=== PATIENT | female | born 2000 | race Two or more races ===

== ENCOUNTER 2025-04-10 16:56 | Inpatient (IN) | payer OTHER, SELFPAY ==
[2025-04-10] VITALS (51 sets, daily range): BP systolic 81–145; BP diastolic 40–94; PULSE 73–112; TEMP 36.5–36.7; O2SAT 97–100; BMI 34.7
--- OUTSIDE RECORDS SUMMARY | 2025-04-10 17:01 | XMS_ITS | Continuity of Care Document ---
Author Organization [facility] [place], [place] Address [address] [place] [address] Assessment Encounter Date Assessment Date Assessment LastModified by Organization Details LastModified Time 04/08/2025 04/08/2025 Patient is ___weeks . Discussed plan. [email or web address] Not available 04/08/2025 14:47:52 Plan of Treatment Reminders Order Date Submit Date Provider Last Modified By Organization Details Last Modified Time Details Appointments None record ed. Lab None record ed. Referral None record ed. Procedures None record ed. Surgeries None record ed. Imaging None record ed. Medication Orders None record ed. Patient TargetsNo targets recorded. Patient InstructionsNo instructions recorded. Reason for Referral None Reported. Results Created Date Observation Date Name Description Value Unit Range Abnormal Flag Note LastModifiedBy Organization Detail LastModifiedTime 11/02/19 25 11/01/2024 [UNIT Y] ANEUP LOIDY NIPT fraction 22.1% normal Not Available Arelis [address], [place], [address], 11/01/2024 03:35:20 11/02/19 25 11/01/2024 [UNIT Y] ANEUP LOIDY NIPT 22Q11.2 microdeletio n LOW RISK <1 in 10,000 normal Not Available Lizzeth [address], [place], [address], 11/01/2024 03:35:20 11/02/19 25 11/01/2024 [UNIT Y] ANEUP LOIDY NIPT sex chromosome aneuploidy NOT DETECT ED normal Not Available [address] [address], [place], [address], 11/01/2024 03:35:20 11/02/19 25 11/01/2024 [UNIT Y] ANEUP LOIDY NIPT monosomy X LOW RISK <1 in 10,000 normal Not Available [address] [address], [place], [address], 11/01/2024 03:35:20 11/02/19 25 11/01/2024 [UNIT Y] ANEUP LOIDY NIPT trisomy 13 LOW RISK <1 in 10,000 normal Not Available [address], [place], [address], 11/01/2024 03:35:20 11/02/19 25 11/01/2024 [UNIT Y] ANEUP LOIDY NIPT trisomy 18 LOW RISK <1 in 10,000 normal Not Available [address] [facility] [address], [place], [address], 11/01/2024 03:35:20 11/02/19 25 11/01/2024 [UNIT Y] ANEUP LOIDY NIPT trisomy 21 LOW RISK <1 in 10,000 normal Not Available [address], [place], [address], 11/01/2024 03:35:20 11/02/19 25 11/01/2024 [UNIT Y] ANEUP LOIDY NIPT sex FEMALE normal Not Available [facility] [address], [place], [address], 11/01/2024 03:35:20 11/02/19 25 11/01/2024 [UNIT Y] ANEUP LOIDY NIPT gestation SINGLE TON normal Not Available [address] [facility] [address], [place], [address], 11/01/2024 03:35:20 11/02/19 25 11/01/2024 [UNIT Y] ANEUP ALEXIAIDY NIPT for detailed report, see pdf See PDF normal Not Available [address], [place], [address], 11/01/2024 03:35:20 11/05/19 25 11/04/2024 [UNIT Y] LAQUITA Hurtado sickle cell disease/beta -thalassemia /hemoglobino pathies carrier screen NEGATI VE normal Not Available [address] [address], [place], [address], 11/04/2024 00:48:44 11/05/19 25 11/04/2024 [UNIT Y] LAQUITA MELYSSA Hurtado alpha-thalas semia carrier screen NEGATI VE normal Not Available [address] [address], [place], [address], 11/04/2024 00:48:44 11/05/19 25 11/04/2024 [UNIT Y] LAQUITA MELYSSA Hurtado cystic fibrosis carrier screen NEGATI VE normal Not Available [address] [address], [place], [address], 11/04/2024 00:48:44 11/05/19 25 11/04/2024 [UNIT Y] LAQUITA Hurtado spinal muscular atrophy carrier screen NEGATI VE 2 SMN1 copies , SNP not presen t normal Not Available [address] [address], [place], [address], 11/04/2024 00:48:44 11/05/19 25 11/04/2024 [UNIT Y] LAQUITA Hurtado for detailed report, see pdf See PDF normal Not Available [address] [address], [place], [address], 11/04/2024 00:48:44 10/26/19 25 10/25/2024 CBC W/DIF F WBC 8.7 10'3/ uL 3.5-10 .5 Not Available [facility] (Lab) [address], [place], [address], 10/26/2024 13:46:11 10/26/19 25 10/25/2024 CBC W/DIF F RBC 3.45 10'6/ uL (based on docume nted legal sex) 3.80-5 .20 low Not Available [facility] (Lab) [address], [place], [address], 10/26/2024 13:46:11 10/26/19 25 10/25/2024 CBC W/DIF F HGB 10.1 g/dL (based on docume nted legal sex) 11.6-1 5.4 low Not Available [facility] (Lab) [address], [place], [address], 10/26/2024 13:46:11 10/26/19 25 10/25/2024 CBC W/DIF F HCT 31.0 % (based on docume nted legal sex) 34.0-4 5.0 low Not Available [facility] (Lab) [address], [place], [address], 10/26/2024 13:46:11 10/26/19 25 10/25/2024 CBC W/DIF F MCV 89.9 fL 80.0-9 9.0 Not Available [facility] (Lab) [address], [place], [address], 10/26/2024 13:46:11 10/26/19 25 10/25/2024 CBC W/DIF F MCH 29.3 pg 27.0-3 4.0 Not Available [facility] (Lab) [address], [place], [address], 10/26/2024 13:46:11 10/26/19 25 10/25/2024 CBC W/DIF F MCHC 32.6 g/dL 32.0-3 5.5 Not Available [facility] (Lab) [address], [place], [address], 10/26/2024 13:46:11 10/26/19 25 10/25/2024 CBC W/DIF F RDW 14.4 % 11.0-1 5.0 Not Available [facility] (Lab) [address], [place], [address], 10/26/2024 13:46:11 10/26/19 25 10/25/2024 CBC W/DIF F plt 284 10'3/ uL 150-40 0 Not Available [facility] (Lab) [address], [place], [address], 10/26/2024 13:46:11 10/26/19 25 10/25/2024 CBC W/DIF F MPV 11.1 fL 8.8-12 .1 Not Available [facility] (Lab) [address], [place], [address], 10/26/2024 13:46:11 10/26/19 25 10/25/2024 CBC W/DIF F NRBC's 0.0 % 0.0 Not Available [facility] (Lab) [address], [place], [address], 10/26/2024 13:46:11 10/26/19 25 10/25/2024 CBC W/DIF F absolute NRBCs 0.0 10'3/ uL no refere nce range establ ished Not Available [facility] (Lab) [address], [place], [address], 10/26/2024 13:46:11 10/26/19 25 10/25/2024 CBC W/DIF F neutrophils 62.7 % 34.0-7 3.0 Not Available [facility] (Lab) [address] [place], [address], 10/26/2024 13:46:11 10/26/19 25 10/25/2024 CBC W/DIF F lymphocytes 31.2 % 15.0-5 0.0 Not Available [facility] (Lab) [address], [place], [address], 10/26/2024 13:46:11 10/26/19 25 10/25/2024 CBC W/DIF F monocytes 5.2 % 1.0-15 .0 Not Available [facility] (Lab) [address], [place], [address], 10/26/2024 13:46:11 10/26/19 25 10/25/2024 CBC W/DIF F eosinophils 0.2 % 0.0-8. 0 Not Available [facility] (Lab) [address], [place], [address], 10/26/2024 13:46:11 10/26/19 25 10/25/2024 CBC W/DIF F basophils 0.5 % 0.0-2. 0 Not Available [facility] (Lab) [address], [place], [address], 10/26/2024 13:46:11 10/26/19 25 10/25/2024 CBC W/DIF F immature granulocytes 0.2 % no define d refere nce range Immat ure Granu locyt es (IG) repre sents autom ated enume ratio n of Metam yeloc ytes, Myelo cytes and Promy elocy palmer when IG is < 5%. Blast s are not inclu ded in IG and repor bryan separ ately if prese nt. Not Available [facility] (Lab) [address] , [place], [address], 10/26/2024 13:46:11 10/26/19 25 10/25/2024 CBC W/DIF F absolute neutrophils 5.5 10'3/ uL 1.5-8. 0 Not Available [facility] (Lab) [address], [place], [address], 10/26/2024 13:46:11 10/26/19 25 10/25/2024 CBC W/DIF F absolute lymphocytes 2.7 10'3/ uL 1.0-4. 0 Not Available [facility] (Lab) [address], [place], [address], 10/26/2024 13:46:11 10/26/1910/25/2024 CBC W/DIF F absolute monocytes 0.5 10'3/ uL 0.2-1. 0 Not Available [facility] (Lab) [address], [place], [address], 10/26/2024 13:46:11 10/26/19 25 10/25/2024 CBC W/DIF F absolute eosinophils 0.0 10'3/ uL 0.0-0. 6 Not Available [facility] (Lab) [address], [place], [address], 10/26/2024 13:46:11 10/26/19 25 10/25/2024 CBC W/DIF F absolute basophils 0.0 10'3/ uL 0.0-0. 3 Not Available [facility] (Lab) [address], [place], [address], 10/26/2024 13:46:11 10/26/19 25 10/25/2024 CBC W/DIF F absolute immature granulocytes 0.0 10'3/ uL 0.00-0 .10 Refer ence range s for nonbi nary/ inter sex or unspe cifie d gende r patie nts have not been estab lishe d. Pleas e refer to the rochelleo wing table for range s estab lishe d for cisge nder patie nts and evalu ate in the clini akira gabino xt of the indiv idual patie nt: https ://teri dyer book. nm.or g/gen derx Not Available [facility] (Lab) [address], [place], [address], 10/26/2024 13:46:11 10/26/1910/25/2024 HIV 1/2 ANTIG EN/AN TIBOD Y, REFLE X CONFI RMATI ON HIV antigen/anti body Nonrea ctive nonrea ctive HIV-1 antig en and HIV-1 /HIV- 2 antib odies were not detec bryan. No labor atory evide nce of HIV infec tion. Not Available [facility] (Lab) [address], [place], [address], 10/26/2024 13:46:11 10/26/19 25 10/25/2024 HEPAT ITIS C ANTIB MIGUELINA SCREE N, REFLE X TO CONFI RMATI ON hepatitis C antibody Non-re active non-re active Antib odies to HCV Not Detec bryan, does not exclu de the possi bilit y of expos ure to HCV. Not Available [facility] (Lab) [address], [place], [address], 10/26/2024 13:46:12 10/26/19 25 10/25/2024 HEPAT ITIS B SURFA CE ANTIG EN hepatitis B surface antigen Non-re active non-re active This assay was perfo rmed using [employer] ratio n reage nts and test kits. Value s obtai rickey with other assay metho ds or kits canno t be used inter zuleta eably . Not Available [facility] (Lab) [address], [place], [address], 10/26/2024 13:46:12 10/26/19 25 10/25/2024 TSH, REFLE X FREE T4 TSH 1.26 uIU/m L 0.30-5 .33 Not Available [facility] (Lab) [address], [place], [address], 10/26/2024 13:46:13 10/26/19 25 10/25/2024 TYPE/ RH/SC REEN ABO/Rh type O POS Not Available [facility] (Lab) [address], [place], [address], 10/26/2024 13:46:13 10/26/19 25 10/25/2024 TYPE/ RH/SC REEN antibody screen NEG Not Available [facility] (Lab) [address], [place], [address], 10/26/2024 13:46:13 10/26/19 25 10/25/2024 TYPE/ RH/SC REEN exp date 2024 23:59 Not Available [facility] (Lab) [address], [place], [address], 10/26/2024 13:46:13 10/26/19 25 10/25/2024 RUBEL LA IGG ANTIB MIGUELINA, QUANT rubella antibodies, IgG Reacti ve reacti ve Not Available [facility] (Lab) [address], [place], [address], 10/26/2024 13:46:13 10/26/19 25 10/25/2024 RUBEL LA IGG ANTIB MIGUELINA, QUANT rubella antibodies, IgG quant 18.0 IU/mL >=10 Non-r eacti ve (Non- Immun e) <10 IU/mL React haim (Immu ne) > or = 10 IU/mL Not Available [facility] (Lab) [address], [place], [address], 10/26/2024 13:46:13 10/26/19 25 10/25/2024 RPR SCREE N, REFLE X TITER /CONF IRMAT ION RPR qualitative Nonrea ctive nonrea ctive Not Available [facility] (Lab) [address] [place], [address], 10/26/2024 13:46:14 10/26/19 25 10/25/2024 HEMOG LOBIN A1C hemoglobin A1C 5.2 % 4.0-5. 6 The Ameri can Diabe palmer [employer] iatio n recom mends that a prima ry goal of thera py javi d be a HBA1C of < 7% and that physi cians federicoul d reeva luate the treat ment regim en in patie nts with HBA1C value s consi stent ly > 8%. <5.7% Nitza l 5.7 - 6.4% Incre ased risk for diabe palmer >=6.5 % Diagn ostic of diabe palmer <7.0% Goal of thera py >8.0% Actio n sugge sted Not Available [facility] (Lab) [address], [place], [address], 10/26/2024 13:46:14 10/26/19 25 10/25/2024 CT/GC AND TRICH OMONA S VAGIN ARIANA (RRNA ), URINE chlamydia trachomatis, PCR Negati ve negati ve Not Available [facility] (Lab) [address], [place], [address], 10/26/2024 21:37:02 10/26/19 25 10/25/2024 CT/GC AND TRICH OMONA S VAGIN ARIANA (RRNA ), URINE neisseria gonorrhoeae, PCR Negati ve negati ve Not Available [facility] (Lab) [address], [place], [address], 10/26/2024 21:37:02 10/26/19 25 10/25/2024 CT/GC AND TRICH OMONA S VAGIN ARIANA (RRNA ), URINE trichomonas vaginalis ribosomal RNA (rrna) Negati ve negati ve Not Available [facility] (Lab) [address], [place], [address], 10/26/2024 21:37:02 10/26/19 25 10/25/2024 CULTU RE: URINE result report SEE RESULT S BELOW Test: Cultu re: Urine Speci men Sourc e: Urine Voide d Speci men Type: Urine Speci men Date: 025 1714 Resul t Date: 20242 Resul t Statu s: Final resul t Abnor mal: No Resul ting Lab: [facility] [address] [facility] [address] Tel: CULTU RE ----- ----- ----- --- No growt h in 1 day (dete ction level of 10,00 0 colon ies / ml.) Not Available [facility] (Lab) [address], [place], [address], 10/26/2024 21:37:02 10/26/19 25 10/25/2024 drug scree n, urine Amphetamines : negati ve Not Available [place] [address], [place], [address], 10/25/2024 17:35:03 10/26/19 25 10/25/2024 drug scree n, urine Cannabinoids : negati ve Not Available [place] [address], [place], [address], 10/25/2024 17:35:03 10/26/19 25 10/25/2024 drug scree n, urine Cocaine: negati ve Not Available [place] [address], [place], [address], 10/25/2024 17:35:03 10/26/19 25 10/25/2024 drug scree n, urine Opiates: negati ve Not Available [place] [address], [place], [address], 10/25/2024 17:35:03 10/26/19 25 10/25/2024 drug scree n, urine Phenocyclidi ne: negati ve Not Available [place] [address], [place], [address], 10/25/2024 17:35:03 10/26/19 25 10/25/2024 drug scree n, urine Barbiturates : negati ve Not Available [place] [address], [place], [address], 10/25/2024 17:35:03 10/26/19 25 10/25/2024 drug scree n, urine Benzodiazepi bridget: negati ve Not Available [place] [address], [place], [address], 10/25/2024 17:35:03 10/26/19 25 10/25/2024 drug scree n, urine Ethanol: negati ve Not Available [place] [address], [place], [address], 10/25/2024 17:35:03 10/26/19 25 10/25/2024 drug scree n, urine Hallucinogen s: negati ve Not Available [place] [address], [place], [address], 10/25/2024 17:35:03 10/26/19 25 10/25/2024 drug scree n, urine Inhalants: negati ve Not Available [place] [address], [place], [address], 10/25/2024 17:35:03 10/26/19 25 10/25/2024 drug scree n, urine Anabolic Steroids: negati ve Not Available [place] [address], [place], [address], 10/25/2024 17:35:03 10/26/19 25 10/25/2024 drug scree n, urine Other: negati ve Not Available [place] [address], [place], [address], 10/25/2024 17:35:03 01/15/20 25 01/14/2025 HEMOG LOBIN (HGB) HGB 9.3 g/dL (based on docume nted legal sex) 11.6-1 5.4 low Not Available [facility] (Lab) [address], [place], [address], 01/15/2025 13:08:39 01/15/20 25 01/14/2025 HEMAT OCRIT (HCT) HCT 28.1 % (based on docume nted legal sex) 34.0-4 5.0 low Not Available [facility] (Lab) [address], [place], [address], 01/15/2025 13:08:39 01/15/20 25 01/14/2025 GTT - GESTA RADHA L AMBAR N, ACOG OB glucose, 1 hour screen 99 mg/dL 70-135 Not Available [facility] (Lab) [address], [place], [address], 01/15/2025 13:08:40 01/15/20 25 01/14/2025 HIV 1/2 ANTIG EN/AN TIBOD Y, REFLE X CONFI RMATI ON HIV antigen/anti body Nonrea ctive nonrea ctive HIV-1 antig en and HIV-1 /HIV- 2 antib odies were not detec bryan. No labor atory evide nce of HIV infec tion. Not Available [facility] (Lab) [address], [place], [address], 01/15/2025 13:08:40 01/15/20 25 01/14/2025 RPR SCREE N, REFLE X TITER /CONF IRMAT ION RPR qualitative Nonrea ctive nonrea ctive Not Available [facility] (Lab) [address], [place], [address], 01/15/2025 13:08:40 03/10/20 25 03/10/2025 CULTU RE: GROUP B STREP SCREE N, REFLE X SUSCE PTIBI LITY result report SEE RESULT S BELOW Test: Cultu re: Group B Strep , Refle x Susce ptibi lity ([facility] ) Speci men Sourc e: Vagin a/Rec ernie Speci men Type: Vagin al/Re ctal Speci men Date: 03/10 1652 Resul t Date: 03/13 1409 Resul t Statu s: Final resul t Abnor mal: No Resul ting Lab: [facility] [address] [facility] [address] Tel: CULTU RE ----- ----- ----- --- No Group B strep isola bryan at 2 days (prudence ctive broth enhan cemen t) Not Available [facility] (Lab) [address], [place], [address], 03/13/2025 15:12:11 10/26/19 25 10/25/2024 US, obste tric, limit ed No observ ation record ed. [facility] [address], [place], [address], 10/25/2024 18:50:32 10/28/19 25 10/25/2024 US, obste tric, limit ed No observ ation record ed. [address] [address], [place], [address], 10/30/2024 23:24:32 11/27/19 25 11/26/2024 US, obste tric, 2nd or 3rd trime ster No observ ation record ed. [facility] [address], [place], [address], 11/26/2024 17:49:36 11/27/19 25 11/26/2024 US, obste tric, 2nd or 3rd trime ster No observ ation record ed. [email or web address] [address], [place], [address], 11/26/2024 17:24:36 02/12/20 25 02/11/2025 US, obste tric, follo w-up No observ ation record ed. [email or web address] [place] [address], [place], [address], 02/11/2025 17:21:09 02/12/20 25 02/11/2025 US, obste tric, follo w-up No observ ation record ed. [email or web address] [address], [place], [address], 02/25/2025 10:51:35 03/10/20 25 03/10/2025 US, obste tric, follo w-up No observ ation record ed. [facility] [address], [place], [address], 03/10/2025 15:18:58 03/10/20 25 03/10/2025 US, obste tric, follo w-up No observ ation record ed. [email or web address] [address] [address], [place], [address], 03/18/2025 11:35:09 Result Notes None recorded. Problems Name Problem SNOMED Code Status Onset Date Resolution Date Notes Provider Name and Address Organization Details Recorded Time [id number] Active 025 [facility] 17:01:38 Problem Notes None recorded. Medical Equipment None Reported. Medications Name Sig Start Date Stop Date Status Note LastModified by Organization Details LastModified Time 28 mg iron-800 mcg tablet Take 1 tablet every day by oral route. 025 active Not Available Not Available Not Avai lable Haydee 0.25 mg-0.035 mg tablet TAKE 1 TABLET BY MOUTH 1 TIME EACH DAY. 2024 completed Not Available Not Available Not Available Vitals Date Recorded Body height Body mass index (BMI) Body weight Systolic And Diastolic Provider Name and Address Organization Details Last Updated DateTime 04/08/2025 157.48 cm 35.1 kg/m2 84890.74 g 110/74 mm[Hg] Christine Preciado [facility] 04/08/2025 14:53:58 Social History Question Answer Notes LastModified by Organizat ion Details LastModified Time Tobacco Smoking Status Never Smoker [facility] 10/25/2024 16:11:22 Do You Have An Advance Directive? No [email or web address] Information n ot available 10/25/2024 If You Are , What Was Your Level Of Alcohol Consumption Prior To ? None [email or web address] Information not available 10/25/2024 Are You Blind Or Do You Have Difficulty Seeing? No [email or web address] Information n ot available 10/25/2024 What Is Your Level Of Caffeine Consumption? None [email or web address] Information not available 10/25/2024 In The 14 Days Before Symptom Onset, Have You Had Close Contact With A Laboratory-confirm ed COVID-19 While That Case Was Ill? No [email or web address] Information n ot available 10/25/2024 In The 14 Days Before Symptom Onset, Have You Had Close Contact With A Person Who Is Under Investigation For COVID-19 While That Person Was Ill? No Information not available 10/25/2024 Have You Been To An Area Known To Be High Risk For COVID-19? No [email or web address] Information not available 10/25/2024 Are You Deaf Or Do You Have Serious Difficulty Hearing? No Information not available 10/25/2024 What Type Of Diet Are You Following? REGULAR [email or web address] Information n ot available 10/25/2024 What Is The Highest Grade Or Level Of School You Have Completed Or The Highest Degree You Have Received? [id number] [email or web address] Information not available 10/25/2024 Are There Any Guns Present In Your Home? No [email or web address] Information not available 10/25/2024 Do You Use Protection During Sex? No [email or web address] Information not available 01/28/2025 Do You Use Your Seat Belt Or Car Seat Routinely? Yes Information not available 10/25/2024 Are You Sexually Active? Yes Information not available 10/25/2024 Do You Have Smoke And Carbon Monoxide Detectors In Your Home? Yes [email or web address] Information not available 10/25/2024 Do You Use Sunscreen Routinely? Yes [email or web address] Information not available 10/25/2024 Has Tobacco Cessation Counseling Been Provided? No [email or web address] Information not available 10/25/2024 Do You Have Difficulty Walking Or Climbing Stairs? No Information not available 10/25/2024 Sex: Unknown Functional Status Question Answer Note LastModified by Organizat ion Details LastModified Time Do you use any illicit or recreational drugs? No [email or web address] Information not available 10/25/2024 Do you or have you ever used any other forms of tobacco or nicotine? No [email or web address] Information not available 10/25/2024 What is your level of alcohol consumption? None [email or web address] Information not available 10/25/2024 Are you currently employed? Yes [email or web address] Information not available 01/28/2025 Are you able to walk independently without assistance or assistive devices? YESASSIST [email or web address] Information not available 10/25/2024 Are you able to care for yourself independently? Yes Information not available 10/25/2024 Do you have difficulty dressing, bathing, grooming, or toileting? No Information not available 10/25/2024 What is your exercise level? Occasional [email or web address] Information not available 10/25/2024 Mental Status Question Answer Note LastModified by Organization D etails LastModified Time Do you feel stressed (tense, restless, nervous, or anxious, or unable to sleep at night)? [id number] [email or web address] Information not available 01/28/2025 Family History Nothing Reported. Medical History Condition Response Allergies (Food, seasonal, environmental ) N Other N Drug/Latex Allergies/Reactions N Blood Transfusion N Breast Cancer N Dermatologic Disorders N Lung Disease N Defects or Inherited Disease N Breast Problem N Gestational Diabetes N Hematologic disorders N Anesthesia Complications N History of STI N Deep Vein Thrombosis N Polycystic ovary syndrome N Anxiety Disorder N Autoimmune disease N Arthritis N Polyps N Infertility N Acid Reflux (GERD) N History of abnormal pap N Cancer N Varicosities N Stroke N Neurologic/Epilepsy N Endometriosis N High Cholesterol N Fibromyalgia N Headaches N Kidney Disease N Heart Problems N Thyroid Problems N Kidney or Bladder Problems N GI Problems N Eating Disorder N Anemia N Art (IVF or FET) N Psychiatric Illness N Ovarian Cancer N Diabetes N Pulmonary (TB, Asthma) N Hepatitis/Liver Disease N No Past Medical History N Eczema N Urinary Tract Infection N Abuse/Domestic Violence N Asthma N Trauma/Violence N Depression/ depression N Heart Disease N Pre-Eclampsia N Hypertension N Osteoporosis N Thrombophilias N Gynecological History Statement/Question Response Date of Last Mammogram Flow Moderate Date of LMP 07/08/2024 Was last menstrual period normal Y STIs/STDs N Date of Last Colonoscopy Desired Control Method None Abnormal Pap N On BCP's at Conception? N HPV Vaccine N Duration of Flow (days) 7 Current Control Method Age at First Child 23 Are cycles usually normal Y Frequency of Cycle (Q days) 29 Sexually Active? Y Menses Monthly Y Date of DEXA bone scan Age of first menstrual cycle 17 Date of Last Pap Smear Sexual Problems? N LMP Definite Obstetrics History GPAL:G 3 P 1 0 1 1 Type Value Full Term 1 Induced 1 Living 1 Total 3 Past Encounters Encounter ID Performer Location Encounter Start Date Encounter Closed Date Diagnosis/Indication Diagnosis SNOMED-CT Code Diagnosis ICD10 Code Diagnosis IMO Codes Diagnosis Note [id number] MD Brit Joy [address],[place] [address] 03/10/2025 14:40:38 03/10/2025 15:25:33 Uterine size for dates discrepancy [id number] O26.843 O09.30 Z3A.36 [id number] MD Brit Joy [address],[place] [address] 03/10/2025 14:43:23 03/10/2025 16:33:12 care status [id number] Z34.83 [id number] MD Brit Joy [address],[place] [address] 03/23/2025 17:49:32 03/24/2025 09:10:25 care status [id number] Z34.83 [id number] MD Brit Joy [address],[place] [address] 03/30/2025 17:07:58 03/31/2025 08:48:38 care status [id number] Z34.83 [id number] Anoop Johnson MD [place] [address],[place] [address] 04/08/2025 14:46:38 04/08/2025 15:31:34 care status [id number] Z34.83 [id number] Health Concerns Section Related Observation LastModified by Organization Detai ls LastModified Time None Recorded Concern Status LastModified by Organization Details LastModified Time None Recorded Payers Encounter Date Sequence Insurance Name Policy Number Policy Hoang Covered Member ID Hoang Member ID Guarantor Name 04/08/2025 1 [facility] (MEDICAID HMO) [id number] Con Barraza [id number] Con Barraza Notes Date Note Type Note Provider Name and Address Organization Details Recorded Time 04/08/2025 text/html Generic HPI TemplateReported by Patient Anoop Johnson MD [address], [place], [address], [place] [facility] 04/08/2025 15:25:47 OBGyn Episode Ob Episode Information Episode Created Date Number of Fetuses Patient Bloodtype Patient rh Status Prepregnancy Weight lbs Domestic Partner Domestic Partner Phone Father Name Charger Status 10/26/19 25 1 O Positive Ricky OPEN Fetus Data First Name Last Name Admitted to NICU Weight (g) Sex Living Outcome Pediatric Complications Fetus ID Race Codes Race Delivery Type [id number] Cristobal Calculation Initial Cristobal Date Initial Exam Date Initial Exam Provider Initial Ultrasound Date Last Menstrual Period Date Ultra Sound Weeks Gestation 04/05/2025 10/25/2024 10/25/2024 06/28/2024 16 Eighteen To Twenty Week Cristobal Update Ultra Sound Date Fundal Height At Umbil Quickening Date Ultra Sound Latest Weeks Gestation Final Cristobal Confirmed By Final Cristobal Confirmed Date Final Cristobal Date Ultra Sound Latest Days Gestation 0 0 Pre-aleisha Flowsheet Flowsheet Date 10/25/2024 Hassan Score Blood Edema Fundus Height Fundus Units Glucose Ketones Leukocytes Nitrite Labor Signs Protein Cervic Dilation Cervic Effacement Cervic Station Type Weight in lbs Pre/Post Dialysis Refused BP Diastolic BP Location Tested BP Systolic BP Type Fetus Heart Rate Present Fetus Movement Comments Flowsheet Date 10/25/2024 Hassan Score Blood Edema Fundus Height Fundus Units Glucose Ketones Leukocytes Nitrite Labor Signs Protein Cervic Dilation Cervic Effacement Cervic Station neg none Type Weight in lbs Pre/Post Dialysis Refused Weight 164.966344421985 BP Diastolic BP Location Tested BP Systolic BP Type 62 L arm 90 sitting Fetus Heart Rate Present A Present Fetus Movement A Yes Comments Patient presents to [facility]. Hx of uncomplicated , EIL. otherwise uncomplicated. No nausea or cramping. US wnl today, size c/w dates. Discussed anatomy US for next visit. Desires NIPT, will draw today with new OB labs. RTC 4 weeks for routine care. Flowsheet Date 11/26/2024 Hassan Score Blood Edema Fundus Height Fundus Units Glucose Ketones Leukocytes Nitrite Labor Signs Protein Cervic Dilation Cervic Effacement Cervic Station Type Weight in lbs Pre/Post Dialysis Refused BP Diastolic BP Location Tested BP Systolic BP Type Fetus Heart Rate Present Fetus Movement Comments Flowsheet Date 11/26/2024 Hassan Score Blood Edema Fundus Height Fundus Units Glucose Ketones Leukocytes Nitrite Labor Signs Protein Cervic Dilation Cervic Effacement Cervic Station neg none Type Weight in lbs Pre/Post Dialysis Refused Weight 167.435618609389 BP Diastolic BP Location Tested BP Systolic BP Type 71 L arm 120 sitting Fetus Heart Rate Present Fetus Movement A Yes Comments Good movement. No cram ping or bleeding. LR NIPT! Having gender reveal. All other new OB labs wnl. Anatomy complete and normal today, EFW 23%. Repeat at 32 weeks for growth US. RTC 4 weeks. Flowsheet Date 12/31/2024 Hassan Score Blood Edema Fundus Height Fundus Units Glucose Ketones Leukocytes Nitrite Labor Signs Protein Cervic Dilation Cervic Effacement Cervic Station Type Weight in lbs Pre/Post Dialysis Refused Weight 175.314314036415 BP Diastolic BP Location Tested BP Systolic BP Type 56 L arm 79 sitting 48 R arm 98 sitting Fetus Heart Rate Present A 150 Fetus Movement A Yes Comments Good movement. No cram ping or bleeding. Having some irritation from shaving. GCT and labs next visit. Lightheadedness today, discussed hydration and electrolytes. RTC 2 weeks. Flowsheet Date 01/14/2025 Hassan Score Blood Edema Fundus Height Fundus Units Glucose Ketones Leukocytes Nitrite Labor Signs Protein Cervic Dilation Cervic Effacement Cervic Station Type Weight in lbs Pre/Post Dialysis Refused Weight 178.685098356977 BP Diastolic BP Location Tested BP Systolic BP Type 69 L arm 107 sitting Fetus Heart Rate Present A 150 Fetus Movement A Yes Comments Doing well, baby active. No cramping or bleeding. GCT and labs today. Discussed tdap vaccine. Lightheadedness improved. RTC 2 weeks. Growth in 2 weeks. Flowsheet Date 01/28/2025 Hassan Score Blood Edema Fundus Height Fundus Units Glucose Ketones Leukocytes Nitrite Labor Signs Protein Cervic Dilation Cervic Effacement Cervic Station Type Weight in lbs Pre/Post Dialysis Refused Weight 180.865810853103 BP Diastolic BP Location Tested BP Systolic BP Type 71 L arm 107 sitting Fetus Heart Rate Present A 143 Present Fetus Movement A Yes Comments growth next visit, glucose w nl start slow fe daily, education and precautions f/u 2 weeks Flowsheet Date 02/11/2025 Hassan Score Blood Edema Fundus Height Fundus Units Glucose Ketones Leukocytes Nitrite Labor Signs Protein Cervic Dilation Cervic Effacement Cervic Station Type Weight in lbs Pre/Post Dialysis Refused BP Diastolic BP Location Tested BP Systolic BP Type Fetus Heart Rate Present Fetus Movement Comments Flowsheet Date 02/11/2025 Hassan Score Blood Edema Fundus Height Fundus Units Glucose Ketones Leukocytes Nitrite Labor Signs Protein Cervic Dilation Cervic Effacement Cervic Station Type Weight in lbs Pre/Post Dialysis Refused Weight 178.572429029011 BP Diastolic BP Location Tested BP Systolic BP Type 70 L arm 108 sitting Fetus Heart Rate Present Fetus Movement A Yes Comments reviewed growth US 21% AC 12 %, +FM, call for preadmit reviewed vaccines f/u 2 weeks Flowsheet Date 02/25/2025 Hassan Score Blood Edema Fundus Height Fundus Units Glucose Ketones Leukocytes Nitrite Labor Signs Protein Cervic Dilation Cervic Effacement Cervic Station Type Weight in lbs Pre/Post Dialysis Refused Weight 183.958890038782 BP Diastolic BP Location Tested BP Systolic BP Type 63 L arm 93 sitting Fetus Heart Rate Present Fetus Movement A Yes Comments plan f/u growth at next [facility] by cnm [id number], precautions and education, not planning on vaccines f/u 2 weeks with gbs Flowsheet Date 03/10/2025 Hassan Score Blood Edema Fundus Height Fundus Units Glucose Ketones Leukocytes Nitrite Labor Signs Protein Cervic Dilation Cervic Effacement Cervic Station Type Weight in lbs Pre/Post Dialysis Refused BP Diastolic BP Location Tested BP Systolic BP Type Fetus Heart Rate Present Fetus Movement Comments Flowsheet Date 03/10/2025 Hassan Score Blood Edema Fundus Height Fundus Units Glucose Ketones Leukocytes Nitrite Labor Signs Protein Cervic Dilation Cervic Effacement Cervic Station Type Weight in lbs Pre/Post Dialysis Refused Weight 186.978036566826 BP Diastolic BP Location Tested BP Systolic BP Type 71 L arm 117 sitting Fetus Heart Rate Present A 144 Fetus Movement A Yes Comments no complaints, no problems, routine care, no contractions, no vaginal bleeding, no loss of fluid, no cramping Flowsheet Date 03/23/2025 Hassan Score Blood Edema Fundus Height Fundus Units Glucose Ketones Leukocytes Nitrite Labor Signs Protein Cervic Dilation Cervic Effacement Cervic Station Type Weight in lbs Pre/Post Dialysis Refused Weight 190.664817717729 BP Diastolic BP Location Tested BP Systolic BP Type 65 L arm 109 sitting Fetus Heart Rate Present A 151 Fetus Movement A Yes Comments no complaints, no problems, routine care, no contractions, no vaginal bleeding, no loss of fluid, no cramping Flowsheet Date 03/30/2025 Hassan Score Blood Edema Fundus Height Fundus Units Glucose Ketones Leukocytes Nitrite Labor Signs Protein Cervic Dilation Cervic Effacement Cervic Station Type Weight in lbs Pre/Post Dialysis Refused 189.139947854889 BP Diastolic BP Location Tested BP Systolic BP Type 68 L arm 100 sitting Fetus Heart Rate Present A 147 Present Fetus Movement A Yes Comments no complaints, no problems, routine care, no contractions, no vaginal bleeding, no loss of fluid, no cramping Flowsheet Date 04/08/2025 Hassan Score Blood Edema Fundus Height Fundus Units Glucose Ketones Leukocytes Nitrite Labor Signs Protein Cervic Dilation Cervic Effacement Cervic Station 40 cm Type Weight in lbs Pre/Post Dialysis Refused Weight 192.051702025511 BP Diastolic BP Location Tested BP Systolic BP Type 74 R arm 110 sitting Fetus Heart Rate Present A 145 Fetus Movement A Yes Comments no complaints, no problems, routine care, no contractions, no vaginal bleeding, no loss of fluid, no cramping Menstrual History Last Menstrual Date Menses Monthly On Bcp Conception Prior Menses Frequency Hcg Plus Date Menarche Onset Age 0206/28/2024 false false Delivery Information Delivery Date Delivery Type Labor Anesthesia Weeks Gestation Incision Type Labor Labor Length Hrs Delivered By Post Complications Tubal Sterilization Discharge Date Comments Discharge Information Feeding Method Contraceptive Method Maternal HG B and HCT Levels
--- OUTSIDE RECORDS SUMMARY | 2025-04-10 17:01 | XMS_ITS | Continuity of Care Document ---
Author Organization [facility], [place] Address [address] [place] [address] Assessment Encounter Date Assessment Date Assessment LastModified by Organization Details LastModified Time 02/11/2025 02/11/2025 Patient is _32__weeks . Discussed plan. Not available 02/11/2025 19:59:05 Plan of Treatment Reminders Order Date Submit [...] NIPT fraction 22.1% normal Not Available Arelis logan [address], [place], [address], 11/01/2024 03:35:20 11/02/19 25 11/01/2024 [UNIT Y] ANEUP LOIDY NIPT 22Q11.2 microdeletio n LOW RISK <1 in 10,000 normal Not Available Lizzeth li [address], [place], [address], 11/01/2024 03:35:20 11/02/19 25 11/01/2024 [UNIT Y] ANEUP LOIDY NIPT sex chromosome aneuploidy NOT DETECT ED normal Not Available [facility] [address], [place], [address], 11/01/2024 03:35:20 11/02/19 25 11/01/2024 [UNIT Y] ANEUP LOIDY NIPT monosomy X LOW RISK <1 in 10,000 normal Not Available [facility] [address], [place], [address], 11/01/2024 03:35:20 11/02/19 25 11/01/2024 [UNIT Y] ANEUP LOIDY NIPT trisomy 13 LOW RISK <1 in 10,000 normal Not Available [facility] [address], [place], [address], 11/01/2024 03:35:20 11/02/19 25 11/01/2024 [UNIT Y] ANEUP LOIDY NIPT trisomy 18 LOW RISK <1 in 10,000 normal Not Available [facility] [address], [place], [address], 11/01/2024 03:35:20 11/02/19 25 11/01/2024 [UNIT Y] ANEUP LOIDY NIPT trisomy 21 LOW RISK <1 in 10,000 normal Not Available [facility] [address], [place], [address], 11/01/2024 03:35:20 11/02/19 25 11/01/2024 [UNIT Y] ANEUP LOIDY NIPT sex FEMALE normal Not Available [facility] [address], [place], [address], 11/01/2024 03:35:20 11/02/19 25 11/01/2024 [UNIT Y] ANEUP LOIDY NIPT gestation SINGLE TON normal Not Available [facility] [address], [place], [address], 11/01/2024 03:35:20 11/02/19 25 11/01/2024 [UNIT Y] ANEUP ALEXIAIDY NIPT for detailed report, see pdf See PDF normal Not Available [facility] [address], [place], [address], 11/01/2024 03:35:20 11/05/19 25 11/04/2024 [UNIT Y] LAQUITA Hurtado sickle cell disease/beta -thalassemia /hemoglobino pathies carrier screen NEGATI VE normal Not Available [facility] [address], [place], [address], 11/04/2024 00:48:44 11/05/19 25 11/04/2024 [UNIT Y] LAQUITA MELYSSA Hurtado alpha-thalas semia carrier screen NEGATI VE normal Not Available [facility] [address], [place], [address], 11/04/2024 00:48:44 11/05/19 25 11/04/2024 [UNIT Y] LAQUITA MELYSSA Hurtado cystic fibrosis carrier screen NEGATI VE normal Not Available [facility] [address], [place], [address], 11/04/2024 00:48:44 11/05/19 25 11/04/2024 [UNIT Y] LAQUITA Hurtado spinal muscular atrophy carrier screen NEGATI VE 2 SMN1 copies , SNP not presen t normal Not Available [facility] [address], [place], [address], 11/04/2024 00:48:44 11/05/19 25 11/04/2024 [UNIT Y] LAQUITA Hurtado for detailed report, see pdf See PDF normal Not Available [facility] [address], [place], [address], 11/04/2024 00:48:44 10/26/19 25 10/25/2024 CBC W/DIF F WBC 8.7 10'3/ uL 3.5-10 .5 Not Available [facility] (Lab) [address], [place], [address], 10/26/2024 13:46:11 10/26/19 25 10/25/2024 CBC W/DIF F RBC 3.45 10'6/ uL (based on docume nted legal sex) 3.80-5 .20 low Not Available [facility] (Lab) [address], [place], [address], 10/26/2024 13:46:11 10/26/19 25 10/25/2024 CBC W/DIF F HGB 10.1 g/dL (based on docume nted legal sex) 11.6-1 5.4 low Not Available [facility] (Lab) [address], [place], [address], 10/26/2024 13:46:11 10/26/19 25 10/25/2024 CBC W/DIF F HCT 31.0 % (based on docume nted legal sex) 34.0-4 5.0 low Not Available [facility] (Lab) [address], [place], [address], 10/26/2024 13:46:11 10/26/19 25 10/25/2024 CBC W/DIF F MCV 89.9 fL 80.0-9 9.0 Not Available [facility] (Lab) [address], [place], [address], 10/26/2024 13:46:11 10/26/19 25 10/25/2024 CBC W/DIF F MCH 29.3 pg 27.0-3 4.0 Not Available [facility] (Lab) [address], [place], [address], 10/26/2024 13:46:11 10/26/19 25 10/25/2024 CBC W/DIF F MCHC 32.6 g/dL 32.0-3 5.5 Not Available [facility] (Lab) [address], [place], [address], 10/26/2024 13:46:11 10/26/19 25 10/25/2024 CBC W/DIF F RDW 14.4 % 11.0-1 5.0 Not Available [facility] (Lab) [address], [place], [address], 10/26/2024 13:46:11 10/26/19 25 10/25/2024 CBC W/DIF F plt 284 10'3/ uL 150-40 0 Not Available [facility] (Lab) [address] [facility], [place], [address], 10/26/2024 13:46:11 10/26/19 25 10/25/2024 CBC W/DIF F MPV 11.1 fL 8.8-12 .1 Not Available [facility] (Lab) [address], [place], [address], 10/26/2024 13:46:11 10/26/19 25 10/25/2024 CBC W/DIF F NRBC's 0.0 % 0.0 Not Available [facility] (Lab) [address] [facility], [place], [address], 10/26/2024 13:46:11 10/26/19 25 10/25/2024 CBC W/DIF F absolute NRBCs 0.0 10'3/ uL no refere nce range establ ished Not Available [facility] (Lab) [address], [place], [address], 10/26/2024 13:46:11 10/26/19 25 10/25/2024 CBC W/DIF F neutrophils 62.7 % 34.0-7 3.0 Not Available [facility] (Lab) [address] [place], [address], 10/26/2024 13:46:11 10/26/19 25 10/25/2024 CBC W/DIF F lymphocytes 31.2 % 15.0-5 0.0 Not Available [facility] (Lab) [address], [place], [address], 10/26/2024 13:46:11 10/26/19 25 10/25/2024 CBC W/DIF F monocytes 5.2 % 1.0-15 .0 Not Available [facility] (Lab) [address], [place], [address], 10/26/2024 13:46:11 10/26/19 25 10/25/2024 CBC W/DIF F eosinophils 0.2 % 0.0-8. 0 Not Available [facility] (Lab) [address], [place], [address], 10/26/2024 13:46:11 10/26/19 25 10/25/2024 CBC W/DIF F basophils 0.5 % 0.0-2. 0 Not Available [facility] (Lab) [address] [facility], [place], [address], 10/26/2024 13:46:11 10/26/19 25 10/25/2024 CBC W/DIF [...] separ ately if prese nt. Not Available [facility] (Lab) [address] [place], [address], 10/26/2024 13:46:11 10/26/19 25 10/25/2024 CBC W/DIF F absolute neutrophils 5.5 10'3/ uL 1.5-8. 0 Not Available [facility] (Lab) [address], [place], [address], 10/26/2024 13:46:11 10/26/19 25 10/25/2024 CBC W/DIF F absolute lymphocytes 2.7 10'3/ uL 1.0-4. 0 Not Available [facility] (Lab) [address], [place], [address], 10/26/2024 13:46:11 10/26/1910/25/2024 CBC W/DIF F absolute monocytes 0.5 10'3/ uL 0.2-1. 0 Not Available [facility] (Lab) [address] [facility], [place], [address], 10/26/2024 13:46:11 10/26/19 25 10/25/2024 CBC W/DIF F absolute eosinophils 0.0 10'3/ uL 0.0-0. 6 Not Available [facility] (Lab) [address], [place], [address], 10/26/2024 13:46:11 10/26/19 25 10/25/2024 CBC W/DIF F absolute basophils 0.0 10'3/ uL 0.0-0. 3 Not Available [facility] (Lab) [address], [place], [address], 10/26/2024 13:46:11 10/26/19 25 10/25/2024 CBC W/DIF [...] dyer book. nm.or g/gen derx Not Available [facility] (Lab) [address], [place], [address], 10/26/2024 13:46:11 10/26/1910/25/2024 HIV 1/2 ANTIG EN/AN TIBOD Y, REFLE X CONFI RMATI ON HIV antigen/anti body Nonrea ctive nonrea ctive HIV-1 antig en and HIV-1 /HIV- 2 antib odies were not detec bryan. No labor atory evide nce of HIV infec tion. Not Available [facility] (Lab) [address], [place], [address], 10/26/2024 13:46:11 10/26/19 25 10/25/2024 HEPAT ITIS C ANTIB MIGUELINA SCREE N, REFLE X TO CONFI RMATI ON hepatitis C antibody Non-re active non-re active Antib odies to HCV Not Detec bryan, does not exclu de the possi bilit y of expos ure to HCV. Not Available [facility] (Lab) [address], [place], [address], 10/26/2024 13:46:12 10/26/19 25 10/25/2024 HEPAT ITIS B SURFA CE ANTIG EN hepatitis B surface antigen Non-re active non-re active This assay was perfo rmed using [employer] ratio n reage nts and test kits. Value s obtai rickey with other assay metho ds or kits canno t be used inter zuleta eably . Not Available [facility] (Lab) [address], [place], [address], 10/26/2024 13:46:12 10/26/19 25 10/25/2024 TSH, REFLE X FREE T4 TSH 1.26 uIU/m L 0.30-5 .33 Not Available [facility] (Lab) [address], [place], [address], 10/26/2024 13:46:13 10/26/19 25 10/25/2024 TYPE/ RH/SC REEN ABO/Rh type O POS Not Available [facility] (Lab) [address], [place], [address], 10/26/2024 13:46:13 10/26/19 25 10/25/2024 TYPE/ RH/SC REEN antibody screen NEG Not Available [facility] (Lab) [address] [facility], [place], [address], 10/26/2024 13:46:13 10/26/19 25 10/25/2024 TYPE/ RH/SC REEN exp date 2024 23:59 Not Available [facility] (Lab) [address] [facility], [place], [address], 10/26/2024 13:46:13 10/26/19 25 10/25/2024 RUBEL LA IGG ANTIB MIGUELINA, QUANT rubella antibodies, IgG Reacti ve reacti ve Not Available [facility] (Lab) [address] [facility], [place], [address], 10/26/2024 13:46:13 10/26/19 25 10/25/2024 RUBEL LA IGG ANTIB MIGULEINA, QUANT rubella antibodies, IgG quant 18.0 IU/mL >=10 Non-r eacti ve (Non- Immun e) <10 IU/mL React haim (Immu ne) > or = 10 IU/mL Not Available [facility] (Lab) [address] [facility], [place], [address], 10/26/2024 13:46:13 10/26/19 25 10/25/2024 RPR SCREE N, REFLE X TITER /CONF IRMAT ION RPR qualitative Nonrea ctive nonrea ctive Not Available [facility] (Lab) [address] [place], [address], 10/26/2024 13:46:14 10/26/19 25 10/25/2024 HEMOG LOBIN [...] >8.0% Actio n sugge sted Not Available [facility] (Lab) [address] [facility], [place], [address], 10/26/2024 13:46:14 10/26/19 25 10/25/2024 CT/GC AND TRICH OMONA S VAGIN ARIANA (RRNA ), URINE chlamydia trachomatis, PCR Negati ve negati ve Not Available [facility] (Lab) [address] [facility], [place], [address], 10/26/2024 21:37:02 10/26/19 25 10/25/2024 CT/GC AND TRICH OMONA S VAGIN ARIANA (RRNA ), URINE neisseria gonorrhoeae, PCR Negati ve negati ve Not Available [facility] (Lab) [address] [facility], [place], [address], 10/26/2024 21:37:02 10/26/19 25 10/25/2024 CT/GC AND TRICH OMONA S VAGIN ARIANA (RRNA ), URINE trichomonas vaginalis ribosomal RNA (rrna) Negati ve negati ve Not Available [facility] (Lab) [address] [facility], [place], [address], 10/26/2024 21:37:02 10/26/19 25 10/25/2024 CULTU RE: URINE result report SEE RESULT S BELOW Test: Cultu re: Urine Speci men Sourc e: Urine Voide d Speci men Type: Urine Speci men Date: 025 1714 Resul t Date: 20242 Resul t Statu s: Final resul t Abnor mal: No Resul ting Lab: [facility] [address] [facility] [address] Tel: CULTU RE ----- ----- ----- --- No growt h in 1 day (dete ction level of 10,00 0 colon ies / ml.) Not Available [facility] (Lab) [address] [facility], [place], [address], 10/26/2024 21:37:02 10/26/19 25 10/25/2024 drug scree n, urine Amphetamines : negati ve Not Available [facility] [address], [place], [address], 10/25/2024 17:35:03 10/26/19 25 10/25/2024 drug scree n, urine Cannabinoids : negati ve Not Available [facility] [address], [place], [address], 10/25/2024 17:35:03 10/26/19 25 10/25/2024 drug scree n, urine Cocaine: negati ve Not Available [facility] [address], [place], [address], 10/25/2024 17:35:03 10/26/19 25 10/25/2024 drug scree n, urine Opiates: negati ve Not Available [facility] [address], [place], [address], 10/25/2024 17:35:03 10/26/19 25 10/25/2024 drug scree n, urine Phenocyclidi ne: negati ve Not Available [facility] [address], [place], [address], 10/25/2024 17:35:03 10/26/19 25 10/25/2024 drug scree n, urine Barbiturates : negati ve Not Available [facility] [address], [place], [address], 10/25/2024 17:35:03 10/26/19 25 10/25/2024 drug scree n, urine Benzodiazepi bridget: negati ve Not Available [facility] [address], [place], [address], 10/25/2024 17:35:03 10/26/19 25 10/25/2024 drug scree n, urine Ethanol: negati ve Not Available [facility] [address], [place], [address], 10/25/2024 17:35:03 10/26/19 25 10/25/2024 drug scree n, urine Hallucinogen s: negati ve Not Available [facility] [address], [place], [address], 10/25/2024 17:35:03 10/26/19 25 10/25/2024 drug scree n, urine Inhalants: negati ve Not Available [facility] [address], [place], [address], 10/25/2024 17:35:03 10/26/19 25 10/25/2024 drug scree n, urine Anabolic Steroids: negati ve Not Available [facility] [address], [place], [address], 10/25/2024 17:35:03 10/26/19 25 10/25/2024 drug scree n, urine Other: negati ve Not Available [facility] [address], [place], [address], 10/25/2024 17:35:03 01/15/20 25 01/14/2025 HEMOG LOBIN (HGB) HGB 9.3 g/dL (based on docume nted legal sex) 11.6-1 5.4 low Not Available [facility] (Lab) [address], [place], [address], 01/15/2025 13:08:39 01/15/20 25 01/14/2025 HEMAT OCRIT (HCT) HCT 28.1 % (based on docume nted legal sex) 34.0-4 5.0 low Not Available [facility] (Lab) [address], [place], [address], 01/15/2025 13:08:39 01/15/20 25 01/14/2025 GTT - GESTA RADHA L SCREE N, ACOG OB glucose, 1 hour screen 99 mg/dL 70-135 Not Available [facility] (Lab) [address] [facility], [place], [address], 01/15/2025 13:08:40 01/15/20 25 01/14/2025 HIV 1/2 ANTIG EN/AN TIBOD Y, REFLE X CONFI RMATI ON HIV antigen/anti body Nonrea ctive nonrea ctive HIV-1 antig en and HIV-1 /HIV- 2 antib odies were not detec bryan. No labor atory evide nce of HIV infec tion. Not Available [facility] (Lab) [address] [facility], [place], [address], 01/15/2025 13:08:40 01/15/20 25 01/14/2025 RPR SCREE N, REFLE X TITER /CONF IRMAT ION RPR qualitative Nonrea ctive nonrea ctive Not Available [facility] (Lab) [address] [facility], [place], [address], 01/15/2025 13:08:40 10/26/19 25 10/25/2024 US, obste tric, limit ed No observ ation record ed. [facility] [address], [place], [address], 10/25/2024 18:50:32 10/28/19 25 10/25/2024 US, obstjen tric, limit ed No observ ation record ed. [email or web address] [facility] [address], [place], [address], 10/30/2024 23:24:32 11/27/19 25 11/26/2024 US, usha tric, 2nd or 3rd trime ster No observ ation record ed. [facility] [address], [place], [address], 11/26/2024 17:49:36 11/27/19 25 11/26/2024 US, obste tric, 2nd or 3rd trime ster No observ ation record ed. [email or web address] [facility] [address], [place], [address], 11/26/2024 17:24:36 02/12/20 25 02/11/2025 US, obste tric, follo w-up No observ ation record ed. [email or web address] [facility] [address], [place], [address], 02/11/2025 17:21:09 02/12/20 25 02/11/2025 US, obste tric, follo w-up No observ ation record ed. [email or web address] [facility] [address], [place], [address], 02/25/2025 10:51:35 03/10/20 25 03/10/2025 US, obste tric, follo w-up No observ ation record ed. [email or web address] [facility] [address], [place], [address], 03/10/2025 15:18:58 03/10/20 25 03/10/2025 US, obste tric, follo w-up No observ ation record ed. [email or web address] [facility] [address], [place], [address], 03/18/2025 11:35:09 Result Notes None recorded. Problems Name Problem SNOMED Code Status Onset Date Resolution Date Notes Provider Name and Address Organization Details Recorded Time 46149385 Active 025 JUANITO [place], [place] - [facility] 17:01:38 Problem Notes None recorded. Medical [...] and Address Organization Details Last Updated DateTime 02/11/2025 157.48 cm 32.6 kg/m2 95287.44 g 108/70 mm[Hg] Oly Shabazz [facility] 02/11/2025 16:42:02 Social History Question Answer Notes LastModified by Organizat ion Details LastModified Time Tobacco Smoking Status Never Smoker JUANITO Hutchins miki, [facility] 10/25/2024 16:11:22 Do You Have An Advance Directive? No [email or web address] Information n ot available 10/25/2024 If You Are , What Was Your Level Of Alcohol Consumption Prior To ? None [email or web address] Information not available 10/25/2024 Are You Blind Or Do You Have Difficulty Seeing? No [email or web address] Information n ot available 10/25/2024 What Is Your Level Of Caffeine Consumption? None [email or web address] Information not available 10/25/2024 In The 14 Days Before Symptom Onset, Have You Had Close Contact With A Laboratory-confirm ed COVID-19 While That Case Was Ill? No [email or web address] Information n ot available 10/25/2024 In The 14 Days Before Symptom Onset, Have You Had Close Contact With A Person Who Is Under Investigation For COVID-19 While That Person Was Ill? No Information not available 10/25/2024 Have You Been To An Area Known To Be High Risk For COVID-19? No [email or web address] Information not available 10/25/2024 Are You Deaf Or Do You Have Serious Difficulty Hearing? No [email or web address] Information not available 10/25/2024 What Type Of Diet Are You Following? REGULAR Information n ot available 10/25/2024 What Is The Highest Grade Or Level Of School You Have Completed Or The Highest Degree You Have Received? [id number] [email or web address] Information not available 10/25/2024 Are There Any Guns Present In Your Home? No Information not available 10/25/2024 Do You Use Protection During Sex? No [email or web address] Information not available 01/28/2025 Do You Use Your Seat Belt Or Car Seat Routinely? Yes [email or web address] Information not available 10/25/2024 Are You Sexually Active? Yes [email or web address] Information not available 10/25/2024 Do You Have Smoke And Carbon Monoxide Detectors In Your Home? Yes Information not available 10/25/2024 Do You Use Sunscreen Routinely? Yes [email or web address] Information not available 10/25/2024 Has Tobacco Cessation Counseling Been Provided? No [email or web address] Information not available 10/25/2024 Do You Have Difficulty Walking Or Climbing Stairs? No [email or web address] Information not available 10/25/2024 Sex: Unknown Functional Status Question Answer Note LastModified by Organizat ion Details LastModified Time Do you use any illicit or recreational drugs? No [email or web address] Information not available 10/25/2024 Do you or have you ever used any other forms of tobacco or nicotine? No [email or web address] Information not available 10/25/2024 What is your level of alcohol consumption? None [email or web address] Information not available 10/25/2024 Are you currently employed? Yes [email or web address] Information not available 01/28/2025 Are you able to walk independently without assistance or assistive devices? YESASSIST [email or web address] Information not available 10/25/2024 Are you able to care for yourself independently? Yes [email or web address] Information not available 10/25/2024 Do you have difficulty dressing, bathing, grooming, or toileting? No [email or web address] Information not available 10/25/2024 What is your exercise level? Occasional [email or web address] Information not available 10/25/2024 Mental Status Question Answer Note LastModified by Organization D etails LastModified Time Do you feel stressed (tense, restless, nervous, or anxious, or unable to sleep at night)? [id number] Information not available 01/28/2025 Family History Nothing Reported. Medical History Condition Response Allergies (Food, seasonal, environmental ) N Other N Breast Cancer N Drug/Latex Allergies/Reactions N Blood Transfusion N Dermatologic Disorders N Lung Disease N Defects or Inherited Disease N Breast Problem N Gestational Diabetes N Hematologic disorders N Anesthesia Complications N History of STI N Deep Vein Thrombosis N Polycystic ovary syndrome N Anxiety Disorder N Autoimmune disease N Arthritis N Infertility N Polyps N Acid Reflux (GERD) N History of abnormal pap N Cancer N Stroke N Varicosities N Neurologic/Epilepsy N Endometriosis N High Cholesterol N Headaches N Fibromyalgia N Kidney Disease N Heart Problems N Kidney or Bladder Problems N Thyroid Problems N GI Problems N Eating Disorder [...] ICD10 Code Diagnosis IMO Codes Diagnosis Note [id number] CRISTINA PETERSEN MD [facility] [address],[facility] [place] [address] 01/14/2025 15:27:34 01/14/2025 16:12:36 screening [id number] Z36.89 [id number] [facility] [address],[facility] [place] [address] 01/28/2025 10:05:52 01/28/2025 10:29:15 Gestation period, 30 weeks 74339466 Z3A.30 3418533 cont pnvstart slow fe daily [id number] CRISTINA PETERSEN MD [facility] [address] [address] 02/11/2025 15:41:07 02/11/2025 16:57:52 Uterine size for dates discrepancy 956138533 O26.843 Z3A.32 [id number] Grace Murcia CNM [facility] [address] [address] 02/11/2025 15:41:30 02/14/2025 10:40:09 Gestation period, 32 weeks 0757270 Z3A.32 [id number] cont pnv Health Concerns Section Related Observation LastModified by Organization Detai ls LastModified Time None Recorded Concern Status LastModified by Organization Details LastModified Time None Recorded Payers Encounter Date Sequence Insurance Name Policy Number Policy Hoang Covered Member ID Hoang Member ID Guarantor Name 02/11/2025 1 [facility] (MEDICAID HMO) [id number] Con Barraza [id number] Con Barraza Notes Date Note Type Note Provider Name and Address Organization Details Recorded Time 02/11/2025 text/html Generic HPI TemplateReported by Patient Grace Murcia CNM [address], [place], [address], [facility] 02/11/2025 20:00:50 OBGyn Episode Ob Episode Information Episode Created Date Number of Fetuses Patient Bloodtype Patient rh Status Prepregnancy Weight lbs Domestic Partner Domestic Partner Phone Father Name Spot Checker Status 10/26/19 25 1 O Positive Ricky OPEN Fetus Data First Name Last Name Admitted to NICU Weight (g) Sex Living Outcome Pediatric Complications Fetus ID Race Codes Race Delivery Type [id number] Cristobal Calculation Initial Cristobal Date Initial Exam [...] Ultra Sound Latest Days Gestation 0 0 Pre- Flowsheet Flowsheet Date 10/25/2024 Hassan Score Blood [...] Weight in lbs Pre/Post Dialysis Refused Weight 164.685781849736 BP Diastolic BP Location Tested BP Systolic BP Type 62 L arm 90 sitting Fetus Heart Rate Present A Present Fetus Movement A Yes Comments Patient presents to [facility] care. Hx of uncomplicated , EIL. otherwise [...] Weight in lbs Pre/Post Dialysis Refused Weight 167.482774752957 BP Diastolic BP Location Tested BP Systolic [...] Weight in lbs Pre/Post Dialysis Refused Weight 175.604067795172 BP Diastolic BP Location Tested BP Systolic [...] Weight in lbs Pre/Post Dialysis Refused Weight 178.840855590572 BP Diastolic BP Location Tested BP Systolic [...] Weight in lbs Pre/Post Dialysis Refused Weight 180.856147904494 BP Diastolic BP Location Tested BP Systolic [...] Weight in lbs Pre/Post Dialysis Refused Weight 178.023893760233 BP Diastolic BP Location Tested BP Systolic [...] Weight in lbs Pre/Post Dialysis Refused Weight 183.612212610242 BP Diastolic BP Location Tested BP Systolic BP Type 63 L arm 93 sitting Fetus Heart Rate Present Fetus Movement A Yes Comments plan f/u growth at next [facility] by cnm +[id number], precautions and education, not planning on vaccines [...] Weight in lbs Pre/Post Dialysis Refused Weight [id number] BP Diastolic BP Location Tested BP Systolic [...] Weight in lbs Pre/Post Dialysis Refused Weight [id number] BP Diastolic BP Location Tested BP Systolic [...] Type Weight in lbs Pre/Post Dialysis Refused [id number] BP Diastolic BP Location Tested BP Systolic [...] Weight in lbs Pre/Post Dialysis Refused Weight [id number] BP Diastolic BP Location Tested BP Systolic [...]
--- OUTSIDE RECORDS SUMMARY | 2025-04-10 17:01 | XMS_ITS | Continuity of Care Document ---
Author Organization [facility], [place] Address [address] [place] [address] Assessment No assessment recorded. Plan of Treatment Reminders Order Date Submit Date Provider Last Modified By Organization Details Last Modified Time Details Appointments None recorded. Lab RPR (rapid plasma reagin), serum 2024 025 [facility] (Lab), [address], [place], [address], 5 13:08:40 glucose tolerance test, gestational panel 2024 025 [facility] (Lab), [address], [place], [address], 5 13:08:40 hematocrit, blood 2024 025 [facility] (Lab), [address], [place], [address], 5 13:08:39 hemoglobin (Hb), blood 2024 025 [facility] (Lab), [address], [place], [address], 5 13:08:39 HIV 1+2 AB + HIV 1 p24 Ag, qualitative immunoassay , serum 2024 025 [facility] (Lab), [address], [place], [address], 13:08:40 Referral None recorded. Procedures None recorded. Surgeries None recorded. Imaging None recorded. Medication Orders None recorded. Patient TargetsNo targets recorded. Patient InstructionsNo instructions recorded. Reason for Referral None Reported. Results Created Date Observation Date Name Description Value Unit Range Abnormal Flag Note LastModifiedBy Organization Detail LastModifiedTime 11/02/19 25 11/01/2024 [UNIT Y] ANEUP LOIDY NIPT fraction 22.1% normal Not Available [facility] [address], [place], [address], 11/01/2024 03:35:20 11/02/19 25 11/01/2024 [UNIT Y] ANEUP LOIDY NIPT 22Q11.2 microdeletio n LOW RISK <1 in 10,000 normal Not Available [facility] [address], [place], [address], 11/01/2024 03:35:20 11/02/19 25 11/01/2024 [UNIT Y] ANEUP LOIDY NIPT sex chromosome aneuploidy NOT DETECT ED normal Not Available [facility] [address], [place], [address], 11/01/2024 03:35:20 11/02/19 25 11/01/2024 [UNIT Y] ANEUP LOIDY NIPT monosomy X LOW RISK <1 in 10,000 normal Not Available [facility] [address], [place], [address], 11/01/2024 03:35:20 11/02/19 25 11/01/2024 [UNIT Y] ANEUP LOIDY NIPT trisomy 13 LOW RISK <1 in 10,000 normal Not Available [facility] [address], [place], [address], 11/01/2024 03:35:20 11/02/19 25 11/01/2024 [UNIT Y] ANEUP LOIDY NIPT trisomy 18 LOW RISK <1 in 10,000 normal Not Available [facility] [address], [place], [address], 11/01/2024 03:35:20 11/02/19 25 11/01/2024 [UNIT Y] ANEUP LOIDY NIPT trisomy 21 LOW RISK <1 in 10,000 normal Not Available [facility] [address], [place], [address], 11/01/2024 03:35:20 11/02/19 25 11/01/2024 [UNIT Y] ANEUP LOIDY NIPT sex FEMALE normal Not Available [facility] [address], [place], [address], 11/01/2024 03:35:20 11/02/19 25 11/01/2024 [UNIT Y] ANEUP LOIDY NIPT gestation SINGLE TON normal Not Available [facility] [address], [place], [address], 11/01/2024 03:35:20 11/02/19 25 11/01/2024 [UNIT Y] ANEUP LOIDY NIPT for detailed report, see pdf See PDF normal Not Available [facility] [address], [place], [address], 11/01/2024 03:35:20 11/05/19 25 11/04/2024 [UNIT Y] LAQUITA Hurtado sickle cell disease/beta -thalassemia /hemoglobino pathies carrier screen NEGATI VE normal Not Available [facility] [address], [place], [address], 11/04/2024 00:48:44 11/05/19 25 11/04/2024 [UNIT Y] LAQUITA Hurtado alpha-thalas semia carrier screen NEGATI VE normal Not Available [facility] [address], [place], [address], 11/04/2024 00:48:44 11/05/19 25 11/04/2024 [UNIT Y] LAQUITA VILLALTA [facility] cystic fibrosis carrier screen NEGATI VE normal Not Available [facility] [address], [place], [address], 11/04/2024 00:48:44 11/05/19 25 11/04/2024 [UNIT Y] LAQUITA VILLALTA [facility] spinal muscular atrophy carrier screen NEGATI VE 2 SMN1 copies , SNP not presen t normal Not Available [facility] [address], [place], [address], 11/04/2024 00:48:44 11/05/19 25 11/04/2024 [UNIT Y] LAQUITA MELYSSA Hurtado for detailed report, see pdf See PDF normal Not Available [facility] [address], [place], [address], 11/04/2024 00:48:44 10/26/19 25 10/25/2024 CBC W/DIF F WBC 8.7 10'3/ uL 3.5-10 .5 Not Available [facility] (Lab) [address], [place], [address], 10/26/2024 13:46:11 10/26/19 25 10/25/2024 CBC W/DIF F RBC 3.45 10'6/ uL (based on docume nted legal sex) 3.80-5 .20 low Not Available [facility] (Lab) [address], [place], [address], 10/26/2024 13:46:11 10/26/19 25 10/25/2024 CBC W/DIF F HGB 10.1 g/dL (based on docume nted legal sex) 11.6-1 5.4 low Not Available [facility] (Lab) [address], [place], [address], 10/26/2024 13:46:11 10/26/19 25 10/25/2024 CBC W/DIF F HCT 31.0 % (based on docume nted legal sex) 34.0-4 5.0 low Not Available [facility] (Lab) [address] [facility], [place], [address], 10/26/2024 13:46:11 10/26/19 25 10/25/2024 CBC W/DIF F MCV 89.9 fL 80.0-9 9.0 Not Available [facility] (Lab) [address] [facility], [place], [address], 10/26/2024 13:46:11 10/26/19 25 10/25/2024 CBC W/DIF F MCH 29.3 pg 27.0-3 4.0 Not Available [facility] (Lab) [address] [facility], [place], [address], 10/26/2024 13:46:11 10/26/19 25 10/25/2024 CBC W/DIF F MCHC 32.6 g/dL 32.0-3 5.5 Not Available [facility] (Lab) [address] [facility], [place], [address], 10/26/2024 13:46:11 10/26/19 25 10/25/2024 CBC W/DIF F RDW 14.4 % 11.0-1 5.0 Not Available [facility] (Lab) [address] [facility] [address], [place], [address], 10/26/2024 13:46:11 10/26/19 25 10/25/2024 CBC W/DIF F plt 284 10'3/ uL 150-40 0 Not Available [facility] (Lab) [address] [facility], [place], [address], 10/26/2024 13:46:11 10/26/19 25 10/25/2024 CBC W/DIF F MPV 11.1 fL 8.8-12 .1 Not Available [facility] (Lab) [address] [facility], [place], [address], 10/26/2024 13:46:11 10/26/19 25 10/25/2024 CBC W/DIF F NRBC's 0.0 % 0.0 Not Available [facility] (Lab) [address] [facility] [facility], [place], [address], 10/26/2024 13:46:11 10/26/19 25 10/25/2024 CBC W/DIF F absolute NRBCs 0.0 10'3/ uL no refere nce range establ ished Not Available [facility] (Lab) [address] [facility] [facility], [place], [address], 10/26/2024 13:46:11 10/26/19 25 10/25/2024 CBC W/DIF F neutrophils 62.7 % 34.0-7 3.0 Not Available [facility] (Lab) [address] [facility] [facility], [place], [address], 10/26/2024 13:46:11 10/26/19 25 10/25/2024 CBC W/DIF F lymphocytes 31.2 % 15.0-5 0.0 Not Available [facility] (Lab) [address] [facility], [place], [address], 10/26/2024 13:46:11 10/26/19 25 10/25/2024 CBC W/DIF F monocytes 5.2 % 1.0-15 .0 Not Available [facility] (Lab) [address] [facility] [facility], [place], [address], 10/26/2024 13:46:11 10/26/19 25 10/25/2024 CBC W/DIF F eosinophils 0.2 % 0.0-8. 0 Not Available [facility] (Lab) [address] [facility], [place], [address], 10/26/2024 13:46:11 10/26/19 25 10/25/2024 CBC W/DIF F basophils 0.5 % 0.0-2. 0 Not Available [facility] (Lab) [address] [place], [address], 10/26/2024 13:46:11 10/26/19 25 10/25/2024 CBC W/DIF [...] separ ately if prese nt. Not Available [facility] (Lab) [address] [facility], [place], [address], 10/26/2024 13:46:11 10/26/19 25 10/25/2024 CBC W/DIF F absolute neutrophils 5.5 10'3/ uL 1.5-8. 0 Not Available [facility] (Lab) [address] [facility] [address], [place], [address], 10/26/2024 13:46:11 10/26/19 25 10/25/2024 CBC W/DIF F absolute lymphocytes 2.7 10'3/ uL 1.0-4. 0 Not Available [facility] (Lab) [address] [facility] [address], [place], [address], 10/26/2024 13:46:11 10/26/19 25 10/25/2024 CBC W/DIF F absolute monocytes 0.5 10'3/ uL 0.2-1. 0 Not Available [facility] (Lab) [address] [facility] [address], [place], [address], 10/26/2024 13:46:11 10/26/19 25 10/25/2024 CBC W/DIF F absolute eosinophils 0.0 10'3/ uL 0.0-0. 6 Not Available [facility] (Lab) [address] [place], [address], 10/26/2024 13:46:11 10/26/19 25 10/25/2024 CBC W/DIF F absolute basophils 0.0 10'3/ uL 0.0-0. 3 Not Available [facility] (Lab) [address], [place], [address], 10/26/2024 13:46:11 10/26/19 25 10/25/2024 CBC W/DIF F absolute immature granulocytes 0.0 10'3/ uL 0.00-0 .10 Refer ence range s for nonbi nary/ inter sex or unspe cifie d gende r patie nts have not been estab lishe d. Plenithya e refer to the follo wing table for range s estab lishe d for cisge nder patie nts and evalu ate in the clini akira gabino xt of the indiv idual patie nt: https ://la bhand book. nm.or g/gen derx Not Available [facility] (Lab) [address], [place], [address], 10/26/2024 13:46:11 10/26/1910/25/2024 HIV 1/2 ANTIG EN/AN TIBOD Y, REFLE X CONFI RMATI ON HIV antigen/anti body Nonrea ctive nonrea ctive HIV-1 antig en and HIV-1 /HIV- 2 antib odies were not detec bryan. No labor atory evide nce of HIV infec tion. Not Available [facility] (Lab) [address], [place], [address], 10/26/2024 13:46:11 10/26/1910/25/2024 HEPAT ITIS C ANTIB MIGUELINA SCREE N, REFLE X TO CONFI RMATI ON hepatitis C antibody Non-re active non-re active Antib odies to HCV Not Detec bryan, does not exclu de the possi bilit y of expos ure to HCV. Not Available [facility] (Lab) [address], [place], [address], 10/26/2024 13:46:12 10/26/1910/25/2024 HEPAT ITIS B SURFA CE ANTIG EN hepatitis B surface antigen Non-re active non-re active This assay was perfo rmed using [employer] ratio n reage nts and test kits. Value s obtai rickey with other assay metho ds or kits canno t be used inter zuleta eably . Not Available [facility] (Lab) [address] [facility], [place], [address], 10/26/2024 13:46:12 10/26/19 25 10/25/2024 TSH, REFLE X FREE T4 TSH 1.26 uIU/m L 0.30-5 .33 Not Available [facility] (Lab) [address] [facility], [place], [address], 10/26/2024 13:46:13 10/26/19 25 10/25/2024 TYPE/ RH/SC REEN ABO/Rh type O POS Not Available [facility] (Lab) [address] [facility] [facility] [facility], [place], [address], 10/26/2024 13:46:13 10/26/19 25 10/25/2024 TYPE/ RH/SC REEN antibody screen NEG Not Available [facility] (Lab) [address] [facility] [facility] [facility], [place], [address], 10/26/2024 13:46:13 10/26/19 25 10/25/2024 TYPE/ RH/SC REEN exp date 2024 23:59 Not Available [facility] (Lab) [address] [place], [address], 10/26/2024 13:46:13 10/26/19 25 10/25/2024 RUBEL LA IGG ANTIB MIGUELINA, QUANT rubella antibodies, IgG Reacti ve reacti ve Not Available [facility] (Lab) [address] [place], [address], 10/26/2024 13:46:13 10/26/19 25 10/25/2024 RUBEL LA IGG ANTIB MIGUELINA, QUANT rubella antibodies, IgG quant 18.0 IU/mL >=10 Non-r eacti ve (Non- Immun e) <10 IU/mL React haim (Immu ne) > or = 10 IU/mL Not Available [facility] (Lab) [address] [facility], [place], [address], 10/26/2024 13:46:13 10/26/19 25 10/25/2024 RPR SCREE N, REFLE X TITER /CONF IRMAT ION RPR qualitative Nonrea ctive nonrea ctive Not Available [facility] (Lab) [address] [facility] [facility], [place], [address], 10/26/2024 13:46:14 10/26/19 25 10/25/2024 HEMOG LOBIN A1C hemoglobin A1C 5.2 % 4.0-5. 6 The Ameri can Diabe palmer [employer] iatio n recom mends that a prima ry goal of thera py shoul d be a HBA1C of < 7% and that physi cians shoul d reeva luate the treat ment regim en in patie nts with HBA1C value s consi stent ly > 8%. <5.7% Nitza l 5.7 - 6.4% Incre ased risk for diabe palmer >=6.5 % Diagn ostic of diabe palmer <7.0% Goal of thera py >8.0% Actio n sugge sted Not Available [facility] (Lab) [address] [facility] [facility], [place], [address], 10/26/2024 13:46:14 10/26/19 25 10/25/2024 CT/GC AND TRICH OMONA S VAGIN ARIANA (RRNA ), URINE chlamydia trachomatis, PCR Negati ve negati ve Not Available [facility] (Lab) [address] [facility], [place], [address], 10/26/2024 21:37:02 10/26/19 25 10/25/2024 CT/GC AND TRICH OMONA S VAGIN ARIANA (RRNA ), URINE neisseria gonorrhoeae, PCR Negati ve negati ve Not Available [facility] (Lab) [address] [facility] [facility], [place], [address], 10/26/2024 21:37:02 10/26/19 25 10/25/2024 CT/GC AND TRICH OMONA S VAGIN ARIANA (RRNA ), URINE trichomonas vaginalis ribosomal RNA (rrna) Negati ve negati ve Not Available [facility] (Lab) [address] [facility] [facility], [place], [address], 10/26/2024 21:37:02 10/26/19 25 10/25/2024 CULTU RE: URINE result report SEE RESULT S BELOW Test: Cultu re: Urine Speci men Sourc e: Urine Voide d Speci men Type: Urine Speci men Date: 025 1714 Resul t Date: 2024 Resul t Statu s: Final resul t Abnor mal: No Resul ting Lab: [facility] [address] [facility] [address] Tel: CULTU RE ----- ----- ----- --- No growt h in 1 day (dete ction level of 10,00 0 colon ies / ml.) Not Available [facility] (Lab) [address], [place], [address], 10/26/2024 21:37:02 10/26/19 25 10/25/2024 drug scree n, urine Amphetamines : negati ve Not Available [place] [address], [place], [address], 10/25/2024 17:35:03 10/26/19 25 10/25/2024 drug scree n, urine Cannabinoids : negati ve Not Available [place] [address], [place], [address], 10/25/2024 17:35:03 10/26/19 25 10/25/2024 drug scree n, urine Cocaine: negati ve Not Available [place] [address], [place], [address], 10/25/2024 17:35:03 10/26/19 25 10/25/2024 drug scree n, urine Opiates: negati ve Not Available [place] [address], [place], [address], 10/25/2024 17:35:03 10/26/19 25 10/25/2024 drug scree n, urine Phenocyclidi ne: negati ve Not Available [place] [address], [place], [address], 10/25/2024 17:35:03 10/26/19 25 10/25/2024 drug scree n, urine Barbiturates : negati ve Not Available [place] [address], [place], [address], 10/25/2024 17:35:03 10/26/19 25 10/25/2024 drug scree n, urine Benzodiazepi bridget: negati ve Not Available [place] [address], [place], [address], 10/25/2024 17:35:03 10/26/19 25 10/25/2024 drug scree n, urine Ethanol: negati ve Not Available [place] [address], [place], [address], 10/25/2024 17:35:03 10/26/19 25 10/25/2024 drug scree n, urine Hallucinogen s: negati ve Not Available [place] [address], [place], [address], 10/25/2024 17:35:03 10/26/19 25 10/25/2024 drug scree n, urine Inhalants: negati ve Not Available [place] [address], [place], [address], 10/25/2024 17:35:03 10/26/19 25 10/25/2024 drug scree n, urine Anabolic Steroids: negati ve Not Available [place] [address], [place], [address], 10/25/2024 17:35:03 10/26/19 25 10/25/2024 drug scree n, urine Other: negati ve Not Available [place] [address], [place], [address], 10/25/2024 17:35:03 01/15/20 25 01/14/2025 HEMOG LOBIN (HGB) HGB 9.3 g/dL (based on docume nted legal sex) 11.6-1 5.4 low Not Available [facility] (Lab) [address] [facility], [place], [address], 01/15/2025 13:08:39 01/15/20 25 01/14/2025 HEMAT OCRIT (HCT) HCT 28.1 % (based on docume nted legal sex) 34.0-4 5.0 low Not Available [facility] (Lab) [address] [facility] [facility], [place], [address], 01/15/2025 13:08:39 01/15/20 25 01/14/2025 GTT - GESTA RADHA L AMBAR Hurtado, ACOG OB glucose, 1 hour screen 99 mg/dL 70-135 Not Available [facility] (Lab) [address] [place], [address], 01/15/2025 13:08:40 01/15/20 25 01/14/2025 HIV 1/2 ANTIG EN/AN TIBOD Y, REFLE X CONFI RMATI ON HIV antigen/anti body Nonrea ctive nonrea ctive HIV-1 antig en and HIV-1 /HIV- 2 antib odies were not detec bryan. No labor atory evide nce of HIV infec tion. Not Available [facility] (Lab) [address] [facility], [place], [address], 01/15/2025 13:08:40 01/15/20 25 01/14/2025 RPR SCREE N, REFLE X TITER /CONF IRMAT ION RPR qualitative Nonrea ctive nonrea ctive Not Available [facility] (Lab) [address], [place], [address], 01/15/2025 13:08:40 10/26/19 25 10/25/2024 US, obste tric, limit ed No observ ation record ed. [facility] [address], [place], [address], 10/25/2024 18:50:32 10/28/19 25 10/25/2024 US, obste tric, limit ed No observ ation record ed. [facility] [address], [place], [address], 10/30/2024 23:24:32 11/27/19 25 11/26/2024 US, obste tric, 2nd or 3rd trime ster No observ ation record ed. [facility] [address], [place], [address], 11/26/2024 17:49:36 11/27/19 25 11/26/2024 US, obste tric, 2nd or 3rd trime ster No observ ation record ed. [facility] [address], [place], [address], 11/26/2024 17:24:36 02/12/20 25 02/11/2025 US, obste tric, follo w-up No observ ation record ed. [email or web address] [place] [address], [place], [address], 02/11/2025 17:21:09 02/12/20 25 02/11/2025 US, obste tric, follo w-up No observ ation record ed. [facility] [address], [place], [address], 02/25/2025 10:51:35 03/10/20 25 03/10/2025 US, obste tric, follo w-up No observ ation record ed. [facility] [address], [place], [address], 03/10/2025 15:18:58 03/10/20 25 03/10/2025 US, obste tric, follo w-up No observ ation record ed. [email or web address] [facility] [address], [place], [address], 03/18/2025 11:35:09 Result Notes None recorded. Problems Name Problem SNOMED Code Status Onset Date Resolution Date Notes Provider Name and Address Organization Details Recorded Time [id number] Active 025 JUANITO Liset [facility] 17:01:38 Problem Notes None recorded. Medical [...] and Address Organization Details Last Updated DateTime 01/14/2025 157.48 cm 32.6 kg/m2 36808.44 g 107/69 mm[Hg] Christine Ilana [facility] 01/14/2025 15:47:51 Social History Question Answer Notes LastModified by Organizat ion Details LastModified Time Tobacco Smoking Status Never Smoker JUANITO Hutchins [facility] 10/25/2024 16:11:22 Do You Have An Advance Directive? No [email or web address] Information n ot available 10/25/2024 If You Are , What Was Your Level Of Alcohol Consumption Prior To ? None [email or web address] Information not available 10/25/2024 Are You Blind Or Do You Have Difficulty Seeing? No [email or web address] Information n ot available 10/25/2024 What Is Your Level Of Caffeine Consumption? None [email or web address] Information not available 10/25/2024 In The 14 Days Before Symptom Onset, Have You Had Close Contact With A Laboratory-confirm ed COVID-19 While That Case Was Ill? No [email or web address] Information n ot available 10/25/2024 In The 14 Days Before Symptom Onset, Have You Had Close Contact With A Person Who Is Under Investigation For COVID-19 While That Person Was Ill? No [email or web address] Information not available 10/25/2024 Have You Been To An Area Known To Be High Risk For COVID-19? No [email or web address] Information not available 10/25/2024 Are You Deaf Or Do You Have Serious Difficulty Hearing? No [email or web address] Information not available 10/25/2024 What Type Of Diet Are You Following? REGULAR [email or web address] Information n ot available 10/25/2024 What Is The Highest Grade Or Level Of School You Have Completed Or The Highest Degree You Have Received? [id number] [email or web address] Information not available 10/25/2024 Are There Any Guns Present In Your Home? No [email or web address] Information not available 10/25/2024 Do You Use Protection During Sex? No [email or web address] Information not available 01/28/2025 Do You Use Your Seat Belt Or Car Seat Routinely? Yes [email or web address] Information not available 10/25/2024 Are You Sexually Active? Yes Information not available 10/25/2024 Do You Have Smoke And Carbon Monoxide Detectors In Your Home? Yes [email or web address] Information not available 10/25/2024 Do You Use Sunscreen Routinely? Yes [email or web address] Information not available 10/25/2024 Has Tobacco Cessation Counseling Been Provided? No [email or web address] Information not available 10/25/2024 Do You Have Difficulty Walking Or Climbing Stairs? No Information not available 10/25/2024 Sex: Unknown Functional Status Question Answer Note LastModified by Organizat ion Details LastModified Time Do you use any illicit or recreational drugs? No [email or web address] Information not available 10/25/2024 Do you or have you ever used any other forms of tobacco or nicotine? No Information not available 10/25/2024 What is your level of alcohol consumption? None [email or web address] Information not available 10/25/2024 Are you currently employed? Yes [email or web address] Information not available 01/28/2025 Are you able to walk independently without assistance or assistive devices? YESASSIST [email or web address] Information not available 10/25/2024 Are you able to care for yourself independently? Yes [email or web address] Information not available 10/25/2024 Do you have difficulty dressing, bathing, grooming, or toileting? No [email or web address] Information not available 10/25/2024 What is your exercise level? Occasional Information not available 10/25/2024 Mental Status Question Answer Note LastModified by Organization D etails LastModified Time Do you feel stressed (tense, restless, nervous, or anxious, or unable to sleep at night)? [id number] [email or web address] Information not available 01/28/2025 Family History Nothing [...] ICD10 Code Diagnosis IMO Codes Diagnosis Note [id number] CRISTINA PETERSEN MD [place] [address] [address] 12/31/2024 16:24:15 01/03/2025 07:16:14 care status [id number] Z34.83 [id number] CRISTINA PETERSEN MD [place] [address],[facility] [place] [address] 01/14/2025 15:27:34 01/14/2025 16:12:36 screening [id number] Z36.89 Health Concerns Section Related Observation LastModified by Organization Detai ls LastModified Time None Recorded Concern Status LastModified by Organization Details LastModified Time None Recorded Payers Encounter Date Sequence Insurance Name Policy Number Policy Hoang Covered Member ID Hoang Member ID Guarantor Name 01/14/2025 1 [facility] (MEDICAID HMO) [id number] Con Barraza [id number] Con Barraza Notes Date Note Type Note Provider Name and Address Organization Details Recorded Time 01/14/2025 text/html Generic HPI TemplateReported by Patient CRISTINA PETERSEN MD [address], [place], [address], [facility] 01/14/2025 16:12:14 OBGyn Episode Ob Episode Information Episode Created Date Number of Fetuses Patient Bloodtype Patient rh Status Prepregnancy Weight lbs Domestic Partner Domestic Partner Phone Father Name Docket Clerk Status 10/26/19 25 1 O Positive Ricky OPEN Fetus Data First Name Last Name Admitted to NICU Weight (g) Sex Living Outcome Pediatric Complications Fetus ID Race Codes Race Delivery Type [id number] Cristobal Calculation Initial Cristobal Date Initial Exam [...] Weight in lbs Pre/Post Dialysis Refused Weight 164.564845674669 BP Diastolic BP Location Tested BP Systolic BP Type 62 L arm 90 sitting Fetus Heart Rate Present A Present Fetus Movement A Yes Comments Patient presents to [facility] care. Hx of uncomplicated , EIL. [...] Weight in lbs Pre/Post Dialysis Refused Weight 167.062857593308 BP Diastolic BP Location Tested BP Systolic [...] Weight in lbs Pre/Post Dialysis Refused Weight 175.769585076728 BP Diastolic BP Location Tested BP Systolic [...] Weight in lbs Pre/Post Dialysis Refused Weight [id number] BP Diastolic BP Location Tested BP Systolic [...] Weight in lbs Pre/Post Dialysis Refused Weight 180.414713093312 BP Diastolic BP Location Tested BP Systolic [...] Weight in lbs Pre/Post Dialysis Refused Weight 178.057770805997 BP Diastolic BP Location Tested BP Systolic [...] Weight in lbs Pre/Post Dialysis Refused Weight 183.821465975622 BP Diastolic BP Location Tested BP Systolic BP Type 63 L arm 93 sitting Fetus Heart Rate Present Fetus Movement A Yes Comments plan f/u growth at [facility] by cnm +[id number], precautions and education, not planning on vaccines [...] Weight in lbs Pre/Post Dialysis Refused Weight [id number] BP Diastolic BP Location Tested BP Systolic [...] Weight in lbs Pre/Post Dialysis Refused Weight 190.506639558544 BP Diastolic BP Location Tested BP Systolic [...] Type Weight in lbs Pre/Post Dialysis Refused 189.744581372079 BP Diastolic BP Location Tested BP Systolic [...] Weight in lbs Pre/Post Dialysis Refused Weight 192.163972384713 BP Diastolic BP Location Tested BP Systolic [...]
--- OUTSIDE RECORDS SUMMARY | 2025-04-10 17:01 | XMS_ITS | Continuity of Care Document ---
Author Organization [facility], [place] Address [address] [place] [address] Assessment Encounter Date Assessment Date Assessment LastModified by Organization Details LastModified Time 03/23/2025 03/23/2025 Patient is ___weeks . Discussed plan. [email or web address] Not available 03/23/2025 17:59:21 Plan of Treatment Reminders Order Date Submit [...] normal Not Available Arelis [address], [place], [address], 11/01/2024 03:35:20 11/02/19 25 11/01/2024 [UNIT Y] ANEUP LOIDY NIPT 22Q11.2 microdeletio n LOW RISK <1 in 10,000 normal Not Available Lizzeth [address], [place], [address], 11/01/2024 03:35:20 11/02/19 25 11/01/2024 [UNIT Y] ANEUP LOIDY NIPT sex chromosome aneuploidy NOT DETECT ED normal Not Available [facility] [address], [place], [address], 11/01/2024 03:35:20 11/02/19 25 11/01/2024 [UNIT Y] ANEUP LOIDY NIPT monosomy X LOW RISK <1 in 10,000 normal Not Available [facility] [address], [place], [address], 11/01/2024 03:35:20 11/02/19 25 11/01/2024 [UNIT Y] ANEUP LOIDY NIPT trisomy 13 LOW RISK <1 in 10,000 normal Not Available [facility] [address], [place], [address], 11/01/2024 03:35:20 11/02/19 25 11/01/2024 [UNIT Y] ANEUP LOIDY NIPT trisomy 18 LOW RISK <1 in 10,000 normal Not Available [facility] [address], [place], [address], 11/01/2024 03:35:20 11/02/19 25 11/01/2024 [UNIT Y] ANEUP LOIDY NIPT trisomy 21 LOW RISK <1 in 10,000 normal Not Available [facility] [address], [place], [address], 11/01/2024 03:35:20 11/02/19 25 11/01/2024 [UNIT Y] ANEUP LOIDY NIPT sex FEMALE normal Not Available [facility] [address], [place], [address], 11/01/2024 03:35:20 11/02/19 25 11/01/2024 [UNIT Y] ANEUP LOIDY NIPT gestation SINGLE TON normal Not Available [facility] [address], [place], [address], 11/01/2024 03:35:20 11/02/19 25 11/01/2024 [UNIT Y] ANEUP ALEXIAIDY NIPT for detailed report, see pdf See PDF normal Not Available [facility] [address], [place], [address], 11/01/2024 03:35:20 11/05/19 25 11/04/2024 [UNIT Y] LAQUITA Hurtado sickle cell disease/beta -thalassemia /hemoglobino pathies carrier screen NEGATI VE normal Not Available [facility] [address], [place], [address], 11/04/2024 00:48:44 11/05/19 25 11/04/2024 [UNIT Y] LAQUITA MELYSSA Hurtado alpha-thalas semia carrier screen NEGATI VE normal Not Available [facility] [address], [place], [address], 11/04/2024 00:48:44 11/05/19 25 11/04/2024 [UNIT Y] LAQUITA MELYSSA Hurtado cystic fibrosis carrier screen NEGATI VE normal Not Available [facility] [address], [place], [address], 11/04/2024 00:48:44 11/05/19 25 11/04/2024 [UNIT Y] LAQUITA Hurtado spinal muscular atrophy carrier screen NEGATI VE 2 SMN1 copies , SNP not presen t normal Not Available [facility] [address], [place], [address], 11/04/2024 00:48:44 11/05/19 25 11/04/2024 [UNIT Y] LAQUITA Hurtado for detailed report, see pdf See PDF normal Not Available [facility] [address], [place], [address], 11/04/2024 00:48:44 10/26/19 25 10/25/2024 CBC W/DIF F WBC 8.7 10'3/ uL 3.5-10 .5 Not Available [facility] (Lab) [address], [place], [address], 10/26/2024 13:46:11 10/26/19 25 10/25/2024 CBC W/DIF F RBC 3.45 10'6/ uL (based on docume nted legal sex) 3.80-5 .20 low Not Available [facility] (Lab) [address], [place], [address], 10/26/2024 13:46:11 10/26/19 25 10/25/2024 CBC W/DIF F HGB 10.1 g/dL (based on docume nted legal sex) 11.6-1 5.4 low Not Available [facility] (Lab) [address], [place], [address], 10/26/2024 13:46:11 10/26/19 25 10/25/2024 CBC W/DIF F HCT 31.0 % (based on docume nted legal sex) 34.0-4 5.0 low Not Available [facility] (Lab) [address], [place], [address], 10/26/2024 13:46:11 10/26/19 25 10/25/2024 CBC W/DIF F MCV 89.9 fL 80.0-9 9.0 Not Available [facility] (Lab) [address], [place], [address], 10/26/2024 13:46:11 10/26/19 25 10/25/2024 CBC W/DIF F MCH 29.3 pg 27.0-3 4.0 Not Available [facility] (Lab) [address], [place], [address], 10/26/2024 13:46:11 10/26/19 25 10/25/2024 CBC W/DIF F MCHC 32.6 g/dL 32.0-3 5.5 Not Available [facility] (Lab) [address], [place], [address], 10/26/2024 13:46:11 10/26/19 25 10/25/2024 CBC W/DIF F RDW 14.4 % 11.0-1 5.0 Not Available [facility] (Lab) [address], [place], [address], 10/26/2024 13:46:11 10/26/19 25 10/25/2024 CBC W/DIF F plt 284 10'3/ uL 150-40 0 Not Available [facility] (Lab) [address] [facility], [place], [address], 10/26/2024 13:46:11 10/26/19 25 10/25/2024 CBC W/DIF F MPV 11.1 fL 8.8-12 .1 Not Available [facility] (Lab) [address], [place], [address], 10/26/2024 13:46:11 10/26/19 25 10/25/2024 CBC W/DIF F NRBC's 0.0 % 0.0 Not Available [facility] (Lab) [address] [facility], [place], [address], 10/26/2024 13:46:11 10/26/19 25 10/25/2024 CBC W/DIF F absolute NRBCs 0.0 10'3/ uL no refere nce range establ ished Not Available [facility] (Lab) [address], [place], [address], 10/26/2024 13:46:11 10/26/19 25 10/25/2024 CBC W/DIF F neutrophils 62.7 % 34.0-7 3.0 Not Available [facility] (Lab) [address] [place], [address], 10/26/2024 13:46:11 10/26/19 25 10/25/2024 CBC W/DIF F lymphocytes 31.2 % 15.0-5 0.0 Not Available [facility] (Lab) [address], [place], [address], 10/26/2024 13:46:11 10/26/19 25 10/25/2024 CBC W/DIF F monocytes 5.2 % 1.0-15 .0 Not Available [facility] (Lab) [address], [place], [address], 10/26/2024 13:46:11 10/26/19 25 10/25/2024 CBC W/DIF F eosinophils 0.2 % 0.0-8. 0 Not Available [facility] (Lab) [address], [place], [address], 10/26/2024 13:46:11 10/26/19 25 10/25/2024 CBC W/DIF F basophils 0.5 % 0.0-2. 0 Not Available [facility] (Lab) [address] [facility], [place], [address], 10/26/2024 13:46:11 10/26/19 25 10/25/2024 CBC W/DIF [...] separ ately if prese nt. Not Available [facility] (Lab) [address] , [place], [address], 10/26/2024 13:46:11 10/26/19 25 10/25/2024 CBC W/DIF F absolute neutrophils 5.5 10'3/ uL 1.5-8. 0 Not Available [facility] (Lab) [address], [place], [address], 10/26/2024 13:46:11 10/26/19 25 10/25/2024 CBC W/DIF F absolute lymphocytes 2.7 10'3/ uL 1.0-4. 0 Not Available [facility] (Lab) [address], [place], [address], 10/26/2024 13:46:11 10/26/1910/25/2024 CBC W/DIF F absolute monocytes 0.5 10'3/ uL 0.2-1. 0 Not Available [facility] (Lab) [address] [facility], [place], [address], 10/26/2024 13:46:11 10/26/19 25 10/25/2024 CBC W/DIF F absolute eosinophils 0.0 10'3/ uL 0.0-0. 6 Not Available [facility] (Lab) [address], [place], [address], 10/26/2024 13:46:11 10/26/19 25 10/25/2024 CBC W/DIF F absolute basophils 0.0 10'3/ uL 0.0-0. 3 Not Available [facility] (Lab) [address], [place], [address], 10/26/2024 13:46:11 10/26/19 25 10/25/2024 CBC W/DIF [...] dyer book. nm.or g/gen derx Not Available [facility] (Lab) [address], [place], [address], 10/26/2024 13:46:11 10/26/1910/25/2024 HIV 1/2 ANTIG EN/AN TIBOD Y, REFLE X CONFI RMATI ON HIV antigen/anti body Nonrea ctive nonrea ctive HIV-1 antig en and HIV-1 /HIV- 2 antib odies were not detec bryan. No labor atory evide nce of HIV infec tion. Not Available [facility] (Lab) [address], [place], [address], 10/26/2024 13:46:11 10/26/19 25 10/25/2024 HEPAT ITIS C ANTIB MIGUELINA SCREE N, REFLE X TO CONFI RMATI ON hepatitis C antibody Non-re active non-re active Antib odies to HCV Not Detec bryan, does not exclu de the possi bilit y of expos ure to HCV. Not Available [facility] (Lab) [address], [place], [address], 10/26/2024 13:46:12 10/26/19 25 10/25/2024 HEPAT ITIS B SURFA CE ANTIG EN hepatitis B surface antigen Non-re active non-re active This assay was perfo rmed using [employer] ratio n reage nts and test kits. Value s obtai rickey with other assay metho ds or kits canno t be used inter zuleta eably . Not Available [facility] (Lab) [address], [place], [address], 10/26/2024 13:46:12 10/26/19 25 10/25/2024 TSH, REFLE X FREE T4 TSH 1.26 uIU/m L 0.30-5 .33 Not Available [facility] (Lab) [address], [place], [address], 10/26/2024 13:46:13 10/26/19 25 10/25/2024 TYPE/ RH/SC REEN ABO/Rh type O POS Not Available [facility] (Lab) [address], [place], [address], 10/26/2024 13:46:13 10/26/19 25 10/25/2024 TYPE/ RH/SC REEN antibody screen NEG Not Available [facility] (Lab) [address] [facility], [place], [address], 10/26/2024 13:46:13 10/26/19 25 10/25/2024 TYPE/ RH/SC REEN exp date 2024 23:59 Not Available [facility] (Lab) [address] [facility], [place], [address], 10/26/2024 13:46:13 10/26/19 25 10/25/2024 RUBEL LA IGG ANTIB MIGUELINA, QUANT rubella antibodies, IgG Reacti ve reacti ve Not Available [facility] (Lab) [address] [facility], [place], [address], 10/26/2024 13:46:13 10/26/19 25 10/25/2024 RUBEL LA IGG ANTIB MIGUELINA, QUANT rubella antibodies, IgG quant 18.0 IU/mL >=10 Non-r eacti ve (Non- Immun e) <10 IU/mL React haim (Immu ne) > or = 10 IU/mL Not Available [facility] (Lab) [address] [facility], [place], [address], 10/26/2024 13:46:13 10/26/19 25 10/25/2024 RPR SCREE N, REFLE X TITER /CONF IRMAT ION RPR qualitative Nonrea ctive nonrea ctive Not Available [facility] (Lab) [address] [place], [address], 10/26/2024 13:46:14 10/26/19 25 10/25/2024 HEMOG LOBIN [...] - 6.4% Incre ased risk for diabe plamer >=6.5 % Diagn ostic of diabe palmer <7.0% Goal of thera py >8.0% Actio n sugge sted Not Available [facility] (Lab) [address] [facility], [place], [address], 10/26/2024 13:46:14 10/26/19 25 10/25/2024 CT/GC AND TRICH OMONA S VAGIN ARIANA (RRNA ), URINE chlamydia trachomatis, PCR Negati ve negati ve Not Available [facility] (Lab) [address] [facility], [place], [address], 10/26/2024 21:37:02 10/26/19 25 10/25/2024 CT/GC AND TRICH OMONA S VAGIN ARIANA (RRNA ), URINE neisseria gonorrhoeae, PCR Negati ve negati ve Not Available [facility] (Lab) [address] [facility], [place], [address], 10/26/2024 21:37:02 10/26/19 25 10/25/2024 CT/GC AND TRICH OMONA S VAGIN ARIANA (RRNA ), URINE trichomonas vaginalis ribosomal RNA (rrna) Negati ve negati ve Not Available [facility] (Lab) [address] [facility], [place], [address], 10/26/2024 21:37:02 10/26/19 25 10/25/2024 CULTU RE: URINE result report SEE RESULT S BELOW Test: Cultu re: Urine Speci men Sourc e: Urine Voide d Speci men Type: Urine Speci men Date: 025 1714 Resul t Date: 20242 Resul t Statu s: Final resul t Abnor mal: No Resul ting Lab: [facility] [address] [facility] [address] Tel: CULTU RE ----- ----- ----- --- No growt h in 1 day (dete ction level of 10,00 0 colon ies / ml.) Not Available [facility] (Lab) [address] [facility], [place], [address], 10/26/2024 21:37:02 10/26/19 25 10/25/2024 drug scree n, urine Amphetamines : negati ve Not Available [place] [address], [place], [address], 10/25/2024 17:35:03 10/26/19 25 10/25/2024 drug scree n, urine Cannabinoids : negati ve Not Available [place] [address], [place], [address], 10/25/2024 17:35:03 10/26/19 25 10/25/2024 drug scree n, urine Cocaine: negati ve Not Available [place] [address], [place], [address], 10/25/2024 17:35:03 10/26/19 25 10/25/2024 drug scree n, urine Opiates: negati ve Not Available [place] [address], [place], [address], 10/25/2024 17:35:03 10/26/19 25 10/25/2024 drug scree n, urine Phenocyclidi ne: negati ve Not Available [place] [address], [place], [address], 10/25/2024 17:35:03 10/26/19 25 10/25/2024 drug scree n, urine Barbiturates : negati ve Not Available [place] [address], [place], [address], 10/25/2024 17:35:03 10/26/19 25 10/25/2024 drug scree n, urine Benzodiazepi bridget: negati ve Not Available [place] [address], [place], [address], 10/25/2024 17:35:03 10/26/19 25 10/25/2024 drug scree n, urine Ethanol: negati ve Not Available [place] [address], [place], [address], 10/25/2024 17:35:03 10/26/19 25 10/25/2024 drug scree n, urine Hallucinogen s: negati ve Not Available [place] [address], [place], [address], 10/25/2024 17:35:03 10/26/19 25 10/25/2024 drug scree n, urine Inhalants: negati ve Not Available [place] [address], [place], [address], 10/25/2024 17:35:03 10/26/19 25 10/25/2024 drug scree n, urine Anabolic Steroids: negati ve Not Available [place] [address], [place], [address], 10/25/2024 17:35:03 10/26/19 25 10/25/2024 drug scree n, urine Other: negati ve Not Available [place] [address], [place], [address], 10/25/2024 17:35:03 01/15/20 25 01/14/2025 HEMOG LOBIN (HGB) HGB 9.3 g/dL (based on docume nted legal sex) 11.6-1 5.4 low Not Available [facility] (Lab) [address], [place], [address], 01/15/2025 13:08:39 01/15/20 25 01/14/2025 HEMAT OCRIT (HCT) HCT 28.1 % (based on docume nted legal sex) 34.0-4 5.0 low Not Available [facility] (Lab) [address], [place], [address], 01/15/2025 13:08:39 01/15/20 25 01/14/2025 GTT - GESTA RADHA L AMBAR N, ACOG OB glucose, 1 hour screen 99 mg/dL 70-135 Not Available [facility] (Lab) [address] [facility] [facility], [place], [address], 01/15/2025 13:08:40 01/15/20 25 01/14/2025 HIV 1/2 ANTIG EN/AN TIBOD Y, REFLE X CONFI RMATI ON HIV antigen/anti body Nonrea ctive nonrea ctive HIV-1 antig en and HIV-1 /HIV- 2 antib odies were not detec bryan. No labor atory evide nce of HIV infec tion. Not Available [facility] (Lab) [address] [facility], [place], [address], 01/15/2025 13:08:40 01/15/20 25 01/14/2025 RPR SCREE N, REFLE X TITER /CONF IRMAT ION RPR qualitative Nonrea ctive nonrea ctive Not Available [facility] (Lab) [address] [facility], [place], [address], 01/15/2025 13:08:40 03/10/20 25 03/10/2025 CULTU RE: GROUP B STREP SCREE N, REFLE X SUSCE PTIBI LITY result report SEE RESULT S BELOW Test: Cultu re: Group B Strep , Refle x Susce ptibi lity ([facility] ) Speci men Sourc e: Vagin a/Rec ernie Speci men Type: Vagin al/Re ctal Speci men Date: 03/10 1652 Resul t Date: 03/13 1409 Resul t Statu s: Final resul t Abnor mal: No Resul ting Lab: [facility] [address] [facility] [address] Tel: CULTU RE ----- ----- ----- --- No Group B strep isola bryan at 2 days (prudence ctive broth enhan cemen t) Not Available [facility] (Lab) [address], [place], [address], 03/13/2025 15:12:11 10/26/19 25 10/25/2024 US, obste tric, limit ed No observ ation record ed. [facility] [address], [place], [address], 10/25/2024 18:50:32 10/28/19 25 10/25/2024 US, obste tric, limit ed No observ ation record ed. [email or web address] [address], [place], [address], 10/30/2024 23:24:32 11/27/19 25 11/26/2024 US, obste tric, 2nd or 3rd trime ster No observ ation record ed. [facility] [address], [place], [address], 11/26/2024 17:49:36 11/27/19 25 11/26/2024 US, obste tric, 2nd or 3rd trime ster No observ ation record ed. [email or web address] [address] [address], [place], [address], 11/26/2024 17:24:36 02/12/20 25 02/11/2025 US, obste tric, follo w-up No observ ation record ed. [email or web address] [place] [address], [place], [address], 02/11/2025 17:21:09 02/12/20 25 02/11/2025 US, obste tric, follo w-up No observ ation record ed. [email or web address] [facility] [address], [place], [address], 02/25/2025 10:51:35 03/10/20 25 03/10/2025 US, obste tric, follo w-up No observ ation record ed. [facility] [address], [place], [address], 03/10/2025 15:18:58 03/10/20 25 03/10/2025 US, obste tric, follo w-up No observ ation record ed. [email or web address] [facility] [address], [place], [address], 03/18/2025 11:35:09 Result Notes None recorded. Problems Name Problem SNOMED Code Status Onset Date Resolution Date Notes Provider Name and Address Organization Details Recorded Time [id number] Active 025 JUANITO Hutchins [facility] 17:01:38 Problem Notes None recorded. Medical [...] and Address Organization Details Last Updated DateTime 03/23/2025 157.48 cm 34.8 kg/m2 56245.99 g 109/65 mm[Hg] Christine Ilana [facility] 03/23/2025 17:59:01 Social History Question Answer Notes LastModified by Organizat ion Details LastModified Time Tobacco Smoking Status Never Smoker [facility] 10/25/2024 16:11:22 Do You Have An Advance Directive? No Information n ot available 10/25/2024 If You Are , What Was Your Level Of Alcohol Consumption Prior To ? None [email or web address] Information not available 10/25/2024 Are You Blind Or Do You Have Difficulty Seeing? No Information n ot available 10/25/2024 What Is Your Level Of Caffeine Consumption? None [email or web address] Information not available 10/25/2024 In The 14 Days Before Symptom Onset, Have You Had Close Contact With A Laboratory-confirm ed COVID-19 While That Case Was Ill? No [email or web address] Information n ot available 10/25/2024 In The 14 Days Before Symptom Onset, Have You Had Close Contact With A Person Who Is Under Investigation For COVID-19 While That Person Was Ill? No [email or web address] Information not available 10/25/2024 Have You Been To An Area Known To Be High Risk For COVID-19? No [email or web address] Information not available 10/25/2024 Are You Deaf Or Do You Have Serious Difficulty Hearing? No [email or web address] Information not available 10/25/2024 What Type Of Diet Are You Following? REGULAR Information n ot available 10/25/2024 What Is The Highest Grade Or Level Of School You Have Completed Or The Highest Degree You Have Received? WI90304-1 [email or web address] Information not available 10/25/2024 Are There Any Guns Present In Your Home? No [email or web address] Information not available 10/25/2024 Do You Use Protection During Sex? No Information not available 01/28/2025 Do You Use Your Seat Belt Or Car Seat Routinely? Yes [email or web address] Information not available 10/25/2024 Are You Sexually Active? Yes [email or web address] Information not available 10/25/2024 Do You Have Smoke And Carbon Monoxide Detectors In Your Home? Yes [email or web address] Information not available 10/25/2024 Do You Use Sunscreen Routinely? Yes [email or web address] Information not available 10/25/2024 Has Tobacco Cessation Counseling Been Provided? No Information not available 10/25/2024 Do You Have Difficulty Walking Or Climbing Stairs? No [email or web address] Information not available 10/25/2024 Sex: Unknown Functional Status Question Answer Note LastModified by Organizat ion Details LastModified Time Do you use any illicit or recreational drugs? No [email or web address] Information not available 10/25/2024 Do you or have you ever used any other forms of tobacco or nicotine? No [email or web address] Information not available 10/25/2024 What is your level of alcohol consumption? None [email or web address] Information not available 10/25/2024 Are you currently employed? Yes Information not available 01/28/2025 Are you able to walk independently without assistance or assistive devices? YESASSIST [email or web address] Information not available 10/25/2024 Are you able to care for yourself independently? Yes [email or web address] Information not available 10/25/2024 Do you have difficulty dressing, bathing, grooming, or toileting? No [email or web address] Information not available 10/25/2024 What is your exercise level? Occasional [email or web address] Information not available 10/25/2024 Mental Status Question Answer Note LastModified by Organization D etails LastModified Time Do you feel stressed (tense, restless, nervous, or anxious, or unable to sleep at night)? [id number] [email or web address] Information not available 01/28/2025 Family History Nothing Reported. Medical History Condition Response Allergies (Food, seasonal, environmental ) N Other N Blood Transfusion N Drug/Latex Allergies/Reactions N Breast Cancer N Dermatologic Disorders N [...] ICD10 Code Diagnosis IMO Codes Diagnosis Note [id number] Grace Murcia CNM [facility] [address],[place] [address] 02/25/2025 14:45:15 02/25/2025 15:00:21 Gestation period, 34 weeks 12343804 Z3A.34 [id number] cont pnv [id number] Anoop Johnson MD [facility] [address],[place] [address] 03/10/2025 14:40:38 03/10/2025 15:25:33 Uterine size for dates discrepancy 860753828 O26.843 O09.30 Z3A.36 [id number] Anoop Johnson MD [place] [address],[place] [address] 03/10/2025 14:43:23 03/10/2025 16:33:12 care status 368390562 Z34.83 [id number] Anoop Johnson MD [facility] [address],[place] [address] 03/23/2025 17:49:32 03/24/2025 09:10:25 care status 506064813 Z34.83 [id number] Health Concerns Section Related Observation LastModified by Organization Detai ls LastModified Time None Recorded Concern Status LastModified by Organization Details LastModified Time None Recorded Payers Encounter Date Sequence Insurance Name Policy Number Policy Hoang Covered Member ID Hoang Member ID Guarantor Name 03/23/2025 1 [facility] (MEDICAID HMO) [id number] Con Barraza [id number] Con Barraza Notes Date Note Type Note Provider Name and Address Organization Details Recorded Time 03/23/2025 text/html Generic HPI TemplateReported by Patient Anoop Johnson MD [address], [place], [address], [place] [facility] 03/23/2025 18:20:21 OBGyn Episode Ob Episode Information Episode Created Date Number of Fetuses Patient Bloodtype Patient rh Status Prepregnancy Weight lbs Domestic Partner Domestic Partner Phone Father Name [employer] Principal Status 10/26/19 25 1 O Positive Ricky OPEN Fetus Data First Name Last Name Admitted to NICU Weight (g) Sex Living Outcome Pediatric Complications Fetus ID Race Codes Race Delivery Type [id number] Cristobal Calculation Initial Cristobal Date Initial Exam [...] Weight in lbs Pre/Post Dialysis Refused Weight 164.743817270024 BP Diastolic BP Location Tested BP Systolic BP Type 62 L arm 90 sitting Fetus Heart Rate Present A Present Fetus Movement A Yes Comments Patient presents to [facility]. Hx of uncomplicated , EIL. otherwise [...] Weight in lbs Pre/Post Dialysis Refused Weight 167.096034215104 BP Diastolic BP Location Tested BP Systolic [...] Weight in lbs Pre/Post Dialysis Refused Weight 175.446722661507 BP Diastolic BP Location Tested BP Systolic [...] Weight in lbs Pre/Post Dialysis Refused Weight 178.738797233216 BP Diastolic BP Location Tested BP Systolic [...] Weight in lbs Pre/Post Dialysis Refused Weight 180.351110315151 BP Diastolic BP Location Tested BP Systolic [...] Weight in lbs Pre/Post Dialysis Refused Weight 178.350437004994 BP Diastolic BP Location Tested BP Systolic [...] Weight in lbs Pre/Post Dialysis Refused Weight 183.426433124982 BP Diastolic BP Location Tested BP Systolic BP Type 63 L arm 93 sitting Fetus Heart Rate Present Fetus Movement A Yes Comments plan f/u growth at [facility] by cnm +[id number], precautions and education, not planning on vaccines [...] Weight in lbs Pre/Post Dialysis Refused Weight 186.677701861479 BP Diastolic BP Location Tested BP Systolic [...] Weight in lbs Pre/Post Dialysis Refused Weight 190.273623360543 BP Diastolic BP Location Tested BP Systolic [...] Type Weight in lbs Pre/Post Dialysis Refused 189.289944270422 BP Diastolic BP Location Tested BP Systolic [...] Weight in lbs Pre/Post Dialysis Refused Weight 192.435064295933 BP Diastolic BP Location Tested BP Systolic [...]
--- OUTSIDE RECORDS SUMMARY | 2025-04-10 17:01 | XMS_ITS | Data Portability ---
Author Organization [facility] [place] Address [address] [place] [address] [address] [place] [address] Assessment Encounter Date Assessment Date Assessment LastModified by Organization Details LastModified Time 03/10/2025 03/10/2025 Patient is ___weeks . Discussed plan. [email or web address] Not available 03/10/2025 15:41:13 03/23/2025 03/23/2025 Patient is ___weeks . Discussed plan. [email or web address] Not available 03/23/2025 17:59:21 03/30/2025 03/30/2025 Patient is ___weeks . Discussed plan. Not available 03/30/2025 17:09:48 04/08/2025 04/08/2025 Patient is ___weeks . Discussed plan. [email or web address] Not available 04/08/2025 14:47:52 Plan of Treatment Reminders Order Date Submit Date Provider Last Modified By Organization Details Last Modified Time Details Appointments None record ed. Lab None record ed. Referral None record ed. Procedures None record ed. Surgeries None record ed. Imaging US, obstet kenny, follow -up 025 03/10/20 25 [email or web address] [place], [address], [address], [place], [address], 14:13:06 Medication Orders None record ed. Patient TargetsNo targets recorded. Patient InstructionsNo instructions recorded. Reason for Referral None Reported. Results Created Date Observation Date Name Description Value Unit Range Abnormal Flag Note LastModifiedBy Organization Detail LastModifiedTime 03/10/2003/10/2025 CULTU RE: GROUP B STREP SCREE N, REFLE X SUSCE PTIBI LITY result report SEE RESULT S BELOW Test: Cultu re: Group B Strep , Refle x Susce ptibi lity ([facility]/ [facility] ) Speci men Sourc e: Vagin a/Rec ernie Speci men Type: Vagin al/Re ctal Speci men Date: 03/10 1652 Resul t Date: 03/13 1409 Resul t Statu s: Final resul t Abnor mal: No Resul ting Lab: [facility] [address] [facility] [address] Tel: [phone] CULTU RE ----- ----- ----- --- No Group B strep isola bryan at 2 days (prudence ctive broth enhan cemen t) Not Available [facility] (Lab) [address], [place], [address], 03/13/2025 15:12:11 02/12/20 25 02/11/2025 US, obste tric, follo w-up No observ ation record ed. [address], [place], [address], 02/11/2025 17:21:09 02/12/20 25 02/11/2025 US, obste tric, follo w-up No observ ation record ed. [email or web address] [address], [place], [address], 02/25/2025 10:51:35 03/10/20 25 03/10/2025 US, obste tric, follo w-up No observ ation record ed. [facility] [address], [place], [address], 03/10/2025 15:18:58 03/10/20 25 03/10/2025 US, obste tric, follo w-up No observ ation record ed. [email or web address] [address], [place], [address], 03/18/2025 11:35:09 Result Notes None recorded. Problems Name Problem SNOMED Code Status Onset Date Resolution Date Notes Provider Name and Address Organization Details Recorded Time [id number] Active 025 [email or web address] 17:01:38 Problem Notes None recorded. Medical [...] and Address Organization Details Last Updated DateTime 03/10/2025 157.48 cm 34 kg/m2 83313.18 g 117/71 mm[Hg] Ricarda Quevedo [facility] 03/10/2025 15:41:53 Date Recorded Body height Body mass index (BMI) Body weight Systolic And Diastolic Provider Name and Address Organization Details Last Updated DateTime 03/23/2025 157.48 cm 34.8 kg/m2 19861.99 g 109/65 mm[Hg] [facility] 03/23/2025 17:59:01 Date Recorded Body weight Systolic And Diastolic Provider Name and Address Organization Details Last Updated DateTime 03/30/2025 97238.71717 g 100/68 mm[Hg] Joy Conrad [facility] 03/30/2025 17:30:38 Date Recorded Body height Body mass index (BMI) Body weight Systolic And Diastolic Provider Name and Address Organization Details Last Updated DateTime 04/08/2025 157.48 cm 35.1 kg/m2 70801.74 g 110/74 mm[Hg] [facility] 04/08/2025 14:53:58 Social History Question Answer Notes LastModified by Organizat ion Details LastModified Time Tobacco Smoking Status Never Smoker JUANITO Hutchins miki, [facility] 10/25/2024 16:11:22 Do You Have An Advance Directive? No [email or web address] Information n ot available 10/25/2024 If You Are , What Was Your Level Of Alcohol Consumption Prior To ? None [email or web address] Information not available 10/25/2024 Are You Blind Or Do You Have Difficulty Seeing? No [email or web address] Information n ot available 10/25/2024 What Is Your Level Of Caffeine Consumption? None [email or web address] Information not available 10/25/2024 In The 14 Days Before Symptom Onset, Have You Had Close Contact With A Laboratory-confirm ed COVID-19 While That Case Was Ill? No [email or web address] Information n ot available 10/25/2024 In The 14 Days Before Symptom Onset, Have You Had Close Contact With A Person Who Is Under Investigation For COVID-19 While That Person Was Ill? No Information not available 10/25/2024 Have You Been To An Area Known To Be High Risk For COVID-19? No [email or web address] Information not available 10/25/2024 Are You Deaf Or Do You Have Serious Difficulty Hearing? No [email or web address] Information not available 10/25/2024 What Type Of Diet Are You Following? REGULAR [email or web address] Information n ot available 10/25/2024 What Is The Highest Grade Or Level Of School You Have Completed Or The Highest Degree You Have Received? [id number] [email or web address] Information not available 10/25/2024 Are There Any Guns Present In Your Home? No Information not available 10/25/2024 Do You Use Protection During Sex? No [email or web address] Information not available 01/28/2025 Do You Use Your Seat Belt Or Car Seat Routinely? Yes [email or web address] Information not available 10/25/2024 Are You Sexually Active? Yes [email or web address] Information not available 10/25/2024 Do You Have Smoke And Carbon Monoxide Detectors In Your Home? Yes [email or web address] Information not available 10/25/2024 Do You Use Sunscreen Routinely? Yes [email or web address] Information not available 10/25/2024 Has Tobacco Cessation Counseling Been Provided? No [email or web address] Information not available 10/25/2024 Do You Have Difficulty Walking Or Climbing Stairs? No Information not available 10/25/2024 Sex: Unknown Functional Status Question Answer Note LastModified by Organizat ion Details LastModified Time Do you use any illicit or recreational drugs? No Information not available 10/25/2024 Do you or have you ever used any other forms of tobacco or nicotine? No [email or web address] Information not available 10/25/2024 What is your level of alcohol consumption? None Information not available 10/25/2024 Are you currently employed? Yes Information not available 01/28/2025 Are you able to walk independently without assistance or assistive devices? YESASSIST [email or web address] Information not available 10/25/2024 Are you able to care for yourself independently? Yes [email or web address] Information not available 10/25/2024 Do you have difficulty dressing, bathing, grooming, or toileting? No [email or web address] Information not available 10/25/2024 What is your exercise level? Occasional [email or web address] Information not available 10/25/2024 Mental Status Question Answer Note LastModified by Organization D etails LastModified Time Do you feel stressed (tense, restless, nervous, or anxious, or unable to sleep at night)? 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 339980262 Z32.01 [id number] [id number] MD Brit ELIZALDE [address],[place] [address] 10/25/2024 15:59:33 10/26/2024 09:34:02 Finding of menstrual bleeding 459137933 Z36.87 Z3A.16 114451 [id number] CRISTINA PETERSEN MD [place] [address],[place] [address] 11/26/2024 14:25:07 11/26/2024 16:14:34 Ultrasound scan - obstetric 628019667 Z36.3 O09.30 Z3A.21 95934 [id number] CRISTINA PETERSEN MD [place] [address] [address] 11/26/2024 14:25:32 11/27/2024 08:50:13 care status 265880317 Z34.82 14664630 [id number] CRISTINA PETERSEN MD [place] [address] [address] 12/31/2024 16:24:15 01/03/2025 07:16:14 care status 962568578 Z34.83 71939325 [id number] MD Brit ELIZALDE [address],[place] [address] 01/14/2025 15:27:34 01/14/2025 16:12:36 screening 039995956 Z36.89 [id number] [facility] [address],[place] [address] 01/28/2025 10:05:52 01/28/2025 10:29:15 Gestation period, 30 weeks 11740454 Z3A.30 8290194 cont pnvstart slow fe daily [id number] CRISTINA PETERSEN MD [place] [address] [address] 02/11/2025 15:41:07 02/11/2025 16:57:52 Uterine size for dates discrepancy 228758259 O26.843 Z3A.32 4165759 [id number] [facility] [address] [address] 02/11/2025 15:41:30 02/14/2025 10:40:09 Gestation period, 32 weeks 5953431 Z3A.32 2686725 cont pnv [id number] Grace Murcia CNM [place] [address] [place] [address] 02/25/2025 14:45:15 02/25/2025 15:00:21 Gestation period, 34 weeks 92492261 Z3A.34 5541842 cont pnv [id number] Anoop Johnson MD [place] [address] [address] 03/10/2025 14:40:38 03/10/2025 15:25:33 Uterine size for dates discrepancy 748088563 O26.843 O09.30 Z3A.36 6721175 [id number] Anoop Johnson MD [place] [address] [address] 03/10/2025 14:43:23 03/10/2025 16:33:12 care status 795626601 Z34.83 35512494 [id number] Anoop Johnson MD [place] [address] [address] 03/23/2025 17:49:32 03/24/2025 09:10:25 care status 367824990 Z34.83 89237216 [id number] Anoop Johnson MD [place] [address],[place] [address] 03/30/2025 17:07:58 03/31/2025 08:48:38 care status 908878028 Z34.83 19190794 [id number] Anoop Johnson MD [place] [address],[place] [address] 04/08/2025 14:46:38 04/08/2025 15:31:34 care status 529368672 Z34.83 [id number] Health Concerns Section Related Observation LastModified by Organization Detai ls LastModified Time None Recorded Concern Status LastModified by Organization Details LastModified Time None Recorded Advance Directives Directive N: Payers Insurance Date Sequence Insurance Name Policy Number Policy Hoang Covered Member ID Hoang Member ID Guarantor Name 04/05/2025 1 [facility] (MEDICAID HMO) [id number] Con Barraza [id number] Con Barraza Notes Date Note Type Note Provider Name and Address Organization Details Recorded Time 03/10/2025 text/html Generic HPI TemplateReported by Patient Anoop Johnson MD [address], [place], [address], [facility] 03/10/2025 16:29:53 03/23/2025 text/html Generic HPI TemplateReported by Patient Anoop Johnson MD [address], [place], [address], [place] [facility] 03/23/2025 18:20:21 03/30/2025 text/html Generic HPI TemplateReported by Patient Anoop Johnson MD [address], [place], [address], [facility] 03/30/2025 17:45:55 04/08/2025 text/html Generic HPI TemplateReported by Patient Anoop Johnson MD [address], [place], [address], [facility] 04/08/2025 15:25:47 OBGyn Episode Ob Episode Information Episode Created Date Number of Fetuses Patient Bloodtype Patient rh Status Prepregnancy Weight lbs Domestic Partner Domestic Partner Phone Father Name Link Assembler Status 10/26/19 25 1 CLOSED Fetus Data First Name Last Name Admitted to NICU Weight (g) Sex Living Outcome Pediatric Complications Fetus ID Race Codes Race Delivery Type , Spontane ous [id number] Cristobal Calculation Initial Cristobal Date Initial Exam Date Initial Exam Provider Initial Ultrasound Date Last Menstrual Period Date Ultra Sound Weeks Gestation 0 Eighteen To Twenty Week Cristobal Update Ultra Sound Date Fundal Height At Umbil Quickening Date Ultra Sound Latest Weeks Gestation Final Cristobal Confirmed By Final Cristobal Confirmed Date Final Cristobal Date Ultra Sound Latest Days Gestation 0 0 Menstrual History Last Menstrual Date Menses Monthly On Bcp Conception Prior Menses Frequency Hcg Plus Date Menarche Onset Age Delivery Information Delivery Date Delivery Type Labor Anesthesia Weeks Gestation Incision Type Labor Labor Length Hrs Delivered By Post Complications Tubal Sterilization Discharge Date Comments 4 Discharge Information Feeding Method Contraceptive Method Maternal HG B and HCT Levels Ob Episode Information Episode Created Date Number of Fetuses Patient Bloodtype Patient rh Status Prepregnancy Weight lbs Domestic Partner Domestic Partner Phone Father Name Link Assembler Status 10/26/19 25 1 CLOSED Fetus Data First Name Last Name Admitted to NICU Weight (g) Sex Living Outcome Pediatric Complications Fetus ID Race Codes Race Delivery Type 2721.55 2 F Full Term [id number] Vaginal Delivery Cristobal Calculation Initial Cristobal Date Initial Exam Date Initial Exam Provider Initial Ultrasound Date Last Menstrual Period Date Ultra Sound Weeks Gestation 0 Eighteen To Twenty Week Cristobal Update Ultra Sound Date Fundal Height At Umbil Quickening Date Ultra Sound Latest Weeks Gestation Final Cristobal Confirmed By Final Cristobal Confirmed Date Final Cristobal Date Ultra Sound Latest Days Gestation 0 0 Menstrual History Last Menstrual Date Menses Monthly On Bcp Conception Prior Menses Frequency Hcg Plus Date Menarche Onset Age Delivery Information Delivery Date Delivery Type Labor Anesthesia Weeks Gestation Incision Type Labor Labor Length Hrs Delivered By Post Complications Tubal Sterilization Discharge Date Comments Discharge Information Feeding Method Contraceptive Method Maternal HG B and HCT Levels Ob Episode Information Episode Created Date Number of Fetuses Patient Bloodtype Patient rh Status Prepregnancy Weight lbs Domestic Partner Domestic Partner Phone Father Name Link Assembler Status 10/26/19 25 1 O Positive Ricky OPEN Fetus Data First Name Last Name Admitted to NICU Weight (g) Sex Living Outcome Pediatric Complications Fetus ID Race Codes Race Delivery Type [id number] Cristobal Calculation Initial Cristobal Date Initial Exam [...] Weight in lbs Pre/Post Dialysis Refused Weight 164.656019194109 BP Diastolic BP Location Tested BP Systolic BP Type 62 L arm 90 sitting Fetus Heart Rate Present A Present Fetus Movement A Yes Comments Patient presents to [facility]. Hx of uncomplicated , [...] Weight in lbs Pre/Post Dialysis Refused Weight 167.506305002411 BP Diastolic BP Location Tested BP Systolic [...] Weight in lbs Pre/Post Dialysis Refused Weight 175.949770073653 BP Diastolic BP Location Tested BP Systolic [...] Weight in lbs Pre/Post Dialysis Refused Weight 178.034412345679 BP Diastolic BP Location Tested BP Systolic [...] Weight in lbs Pre/Post Dialysis Refused Weight 180.557030658636 BP Diastolic BP Location Tested BP Systolic [...] Weight in lbs Pre/Post Dialysis Refused Weight 178.209475376658 BP Diastolic BP Location Tested BP Systolic [...] Weight in lbs Pre/Post Dialysis Refused Weight 183.528084170963 BP Diastolic BP Location Tested BP Systolic BP Type 63 L arm 93 sitting Fetus Heart Rate Present Fetus Movement A Yes Comments plan f/[facility] [place] by cnm +[id number], precautions and education, not planning on vaccines [...] Weight in lbs Pre/Post Dialysis Refused Weight 186.572670171783 BP Diastolic BP Location Tested BP Systolic [...] Weight in lbs Pre/Post Dialysis Refused Weight 190.278604129182 BP Diastolic BP Location Tested BP Systolic [...] Type Weight in lbs Pre/Post Dialysis Refused 189.588163104904 BP Diastolic BP Location Tested BP Systolic [...] Weight in lbs Pre/Post Dialysis Refused Weight 192.512413972009 BP Diastolic BP Location Tested BP Systolic [...]
--- OUTSIDE RECORDS SUMMARY | 2025-04-10 17:01 | XMS_ITS | Continuity of Care Document ---
Author Organization [facility], [place] Address [address] [place] [address] Assessment Encounter Date Assessment Date Assessment LastModified by Organization Details LastModified Time 02/25/2025 02/25/2025 Patient is _34__weeks . Discussed plan. Not available 02/25/2025 14:59:36 Plan of Treatment Reminders Order Date Submit [...] Not Available Arelis logan [address], [place], [address], 11/01/2024 03:35:20 11/02/19 25 11/01/2024 [UNIT Y] ANEUP LOIDY NIPT 22Q11.2 microdeletio n LOW RISK <1 in 10,000 normal Not Available Lizzeth li [address], [place], [address], 11/01/2024 03:35:20 11/02/19 25 11/01/2024 [UNIT Y] ANEUP LOIDY NIPT sex chromosome aneuploidy NOT DETECT ED normal Not Available [facility] [address], [place], [address], 11/01/2024 03:35:20 11/02/19 25 11/01/2024 [UNIT Y] ANEUP LOIDY NIPT monosomy X LOW RISK <1 in 10,000 normal Not Available [facility] [address], [place], [address], 11/01/2024 03:35:20 11/02/19 25 11/01/2024 [UNIT Y] ANEUP LOIDY NIPT trisomy 13 LOW RISK <1 in 10,000 normal Not Available [facility] [address], [place], [address], 11/01/2024 03:35:20 11/02/19 25 11/01/2024 [UNIT Y] ANEUP LOIDY NIPT trisomy 18 LOW RISK <1 in 10,000 normal Not Available [facility] [address], [place], [address], 11/01/2024 03:35:20 11/02/19 25 11/01/2024 [UNIT Y] ANEUP LOIDY NIPT trisomy 21 LOW RISK <1 in 10,000 normal Not Available [facility] [address], [place], [address], 11/01/2024 03:35:20 11/02/19 25 11/01/2024 [UNIT Y] ANEUP LOIDY NIPT sex FEMALE normal Not Available [facility] [address], [place], [address], 11/01/2024 03:35:20 11/02/19 25 11/01/2024 [UNIT Y] ANEUP LOIDY NIPT gestation SINGLE TON normal Not Available [facility] [address], [place], [address], 11/01/2024 03:35:20 11/02/19 25 11/01/2024 [UNIT Y] ANEUP ALEXIAIDY NIPT for detailed report, see pdf See PDF normal Not Available [facility] [address], [place], [address], 11/01/2024 03:35:20 11/05/19 25 11/04/2024 [UNIT Y] LAQUITA Hurtado sickle cell disease/beta -thalassemia /hemoglobino pathies carrier screen NEGATI VE normal Not Available [facility] [address], [place], [address], 11/04/2024 00:48:44 11/05/19 25 11/04/2024 [UNIT Y] LAQUITA MELYSSA Hurtado alpha-thalas semia carrier screen NEGATI VE normal Not Available [facility] [address], [place], [address], 11/04/2024 00:48:44 11/05/19 25 11/04/2024 [UNIT Y] LAQUITA MELYSSA Hurtado cystic fibrosis carrier screen NEGATI VE normal Not Available [facility] [address], [place], [address], 11/04/2024 00:48:44 11/05/19 25 11/04/2024 [UNIT Y] LAQUITA Hurtado spinal muscular atrophy carrier screen NEGATI VE 2 SMN1 copies , SNP not presen t normal Not Available [facility] [address], [place], [address], 11/04/2024 00:48:44 11/05/19 25 11/04/2024 [UNIT Y] LAQUITA Hurtado for detailed report, see pdf See PDF normal Not Available [facility] [address], [place], [address], 11/04/2024 00:48:44 10/26/19 25 10/25/2024 CBC W/DIF F WBC 8.7 10'3/ uL 3.5-10 .5 Not Available [facility] (Lab) [address], [place], [address], 10/26/2024 13:46:11 10/26/19 25 10/25/2024 CBC W/DIF F RBC 3.45 10'6/ uL (based on docume nted legal sex) 3.80-5 .20 low Not Available [facility] (Lab) [address], [place], [address], 10/26/2024 13:46:11 10/26/19 25 10/25/2024 CBC W/DIF F HGB 10.1 g/dL (based on docume nted legal sex) 11.6-1 5.4 low Not Available [facility] (Lab) [address], [place], [address], 10/26/2024 13:46:11 10/26/19 25 10/25/2024 CBC W/DIF F HCT 31.0 % (based on docume nted legal sex) 34.0-4 5.0 low Not Available [facility] (Lab) [address], [place], [address], 10/26/2024 13:46:11 10/26/19 25 10/25/2024 CBC W/DIF F MCV 89.9 fL 80.0-9 9.0 Not Available [facility] (Lab) [address], [place], [address], 10/26/2024 13:46:11 10/26/19 25 10/25/2024 CBC W/DIF F MCH 29.3 pg 27.0-3 4.0 Not Available [facility] (Lab) [address], [place], [address], 10/26/2024 13:46:11 10/26/19 25 10/25/2024 CBC W/DIF F MCHC 32.6 g/dL 32.0-3 5.5 Not Available [facility] (Lab) [address], [place], [address], 10/26/2024 13:46:11 10/26/19 25 10/25/2024 CBC W/DIF F RDW 14.4 % 11.0-1 5.0 Not Available [facility] (Lab) [address], [place], [address], 10/26/2024 13:46:11 10/26/19 25 10/25/2024 CBC W/DIF F plt 284 10'3/ uL 150-40 0 Not Available [facility] (Lab) [address] [facility], [place], [address], 10/26/2024 13:46:11 10/26/19 25 10/25/2024 CBC W/DIF F MPV 11.1 fL 8.8-12 .1 Not Available [facility] (Lab) [address], [place], [address], 10/26/2024 13:46:11 10/26/19 25 10/25/2024 CBC W/DIF F NRBC's 0.0 % 0.0 Not Available [facility] (Lab) [address] [facility], [place], [address], 10/26/2024 13:46:11 10/26/19 25 10/25/2024 CBC W/DIF F absolute NRBCs 0.0 10'3/ uL no refere nce range establ ished Not Available [facility] (Lab) [address], [place], [address], 10/26/2024 13:46:11 10/26/19 25 10/25/2024 CBC W/DIF F neutrophils 62.7 % 34.0-7 3.0 Not Available [facility] (Lab) [address] [place], [address], 10/26/2024 13:46:11 10/26/19 25 10/25/2024 CBC W/DIF F lymphocytes 31.2 % 15.0-5 0.0 Not Available [facility] (Lab) [address], [place], [address], 10/26/2024 13:46:11 10/26/19 25 10/25/2024 CBC W/DIF F monocytes 5.2 % 1.0-15 .0 Not Available [facility] (Lab) [address], [place], [address], 10/26/2024 13:46:11 10/26/19 25 10/25/2024 CBC W/DIF F eosinophils 0.2 % 0.0-8. 0 Not Available [facility] (Lab) [address], [place], [address], 10/26/2024 13:46:11 10/26/19 25 10/25/2024 CBC W/DIF F basophils 0.5 % 0.0-2. 0 Not Available [facility] (Lab) [address] [facility], [place], [address], 10/26/2024 13:46:11 10/26/19 25 10/25/2024 CBC W/DIF [...] if prese nt. Not Available [facility] (Lab) [address] , [place], [address], 10/26/2024 13:46:11 10/26/19 25 10/25/2024 CBC W/DIF F absolute neutrophils 5.5 10'3/ uL 1.5-8. 0 Not Available [facility] (Lab) [address], [place], [address], 10/26/2024 13:46:11 10/26/19 25 10/25/2024 CBC W/DIF F absolute lymphocytes 2.7 10'3/ uL 1.0-4. 0 Not Available [facility] (Lab) [address], [place], [address], 10/26/2024 13:46:11 10/26/1910/25/2024 CBC W/DIF F absolute monocytes 0.5 10'3/ uL 0.2-1. 0 Not Available [facility] (Lab) [address] [facility], [place], [address], 10/26/2024 13:46:11 10/26/19 25 10/25/2024 CBC W/DIF F absolute eosinophils 0.0 10'3/ uL 0.0-0. 6 Not Available [facility] (Lab) [address], [place], [address], 10/26/2024 13:46:11 10/26/19 25 10/25/2024 CBC W/DIF F absolute basophils 0.0 10'3/ uL 0.0-0. 3 Not Available [facility] (Lab) [address], [place], [address], 10/26/2024 13:46:11 10/26/19 25 10/25/2024 CBC W/DIF [...] nm.or g/gen derx Not Available [facility] (Lab) [address], [place], [address], 10/26/2024 13:46:11 10/26/1910/25/2024 HIV 1/2 ANTIG EN/AN TIBOD Y, REFLE X CONFI RMATI ON HIV antigen/anti body Nonrea ctive nonrea ctive HIV-1 antig en and HIV-1 /HIV- 2 antib odies were not detec bryan. No labor atory evide nce of HIV infec tion. Not Available [facility] (Lab) [address], [place], [address], 10/26/2024 13:46:11 10/26/19 25 10/25/2024 HEPAT ITIS C ANTIB MIGUELINA SCREE N, REFLE X TO CONFI RMATI ON hepatitis C antibody Non-re active non-re active Antib odies to HCV Not Detec bryan, does not exclu de the possi bilit y of expos ure to HCV. Not Available [facility] (Lab) [address], [place], [address], 10/26/2024 13:46:12 10/26/19 25 10/25/2024 HEPAT ITIS B SURFA CE ANTIG EN hepatitis B surface antigen Non-re active non-re active This assay was perfo rmed using [employer] ratio n reage nts and test kits. Value s obtai rickey with other assay metho ds or kits canno t be used inter zuleta eably . Not Available [facility] (Lab) [address], [place], [address], 10/26/2024 13:46:12 10/26/19 25 10/25/2024 TSH, REFLE X FREE T4 TSH 1.26 uIU/m L 0.30-5 .33 Not Available [facility] (Lab) [address], [place], [address], 10/26/2024 13:46:13 10/26/19 25 10/25/2024 TYPE/ RH/SC REEN ABO/Rh type O POS Not Available [facility] (Lab) [address], [place], [address], 10/26/2024 13:46:13 10/26/19 25 10/25/2024 TYPE/ RH/SC REEN antibody screen NEG Not Available [facility] (Lab) [address] [facility], [place], [address], 10/26/2024 13:46:13 10/26/19 25 10/25/2024 TYPE/ RH/SC REEN exp date 2024 23:59 Not Available [facility] (Lab) [address] [facility], [place], [address], 10/26/2024 13:46:13 10/26/19 25 10/25/2024 RUBEL LA IGG ANTIB MIGUELINA, QUANT rubella antibodies, IgG Reacti ve reacti ve Not Available [facility] (Lab) [address] [facility], [place], [address], 10/26/2024 13:46:13 10/26/19 25 10/25/2024 RUBEL LA IGG ANTIB MIGUELINA, QUANT rubella antibodies, IgG quant 18.0 IU/mL >=10 Non-r eacti ve (Non- Immun e) <10 IU/mL React haim (Immu ne) > or = 10 IU/mL Not Available [facility] (Lab) [address] [facility], [place], [address], 10/26/2024 13:46:13 10/26/19 25 10/25/2024 RPR SCREE N, REFLE X TITER /CONF IRMAT ION RPR qualitative Nonrea ctive nonrea ctive Not Available [facility] (Lab) [address] [place], [address], 10/26/2024 13:46:14 10/26/19 25 10/25/2024 HEMOG LOBIN [...] n sugge sted Not Available [facility] (Lab) [address] [facility], [place], [address], 10/26/2024 13:46:14 10/26/19 25 10/25/2024 CT/GC AND TRICH OMONA S VAGIN ARIANA (RRNA ), URINE chlamydia trachomatis, PCR Negati ve negati ve Not Available [facility] (Lab) [address] [facility], [place], [address], 10/26/2024 21:37:02 10/26/19 25 10/25/2024 CT/GC AND TRICH OMONA S VAGIN ARIANA (RRNA ), URINE neisseria gonorrhoeae, PCR Negati ve negati ve Not Available [facility] (Lab) [address] [facility], [place], [address], 10/26/2024 21:37:02 10/26/19 25 10/25/2024 CT/GC AND TRICH OMONA S VAGIN ARIANA (RRNA ), URINE trichomonas vaginalis ribosomal RNA (rrna) Negati ve negati ve Not Available [facility] (Lab) [address] [facility], [place], [address], 10/26/2024 21:37:02 10/26/19 25 10/25/2024 CULTU RE: URINE result report SEE RESULT S BELOW Test: Cultu re: Urine Speci men Sourc e: Urine Voide d Speci men Type: Urine Speci men Date: 025 1714 Resul t Date: 20242 Resul t Statu s: Final resul t Abnor mal: No Resul ting Lab: [facility] [address] [facility] [address] Tel: CULTU RE ----- ----- ----- --- No growt h in 1 day (dete ction level of 10,00 0 colon ies / ml.) Not Available [facility] (Lab) [address] [facility], [place], [address], 10/26/2024 21:37:02 10/26/19 25 10/25/2024 drug scree n, urine Amphetamines : negati ve Not Available [place] [address], [place], [address], 10/25/2024 17:35:03 10/26/19 25 10/25/2024 drug scree n, urine Cannabinoids : negati ve Not Available [place] [address], [place], [address], 10/25/2024 17:35:03 10/26/19 25 10/25/2024 drug scree n, urine Cocaine: negati ve Not Available [place] [address], [place], [address], 10/25/2024 17:35:03 10/26/19 25 10/25/2024 drug scree n, urine Opiates: negati ve Not Available [place] [address], [place], [address], 10/25/2024 17:35:03 10/26/19 25 10/25/2024 drug scree n, urine Phenocyclidi ne: negati ve Not Available [place] [address], [place], [address], 10/25/2024 17:35:03 10/26/19 25 10/25/2024 drug scree n, urine Barbiturates : negati ve Not Available [place] [address], [place], [address], 10/25/2024 17:35:03 10/26/19 25 10/25/2024 drug scree n, urine Benzodiazepi bridget: negati ve Not Available [place] [address], [place], [address], 10/25/2024 17:35:03 10/26/19 25 10/25/2024 drug scree n, urine Ethanol: negati ve Not Available [place] [address], [place], [address], 10/25/2024 17:35:03 10/26/19 25 10/25/2024 drug scree n, urine Hallucinogen s: negati ve Not Available [place] [address], [place], [address], 10/25/2024 17:35:03 10/26/19 25 10/25/2024 drug scree n, urine Inhalants: negati ve Not Available [place] [address], [place], [address], 10/25/2024 17:35:03 10/26/19 25 10/25/2024 drug scree n, urine Anabolic Steroids: negati ve Not Available [place] [address], [place], [address], 10/25/2024 17:35:03 10/26/19 25 10/25/2024 drug scree n, urine Other: negati ve Not Available [place] [address], [place], [address], 10/25/2024 17:35:03 01/15/20 25 01/14/2025 HEMOG LOBIN (HGB) HGB 9.3 g/dL (based on docume nted legal sex) 11.6-1 5.4 low Not Available [facility] (Lab) [address], [place], [address], 01/15/2025 13:08:39 01/15/20 25 01/14/2025 HEMAT OCRIT (HCT) HCT 28.1 % (based on docume nted legal sex) 34.0-4 5.0 low Not Available [facility] (Lab) [address], [place], [address], 01/15/2025 13:08:39 01/15/20 25 01/14/2025 GTT - GESTA RADHA L SCREE N, ACOG OB glucose, 1 hour screen 99 mg/dL 70-135 Not Available [facility] (Lab) [address] [facility], [place], [address], 01/15/2025 13:08:40 01/15/20 25 01/14/2025 HIV 1/2 ANTIG EN/AN TIBOD Y, REFLE X CONFI RMATI ON HIV antigen/anti body Nonrea ctive nonrea ctive HIV-1 antig en and HIV-1 /HIV- 2 antib odies were not detec bryan. No labor atory evide nce of HIV infec tion. Not Available [facility] (Lab) [address] [facility], [place], [address], 01/15/2025 13:08:40 01/15/20 25 01/14/2025 RPR SCREE N, REFLE X TITER /CONF IRMAT ION RPR qualitative Nonrea ctive nonrea ctive Not Available [facility] (Lab) [address] [facility], [place], [address], 01/15/2025 13:08:40 10/26/19 25 10/25/2024 US, obste tric, limit ed No observ ation record ed. [facility] [address], [place], [address], 10/25/2024 18:50:32 10/28/19 25 10/25/2024 US, obstjen tric, limit ed No observ ation record ed. [email or web address] [address] [address], [place], [address], 10/30/2024 23:24:32 11/27/19 25 11/26/2024 US, usha tric, 2nd or 3rd trime ster No observ ation record ed. [facility] [address], [place], [address], 11/26/2024 17:49:36 11/27/19 25 11/26/2024 US, obste tric, 2nd or 3rd trime ster No observ ation record ed. [email or web address] [address], [place], [address], 11/26/2024 17:24:36 02/12/20 25 02/11/2025 US, obste tric, follo w-up No observ ation record ed. [email or web address] [place] [address], [place], [address], 02/11/2025 17:21:09 02/12/20 25 02/11/2025 US, obste tric, follo w-up No observ ation record ed. [address] [address], [place], [address], 02/25/2025 10:51:35 03/10/20 25 03/10/2025 US, obste tric, follo w-up No observ ation record ed. [email or web address] [place] [address], [place], [address], 03/10/2025 15:18:58 03/10/20 25 03/10/2025 US, obste tric, follo w-up No observ ation record ed. [email or web address] [address], [place], [address], 03/18/2025 11:35:09 Result Notes None recorded. Problems Name Problem SNOMED Code Status Onset Date Resolution Date Notes Provider Name and Address Organization Details Recorded Time [id number] Active 025 JUANITO Avis, [place] - [facility] 17:01:38 Problem Notes None recorded. Medical [...] and Address Organization Details Last Updated DateTime 02/25/2025 157.48 cm 33.5 kg/m2 66430.4 g 93/63 mm[Hg] Oly Shabazz [facility] 02/25/2025 14:59:27 Social History Question Answer Notes LastModified by Organizat ion Details LastModified Time Tobacco Smoking Status Never Smoker JUANITO Liset [place], [facility] 10/25/2024 16:11:22 Do You Have An Advance Directive? No [email or web address] Information n ot available 10/25/2024 If You Are , What Was Your Level Of Alcohol Consumption Prior To ? None [email or web address] Information not available 10/25/2024 Are You Blind Or Do You Have Difficulty Seeing? No [email or web address] Information n ot available 10/25/2024 What Is Your Level Of Caffeine Consumption? None [email or web address] Information not available 10/25/2024 In The 14 Days Before Symptom Onset, Have You Had Close Contact With A Laboratory-confirm ed COVID-19 While That Case Was Ill? No [email or web address] Information n ot available 10/25/2024 In The 14 Days Before Symptom Onset, Have You Had Close Contact With A Person Who Is Under Investigation For COVID-19 While That Person Was Ill? No [email or web address] Information not available 10/25/2024 Have You Been To An Area Known To Be High Risk For COVID-19? No Information not available 10/25/2024 Are You Deaf Or Do You Have Serious Difficulty Hearing? No [email or web address] Information not available 10/25/2024 What Type Of Diet Are You Following? REGULAR Information n ot available 10/25/2024 What Is The Highest Grade Or Level Of School You Have Completed Or The Highest Degree You Have Received? [id number] [email or web address] Information not available 10/25/2024 Are There Any Guns Present In Your Home? No [email or web address] Information not available 10/25/2024 Do You Use Protection During Sex? No Information not available 01/28/2025 Do You Use Your Seat Belt Or Car Seat Routinely? Yes [email or web address] Information not available 10/25/2024 Are You Sexually Active? Yes [email or web address] Information not available 10/25/2024 Do You Have Smoke And Carbon Monoxide Detectors In Your Home? Yes [email or web address] Information not available 10/25/2024 Do You Use Sunscreen Routinely? Yes Information not available 10/25/2024 Has Tobacco Cessation Counseling Been Provided? No [email or web address] Information not available 10/25/2024 Do You Have Difficulty Walking Or Climbing Stairs? No Information not available 10/25/2024 Sex: Unknown Functional Status Question Answer Note LastModified by Organizat ion Details LastModified Time Do you use any illicit or recreational drugs? No [email or web address] Information not available 10/25/2024 Do you or have you ever used any other forms of tobacco or nicotine? No [email or web address] Information not available 10/25/2024 What is your level of alcohol consumption? None [email or web address] Information not available 10/25/2024 Are you currently employed? Yes [email or web address] Information not available 01/28/2025 Are you able to walk independently without assistance or assistive devices? YESASSIST [email or web address] Information not available 10/25/2024 Are you able to care for yourself independently? Yes [email or web address] Information not available 10/25/2024 Do you have difficulty dressing, bathing, grooming, or toileting? No [email or web address] Information not available 10/25/2024 What is your exercise level? Occasional [email or web address] Information not available 10/25/2024 Mental Status Question Answer Note LastModified by Organization D etails LastModified Time Do you feel stressed (tense, restless, nervous, or anxious, or unable to sleep at night)? [id number] [email or web address] Information not available 01/28/2025 Family History Nothing [...] ICD10 Code Diagnosis IMO Codes Diagnosis Note [id number] Grace Murcia CNM [place] [address] [address] 01/28/2025 10:05:52 01/28/2025 10:29:15 Gestation period, 30 weeks 65018680 Z3A.30 [id number] cont pnvstart slow fe daily [id number] CRISTINA PETERSEN MD [place] [address] [address] 02/11/2025 15:41:07 02/11/2025 16:57:52 Uterine size for dates discrepancy 029841630 O26.843 Z3A.32 9192081 [id number] Grace Murcia CNM [place] [address] [address] 02/11/2025 15:41:30 02/14/2025 10:40:09 Gestation period, 32 weeks 0152370 Z3A.32 1601522 cont pnv [id number] Grace Murcia CNM [place] [address] [address] 02/25/2025 14:45:15 02/25/2025 15:00:21 Gestation period, 34 weeks 83864113 Z3A.34 8108467 cont pnv Health Concerns Section Related Observation LastModified by Organization Detai ls LastModified Time None Recorded Concern Status LastModified by Organization Details LastModified Time None Recorded Payers Encounter Date Sequence Insurance Name Policy Number Policy Hoang Covered Member ID Hoang Member ID Guarantor Name 02/25/2025 1 [facility] (MEDICAID HMO) [id number] Con Barraza [id number] Con Barraza Notes Date Note Type Note Provider Name and Address Organization Details Recorded Time 02/25/2025 text/html Generic HPI TemplateReported by Patient Grace Murcia CNM [address], [place], [address], [facility] 02/25/2025 15:10:56 OBGyn Episode Ob Episode Information Episode Created Date Number of Fetuses Patient Bloodtype Patient rh Status Prepregnancy Weight lbs Domestic Partner Domestic Partner Phone Father Name Health Psychologist Status 10/26/19 25 1 O Positive Ricky OPEN Fetus Data First Name Last Name Admitted to NICU Weight (g) Sex Living Outcome Pediatric Complications Fetus ID Race Codes Race Delivery Type 63325 Cristobal Calculation Initial Cristobal Date Initial Exam [...] Weight in lbs Pre/Post Dialysis Refused Weight 164.425030264621 BP Diastolic BP Location Tested BP Systolic BP Type 62 L arm 90 sitting Fetus Heart Rate Present A Present Fetus Movement A Yes Comments Patient presents to [facility] care. Hx of uncomplicated , EIL. [...] Weight in lbs Pre/Post Dialysis Refused Weight 167.778296197019 BP Diastolic BP Location Tested BP Systolic [...] Weight in lbs Pre/Post Dialysis Refused Weight 175.377835942674 BP Diastolic BP Location Tested BP Systolic [...] Weight in lbs Pre/Post Dialysis Refused Weight 178.997275118494 BP Diastolic BP Location Tested BP Systolic [...] Weight in lbs Pre/Post Dialysis Refused Weight 180.412881484147 BP Diastolic BP Location Tested BP Systolic [...] Weight in lbs Pre/Post Dialysis Refused Weight 178.306455199081 BP Diastolic BP Location Tested BP Systolic [...] Weight in lbs Pre/Post Dialysis Refused Weight 183.671318654125 BP Diastolic BP Location Tested BP Systolic BP Type 63 L arm 93 sitting Fetus Heart Rate Present Fetus Movement A Yes Comments plan f/u growth at next [facility], [place] by cnm +[id number], precautions and education, not planning on vaccines [...] Weight in lbs Pre/Post Dialysis Refused Weight 186.453751471988 BP Diastolic BP Location Tested BP Systolic [...] Weight in lbs Pre/Post Dialysis Refused Weight 190.447468849619 BP Diastolic BP Location Tested BP Systolic [...] Type Weight in lbs Pre/Post Dialysis Refused 189.023431267094 BP Diastolic BP Location Tested BP Systolic [...] Weight in lbs Pre/Post Dialysis Refused Weight 192.719324607873 BP Diastolic BP Location Tested BP Systolic [...]
--- OUTSIDE RECORDS SUMMARY | 2025-04-10 17:01 | XMS_ITS | Continuity of Care Document ---
Author Organization [facility], [place] Address [address] [place] [address] Assessment Encounter Date Assessment Date Assessment LastModified by Organization Details LastModified Time 03/30/2025 03/30/2025 Patient is ___weeks . Discussed plan. [email or web address] Not available 03/30/2025 17:09:48 Plan of Treatment Reminders Order Date Submit [...] normal Not Available Arelis [email or web address], [place], [address], 11/01/2024 03:35:20 11/02/19 25 11/01/2024 [UNIT Y] ANEUP LOIDY NIPT 22Q11.2 microdeletio n LOW RISK <1 in 10,000 normal Not Available Lizzeth [address], [place], [address], 11/01/2024 03:35:20 11/02/19 25 11/01/2024 [UNIT Y] ANEUP LOIDY NIPT sex chromosome aneuploidy NOT DETECT ED normal Not Available [facility] [address], [place], [address], 11/01/2024 03:35:20 11/02/19 25 11/01/2024 [UNIT Y] ANEUP LOIDY NIPT monosomy X LOW RISK <1 in 10,000 normal Not Available [address] [address], [place], [address], 11/01/2024 03:35:20 11/02/19 25 11/01/2024 [UNIT Y] ANEUP LOIDY NIPT trisomy 13 LOW RISK <1 in 10,000 normal Not Available [address] [address], [place], [address], 11/01/2024 03:35:20 11/02/19 25 11/01/2024 [UNIT Y] ANEUP LOIDY NIPT trisomy 18 LOW RISK <1 in 10,000 normal Not Available [address] [address], [place], [address], 11/01/2024 03:35:20 11/02/19 25 11/01/2024 [UNIT Y] ANEUP LOIDY NIPT trisomy 21 LOW RISK <1 in 10,000 normal Not Available [address] [facility] [address], [place], [address], 11/01/2024 03:35:20 11/02/19 25 11/01/2024 [UNIT Y] ANEUP LOIDY NIPT sex FEMALE normal Not Available [facility] [address], [place], [address], 11/01/2024 03:35:20 11/02/19 25 11/01/2024 [UNIT Y] ANEUP LOIDY NIPT gestation SINGLE TON normal Not Available [address] [address], [place], [address], 11/01/2024 03:35:20 11/02/19 25 11/01/2024 [UNIT Y] ANEUP ALEXIAIDY NIPT for detailed report, see pdf See PDF normal Not Available [address] [address], [place], [address], 11/01/2024 03:35:20 11/05/19 25 11/04/2024 [UNIT Y] LAQUITA Hurtado sickle cell disease/beta -thalassemia /hemoglobino pathies carrier screen NEGATI VE normal Not Available [address] [address], [place], [address], 11/04/2024 00:48:44 11/05/19 25 11/04/2024 [UNIT Y] LAQUITA MELYSSA Hurtado alpha-thalas semia carrier screen NEGATI VE normal Not Available [facility] [address], [place], [address], 11/04/2024 00:48:44 11/05/19 25 11/04/2024 [UNIT Y] LAQUITA MELYSSA Hurtado cystic fibrosis carrier screen NEGATI VE normal Not Available [facility] [address], [place], [address], 11/04/2024 00:48:44 11/05/19 25 11/04/2024 [UNIT Y] LAQUITA Hurtado spinal muscular atrophy carrier screen NEGATI VE 2 SMN1 copies , SNP not presen t normal Not Available [facility] [address], [place], [address], 11/04/2024 00:48:44 11/05/19 25 11/04/2024 [UNIT Y] LAQUITA Hurtado for detailed report, see pdf See PDF normal Not Available [facility] [address], [place], [address], 11/04/2024 00:48:44 10/26/19 25 10/25/2024 CBC W/DIF F WBC 8.7 10'3/ uL 3.5-10 .5 Not Available [facility] (Lab) [address], [place], [address], 10/26/2024 13:46:11 10/26/19 25 10/25/2024 CBC W/DIF F RBC 3.45 10'6/ uL (based on docume nted legal sex) 3.80-5 .20 low Not Available [facility] (Lab) [address], [place], [address], 10/26/2024 13:46:11 10/26/19 25 10/25/2024 CBC W/DIF F HGB 10.1 g/dL (based on docume nted legal sex) 11.6-1 5.4 low Not Available [facility] (Lab) [address], [place], [address], 10/26/2024 13:46:11 10/26/19 25 10/25/2024 CBC W/DIF F HCT 31.0 % (based on docume nted legal sex) 34.0-4 5.0 low Not Available [facility] (Lab) [address], [place], [address], 10/26/2024 13:46:11 10/26/19 25 10/25/2024 CBC W/DIF F MCV 89.9 fL 80.0-9 9.0 Not Available [facility] (Lab) [address], [place], [address], 10/26/2024 13:46:11 10/26/19 25 10/25/2024 CBC W/DIF F MCH 29.3 pg 27.0-3 4.0 Not Available [facility] (Lab) [address], [place], [address], 10/26/2024 13:46:11 10/26/19 25 10/25/2024 CBC W/DIF F MCHC 32.6 g/dL 32.0-3 5.5 Not Available [facility] (Lab) [address], [place], [address], 10/26/2024 13:46:11 10/26/19 25 10/25/2024 CBC W/DIF F RDW 14.4 % 11.0-1 5.0 Not Available [facility] (Lab) [address], [place], [address], 10/26/2024 13:46:11 10/26/19 25 10/25/2024 CBC W/DIF F plt 284 10'3/ uL 150-40 0 Not Available [facility] (Lab) [address] [facility], [place], [address], 10/26/2024 13:46:11 10/26/19 25 10/25/2024 CBC W/DIF F MPV 11.1 fL 8.8-12 .1 Not Available [facility] (Lab) [address], [place], [address], 10/26/2024 13:46:11 10/26/19 25 10/25/2024 CBC W/DIF F NRBC's 0.0 % 0.0 Not Available [facility] (Lab) [address] [facility], [place], [address], 10/26/2024 13:46:11 10/26/19 25 10/25/2024 CBC W/DIF F absolute NRBCs 0.0 10'3/ uL no refere nce range establ ished Not Available [facility] (Lab) [address], [place], [address], 10/26/2024 13:46:11 10/26/19 25 10/25/2024 CBC W/DIF F neutrophils 62.7 % 34.0-7 3.0 Not Available [facility] (Lab) [address] [place], [address], 10/26/2024 13:46:11 10/26/19 25 10/25/2024 CBC W/DIF F lymphocytes 31.2 % 15.0-5 0.0 Not Available [facility] (Lab) [address], [place], [address], 10/26/2024 13:46:11 10/26/19 25 10/25/2024 CBC W/DIF F monocytes 5.2 % 1.0-15 .0 Not Available [facility] (Lab) [address], [place], [address], 10/26/2024 13:46:11 10/26/19 25 10/25/2024 CBC W/DIF F eosinophils 0.2 % 0.0-8. 0 Not Available [facility] (Lab) [address], [place], [address], 10/26/2024 13:46:11 10/26/19 25 10/25/2024 CBC W/DIF F basophils 0.5 % 0.0-2. 0 Not Available [facility] (Lab) [address] [facility], [place], [address], 10/26/2024 13:46:11 10/26/19 25 10/25/2024 CBC W/DIF [...] separ ately if prese nt. Not Available [facility] (Lab) [address] , [place], [address], 10/26/2024 13:46:11 10/26/19 25 10/25/2024 CBC W/DIF F absolute neutrophils 5.5 10'3/ uL 1.5-8. 0 Not Available [facility] (Lab) [address], [place], [address], 10/26/2024 13:46:11 10/26/19 25 10/25/2024 CBC W/DIF F absolute lymphocytes 2.7 10'3/ uL 1.0-4. 0 Not Available [facility] (Lab) [address], [place], [address], 10/26/2024 13:46:11 10/26/1910/25/2024 CBC W/DIF F absolute monocytes 0.5 10'3/ uL 0.2-1. 0 Not Available [facility] (Lab) [address] [facility], [place], [address], 10/26/2024 13:46:11 10/26/19 25 10/25/2024 CBC W/DIF F absolute eosinophils 0.0 10'3/ uL 0.0-0. 6 Not Available [facility] (Lab) [address], [place], [address], 10/26/2024 13:46:11 10/26/19 25 10/25/2024 CBC W/DIF F absolute basophils 0.0 10'3/ uL 0.0-0. 3 Not Available [facility] (Lab) [address], [place], [address], 10/26/2024 13:46:11 10/26/19 25 10/25/2024 CBC W/DIF [...] dyer book. nm.or g/gen derx Not Available [facility] (Lab) [address], [place], [address], 10/26/2024 13:46:11 10/26/1910/25/2024 HIV 1/2 ANTIG EN/AN TIBOD Y, REFLE X CONFI RMATI ON HIV antigen/anti body Nonrea ctive nonrea ctive HIV-1 antig en and HIV-1 /HIV- 2 antib odies were not detec bryan. No labor atory evide nce of HIV infec tion. Not Available [facility] (Lab) [address], [place], [address], 10/26/2024 13:46:11 10/26/19 25 10/25/2024 HEPAT ITIS C ANTIB MIGUELINA SCREE N, REFLE X TO CONFI RMATI ON hepatitis C antibody Non-re active non-re active Antib odies to HCV Not Detec bryan, does not exclu de the possi bilit y of expos ure to HCV. Not Available [facility] (Lab) [address], [place], [address], 10/26/2024 13:46:12 10/26/19 25 10/25/2024 HEPAT ITIS B SURFA CE ANTIG EN hepatitis B surface antigen Non-re active non-re active This assay was perfo rmed using [employer] ratio n reage nts and test kits. Value s obtai rickey with other assay metho ds or kits canno t be used inter zuleta eably . Not Available [facility] (Lab) [address], [place], [address], 10/26/2024 13:46:12 10/26/19 25 10/25/2024 TSH, REFLE X FREE T4 TSH 1.26 uIU/m L 0.30-5 .33 Not Available [facility] (Lab) [address], [place], [address], 10/26/2024 13:46:13 10/26/19 25 10/25/2024 TYPE/ RH/SC REEN ABO/Rh type O POS Not Available [facility] (Lab) [address], [place], [address], 10/26/2024 13:46:13 10/26/19 25 10/25/2024 TYPE/ RH/SC REEN antibody screen NEG Not Available [facility] (Lab) [address] [facility], [place], [address], 10/26/2024 13:46:13 10/26/19 25 10/25/2024 TYPE/ RH/SC REEN exp date 2024 23:59 Not Available [facility] (Lab) [address] [facility], [place], [address], 10/26/2024 13:46:13 10/26/19 25 10/25/2024 RUBEL LA IGG ANTIB MIGUELINA, QUANT rubella antibodies, IgG Reacti ve reacti ve Not Available [facility] (Lab) [address] [facility], [place], [address], 10/26/2024 13:46:13 10/26/19 25 10/25/2024 RUBEL LA IGG ANTIB MIGUELINA, QUANT rubella antibodies, IgG quant 18.0 IU/mL >=10 Non-r eacti ve (Non- Immun e) <10 IU/mL React haim (Immu ne) > or = 10 IU/mL Not Available [facility] (Lab) [address] [facility], [place], [address], 10/26/2024 13:46:13 10/26/19 25 10/25/2024 RPR SCREE N, REFLE X TITER /CONF IRMAT ION RPR qualitative Nonrea ctive nonrea ctive Not Available [facility] (Lab) [address] [place], [address], 10/26/2024 13:46:14 10/26/19 25 10/25/2024 HEMOG LOBIN [...] >8.0% Actio n sugge sted Not Available [facility] (Lab) [address] [facility], [place], [address], 10/26/2024 13:46:14 10/26/19 25 10/25/2024 CT/GC AND TRICH OMONA S VAGIN ARIANA (RRNA ), URINE chlamydia trachomatis, PCR Negati ve negati ve Not Available [facility] (Lab) [address] [facility], [place], [address], 10/26/2024 21:37:02 10/26/19 25 10/25/2024 CT/GC AND TRICH OMONA S VAGIN ARIANA (RRNA ), URINE neisseria gonorrhoeae, PCR Negati ve negati ve Not Available [facility] (Lab) [address] [facility], [place], [address], 10/26/2024 21:37:02 10/26/19 25 10/25/2024 CT/GC AND TRICH OMONA S VAGIN ARIANA (RRNA ), URINE trichomonas vaginalis ribosomal RNA (rrna) Negati ve negati ve Not Available [facility] (Lab) [address] [facility], [place], [address], 10/26/2024 21:37:02 10/26/19 25 10/25/2024 CULTU RE: URINE result report SEE RESULT S BELOW Test: Cultu re: Urine Speci men Sourc e: Urine Voide d Speci men Type: Urine Speci men Date: 025 1714 Resul t Date: 20242 Resul t Statu s: Final resul t Abnor mal: No Resul ting Lab: [facility] [address] [facility] [address] Tel: CULTU RE ----- ----- ----- --- No growt h in 1 day (dete ction level of 10,00 0 colon ies / ml.) Not Available [facility] (Lab) [address] [facility], [place], [address], 10/26/2024 21:37:02 10/26/19 25 10/25/2024 drug scree n, urine Amphetamines : negati ve Not Available [place] [address], [place], [address], 10/25/2024 17:35:03 10/26/19 25 10/25/2024 drug scree n, urine Cannabinoids : negati ve Not Available [place] [address], [place], [address], 10/25/2024 17:35:03 10/26/19 25 10/25/2024 drug scree n, urine Cocaine: negati ve Not Available [place] [address], [place], [address], 10/25/2024 17:35:03 10/26/19 25 10/25/2024 drug scree n, urine Opiates: negati ve Not Available [place] [address], [place], [address], 10/25/2024 17:35:03 10/26/19 25 10/25/2024 drug scree n, urine Phenocyclidi ne: negati ve Not Available [place] [address], [place], [address], 10/25/2024 17:35:03 10/26/19 25 10/25/2024 drug scree n, urine Barbiturates : negati ve Not Available [place] [address], [place], [address], 10/25/2024 17:35:03 10/26/19 25 10/25/2024 drug scree n, urine Benzodiazepi bridget: negati ve Not Available [place] [address], [place], [address], 10/25/2024 17:35:03 10/26/19 25 10/25/2024 drug scree n, urine Ethanol: negati ve Not Available [place] [address], [place], [address], 10/25/2024 17:35:03 10/26/19 25 10/25/2024 drug scree n, urine Hallucinogen s: negati ve Not Available [place] [address], [place], [address], 10/25/2024 17:35:03 10/26/19 25 10/25/2024 drug scree n, urine Inhalants: negati ve Not Available [place] [address], [place], [address], 10/25/2024 17:35:03 10/26/19 25 10/25/2024 drug scree n, urine Anabolic Steroids: negati ve Not Available [place] [address], [place], [address], 10/25/2024 17:35:03 10/26/19 25 10/25/2024 drug scree n, urine Other: negati ve Not Available [place] [address], [place], [address], 10/25/2024 17:35:03 01/15/20 25 01/14/2025 HEMOG LOBIN (HGB) HGB 9.3 g/dL (based on docume nted legal sex) 11.6-1 5.4 low Not Available [facility] (Lab) [address], [place], [address], 01/15/2025 13:08:39 01/15/20 25 01/14/2025 HEMAT OCRIT (HCT) HCT 28.1 % (based on docume nted legal sex) 34.0-4 5.0 low Not Available [facility] (Lab) [address], [place], [address], 01/15/2025 13:08:39 01/15/20 25 01/14/2025 GTT - GESTA RADHA L AMBAR N, ACOG OB glucose, 1 hour screen 99 mg/dL 70-135 Not Available [facility] (Lab) [address] [facility], [place], [address], 01/15/2025 13:08:40 01/15/20 25 01/14/2025 HIV 1/2 ANTIG EN/AN TIBOD Y, REFLE X CONFI RMATI ON HIV antigen/anti body Nonrea ctive nonrea ctive HIV-1 antig en and HIV-1 /HIV- 2 antib odies were not detec bryan. No labor atory evide nce of HIV infec tion. Not Available [facility] (Lab) [address] [facility], [place], [address], 01/15/2025 13:08:40 01/15/20 25 01/14/2025 RPR SCREE N, REFLE X TITER /CONF IRMAT ION RPR qualitative Nonrea ctive nonrea ctive Not Available [facility] (Lab) [address] [facility], [place], [address], 01/15/2025 13:08:40 03/10/20 25 03/10/2025 CULTU RE: GROUP B STREP SCREE N, REFLE X SUSCE PTIBI LITY result report SEE RESULT S BELOW Test: Cultu re: Group B Strep , Refle x Susce ptibi lity ([facility] ) Speci men Sourc e: Vagin a/Rec ernie Speci men Type: Vagin al/Re ctal Speci men Date: 03/10 1652 Resul t Date: 03/13 1409 Resul t Statu s: Final resul t Abnor mal: No Resul ting Lab: [facility] [address] [facility] [address] Tel: CULTU RE ----- ----- ----- --- No Group B strep isola bryan at 2 days (prudence ctive broth enhan cemen t) Not Available [facility] (Lab) [address], [place], [address], 03/13/2025 15:12:11 10/26/19 25 10/25/2024 US, obste tric, limit ed No observ ation record ed. [facility] [address], [place], [address], 10/25/2024 18:50:32 10/28/19 25 10/25/2024 US, obste tric, limit ed No observ ation record ed. [email or web address] [address] [address], [place], [address], 10/30/2024 23:24:32 11/27/19 25 11/26/2024 US, obste tric, 2nd or 3rd trime ster No observ ation record ed. [facility] [address], [place], [address], 11/26/2024 17:49:36 11/27/19 25 11/26/2024 US, obste tric, 2nd or 3rd trime ster No observ ation record ed. [address] [address], [place], [address], 11/26/2024 17:24:36 02/12/20 25 02/11/2025 US, obste tric, follo w-up No observ ation record ed. [email or web address] [place] [address], [place], [address], 02/11/2025 17:21:09 02/12/20 25 02/11/2025 US, obste tric, follo w-up No observ ation record ed. [email or web address] [facility] [address], [place], [address], 02/25/2025 10:51:35 03/10/20 25 03/10/2025 US, obste tric, follo w-up No observ ation record ed. [facility] [address], [place], [address], 03/10/2025 15:18:58 03/10/20 25 03/10/2025 US, obste tric, follo w-up No observ ation record ed. [email or web address] [facility], [place], [address], 03/18/2025 11:35:09 Result Notes None recorded. Problems Name Problem SNOMED Code Status Onset Date Resolution Date Notes Provider Name and Address Organization Details Recorded Time [id number] Active 025 JUANITO Hutchins [facility] 17:01:38 Problem Notes None recorded. [...] Available Not Available Vitals Date Recorded Body weight Systolic And Diastolic Provider Name and Address Organization Details Last Updated DateTime 03/30/2025 15147.02553 g 100/68 mm[Hg] Joy Conrad [facility] 03/30/2025 17:30:38 Social History Question Answer Notes LastModified by Organizat ion Details LastModified Time Tobacco Smoking Status Never Smoker [facility] 10/25/2024 16:11:22 Do You Have An Advance Directive? No [email or web address] Information n ot available 10/25/2024 If You Are , What Was Your Level Of Alcohol Consumption Prior To ? None [email or web address] Information not available 10/25/2024 Are You Blind Or Do You Have Difficulty Seeing? No [email or web address] Information n ot available 10/25/2024 What Is Your Level Of Caffeine Consumption? None [email or web address] Information not available 10/25/2024 In The 14 Days Before Symptom Onset, Have You Had Close Contact With A Laboratory-confirm ed COVID-19 While That Case Was Ill? No Information n ot available 10/25/2024 In The 14 Days Before Symptom Onset, Have You Had Close Contact With A Person Who Is Under Investigation For COVID-19 While That Person Was Ill? No Information not available 10/25/2024 Have You Been To An Area Known To Be High Risk For COVID-19? No [email or web address] Information not available 10/25/2024 Are You Deaf Or Do You Have Serious Difficulty Hearing? No [email or web address] Information not available 10/25/2024 What Type Of Diet Are You Following? REGULAR [email or web address] Information n ot available 10/25/2024 What Is The Highest Grade Or Level Of School You Have Completed Or The Highest Degree You Have Received? [id number] [email or web address] Information not available 10/25/2024 Are There Any Guns Present In Your Home? No [email or web address] Information not available 10/25/2024 Do You Use Protection During Sex? No [email or web address] Information not available 01/28/2025 Do You Use Your Seat Belt Or Car Seat Routinely? Yes [email or web address] Information not available 10/25/2024 Are You Sexually Active? Yes Information not available 10/25/2024 Do You Have Smoke And Carbon Monoxide Detectors In Your Home? Yes [email or web address] Information not available 10/25/2024 Do You Use Sunscreen Routinely? Yes Information not available 10/25/2024 Has Tobacco Cessation Counseling Been Provided? No [email or web address] Information not available 10/25/2024 Do You Have Difficulty Walking Or Climbing Stairs? No [email or web address] Information not available 10/25/2024 Sex: Unknown Functional Status Question Answer Note LastModified by Organizat ion Details LastModified Time Do you use any illicit or recreational drugs? No [email or web address] Information not available 10/25/2024 Do you or have you ever used any other forms of tobacco or nicotine? No Information not available 10/25/2024 What is your level of alcohol consumption? None [email or web address] Information not available 10/25/2024 Are you currently employed? Yes Information not available 01/28/2025 Are you able to walk independently without assistance or assistive devices? YESASSIST [email or web address] Information not available 10/25/2024 Are you able to care for yourself independently? Yes [email or web address] Information not available 10/25/2024 Do you have difficulty dressing, bathing, grooming, or toileting? No [email or web address] Information not available 10/25/2024 What is your exercise level? Occasional [email or web address] Information not available 10/25/2024 Mental Status Question Answer Note LastModified by Organization D etails LastModified Time Do you feel stressed (tense, restless, nervous, or anxious, or unable to sleep at night)? [id number] [email or web address] Information not available 01/28/2025 Family History Nothing [...] ICD10 Code Diagnosis IMO Codes Diagnosis Note [id number] Anoop Johnson MD [place] [address],[place] [address] 03/10/2025 14:40:38 03/10/2025 15:25:33 Uterine size for dates discrepancy 930834117 O26.843 O09.30 Z3A.36 [id number] Anoop Johnson MD [place] [address],[place] [address] 03/10/2025 14:43:23 03/10/2025 16:33:12 care status 101407497 Z34.83 [id number] Anoop Johnson MD [place] [address],[place] [address] 03/23/2025 17:49:32 03/24/2025 09:10:25 care status 922334464 Z34.83 [id number] Anoop Johnson MD [place] [address],[place] [address] 03/30/2025 17:07:58 03/31/2025 08:48:38 care status [id number] Z34.83 [id number] Health Concerns Section Related Observation LastModified by Organization Detai ls LastModified Time None Recorded Concern Status LastModified by Organization Details LastModified Time None Recorded Payers Encounter Date Sequence Insurance Name Policy Number Policy Hoang Covered Member ID Hoang Member ID Guarantor Name 03/30/2025 1 [facility] (MEDICAID HMO) [id number] Con Barraza [id number] Con Barraza Notes Date Note Type Note Provider Name and Address Organization Details Recorded Time 03/30/2025 text/html Generic HPI TemplateReported by Patient MD [address], [place], [address], [place] [facility] 03/30/2025 17:45:55 OBGyn Episode Ob Episode Information Episode Created Date Number of Fetuses Patient Bloodtype Patient rh Status Prepregnancy Weight lbs Domestic Partner Domestic Partner Phone Father Name Financial Director Status 10/26/19 25 1 O Positive Ricky OPEN Fetus Data First Name Last Name Admitted to NICU Weight (g) Sex Living Outcome Pediatric Complications Fetus ID Race Codes Race Delivery Type [id number] Cristobal Calculation Initial Cristobal Date Initial Exam [...] Weight in lbs Pre/Post Dialysis Refused Weight 164.620163316032 BP Diastolic BP Location Tested BP Systolic BP Type 62 L arm 90 sitting Fetus Heart Rate Present A Present Fetus Movement A Yes Comments Patient presents to [facility] care. Hx of uncomplicated , [...] Weight in lbs Pre/Post Dialysis Refused Weight 167.733850970268 BP Diastolic BP Location Tested BP Systolic [...] Weight in lbs Pre/Post Dialysis Refused Weight 175.893745189994 BP Diastolic BP Location Tested BP Systolic [...] Weight in lbs Pre/Post Dialysis Refused Weight 178.865903521903 BP Diastolic BP Location Tested BP Systolic [...] Weight in lbs Pre/Post Dialysis Refused Weight 180.971206460809 BP Diastolic BP Location Tested BP Systolic [...] Weight in lbs Pre/Post Dialysis Refused Weight 178.190303364521 BP Diastolic BP Location Tested BP Systolic [...] Weight in lbs Pre/Post Dialysis Refused Weight 183.686572034073 BP Diastolic BP Location Tested BP Systolic BP Type 63 L arm 93 sitting Fetus Heart Rate Present Fetus Movement A Yes Comments plan f/u growth at [facility] by cnm [id number], precautions and education, not planning on vaccines [...] Weight in lbs Pre/Post Dialysis Refused Weight 186.038283804312 BP Diastolic BP Location Tested BP Systolic [...] Weight in lbs Pre/Post Dialysis Refused Weight [id number] BP Diastolic BP Location Tested BP Systolic [...] Type Weight in lbs Pre/Post Dialysis Refused [id number] BP Diastolic BP Location Tested BP Systolic [...] Weight in lbs Pre/Post Dialysis Refused Weight [id number] BP Diastolic BP Location Tested BP Systolic [...]
--- OUTSIDE RECORDS SUMMARY | 2025-04-10 17:01 | XMS_ITS | Continuity of Care Document ---
Author Organization [facility], [place] Address [address] [place] [address] [place] [address] Assessment Encounter Date Assessment Date Assessment LastModified by Organization Details LastModified Time 03/10/2025 03/10/2025 Patient is ___weeks . Discussed plan. [email or web address] Not available 03/10/2025 15:41:13 Plan of Treatment Reminders Order Date Submit [...] Not Available [facility] [address], [place], [address], 11/01/2024 03:35:20 11/02/19 25 11/01/2024 [UNIT Y] ANEUP LOIDY NIPT 22Q11.2 microdeletio n LOW RISK <1 in 10,000 normal Not Available [facility] [address], [place], [address], 11/01/2024 03:35:20 11/02/19 25 11/01/2024 [UNIT Y] ANEUP LOIDY NIPT sex chromosome aneuploidy NOT DETECT ED normal Not Available [facility] [address], [place], [address], 11/01/2024 03:35:20 11/02/19 25 11/01/2024 [UNIT Y] ANEUP LOIDY NIPT monosomy X LOW RISK <1 in 10,000 normal Not Available [facility] [address], [place], [address], 11/01/2024 03:35:20 11/02/19 25 11/01/2024 [UNIT Y] ANEUP LOIDY NIPT trisomy 13 LOW RISK <1 in 10,000 normal Not Available [facility] [address], [place], [address], 11/01/2024 03:35:20 11/02/19 25 11/01/2024 [UNIT Y] ANEUP LOIDY NIPT trisomy 18 LOW RISK <1 in 10,000 normal Not Available [facility] [address], [place], [address], 11/01/2024 03:35:20 11/02/19 25 11/01/2024 [UNIT Y] ANEUP LOIDY NIPT trisomy 21 LOW RISK <1 in 10,000 normal Not Available [facility] [address], [place], [address], 11/01/2024 03:35:20 11/02/19 25 11/01/2024 [UNIT Y] ANEUP LOIDY NIPT sex FEMALE normal Not Available [facility] [address], [place], [address], 11/01/2024 03:35:20 11/02/19 25 11/01/2024 [UNIT Y] ANEUP LOIDY NIPT gestation SINGLE TON normal Not Available [facility] [address], [place], [address], 11/01/2024 03:35:20 11/02/19 25 11/01/2024 [UNIT Y] ANEUP SACHA NIPT for detailed report, see pdf See PDF normal Not Available [facility] [address], [place], [address], 11/01/2024 03:35:20 11/05/19 25 11/04/2024 [UNIT Y] LAQUITA Hurtado sickle cell disease/beta -thalassemia /hemoglobino pathies carrier screen NEGATI VE normal Not Available [facility] [address], [place], [address], 11/04/2024 00:48:44 11/05/19 25 11/04/2024 [UNIT Y] LAQUITA MELYSSA Hurtado alpha-thalas semia carrier screen NEGATI VE normal Not Available [facility] [address], [place], [address], 11/04/2024 00:48:44 11/05/19 25 11/04/2024 [UNIT Y] LAQUITA Hurtado cystic fibrosis carrier screen NEGATI VE normal Not Available [facility] [address], [place], [address], 11/04/2024 00:48:44 11/05/19 25 11/04/2024 [UNIT Y] LAQUITA Hurtado spinal muscular atrophy carrier screen NEGATI VE 2 SMN1 copies , SNP not presen t normal Not Available [facility] [address], [place], [address], 11/04/2024 00:48:44 11/05/19 25 11/04/2024 [UNIT Y] LAQUITA Hurtado for detailed report, see pdf See PDF normal Not Available [facility] [address], [place], [address], 11/04/2024 00:48:44 10/26/19 25 10/25/2024 CBC W/DIF F WBC 8.7 10'3/ uL 3.5-10 .5 Not Available [facility] (Lab) [address], [place], [address], 10/26/2024 13:46:11 10/26/19 25 10/25/2024 CBC W/DIF F RBC 3.45 10'6/ uL (based on docume nted legal sex) 3.80-5 .20 low Not Available [facility] (Lab) [address], [place], [address], 10/26/2024 13:46:11 10/26/19 25 10/25/2024 CBC W/DIF F HGB 10.1 g/dL (based on docume nted legal sex) 11.6-1 5.4 low Not Available [facility] (Lab) [address], [place], [address], 10/26/2024 13:46:11 10/26/19 25 10/25/2024 CBC W/DIF F HCT 31.0 % (based on docume nted legal sex) 34.0-4 5.0 low Not Available [facility] (Lab) [address], [place], [address], 10/26/2024 13:46:11 10/26/19 25 10/25/2024 CBC W/DIF F MCV 89.9 fL 80.0-9 9.0 Not Available [facility] (Lab) [address], [place], [address], 10/26/2024 13:46:11 10/26/19 25 10/25/2024 CBC W/DIF F MCH 29.3 pg 27.0-3 4.0 Not Available [facility] (Lab) [address], [place], [address], 10/26/2024 13:46:11 10/26/19 25 10/25/2024 CBC W/DIF F MCHC 32.6 g/dL 32.0-3 5.5 Not Available [facility] (Lab) [address] [place], [address], 10/26/2024 13:46:11 10/26/19 25 10/25/2024 CBC W/DIF F RDW 14.4 % 11.0-1 5.0 Not Available [facility] (Lab) [address] [facility], [place], [address], 10/26/2024 13:46:11 10/26/19 25 10/25/2024 CBC W/DIF F plt 284 10'3/ uL 150-40 0 Not Available [facility] (Lab) [address] [facility], [place], [address], 10/26/2024 13:46:11 10/26/19 25 10/25/2024 CBC W/DIF F MPV 11.1 fL 8.8-12 .1 Not Available [facility] (Lab) [address] [facility], [place], [address], 10/26/2024 13:46:11 10/26/19 25 10/25/2024 CBC W/DIF F NRBC's 0.0 % 0.0 Not Available [facility] (Lab) [address] [facility], [place], [address], 10/26/2024 13:46:11 10/26/19 25 10/25/2024 CBC W/DIF F absolute NRBCs 0.0 10'3/ uL no refere nce range establ ished Not Available [facility] (Lab) [address] [facility], [place], [address], 10/26/2024 13:46:11 10/26/19 25 10/25/2024 CBC W/DIF F neutrophils 62.7 % 34.0-7 3.0 Not Available [facility] (Lab) [address] [place], [address], 10/26/2024 13:46:11 10/26/19 25 10/25/2024 CBC W/DIF F lymphocytes 31.2 % 15.0-5 0.0 Not Available [facility] (Lab) [address] [facility], [place], [address], 10/26/2024 13:46:11 10/26/19 25 10/25/2024 CBC W/DIF F monocytes 5.2 % 1.0-15 .0 Not Available [facility] (Lab) [address], [place], [address], 10/26/2024 13:46:11 10/26/19 25 10/25/2024 CBC W/DIF F eosinophils 0.2 % 0.0-8. 0 Not Available [facility] (Lab) [address], [place], [address], 10/26/2024 13:46:11 10/26/19 25 10/25/2024 CBC W/DIF F basophils 0.5 % 0.0-2. 0 Not Available [facility] (Lab) [address] [facility], [place], [address], 10/26/2024 13:46:11 10/26/19 25 10/25/2024 CBC W/DIF [...] separ ately if prese nt. Not Available [facility] (Lab) [address], [place], [address], 10/26/2024 13:46:11 10/26/19 25 10/25/2024 CBC W/DIF F absolute neutrophils 5.5 10'3/ uL 1.5-8. 0 Not Available [facility] (Lab) [address], [place], [address], 10/26/2024 13:46:11 10/26/19 25 10/25/2024 CBC W/DIF F absolute lymphocytes 2.7 10'3/ uL 1.0-4. 0 Not Available [facility] (Lab) [address], [place], [address], 10/26/2024 13:46:11 10/26/1910/25/2024 CBC W/DIF F absolute monocytes 0.5 10'3/ uL 0.2-1. 0 Not Available [facility] (Lab) [address] [facility], [place], [address], 10/26/2024 13:46:11 10/26/1910/25/2024 CBC W/DIF F absolute eosinophils 0.0 10'3/ uL 0.0-0. 6 Not Available [facility] (Lab) [address] [facility], [place], [address], 10/26/2024 13:46:11 10/26/1910/25/2024 CBC W/DIF F absolute basophils 0.0 10'3/ uL 0.0-0. 3 Not Available [facility] (Lab) [address], [place], [address], 10/26/2024 13:46:11 10/26/1910/25/2024 CBC W/DIF F absolute immature granulocytes 0.0 [...] dyer book. nm.or g/gen derx Not Available [facility] (Lab) [address], [place], [address], 10/26/2024 13:46:11 10/26/1910/25/2024 HIV 1/2 ANTIG EN/AN TIBOD Y, REFLE X CONFI RMATI ON HIV antigen/anti body Nonrea ctive nonrea ctive HIV-1 antig en and HIV-1 /HIV- 2 antib odies were not detec bryan. No labor atory evide nce of HIV infec tion. Not Available [facility] (Lab) [address], [place], [address], 10/26/2024 13:46:11 10/26/19 25 10/25/2024 HEPAT ITIS C ANTIB MIGUELINA SCREE N, REFLE X TO CONFI RMATI ON hepatitis C antibody Non-re active non-re active Antib odies to HCV Not Detec bryan, does not exclu de the possi bilit y of expos ure to HCV. Not Available [facility] (Lab) [address], [place], [address], 10/26/2024 13:46:12 10/26/19 25 10/25/2024 HEPAT ITIS B SURFA CE ANTIG EN hepatitis B surface antigen Non-re active non-re active This assay was perfo rmed using [employer] ratio n reage nts and test kits. Value s obtai rickey with other assay metho ds or kits canno t be used inter zuleta eably . Not Available [facility] (Lab) [address], [place], [address], 10/26/2024 13:46:12 10/26/19 25 10/25/2024 TSH, REFLE X FREE T4 TSH 1.26 uIU/m L 0.30-5 .33 Not Available [facility] (Lab) [address], [place], [address], 10/26/2024 13:46:13 10/26/19 25 10/25/2024 TYPE/ RH/SC REEN ABO/Rh type O POS Not Available [facility] (Lab) [address], [place], [address], 10/26/2024 13:46:13 10/26/19 25 10/25/2024 TYPE/ RH/SC REEN antibody screen NEG Not Available [facility] (Lab) [address], [place], [address], 10/26/2024 13:46:13 10/26/19 25 10/25/2024 TYPE/ RH/SC REEN exp date 2024 23:59 Not Available [facility] (Lab) [address] [facility], [place], [address], 10/26/2024 13:46:13 10/26/19 25 10/25/2024 RUBEL LA IGG ANTIB MIGUELINA, QUANT rubella antibodies, IgG Reacti ve reacti ve Not Available [facility] (Lab) [address] [facility], [place], [address], 10/26/2024 13:46:13 10/26/19 25 10/25/2024 RUBEL LA IGG ANTIB MIGUELINA, QUANT rubella antibodies, IgG quant 18.0 IU/mL >=10 Non-r eacti ve (Non- Immun e) <10 IU/mL React haim (Immu ne) > or = 10 IU/mL Not Available [facility] (Lab) [address] [facility], [place], [address], 10/26/2024 13:46:13 10/26/19 25 10/25/2024 RPR SCREE N, REFLE X TITER /CONF IRMAT ION RPR qualitative Nonrea ctive nonrea ctive Not Available [facility] (Lab) [address] [facility], [place], [address], 10/26/2024 13:46:14 10/26/19 25 10/25/2024 HEMOG LOBIN A1C hemoglobin A1C 5.2 % 4.0-5. 6 The Ameri can [employer]abe palmer [employer] iatio n recom mends that a prima ry goal of thera ashley caldwell d be a HBA1C of < 7% and that physi cians javi d reeva luate the treat ment regim en in patie nts with HBA1C value s consi stent ly > 8%. <5.7% Nitza l 5.7 - 6.4% Incre ased risk for diabe palmer >=6.5 % Diagn ostic of diabe palmer <7.0% Goal of thera py >8.0% Actio n sugge sted Not Available [facility] (Lab) [address] [facility], [place], [address], 10/26/2024 13:46:14 10/26/19 25 10/25/2024 CT/GC AND TRICH OMONA S VAGIN ARIANA (RRNA ), URINE chlamydia trachomatis, PCR Negati ve negati ve Not Available [facility] (Lab) [address] [facility], [place], [address], 10/26/2024 21:37:02 10/26/19 25 10/25/2024 CT/GC AND TRICH OMONA S VAGIN ARIANA (RRNA ), URINE neisseria gonorrhoeae, PCR Negati ve negati ve Not Available [facility] (Lab) [address] [facility], [place], [address], 10/26/2024 21:37:02 10/26/19 25 10/25/2024 CT/GC AND TRICH OMONA S VAGIN ARIANA (RRNA ), URINE trichomonas vaginalis ribosomal RNA (rrna) Negati ve negati ve Not Available [facility] (Lab) [address] [facility], [place], [address], 10/26/2024 21:37:02 10/26/19 25 10/25/2024 CULTU RE: URINE result report SEE RESULT S BELOW Test: Cultu re: Urine Speci men Sourc e: Urine Voide d Speci men Type: Urine Speci men Date: 025 1714 Resul t Date: 20242 Resul t Statu s: Final resul t Abnor mal: No Resul ting Lab: [facility] [address] [facility] [address] Tel: CULTU RE ----- ----- ----- --- No growt h in 1 day (dete ction level of 10,00 0 colon ies / ml.) Not Available [facility] (Lab) [address] [place], [address], 10/26/2024 21:37:02 10/26/19 25 10/25/2024 drug scree n, urine Amphetamines : negati ve Not Available [place] [address], [place], [address], 10/25/2024 17:35:03 10/26/19 25 10/25/2024 drug scree n, urine Cannabinoids : negati ve Not Available [place] [address], [place], [address], 10/25/2024 17:35:03 10/26/19 25 10/25/2024 drug scree n, urine Cocaine: negati ve Not Available [place] [address], [place], [address], 10/25/2024 17:35:03 10/26/19 25 10/25/2024 drug scree n, urine Opiates: negati ve Not Available [place] [address], [place], [address], 10/25/2024 17:35:03 10/26/19 25 10/25/2024 drug scree n, urine Phenocyclidi ne: negati ve Not Available [place] [address], [place], [address], 10/25/2024 17:35:03 10/26/19 25 10/25/2024 drug scree n, urine Barbiturates : negati ve Not Available [place] [address], [place], [address], 10/25/2024 17:35:03 10/26/19 25 10/25/2024 drug scree n, urine Benzodiazepi bridget: negati ve Not Available [place] [address], [place], [address], 10/25/2024 17:35:03 10/26/19 25 10/25/2024 drug scree n, urine Ethanol: negati ve Not Available [place] [address], [place], [address], 10/25/2024 17:35:03 10/26/19 25 10/25/2024 drug scree n, urine Hallucinogen s: negati ve Not Available [place] [address], [place], [address], 10/25/2024 17:35:03 10/26/19 25 10/25/2024 drug scree n, urine Inhalants: negati ve Not Available [place] [address], [place], [address], 10/25/2024 17:35:03 10/26/19 25 10/25/2024 drug scree n, urine Anabolic Steroids: negati ve Not Available [place] [address], [place], [address], 10/25/2024 17:35:03 10/26/19 25 10/25/2024 drug scree n, urine Other: negati ve Not Available [place] [address], [place], [address], 10/25/2024 17:35:03 01/15/20 25 01/14/2025 HEMOG LOBIN (HGB) HGB 9.3 g/dL (based on docume nted legal sex) 11.6-1 5.4 low Not Available [facility] (Lab) [address] [place], [address], 01/15/2025 13:08:39 01/15/20 25 01/14/2025 HEMAT OCRIT (HCT) HCT 28.1 % (based on docume nted legal sex) 34.0-4 5.0 low Not Available [facility] (Lab) [address], [place], [address], 01/15/2025 13:08:39 01/15/20 25 01/14/2025 GTT - GESTA RADHA L AMBAR N, ACOG OB glucose, 1 hour screen 99 mg/dL 70-135 Not Available [facility] (Lab) [address] [facility], [place], [address], 01/15/2025 13:08:40 01/15/20 25 01/14/2025 HIV 1/2 ANTIG EN/AN TIBOD Y, REFLE X CONFI RMATI ON HIV antigen/anti body Nonrea ctive nonrea ctive HIV-1 antig en and HIV-1 /HIV- 2 antib odies were not detec bryan. No labor atory evide nce of HIV infec tion. Not Available [facility] (Lab) [address] [facility], [place], [address], 01/15/2025 13:08:40 01/15/20 25 01/14/2025 RPR SCREE N, REFLE X TITER /CONF IRMAT ION RPR qualitative Nonrea ctive nonrea ctive Not Available [facility] (Lab) [address] [facility], [place], [address], 01/15/2025 13:08:40 03/10/20 25 03/10/2025 CULTU RE: GROUP B STREP SCREE N, REFLE X SUSCE PTIBI LITY result report SEE RESULT S BELOW Test: Cultu re: Group B Strep , Refle x Susce ptibi lity ([facility] ) Speci men Sourc e: Vagin a/Rec ernie Speci men Type: Vagin al/Re ctal Speci men Date: 03/10 1652 Resul t Date: 03/13 1409 Resul t Statu s: Final resul t Abnor mal: No Resul ting Lab: [facility] [address] [facility] [address] [facility] [address] [facility] [address] Tel: CULTU RE ----- ----- ----- --- No Group B strep isola bryan at 2 days (prudence ctive broth enhan cemen t) Not Available [facility] (Lab) [address], [place], [address], 03/13/2025 15:12:11 10/26/19 25 10/25/2024 US, obste tric, limit ed No observ ation record ed. [facility] [address], [place], [address], 10/25/2024 18:50:32 10/28/19 25 10/25/2024 US, obste tric, limit ed No observ ation record ed. [email or web address] [facility] [address], [place], [address], 10/30/2024 23:24:32 11/27/19 25 11/26/2024 US, obste tric, 2nd or 3rd trime ster No observ ation record ed. [facility] [address], [place], [address], 11/26/2024 17:49:36 11/27/19 25 11/26/2024 US, obste tric, 2nd or 3rd trime ster No observ ation record ed. [email or web address] [facility] [address], [place], [address], 11/26/2024 17:24:36 02/12/20 25 02/11/2025 US, obste tric, follo w-up No observ ation record ed. [email or web address] [place] [address], [place], [address], 02/11/2025 17:21:09 02/12/20 25 02/11/2025 US, obste tric, follo w-up No observ ation record ed. [email or web address] [facility] [address], [place], [address], 02/25/2025 10:51:35 03/10/2003/10/2025 US, obste tric, follo w-up No observ ation record ed. [facility] [address], [place], [address], 03/10/2025 15:18:58 03/10/20 25 03/10/2025 US, obste tric, follo w-up No observ ation record ed. [email or web address] [facility] [address], [place], [address], 03/18/2025 11:35:09 Result Notes None recorded. Problems Name Problem SNOMED Code Status Onset Date Resolution Date Notes Provider Name and Address Organization Details Recorded Time [id number] Active 025 [facility] 17:01:38 [...] Updated DateTime 03/10/2025 157.48 cm 34 kg/m2 74125.18 g 117/71 mm[Hg] Ricarda Quevedo [facility] 03/10/2025 15:41:53 Social History Question Answer Notes LastModified by Organizat ion Details LastModified Time Tobacco Smoking Status Never Smoker JUANITO livingston [facility] 10/25/2024 16:11:22 Do You Have An Advance Directive? No [email or web address] Information n ot available 10/25/2024 If You Are , What Was Your Level Of Alcohol Consumption Prior To ? None Information not available 10/25/2024 Are You Blind Or Do You Have Difficulty Seeing? No [email or web address] Information n ot available 10/25/2024 What Is Your Level Of Caffeine Consumption? None [email or web address] Information not available 10/25/2024 In The 14 Days Before Symptom Onset, Have You Had Close Contact With A Laboratory-confirm ed COVID-19 While That Case Was Ill? No [email or web address] Information n ot available 10/25/2024 In The 14 Days Before Symptom Onset, Have You Had Close Contact With A Person Who Is Under Investigation For COVID-19 While That Person Was Ill? No [email or web address] Information not available 10/25/2024 Have You Been To An Area Known To Be High Risk For COVID-19? No [email or web address] Information not available 10/25/2024 Are You Deaf Or Do You Have Serious Difficulty Hearing? No [email or web address] Information not available 10/25/2024 What Type Of Diet Are You Following? REGULAR [email or web address] Information n ot available 10/25/2024 What Is The Highest Grade Or Level Of School You Have Completed Or The Highest Degree You Have Received? [id number] Information not available 10/25/2024 Are There Any Guns Present In Your Home? No Information not available 10/25/2024 Do You Use Protection During Sex? No [email or web address] Information not available 01/28/2025 Do You Use Your Seat Belt Or Car Seat Routinely? Yes [email or web address] Information not available 10/25/2024 Are You Sexually Active? Yes [email or web address] Information not available 10/25/2024 Do You Have Smoke And Carbon Monoxide Detectors In Your Home? Yes [email or web address] Information not available 10/25/2024 Do You Use Sunscreen Routinely? Yes [email or web address] Information not available 10/25/2024 Has Tobacco Cessation Counseling Been Provided? No [email or web address] Information not available 10/25/2024 Do You Have Difficulty Walking Or Climbing Stairs? No [email or web address] Information not available 10/25/2024 Sex: Unknown Functional Status Question Answer Note LastModified by Organizat ion Details LastModified Time Do you use any illicit or recreational drugs? No [email or web address] Information not available 10/25/2024 Do you or have you ever used any other forms of tobacco or nicotine? No [email or web address] Information not available 10/25/2024 What is your level of alcohol consumption? None [email or web address] Information not available 10/25/2024 Are you currently employed? Yes Information not available 01/28/2025 Are you able to walk independently without assistance or assistive devices? YESASSIST [email or web address] Information not available 10/25/2024 Are you able to care for yourself independently? Yes Information not available 10/25/2024 Do you have difficulty dressing, bathing, grooming, or toileting? No [email or web address] Information not available 10/25/2024 What is your exercise level? Occasional [email or web address] Information not available 10/25/2024 Mental Status Question Answer Note LastModified by Organization D etails LastModified Time Do you feel stressed (tense, restless, nervous, or anxious, or unable to sleep at night)? [id number] Information not available 01/28/2025 Family History Nothing [...] ICD10 Code Diagnosis IMO Codes Diagnosis Note [id number] CRISTINA PETERSEN MD [place] [address] [address] 02/11/2025 15:41:07 02/11/2025 16:57:52 Uterine size for dates discrepancy 005258596 O26.843 Z3A.32 [id number] Grace Murcia [facility] [address],[place] [address] 02/11/2025 15:41:30 02/14/2025 10:40:09 Gestation period, 32 weeks 1207238 Z3A.32 [id number] cont pnv [id number] Grace Murcia [facility] [address] [place] [address] 02/25/2025 14:45:15 02/25/2025 15:00:21 Gestation period, 34 weeks 94027880 Z3A.34 [id number] cont pnv [id number] Anoop Johnson MD [place] [address],[place] [address] 03/10/2025 14:40:38 03/10/2025 15:25:33 Uterine size for dates discrepancy 802121335 O26.843 O09.30 Z3A.36 [id number] Anoop Johnson MD [place] [address],[place] [address] 03/10/2025 14:43:23 03/10/2025 16:33:12 care status 352693241 Z34.83 [id number] Health Concerns Section Related Observation LastModified by Organization Detai ls LastModified Time None Recorded Concern Status LastModified by Organization Details LastModified Time None Recorded Payers Encounter Date Sequence Insurance Name Policy Number Policy Hoang Covered Member ID Hoang Member ID Guarantor Name 03/10/2025 1 [facility] (MEDICAID HMO) [id number] Con Barraza [id number] Con Barraza Notes Date Note Type Note Provider Name and Address Organization Details Recorded Time 03/10/2025 text/html Generic HPI TemplateReported by Patient Anoop Johnson MD [address], [place], [address], [place] [facility] 03/10/2025 16:29:53 OBGyn Episode Ob Episode Information Episode Created Date Number of Fetuses Patient Bloodtype Patient rh Status Prepregnancy Weight lbs Domestic Partner Domestic Partner Phone Father Name Open Claims Representative Status 10/26/19 25 1 O Positive Ricky OPEN Fetus Data First Name Last Name Admitted to NICU Weight (g) Sex Living Outcome Pediatric Complications Fetus ID Race Codes Race Delivery Type [id number] Cristobal Calculation Initial Cristobal Date Initial Exam [...] Weight in lbs Pre/Post Dialysis Refused Weight [id number] BP Diastolic BP Location Tested BP Systolic BP Type 62 L arm 90 sitting Fetus Heart Rate Present A Present Fetus Movement A Yes Comments Patient presents to [facility] care. Hx of uncomplicated , [...] Weight in lbs Pre/Post Dialysis Refused Weight 167.032158415336 BP Diastolic BP Location Tested BP Systolic [...] Weight in lbs Pre/Post Dialysis Refused Weight 175.494558928211 BP Diastolic BP Location Tested BP Systolic [...] Weight in lbs Pre/Post Dialysis Refused Weight 178.098024882781 BP Diastolic BP Location Tested BP Systolic [...] Weight in lbs Pre/Post Dialysis Refused Weight 180.466476766527 BP Diastolic BP Location Tested BP Systolic [...] Weight in lbs Pre/Post Dialysis Refused Weight 178.424990245646 BP Diastolic BP Location Tested BP Systolic [...] Weight in lbs Pre/Post Dialysis Refused Weight 183.446387162026 BP Diastolic BP Location Tested BP Systolic BP Type 63 L arm 93 sitting Fetus Heart Rate Present Fetus Movement A Yes Comments plan f/u growth at next [facility], by cnm [id number], precautions and education, not planning on vaccines [...] Weight in lbs Pre/Post Dialysis Refused Weight 186.842244060441 BP Diastolic BP Location Tested BP Systolic [...] Weight in lbs Pre/Post Dialysis Refused Weight 190.665184047581 BP Diastolic BP Location Tested BP Systolic [...] Type Weight in lbs Pre/Post Dialysis Refused 189.282329955433 BP Diastolic BP Location Tested BP Systolic [...] Weight in lbs Pre/Post Dialysis Refused Weight 192.016902615594 BP Diastolic BP Location Tested BP Systolic [...]
--- OUTSIDE RECORDS SUMMARY | 2025-04-10 17:01 | XMS_ITS | Continuity of Care Document ---
Author Organization [facility]CG[facility]ella, [place] Address [address] [place] [address] Assessment Encounter Date Assessment Date Assessment LastModified by Organization Details LastModified Time 01/28/2025 01/28/2025 Patient is 30___weeks . Discussed plan. Not available 01/28/2025 10:27:27 Plan of Treatment Reminders Order Date Submit [...] Not Available Arelis logan [address], [place], [address], 11/01/2024 03:35:20 11/02/19 25 11/01/2024 [UNIT Y] ANEUP LOIDY NIPT 22Q11.2 microdeletio n LOW RISK <1 in 10,000 normal Not Available Lizzeth li [address], [place], [address], 11/01/2024 03:35:20 11/02/19 25 11/01/2024 [UNIT Y] ANEUP LOIDY NIPT sex chromosome aneuploidy NOT DETECT ED normal Not Available [facility] [address], [place], [address], 11/01/2024 03:35:20 11/02/19 25 11/01/2024 [UNIT Y] ANEUP LOIDY NIPT monosomy X LOW RISK <1 in 10,000 normal Not Available [facility] [address], [place], [address], 11/01/2024 03:35:20 11/02/19 25 11/01/2024 [UNIT Y] ANEUP LOIDY NIPT trisomy 13 LOW RISK <1 in 10,000 normal Not Available [facility] [address], [place], [address], 11/01/2024 03:35:20 11/02/19 25 11/01/2024 [UNIT Y] ANEUP LOIDY NIPT trisomy 18 LOW RISK <1 in 10,000 normal Not Available [facility] [address], [place], [address], 11/01/2024 03:35:20 11/02/19 25 11/01/2024 [UNIT Y] ANEUP LOIDY NIPT trisomy 21 LOW RISK <1 in 10,000 normal Not Available [facility] [address], [place], [address], 11/01/2024 03:35:20 11/02/19 25 11/01/2024 [UNIT Y] ANEUP LOIDY NIPT sex FEMALE normal Not Available [facility] [address], [place], [address], 11/01/2024 03:35:20 11/02/19 25 11/01/2024 [UNIT Y] ANEUP LOIDY NIPT gestation SINGLE TON normal Not Available [facility] [address], [place], [address], 11/01/2024 03:35:20 11/02/19 25 11/01/2024 [UNIT Y] ANEUP ALEXIAIDY NIPT for detailed report, see pdf See PDF normal Not Available [facility] [address], [place], [address], 11/01/2024 03:35:20 11/05/19 25 11/04/2024 [UNIT Y] LAQUITA Hurtado sickle cell disease/beta -thalassemia /hemoglobino pathies carrier screen NEGATI VE normal Not Available [facility] [address], [place], [address], 11/04/2024 00:48:44 11/05/19 25 11/04/2024 [UNIT Y] LAQUITA MELYSSA Hurtado alpha-thalas semia carrier screen NEGATI VE normal Not Available [facility] [address], [place], [address], 11/04/2024 00:48:44 11/05/19 25 11/04/2024 [UNIT Y] LAQUITA MELYSSA Hurtado cystic fibrosis carrier screen NEGATI VE normal Not Available [facility] [address], [place], [address], 11/04/2024 00:48:44 11/05/19 25 11/04/2024 [UNIT Y] LAQUITA Hurtado spinal muscular atrophy carrier screen NEGATI VE 2 SMN1 copies , SNP not presen t normal Not Available [facility] [address], [place], [address], 11/04/2024 00:48:44 11/05/19 25 11/04/2024 [UNIT Y] LAQUITA Hurtado for detailed report, see pdf See PDF normal Not Available [facility] [address], [place], [address], 11/04/2024 00:48:44 10/26/19 25 10/25/2024 CBC W/DIF F WBC 8.7 10'3/ uL 3.5-10 .5 Not Available [facility] (Lab) [address], [place], [address], 10/26/2024 13:46:11 10/26/19 25 10/25/2024 CBC W/DIF F RBC 3.45 10'6/ uL (based on docume nted legal sex) 3.80-5 .20 low Not Available [facility] (Lab) [address], [place], [address], 10/26/2024 13:46:11 10/26/19 25 10/25/2024 CBC W/DIF F HGB 10.1 g/dL (based on docume nted legal sex) 11.6-1 5.4 low Not Available [facility] (Lab) [address], [place], [address], 10/26/2024 13:46:11 10/26/19 25 10/25/2024 CBC W/DIF F HCT 31.0 % (based on docume nted legal sex) 34.0-4 5.0 low Not Available [facility] (Lab) [address], [place], [address], 10/26/2024 13:46:11 10/26/19 25 10/25/2024 CBC W/DIF F MCV 89.9 fL 80.0-9 9.0 Not Available [facility] (Lab) [address], [place], [address], 10/26/2024 13:46:11 10/26/19 25 10/25/2024 CBC W/DIF F MCH 29.3 pg 27.0-3 4.0 Not Available [facility] (Lab) [address], [place], [address], 10/26/2024 13:46:11 10/26/19 25 10/25/2024 CBC W/DIF F MCHC 32.6 g/dL 32.0-3 5.5 Not Available [facility] (Lab) [address], [place], [address], 10/26/2024 13:46:11 10/26/19 25 10/25/2024 CBC W/DIF F RDW 14.4 % 11.0-1 5.0 Not Available [facility] (Lab) [address], [place], [address], 10/26/2024 13:46:11 10/26/19 25 10/25/2024 CBC W/DIF F plt 284 10'3/ uL 150-40 0 Not Available [facility] (Lab) [address] [facility], [place], [address], 10/26/2024 13:46:11 10/26/19 25 10/25/2024 CBC W/DIF F MPV 11.1 fL 8.8-12 .1 Not Available [facility] (Lab) [address], [place], [address], 10/26/2024 13:46:11 10/26/19 25 10/25/2024 CBC W/DIF F NRBC's 0.0 % 0.0 Not Available [facility] (Lab) [address] [facility], [place], [address], 10/26/2024 13:46:11 10/26/19 25 10/25/2024 CBC W/DIF F absolute NRBCs 0.0 10'3/ uL no refere nce range establ ished Not Available [facility] (Lab) [address], [place], [address], 10/26/2024 13:46:11 10/26/19 25 10/25/2024 CBC W/DIF F neutrophils 62.7 % 34.0-7 3.0 Not Available [facility] (Lab) [address] [place], [address], 10/26/2024 13:46:11 10/26/19 25 10/25/2024 CBC W/DIF F lymphocytes 31.2 % 15.0-5 0.0 Not Available [facility] (Lab) [address], [place], [address], 10/26/2024 13:46:11 10/26/19 25 10/25/2024 CBC W/DIF F monocytes 5.2 % 1.0-15 .0 Not Available [facility] (Lab) [address], [place], [address], 10/26/2024 13:46:11 10/26/19 25 10/25/2024 CBC W/DIF F eosinophils 0.2 % 0.0-8. 0 Not Available [facility] (Lab) [address], [place], [address], 10/26/2024 13:46:11 10/26/19 25 10/25/2024 CBC W/DIF F basophils 0.5 % 0.0-2. 0 Not Available [facility] (Lab) [address] [facility], [place], [address], 10/26/2024 13:46:11 10/26/19 25 10/25/2024 CBC W/DIF [...] separ ately if prese nt. Not Available [facility] (Lab) [address] , [place], [address], 10/26/2024 13:46:11 10/26/19 25 10/25/2024 CBC W/DIF F absolute neutrophils 5.5 10'3/ uL 1.5-8. 0 Not Available [facility] (Lab) [address], [place], [address], 10/26/2024 13:46:11 10/26/19 25 10/25/2024 CBC W/DIF F absolute lymphocytes 2.7 10'3/ uL 1.0-4. 0 Not Available [facility] (Lab) [address], [place], [address], 10/26/2024 13:46:11 10/26/1910/25/2024 CBC W/DIF F absolute monocytes 0.5 10'3/ uL 0.2-1. 0 Not Available [facility] (Lab) [address] [facility], [place], [address], 10/26/2024 13:46:11 10/26/19 25 10/25/2024 CBC W/DIF F absolute eosinophils 0.0 10'3/ uL 0.0-0. 6 Not Available [facility] (Lab) [address], [place], [address], 10/26/2024 13:46:11 10/26/19 25 10/25/2024 CBC W/DIF F absolute basophils 0.0 10'3/ uL 0.0-0. 3 Not Available [facility] (Lab) [address], [place], [address], 10/26/2024 13:46:11 10/26/19 25 10/25/2024 CBC W/DIF [...] dyer book. nm.or g/gen derx Not Available [facility] (Lab) [address], [place], [address], 10/26/2024 13:46:11 10/26/1910/25/2024 HIV 1/2 ANTIG EN/AN TIBOD Y, REFLE X CONFI RMATI ON HIV antigen/anti body Nonrea ctive nonrea ctive HIV-1 antig en and HIV-1 /HIV- 2 antib odies were not detec bryan. No labor atory evide nce of HIV infec tion. Not Available [facility] (Lab) [address], [place], [address], 10/26/2024 13:46:11 10/26/19 25 10/25/2024 HEPAT ITIS C ANTIB MIGUELINA SCREE N, REFLE X TO CONFI RMATI ON hepatitis C antibody Non-re active non-re active Antib odies to HCV Not Detec bryan, does not exclu de the possi bilit y of expos ure to HCV. Not Available [facility] (Lab) [address], [place], [address], 10/26/2024 13:46:12 10/26/19 25 10/25/2024 HEPAT ITIS B SURFA CE ANTIG EN hepatitis B surface antigen Non-re active non-re active This assay was perfo rmed using [employer] n reage nts and test kits. Value s obtai rickey with other assay metho ds or kits canno t be used inter zuleta eably . Not Available [facility] (Lab) [address], [place], [address], 10/26/2024 13:46:12 10/26/19 25 10/25/2024 TSH, REFLE X FREE T4 TSH 1.26 uIU/m L 0.30-5 .33 Not Available [facility] (Lab) [address], [place], [address], 10/26/2024 13:46:13 10/26/19 25 10/25/2024 TYPE/ RH/SC REEN ABO/Rh type O POS Not Available [facility] (Lab) [address], [place], [address], 10/26/2024 13:46:13 10/26/19 25 10/25/2024 TYPE/ RH/SC REEN antibody screen NEG Not Available [facility] (Lab) [address] [facility], [place], [address], 10/26/2024 13:46:13 10/26/19 25 10/25/2024 TYPE/ RH/SC REEN exp date 2024 23:59 Not Available [facility] (Lab) [address] [facility], [place], [address], 10/26/2024 13:46:13 10/26/19 25 10/25/2024 RUBEL LA IGG ANTIB MIGUELINA, QUANT rubella antibodies, IgG Reacti ve reacti ve Not Available [facility] (Lab) [address] [facility], [place], [address], 10/26/2024 13:46:13 10/26/19 25 10/25/2024 RUBEL LA IGG ANTIB MIGUELINA, QUANT rubella antibodies, IgG quant 18.0 IU/mL >=10 Non-r eacti ve (Non- Immun e) <10 IU/mL React haim (Immu ne) > or = 10 IU/mL Not Available [facility] (Lab) [address] [facility], [place], [address], 10/26/2024 13:46:13 10/26/19 25 10/25/2024 RPR SCREE N, REFLE X TITER /CONF IRMAT ION RPR qualitative Nonrea ctive nonrea ctive Not Available [facility] (Lab) [address] [place], [address], 10/26/2024 13:46:14 10/26/19 25 10/25/2024 HEMOG LOBIN [...] >8.0% Actio n sugge sted Not Available [facility] (Lab) [address] [facility], [place], [address], 10/26/2024 13:46:14 10/26/19 25 10/25/2024 CT/GC AND TRICH OMONA S VAGIN ARIANA (RRNA ), URINE chlamydia trachomatis, PCR Negati ve negati ve Not Available [facility] (Lab) [address] [facility], [place], [address], 10/26/2024 21:37:02 10/26/19 25 10/25/2024 CT/GC AND TRICH OMONA S VAGIN ARIANA (RRNA ), URINE neisseria gonorrhoeae, PCR Negati ve negati ve Not Available [facility] (Lab) [address] [facility], [place], [address], 10/26/2024 21:37:02 10/26/19 25 10/25/2024 CT/GC AND TRICH OMONA S VAGIN ARIANA (RRNA ), URINE trichomonas vaginalis ribosomal RNA (rrna) Negati ve negati ve Not Available [facility] (Lab) [address] [facility], [place], [address], 10/26/2024 21:37:02 10/26/19 25 10/25/2024 CULTU RE: URINE result report SEE RESULT S BELOW Test: Cultu re: Urine Speci men Sourc e: Urine Voide d Speci men Type: Urine Speci men Date: 025 1714 Resul t Date: 20242 Resul t Statu s: Final resul t Abnor mal: No Resul ting Lab: [facility] [address] [facility] [address] Tel: CULTU RE ----- ----- ----- --- No growt h in 1 day (dete ction level of 10,00 0 colon ies / ml.) Not Available [facility] (Lab) [address] [facility], [place], [address], 10/26/2024 21:37:02 10/26/19 25 10/25/2024 drug scree n, urine Amphetamines : negati ve Not Available [place] [address], [place], [address], 10/25/2024 17:35:03 10/26/19 25 10/25/2024 drug scree n, urine Cannabinoids : negati ve Not Available [place] [address], [place], [address], 10/25/2024 17:35:03 10/26/19 25 10/25/2024 drug scree n, urine Cocaine: negati ve Not Available [place] [address], [place], [address], 10/25/2024 17:35:03 10/26/19 25 10/25/2024 drug scree n, urine Opiates: negati ve Not Available [place] [address], [place], [address], 10/25/2024 17:35:03 10/26/19 25 10/25/2024 drug scree n, urine Phenocyclidi ne: negati ve Not Available [place] [address], [place], [address], 10/25/2024 17:35:03 10/26/19 25 10/25/2024 drug scree n, urine Barbiturates : negati ve Not Available [place] [address], [place], [address], 10/25/2024 17:35:03 10/26/19 25 10/25/2024 drug scree n, urine Benzodiazepi bridget: negati ve Not Available [place] [address], [place], [address], 10/25/2024 17:35:03 10/26/19 25 10/25/2024 drug scree n, urine Ethanol: negati ve Not Available [place] [address], [place], [address], 10/25/2024 17:35:03 10/26/19 25 10/25/2024 drug scree n, urine Hallucinogen s: negati ve Not Available [place] [address], [place], [address], 10/25/2024 17:35:03 10/26/19 25 10/25/2024 drug scree n, urine Inhalants: negati ve Not Available [place] [address], [place], [address], 10/25/2024 17:35:03 10/26/19 25 10/25/2024 drug scree n, urine Anabolic Steroids: negati ve Not Available [place] [address], [place], [address], 10/25/2024 17:35:03 10/26/19 25 10/25/2024 drug scree n, urine Other: negati ve Not Available [place] [address], [place], [address], 10/25/2024 17:35:03 01/15/20 25 01/14/2025 HEMOG LOBIN (HGB) HGB 9.3 g/dL (based on docume nted legal sex) 11.6-1 5.4 low Not Available [facility] (Lab) [address], [place], [address], 01/15/2025 13:08:39 01/15/20 25 01/14/2025 HEMAT OCRIT (HCT) HCT 28.1 % (based on docume nted legal sex) 34.0-4 5.0 low Not Available [facility] (Lab) [address], [place], [address], 01/15/2025 13:08:39 01/15/20 25 01/14/2025 GTT - GESTA RADHA L SCREE N, ACOG OB glucose, 1 hour screen 99 mg/dL 70-135 Not Available [facility] (Lab) [address] [facility], [place], [address], 01/15/2025 13:08:40 01/15/20 25 01/14/2025 HIV 1/2 ANTIG EN/AN TIBOD Y, REFLE X CONFI RMATI ON HIV antigen/anti body Nonrea ctive nonrea ctive HIV-1 antig en and HIV-1 /HIV- 2 antib odies were not detec bryan. No labor atory evide nce of HIV infec tion. Not Available [facility] (Lab) [address] [facility], [place], [address], 01/15/2025 13:08:40 01/15/20 25 01/14/2025 RPR SCREE N, REFLE X TITER /CONF IRMAT ION RPR qualitative Nonrea ctive nonrea ctive Not Available [facility] (Lab) [address] [facility], [place], [address], 01/15/2025 13:08:40 10/26/19 25 10/25/2024 US, obste tric, limit ed No observ ation record ed. [facility] [address], [place], [address], 10/25/2024 18:50:32 10/28/19 25 10/25/2024 US, obstjen tric, limit ed No observ ation record ed. [facility] [address], [place], [address], 10/30/2024 23:24:32 11/27/19 25 11/26/2024 US, usha tric, 2nd or 3rd trime ster No observ ation record ed. [facility] [address], [place], [address], 11/26/2024 17:49:36 11/27/19 25 11/26/2024 US, obste tric, 2nd or 3rd trime ster No observ ation record ed. [facility] [address], [place], [address], 11/26/2024 17:24:36 02/12/20 25 02/11/2025 US, obste tric, follo w-up No observ ation record ed. [email or web address] [place] [address], [place], [address], 02/11/2025 17:21:09 02/12/20 25 02/11/2025 US, obste tric, follo w-up No observ ation record ed. [email or web address] [address] [address], [place], [address], 02/25/2025 10:51:35 03/10/20 25 03/10/2025 US, obste tric, follo w-up No observ ation record ed. [email or web address] [place] [address], [place], [address], 03/10/2025 15:18:58 03/10/20 25 03/10/2025 US, obste tric, follo w-up No observ ation record ed. [email or web address] [facility] [address], [place], [address], 03/18/2025 11:35:09 Result Notes None recorded. Problems Name Problem SNOMED Code Status Onset Date Resolution Date Notes Provider Name and Address Organization Details Recorded Time 47320185 Active 025 JUANITO O'Brien, [place] - [facility] 17:01:38 Problem Notes None recorded. Medical [...] and Address Organization Details Last Updated DateTime 01/28/2025 157.48 cm 32.9 kg/m2 62094.63 g 107/71 mm[Hg] Oly Shabazz [facility] 01/28/2025 10:12:16 Social History Question Answer Notes LastModified by Organizat ion Details LastModified Time Tobacco Smoking Status Never Smoker JUANITO Hutchins miki, [facility] 10/25/2024 16:11:22 Do You Have An Advance Directive? No [email or web address] Information n ot available 10/25/2024 If You Are , What Was Your Level Of Alcohol Consumption Prior To ? None [email or web address] Information not available 10/25/2024 Are You Blind Or Do You Have Difficulty Seeing? No Information n ot available 10/25/2024 What Is Your Level Of Caffeine Consumption? None [email or web address] Information not available 10/25/2024 In The 14 Days Before Symptom Onset, Have You Had Close Contact With A Laboratory-confirm ed COVID-19 While That Case Was Ill? No [email or web address] Information n ot available 10/25/2024 In The 14 Days Before Symptom Onset, Have You Had Close Contact With A Person Who Is Under Investigation For COVID-19 While That Person Was Ill? No [email or web address] Information not available 10/25/2024 Have You Been To An Area Known To Be High Risk For COVID-19? No Information not available 10/25/2024 Are You Deaf Or Do You Have Serious Difficulty Hearing? No [email or web address] Information not available 10/25/2024 What Type Of Diet Are You Following? REGULAR [email or web address] Information n ot available 10/25/2024 What Is The Highest Grade Or Level Of School You Have Completed Or The Highest Degree You Have Received? [id number] [email or web address] Information not available 10/25/2024 Are There Any Guns Present In Your Home? No [email or web address] Information not available 10/25/2024 Do You Use Protection During Sex? No Information not available 01/28/2025 Do You Use Your Seat Belt Or Car Seat Routinely? Yes Information not available 10/25/2024 Are You Sexually Active? Yes [email or web address] Information not available 10/25/2024 Do You Have Smoke And Carbon Monoxide Detectors In Your Home? Yes Information not available 10/25/2024 Do You Use Sunscreen Routinely? Yes [email or web address] Information not available 10/25/2024 Has Tobacco Cessation Counseling Been Provided? No [email or web address] Information not available 10/25/2024 Do You Have Difficulty Walking Or Climbing Stairs? No [email or web address] Information not available 10/25/2024 Sex: Unknown Functional Status Question Answer Note LastModified by Organizat ion Details LastModified Time Do you use any illicit or recreational drugs? No Information not available 10/25/2024 Do you or have you ever used any other forms of tobacco or nicotine? No Information not available 10/25/2024 What is your level of alcohol consumption? None [email or web address] Information not available 10/25/2024 Are you currently employed? Yes Information not available 01/28/2025 Are you able to walk independently without assistance or assistive devices? YESASSIST [email or web address] Information not available 10/25/2024 Are you able to care for yourself independently? Yes [email or web address] Information not available 10/25/2024 Do you have difficulty dressing, bathing, grooming, or toileting? No [email or web address] Information not available 10/25/2024 What is your exercise level? Occasional Information not available 10/25/2024 Mental Status Question Answer Note LastModified by Organization D etails LastModified Time Do you feel stressed (tense, restless, nervous, or anxious, or unable to sleep at night)? [id number] Information not available 01/28/2025 Family History Nothing [...] ICD10 Code Diagnosis IMO Codes Diagnosis Note [id number] CRISTINA PETERSEN MD [place] [address] [address] 12/31/2024 16:24:15 01/03/2025 07:16:14 care status 692533055 Z34.83 [id number] CRISTINA PETERSEN MD [place] [address] [place] [address] 01/14/2025 15:27:34 01/14/2025 16:12:36 screening 978279703 Z36.89 [id number] [facility] [address] [place] [address] 01/28/2025 10:05:52 01/28/2025 10:29:15 Gestation period, 30 weeks 12070528 Z3A.30 [id number] cont pnvstart slow fe daily Health Concerns Section Related Observation LastModified by Organization Detai ls LastModified Time None Recorded Concern Status LastModified by Organization Details LastModified Time None Recorded Payers Encounter Date Sequence Insurance Name Policy Number Policy Hoang Covered Member ID Hoang Member ID Guarantor Name 01/28/2025 1 [facility] (MEDICAID HMO) [id number] Con Barraza [id number] Con Barraza Notes Date Note Type Note Provider Name and Address Organization Details Recorded Time 01/28/2025 text/html Generic HPI TemplateReported by Patient Grace Murcia CNM [address], [place], [address], [facility] 01/28/2025 10:28:07 OBGyn Episode Ob Episode Information Episode Created Date Number of Fetuses Patient Bloodtype Patient rh Status Prepregnancy Weight lbs Domestic Partner Domestic Partner Phone Father Name Sole Skiver Status 10/26/19 25 1 O Positive Ricky OPEN Fetus Data First Name Last Name Admitted to NICU Weight (g) Sex Living Outcome Pediatric Complications Fetus ID Race Codes Race Delivery Type [id number] Cristobal Calculation Initial Cristobal Date Initial Exam [...] Weight in lbs Pre/Post Dialysis Refused Weight 164.248500472082 BP Diastolic BP Location Tested BP Systolic BP Type 62 L arm 90 sitting Fetus Heart Rate Present A Present Fetus Movement A Yes Comments Patient presents to [facility]. Hx of uncomplicated , EIL. [...] Weight in lbs Pre/Post Dialysis Refused Weight 167.138736087738 BP Diastolic BP Location Tested BP Systolic [...] Weight in lbs Pre/Post Dialysis Refused Weight 175.947639480859 BP Diastolic BP Location Tested BP Systolic [...] Weight in lbs Pre/Post Dialysis Refused Weight 178.374319747232 BP Diastolic BP Location Tested BP Systolic [...] Weight in lbs Pre/Post Dialysis Refused Weight 180.660858712581 BP Diastolic BP Location Tested BP Systolic [...] Weight in lbs Pre/Post Dialysis Refused Weight 178.013340360587 BP Diastolic BP Location Tested BP Systolic [...] Weight in lbs Pre/Post Dialysis Refused Weight 183.459567245045 BP Diastolic BP Location Tested BP Systolic BP Type 63 L arm 93 sitting Fetus Heart Rate Present Fetus Movement A Yes Comments plan f/u growth at next visi t, us by cnm +[id number], precautions and education, not planning on vaccines [...] Weight in lbs Pre/Post Dialysis Refused Weight 186.878444714918 BP Diastolic BP Location Tested BP Systolic [...] Weight in lbs Pre/Post Dialysis Refused Weight 190.758845522433 BP Diastolic BP Location Tested BP Systolic [...] Type Weight in lbs Pre/Post Dialysis Refused 189.961880281067 BP Diastolic BP Location Tested BP Systolic [...] Weight in lbs Pre/Post Dialysis Refused Weight 192.351310068583 BP Diastolic BP Location Tested BP Systolic [...]
--- OUTSIDE RECORDS SUMMARY | 2025-04-10 17:02 | XMS_ITS | Continuity of Care Document ---
Author Organization [facility], [place] Address [address] [place] [address] Assessment No assessment recorded. Plan of Treatment Reminders Order Date Submit Date Provider Last Modified By Organization Details Last Modified Time Details Appointments None record ed. Lab None record ed. Referral None record ed. Procedures None record ed. Surgeries None record ed. Imaging US, obstet kenny, follow -up 025 02/12/20 [facility], [address], [place], [address], 17:10:39 Medication Orders None record ed. Patient TargetsNo targets recorded. Patient InstructionsNo instructions recorded. Reason for Referral None Reported. Results Created Date Observation Date Name Description Value Unit Range Abnormal Flag Note LastModifiedBy Organization Detail LastModifiedTime 11/02/19 25 11/01/2024 [UNIT Y] ANEUP LOIDY NIPT fraction 22.1% normal Not Available [facility] [address], [place], [address], 11/01/2024 03:35:20 11/02/19 25 11/01/2024 [UNIT Y] ANEUP LOIDY NIPT 22Q11.2 microdeletio n LOW RISK <1 in 10,000 normal Not Available [facility] [address], [place], [address], 11/01/2024 03:35:20 11/02/19 25 11/01/2024 [UNIT Y] ANEUP LOIDY NIPT sex chromosome aneuploidy NOT DETECT ED normal Not Available [facility] [address], [place], [address], 11/01/2024 03:35:20 11/02/19 25 11/01/2024 [UNIT Y] ANEUP LOIDY NIPT monosomy X LOW RISK <1 in 10,000 normal Not Available [facility] [address], [place], [address], 11/01/2024 03:35:20 11/02/19 25 11/01/2024 [UNIT Y] ANEUP LOIDY NIPT trisomy 13 LOW RISK <1 in 10,000 normal Not Available [facility] [address], [place], [address], 11/01/2024 03:35:20 11/02/19 25 11/01/2024 [UNIT Y] ANEUP LOIDY NIPT trisomy 18 LOW RISK <1 in 10,000 normal Not Available [facility] [address], [place], [address], 11/01/2024 03:35:20 11/02/19 25 11/01/2024 [UNIT Y] ANEUP LOIDY NIPT trisomy 21 LOW RISK <1 in 10,000 normal Not Available [facility] [address], [place], [address], 11/01/2024 03:35:20 11/02/19 25 11/01/2024 [UNIT Y] ANEUP LOIDY NIPT sex FEMALE normal Not Available [facility] [address], [place], [address], 11/01/2024 03:35:20 11/02/19 25 11/01/2024 [UNIT Y] ANEUP LOIDY NIPT gestation SINGLE TON normal Not Available [facility] [address], [place], [address], 11/01/2024 03:35:20 11/02/19 25 11/01/2024 [UNIT Y] ANEUP LUISIDY NIPT for detailed report, see pdf See PDF normal Not Available [facility] [address], [place], [address], 11/01/2024 03:35:20 11/05/19 25 11/04/2024 [UNIT Y] LAQUITA Hurtado sickle cell disease/beta -thalassemia /hemoglobino pathies carrier screen NEGATI VE normal Not Available [facility] [address], [place], [address], 11/04/2024 00:48:44 11/05/19 25 11/04/2024 [UNIT Y] LAQUITA Hurtado alpha-thalas semia carrier screen NEGATI VE normal Not Available [facility] [address], [place], [address], 11/04/2024 00:48:44 11/05/19 25 11/04/2024 [UNIT Y] LAQUITA Hurtado cystic fibrosis carrier screen NEGATI VE normal Not Available [facility] [address], [place], [address], 11/04/2024 00:48:44 11/05/19 25 11/04/2024 [UNIT Y] LAQUITA Hurtado spinal muscular atrophy carrier screen NEGATI VE 2 SMN1 copies , SNP not presen t normal Not Available [facility] [address], [place], [address], 11/04/2024 00:48:44 11/05/19 25 11/04/2024 [UNIT Y] LAQUITA Hurtado for detailed report, see pdf See PDF normal Not Available [facility] [address], [place], [address], 11/04/2024 00:48:44 10/26/19 25 10/25/2024 CBC W/DIF F WBC 8.7 10'3/ uL 3.5-10 .5 Not Available [facility] (Lab) [address], [place], [address], 10/26/2024 13:46:11 10/26/19 25 10/25/2024 CBC W/DIF F RBC 3.45 10'6/ uL (based on docume nted legal sex) 3.80-5 .20 low Not Available [facility] (Lab) [address], [place], [address], 10/26/2024 13:46:11 10/26/19 25 10/25/2024 CBC W/DIF F HGB 10.1 g/dL (based on docume nted legal sex) 11.6-1 5.4 low Not Available [facility] (Lab) [address], [place], [address], 10/26/2024 13:46:11 10/26/19 25 10/25/2024 CBC W/DIF F HCT 31.0 % (based on docume nted legal sex) 34.0-4 5.0 low Not Available [facility] (Lab) [address], [place], [address], 10/26/2024 13:46:11 10/26/19 25 10/25/2024 CBC W/DIF F MCV 89.9 fL 80.0-9 9.0 Not Available [facility] (Lab) [address], [place], [address], 10/26/2024 13:46:11 10/26/1910/25/2024 CBC W/DIF F MCH 29.3 pg 27.0-3 4.0 Not Available [facility] (Lab) [address] [place], [address], 10/26/2024 13:46:11 10/26/19 25 10/25/2024 CBC W/DIF F MCHC 32.6 g/dL 32.0-3 5.5 Not Available [facility] (Lab) [address] [place], [address], 10/26/2024 13:46:11 10/26/19 25 10/25/2024 CBC W/DIF F RDW 14.4 % 11.0-1 5.0 Not Available [facility] (Lab) [address] [address], [place], [address], 10/26/2024 13:46:11 10/26/19 25 10/25/2024 CBC W/DIF F plt 284 10'3/ uL 150-40 0 Not Available [facility] (Lab) [address], [place], [address], 10/26/2024 13:46:11 10/26/19 25 10/25/2024 CBC W/DIF F MPV 11.1 fL 8.8-12 .1 Not Available [facility] (Lab) [address], [place], [address], 10/26/2024 13:46:11 10/26/19 25 10/25/2024 CBC W/DIF F NRBC's 0.0 % 0.0 Not Available [facility] (Lab) [address], [place], [address], 10/26/2024 13:46:11 10/26/19 25 10/25/2024 CBC W/DIF F absolute NRBCs 0.0 10'3/ uL no refere nce range establ ished Not Available [facility] (Lab) [address], [place], [address], 10/26/2024 13:46:11 10/26/19 25 10/25/2024 CBC W/DIF F neutrophils 62.7 % 34.0-7 3.0 Not Available [facility] (Lab) [address], [place], [address], 10/26/2024 13:46:11 10/26/19 25 10/25/2024 CBC W/DIF F lymphocytes 31.2 % 15.0-5 0.0 Not Available [facility] (Lab) [address], [place], [address], 10/26/2024 13:46:11 10/26/19 25 10/25/2024 CBC W/DIF F monocytes 5.2 % 1.0-15 .0 Not Available [facility] (Lab) [address], [place], [address], 10/26/2024 13:46:11 10/26/19 25 10/25/2024 CBC W/DIF F eosinophils 0.2 % 0.0-8. 0 Not Available [facility] (Lab) [address], [place], [address], 10/26/2024 13:46:11 10/26/19 25 10/25/2024 CBC W/DIF F basophils 0.5 % 0.0-2. 0 Not Available [facility] (Lab) [address], [place], [address], 10/26/2024 13:46:11 10/26/19 25 10/25/2024 CBC W/DIF [...] separ ately if prese nt. Not Available [facility] (Lab) [address], [place], [address], 10/26/2024 13:46:11 10/26/19 25 10/25/2024 CBC W/DIF F absolute neutrophils 5.5 10'3/ uL 1.5-8. 0 Not Available [facility] (Lab) [address], [place], [address], 10/26/2024 13:46:11 10/26/19 25 10/25/2024 CBC W/DIF F absolute lymphocytes 2.7 10'3/ uL 1.0-4. 0 Not Available [facility] (Lab) [address], [place], [address], 10/26/2024 13:46:11 10/26/19 25 10/25/2024 CBC W/DIF F absolute monocytes 0.5 10'3/ uL 0.2-1. 0 Not Available [facility] (Lab) [address], [place], [address], 10/26/2024 13:46:11 10/26/19 25 10/25/2024 CBC W/DIF F absolute eosinophils 0.0 10'3/ uL 0.0-0. 6 Not Available [facility] (Lab) [address], [place], [address], 10/26/2024 13:46:11 10/26/19 25 10/25/2024 CBC W/DIF F absolute basophils 0.0 10'3/ uL 0.0-0. 3 Not Available [facility] (Lab) [address], [place], [address], 10/26/2024 13:46:11 10/26/19 25 10/25/2024 CBC W/DIF [...] the indiv idual patie nt: [email or web address] :[email or web address] [email or web address] [email or web address].or g/gen derx Not Available [facility] (Lab) [address], [place], [address], 10/26/2024 13:46:11 10/26/19 25 10/25/2024 HIV 1/2 ANTIG EN/AN TIBOD Y, REFLE X CONFI RMATI ON HIV antigen/anti body Nonrea ctive nonrea ctive HIV-1 antig en and HIV-1 /HIV- 2 antib odies were not detec bryan. No labor atory evide nce of HIV infec tion. Not Available [facility] (Lab) [address], [place], [address], 10/26/2024 13:46:11 10/26/19 25 10/25/2024 HEPAT ITIS C ANTIB MIGUELINA SCREE N, REFLE X TO CONFI RMATI ON hepatitis C antibody Non-re active non-re active Antib odies to HCV Not Detec bryan, does not exclu de the possi bilit y of expos ure to HCV. Not Available [facility] (Lab) [address], [place], [address], 10/26/2024 13:46:12 10/26/19 25 10/25/2024 HEPAT ITIS B SURFA CE ANTIG EN hepatitis B surface antigen Non-re active non-re active This assay was perfo rmed using [employer] n reage nts and test kits. Value s obtai rickey with other assay metho ds or kits canno t be used inter zuleta eably . Not Available [facility] (Lab) [address], [place], [address], 10/26/2024 13:46:12 10/26/19 25 10/25/2024 TSH, REFLE X FREE T4 TSH 1.26 uIU/m L 0.30-5 .33 Not Available [facility] (Lab) [address], [place], [address], 10/26/2024 13:46:13 10/26/19 25 10/25/2024 TYPE/ RH/SC REEN ABO/Rh type O POS Not Available [facility] (Lab) [address], [place], [address], 10/26/2024 13:46:13 10/26/19 25 10/25/2024 TYPE/ RH/SC REEN antibody screen NEG Not Available [facility] (Lab) [address], [place], [address], 10/26/2024 13:46:13 10/26/19 25 10/25/2024 TYPE/ RH/SC REEN exp date 2024 23:59 Not Available [facility] (Lab) [address], [place], [address], 10/26/2024 13:46:13 10/26/19 25 10/25/2024 RUBEL LA IGG ANTIB MIGUELINA, QUANT rubella antibodies, IgG Reacti ve reacti ve Not Available [facility] (Lab) [address], [place], [address], 10/26/2024 13:46:13 10/26/19 25 10/25/2024 RUBEL LA IGG ANTIB MIGUELINA, QUANT rubella antibodies, IgG quant 18.0 IU/mL >=10 Non-r eacti ve (Non- Immun e) <10 IU/mL React haim (Immu ne) > or = 10 IU/mL Not Available [facility] (Lab) [address], [place], [address], 10/26/2024 13:46:13 10/26/19 25 10/25/2024 RPR SCREE N, REFLE X TITER /CONF IRMAT ION RPR qualitative Nonrea ctive nonrea ctive Not Available [facility] (Lab) [address] [place], [address], 10/26/2024 13:46:14 10/26/19 25 10/25/2024 HEMOG LOBIN [...] <7.0% Goal of thera py >8.0% Actio angus zambrano Not Available [facility] (Lab) [address], [place], [address], 10/26/2024 13:46:14 10/26/19 25 10/25/2024 CT/GC AND TRICH OMONA S VAGIN ARIANA (RRNA ), URINE chlamydia trachomatis, PCR Negati ve negati ve Not Available [facility] (Lab) [address], [place], [address], 10/26/2024 21:37:02 10/26/19 25 10/25/2024 CT/GC AND TRICH OMONA S VAGIN ARIANA (RRNA ), URINE neisseria gonorrhoeae, PCR Negati ve negati ve Not Available [facility] (Lab) [address], [place], [address], 10/26/2024 21:37:02 10/26/19 25 10/25/2024 CT/GC AND TRICH OMONA S VAGIN ARIANA (RRNA ), URINE trichomonas vaginalis ribosomal RNA (rrna) Negati ve negati ve Not Available [facility] (Lab) [address], [place], [address], 10/26/2024 21:37:02 10/26/19 25 10/25/2024 CULTU RE: URINE result report SEE RESULT S BELOW Test: Cultu re: Urine Speci men Sourc e: Urine Voide d Speci men Type: Urine Speci men Date: 025 1714 Resul t Date: 2024 Resul t Statu s: Final resul t Abnor mal: No Resul ting Lab: [facility] [address] [facility] [address] Tel: CULTU RE ----- ----- ----- --- No growt h in 1 day (dete ction level of 10,00 0 colon ies / ml.) Not Available [facility] (Lab) [address], [place], [address], 10/26/2024 21:37:02 10/26/19 25 10/25/2024 drug scree n, urine Amphetamines : negati ve Not Available [facility] [address], [place], [address], 10/25/2024 17:35:03 10/26/19 25 10/25/2024 drug scree n, urine Cannabinoids : negati ve Not Available [facility] [address], [place], [address], 10/25/2024 17:35:03 10/26/19 25 10/25/2024 drug scree n, urine Cocaine: negati ve Not Available [facility] [address], [place], [address], 10/25/2024 17:35:03 10/26/19 25 10/25/2024 drug scree n, urine Opiates: negati ve Not Available [facility] [address], [place], [address], 10/25/2024 17:35:03 10/26/19 25 10/25/2024 drug scree n, urine Phenocyclidi ne: negati ve Not Available [facility] [address], [place], [address], 10/25/2024 17:35:03 10/26/19 25 10/25/2024 drug scree n, urine Barbiturates : negati ve Not Available [facility] [address], [place], [address], 10/25/2024 17:35:03 10/26/19 25 10/25/2024 drug scree n, urine Benzodiazepi bridget: negati ve Not Available [facility] [address], [place], [address], 10/25/2024 17:35:03 10/26/19 25 10/25/2024 drug scree n, urine Ethanol: negati ve Not Available [facility] [address], [place], [address], 10/25/2024 17:35:03 10/26/19 25 10/25/2024 drug scree n, urine Hallucinogen s: negati ve Not Available [facility] [address], [place], [address], 10/25/2024 17:35:03 10/26/19 25 10/25/2024 drug scree n, urine Inhalants: negati ve Not Available [facility] [address], [place], [address], 10/25/2024 17:35:03 10/26/19 25 10/25/2024 drug scree n, urine Anabolic Steroids: negati ve Not Available [facility] [address], [place], [address], 10/25/2024 17:35:03 10/26/19 25 10/25/2024 drug scree n, urine Other: negati ve Not Available [facility] [address], [place], [address], 10/25/2024 17:35:03 01/15/20 25 01/14/2025 HEMOG LOBIN (HGB) HGB 9.3 g/dL (based on docume nted legal sex) 11.6-1 5.4 low Not Available [facility] (Lab) [address], [place], [address], 01/15/2025 13:08:39 01/15/20 25 01/14/2025 HEMAT OCRIT (HCT) HCT 28.1 % (based on docume nted legal sex) 34.0-4 5.0 low Not Available [facility] (Lab) [address], [place], [address], 01/15/2025 13:08:39 01/15/20 25 01/14/2025 GTT - GESTA RADHA L AMBAR N, ACOG OB glucose, 1 hour screen 99 mg/dL 70-135 Not Available [facility] (Lab) [address], [place], [address], 01/15/2025 13:08:40 01/15/20 25 01/14/2025 HIV 1/2 ANTIG EN/AN TIBOD Y, REFLE X CONFI RMATI ON HIV antigen/anti body Nonrea ctive nonrea ctive HIV-1 antig en and HIV-1 /HIV- 2 antib odies were not detec bryan. No labor atory evide nce of HIV infec tion. Not Available [facility] (Lab) [address], [place], [address], 01/15/2025 13:08:40 01/15/20 25 01/14/2025 RPR SCREE N, REFLE X TITER /CONF IRMAT ION RPR qualitative Nonrea ctive nonrea ctive Not Available [facility] (Lab) [address], [place], [address], 01/15/2025 13:08:40 10/26/19 25 10/25/2024 US, usha tric, limit ed No observ ation record ed. [facility] [address], [place], [address], 10/25/2024 18:50:32 10/28/19 25 10/25/2024 US, loene tric, limit ed No observ ation record ed. [email or web address] [facility] [address], [place], [address], 10/30/2024 23:24:32 11/27/19 25 11/26/2024 US, usha rossi, 2nd or 3rd trime ster No observ ation record ed. [facility] [address], [place], [address], 11/26/2024 17:49:36 11/27/19 25 11/26/2024 US, obste tric, 2nd or 3rd trime ster No observ ation record ed. [email or web address] [facility] [address], [place], [address], 11/26/2024 17:24:36 02/12/20 25 02/11/2025 US, obste tric, follo w-up No observ ation record ed. [email or web address] [place] [address], [place], [address], 02/11/2025 17:21:09 02/12/20 25 02/11/2025 US, obste tric, follo w-up No observ ation record ed. [email or web address] [facility] [address], [place], [address], 02/25/2025 10:51:35 03/10/20 25 03/10/2025 US, obste tric, follo w-up No observ ation record ed. [facility] [address], [place], [address], 03/10/2025 15:18:58 03/10/20 25 03/10/2025 US, obste tric, follo w-up No observ ation record ed. [email or web address] [facility] [address], [place], [address], 03/18/2025 11:35:09 Result Notes None recorded. Problems Name Problem SNOMED Code Status Onset Date Resolution Date Notes Provider Name and Address Organization Details Recorded Time 20962468 Active 025 JUANITO Liset [facility] 17:01:38 Problem Notes None recorded. Medical [...] Updated DateTime 02/11/2025 157.48 cm 32.6 kg/m2 09199.44 g 108/70 mm[Hg] Oly Aggarwalt [facility] 02/11/2025 16:42:02 Social History Question Answer Notes LastModified by Organizat ion Details LastModified Time Tobacco Smoking Status Never Smoker JUANITO Hutchins miki, [facility] 10/25/2024 16:11:22 Do You Have An Advance Directive? No [email or web address] Information n ot available 10/25/2024 If You Are , What Was Your Level Of Alcohol Consumption Prior To ? None [email or web address] Information not available 10/25/2024 Are You Blind Or Do You Have Difficulty Seeing? No [email or web address] Information n ot available 10/25/2024 What Is Your Level Of Caffeine Consumption? None [email or web address] Information not available 10/25/2024 In The 14 Days Before Symptom Onset, Have You Had Close Contact With A Laboratory-confirm ed COVID-19 While That Case Was Ill? No [email or web address] Information n ot available 10/25/2024 In The 14 Days Before Symptom Onset, Have You Had Close Contact With A Person Who Is Under Investigation For COVID-19 While That Person Was Ill? No [email or web address] Information not available 10/25/2024 Have You Been To An Area Known To Be High Risk For COVID-19? No [email or web address] Information not available 10/25/2024 Are You Deaf Or Do You Have Serious Difficulty Hearing? No [email or web address] Information not available 10/25/2024 What Type Of Diet Are You Following? REGULAR [email or web address] Information n ot available 10/25/2024 What Is The Highest Grade Or Level Of School You Have Completed Or The Highest Degree You Have Received? ES14489-6 [email or web address] Information not available 10/25/2024 Are There Any Guns Present In Your Home? No Information not available 10/25/2024 Do You Use Protection During Sex? No [email or web address] Information not available 01/28/2025 Do You Use Your Seat Belt Or Car Seat Routinely? Yes [email or web address] Information not available 10/25/2024 Are You Sexually Active? Yes [email or web address] Information not available 10/25/2024 Do You Have Smoke And Carbon Monoxide Detectors In Your Home? Yes [email or web address] Information not available 10/25/2024 Do You Use Sunscreen Routinely? Yes Information not available 10/25/2024 Has Tobacco Cessation Counseling Been Provided? No [email or web address] Information not available 10/25/2024 Do You Have Difficulty Walking Or Climbing Stairs? No [email or web address] Information not available 10/25/2024 Sex: Unknown Functional Status Question Answer Note LastModified by Organizat ion Details LastModified Time Do you use any illicit or recreational drugs? No [email or web address] Information not available 10/25/2024 Do you or have you ever used any other forms of tobacco or nicotine? No [email or web address] Information not available 10/25/2024 What is your level of alcohol consumption? None [email or web address] Information not available 10/25/2024 Are you currently employed? Yes [email or web address] Information not available 01/28/2025 Are you able to walk independently without assistance or assistive devices? YESASSIST [email or web address] Information not available 10/25/2024 Are you able to care for yourself independently? Yes [email or web address] Information not available 10/25/2024 Do you have difficulty dressing, bathing, grooming, or toileting? No [email or web address] Information not available 10/25/2024 What is your exercise level? Occasional [email or web address] Information not available 10/25/2024 Mental Status Question Answer Note LastModified by Organization D etails LastModified Time Do you feel stressed (tense, restless, nervous, or anxious, or unable to sleep at night)? [id number] Information not available 01/28/2025 Family History Nothing [...] ICD10 Code Diagnosis IMO Codes Diagnosis Note [id number] CRISTINA PETERSEN MD [facility] [address] [address] 01/14/2025 15:27:34 01/14/2025 16:12:36 screening [id number] Z36.89 [id number] Grace Murcia CNM [facility] [address] [address] 01/28/2025 10:05:52 01/28/2025 10:29:15 Gestation period, 30 weeks [id number] Z3A.30 [id number] cont pnvstart slow fe daily [id number] CRISTINA PETERSEN MD [facility] [address] [address] 02/11/2025 15:41:07 02/11/2025 16:57:52 Uterine size for dates discrepancy 098134864 O26.843 Z3A.32 [id number] Grace Murcia CNM [facility] [address] [address] 02/11/2025 15:41:30 02/14/2025 10:40:09 Gestation period, 32 weeks 8628983 Z3A.32 [id number] cont pnv Health Concerns Section Related Observation LastModified by Organization Detai ls LastModified Time None Recorded Concern Status LastModified by Organization Details LastModified Time None Recorded Payers Encounter Date Sequence Insurance Name Policy Number Policy Hoang Covered Member ID Hoang Member ID Guarantor Name 02/11/2025 1 [facility] (MEDICAID HMO) [id number] Con Barraza [id number] Con Barraza Notes Date Note Type Note Provider Name and Address Organization Details Recorded Time 02/11/2025 text/html Generic HPI TemplateReported by Patient Grace Murcia CNM [address], [place], [address], [facility] 02/11/2025 20:00:50 OBGyn Episode Ob Episode Information Episode Created Date Number of Fetuses Patient Bloodtype Patient rh Status Prepregnancy Weight lbs Domestic Partner Domestic Partner Phone Father Name Insurance Underwriter Status 10/26/19 25 1 O Positive Ricky OPEN Fetus Data First Name Last Name Admitted to NICU Weight (g) Sex Living Outcome Pediatric Complications Fetus ID Race Codes Race Delivery Type [id number] Cristobal Calculation Initial Cristobal Date Initial Exam [...] Weight in lbs Pre/Post Dialysis Refused Weight 164.509101630126 BP Diastolic BP Location Tested BP Systolic BP Type 62 L arm 90 sitting Fetus Heart Rate Present A Present Fetus Movement A Yes Comments Patient presents to [facility] care. Hx of uncomplicated , EIL. [...] Weight in lbs Pre/Post Dialysis Refused Weight 167.253849920933 BP Diastolic BP Location Tested BP Systolic [...] Weight in lbs Pre/Post Dialysis Refused Weight 175.361321119092 BP Diastolic BP Location Tested BP Systolic [...] Weight in lbs Pre/Post Dialysis Refused Weight 178.265584654835 BP Diastolic BP Location Tested BP Systolic [...] Weight in lbs Pre/Post Dialysis Refused Weight 180.085086580773 BP Diastolic BP Location Tested BP Systolic [...] Weight in lbs Pre/Post Dialysis Refused Weight 178.345109165916 BP Diastolic BP Location Tested BP Systolic [...] Weight in lbs Pre/Post Dialysis Refused Weight 183.288957705596 BP Diastolic BP Location Tested BP Systolic BP Type 63 L arm 93 sitting Fetus Heart Rate Present Fetus Movement A Yes Comments plan f/[facility] at [facility], by cnm +[id number], precautions and education, not planning on vaccines [...] Weight in lbs Pre/Post Dialysis Refused Weight 186.967800328659 BP Diastolic BP Location Tested BP Systolic [...] Weight in lbs Pre/Post Dialysis Refused Weight [id number] BP Diastolic BP Location Tested BP Systolic [...] Type Weight in lbs Pre/Post Dialysis Refused [id number] BP Diastolic BP Location Tested BP Systolic [...] Weight in lbs Pre/Post Dialysis Refused Weight [id number] BP Diastolic BP Location Tested BP Systolic [...]
[2025-04-10 17:46] LABS: Hematocrit 30.0 % (37.0-47.0); Hemoglobin 10.2 g/dL (12.0-15.0); Immature Granulocyte Percent A 0.4 % (0-0.5); Lymphocytes Absolute Auto 2.67 K/mm3 (0.9-3.2); Mean Corpuscular HGB Conc 34.0 g/dl (32-36); Mean Corpuscular Hemoglobin 29.2 pg (26-34); Mean Corpuscular Volume 86.0 fl (80-100); Nucleated Red Blood Cells Absolute Auto 0.000 K/mm3 (0.0-0.012); Nucleated Red Blood Cells Perc 0.0 % (0.0-0.2); Platelet Count Result 287 k/mm3 (150-375); Red Blood Count 3.49 M/mm3 (4.2-5.4); White Blood Count 10.6 K/mm3 (4.5-10.0)
[2025-04-10] MEDS: OXYTOCIN 30 UNITS/NS 500 ML 30 UNITS/500 ML BAG IV CONT (17:59)
[2025-04-10] MEDS: LACTATED RINGERS 1,000 ML 125 ML IV CONT ×2 (17:59→21:57)
--- NOTE | 2025-04-10 18:13 | LDADM ---
This patient, Con Barraza, was admitted to Labor/Delivery/Recovery 107 on 04/10/25 at 16:56. Plans for labor, pain management and were discussed with patient. Patient/family oriented to hospital policies and general routines including ID bracelet, bed and alarms, visiting hours, pain management, procedures, bathroom and other care routines, personal items, smoking policy, room service/diet and guest tray routines, infant security routines, and visiting hours. Patient/Family are encouraged to report perceived risks to care and to ask questions if they do not understand what they are told or what they should do. See OBIX for further documentation.
[2025-04-10 18:30] LABS: Syphilis IgG/IgM Antibody Non-Reactive (Nonreactive)
[2025-04-10] MEDS: fentaNYL CITRATE INJ (*CRX) 100 MCG/2 ML VIAL 50 MCG IV PUSH (21:57)
--- NOTE | 2025-04-10 22:26 | WPDHPUPDATE1 ---
History and Physical Update Update Date/Time: 04/10/25 22:26 This patient is a 24-year-old multiparous female at 40 weeks and 5 days gestation who presents for induction of labor for postdates. Artificial rupture membranes was performed. Patient is 6 cm dilated and 90% effaced. Minus one station. Reassuring heart tones. Continue active management of labor Pitocin and monitoring. History and Physical has been reviewed, including an updated exam of the patient. There are NO changes in the patient's condition. Risks, benefits, and alternatives have been discussed and questions answered. Patient agrees to proceed with procedure.
--- NOTE | 2025-04-10 23:54 | PM.OBPRVD ---
OB - Vaginal Delivery Note Procedure Delivery date: 04/10/25 Induction method: AROM and Per Pitocin Protocol Delivery monitor: External FHT and External Uterine Route of delivery: Episiotomy description: None Laceration Description: Perineal - 2nd Degree Delivery repair: vicryl Quantitative Blood Loss (ml): 300 Anesthesia type: Epidural Disposition: Floor Complications: No immediate complications
[2025-04-11] VITALS (9 sets, daily range): BP systolic 72–123; BP diastolic 49–68; PULSE 81–137; RESP 16; TEMP 36.6–37.6; O2SAT 98–100
[2025-04-11] MEDS: OXYTOCIN 30 UNITS/NS 500 ML 30 UNITS/500 ML BAG 125 UNITS IV CONT (00:24)
--- NOTE | 2025-04-11 03:28 | OBPPTRN ---
04/11/2025 at 0230 Patient transferred to post room #288 via wheelchair. Support person Ricky present. Patient and her significant other oriented to unit, room, information board, rooming in, admission packet and security measures. Patient and her significant other verbalizes understanding.
[2025-04-11] MEDS: IBUPROFEN 600 MG TABLET PO (05:23)
[2025-04-11 05:24] LABS: Hematocrit 31.3 % (37.0-47.0); Hemoglobin 10.7 g/dL (12.0-15.0)
[2025-04-11] MEDS: LANOLIN (LANSINOH) 7.5 GM CREAM 1 APPLIC TOPICAL (05:24)
--- NOTE | 2025-04-11 08:49 | P.PNOB_ITS ---
OB - PN: Subj Subjective Date/time seen: 04/11/25 08:49 Interval history: pp day 1 doing well no complaints OB - PN: Obj Data Labs 04/11/25 05:17 Labs: Laboratory Results - last 24 hr 04/10/25 04/11/25 17:25 05:17 WBC 10.6 H RBC 3.49 L Hgb 10.2 L 10.7 L Hct 30.0 L 31.3 L MCV 86.0 MCH 29.2 MCHC 34.0 RDW 13.6 Plt Count 287 MPV 9.5 Immature Gran % (Auto) 0.4 Neut % (Auto) 66.8 Lymph % (Auto) 25.2 [place] % (Auto) 6.8 Eos % (Auto) 0.4 Baso % (Auto) 0.4 Lymph # (Auto) 2.67 [place] # (Auto) 0.7 H Eos # (Auto) 0.0 Baso # (Auto) 0.0 Abs Immat Gran (auto) 0.04 H Absolute Neuts (auto) 7.1 H Absolute Nucleated RBC 0.000 Nucleated RBC % 0.0 Syphilis IgG/IgM Ab Non-reactive Blood Type O Positive Antibody Screen Negative OB - PN A/P Plan day: 1 Plan: routine care Time Spent With Patient Time: Total time spent is greater than 50% in coordination of care (as documented) at patient's floor/unit and/or counseling patient: Review of Systems 2 Review of Systems: All systems reviewed & are unremarkable except as noted in HPI and below Exam 2 Const: General: cooperative, healthy appearing and comfortable Chest: Chest palpation & inspection: normal inspection of the chest GI: Inspection: normal to inspection Skin: General skin exam: normal color Neuro: General: patient oriented x3
--- NOTE | 2025-04-11 10:23 | PC.NURSE ---
Consulted with patient to assess needs related to . Discussed with mother her successes, concerns and any questions she has. We reviewed working with the , supporting breast, protecting her nipples with an optimal deep latch, good positioning, and good hand washing. Encouraged understanding the benefits of skin to skin, responding to feeding cues, frequencies of feeding 8-12 times in 24 hours (approximately 2-3 hours), duration of feedings, milk production, intake/output feeding sheet and signs of adequate intake encouraging swallowing at the breast. Reviewed positioning and alignment, supporting breast, off-centered (asymmetrical latch) and leading with the chin with big, open, wide gape. latched optimally to the [right] breast in [football] position. Education given to the mother of how to visualize the suckling (with good rocking jaw motion) swallows (dropping of the lower jaw) and how to listen for drinking at the breast (the ka sound). The infant was [able] to maintain latch without discomfort to mother. Nipple care reviewed with optimal latch, good positioning and using clean hands when touching her breast. Resources used to facilitate learning were used from the [visual handouts/ tool/mom and baby guide]. Mother voiced understanding of the education shared, to call for assistance if the does not latch or if there is discomfort with . Reported to the Primary RN.
[2025-04-11] MEDS: DOCUSATE SODIUM 100 MG CAPSULE PO (10:47)
[2025-04-11] MEDS: ACETAMINOPHEN 325 MG TABLET 650 MG PO (10:47)
[2025-04-11] MEDS: MULTIVIT/MIN/PREN/FOL AC/IRON TABLET 1 TAB PO (10:47)
--- NOTE | 2025-04-11 12:57 | WPDANLDPN2 ---
Anes-Prog Note L&D Date/Time: 04/11/25 12:57 Comfortable throughout: labor and delivery Neuraxial method: epidural Epidural/Spinal procedure site: tender Neuro status: Neuro function grossly intact. Cardiovascular status: normal Respiratory status: normal Airway patency: baseline Mental status: baseline Post-Op hydration status: normal Vital Signs: Last Vital Signs Temp 37.6 C 04/11/25 12:03 Pulse 84 04/11/25 12:03 Resp 16 04/11/25 12:03 BP 114/59 L 04/11/25 12:03 Pulse Ox 99 04/11/25 12:03 O2 Del Method Room Air 04/10/25 18:13 Pain score (VAS): 2 I/O: Intake & Output 04/10/25 04/11/25 04/11/25 23:59 07:59 15:59 Intake Total 1000 240 Balance 1000 240 Post-procedural complaints: none Patient feedback: Patient satisfied with anesthetic care.
--- NOTE | 2025-04-11 15:32 | PCCCNOTE ---
Recvd consult that states transportation issues; family only has one vehicle and FOB will be returning to work. Met with pt. and FOB Ricky who reports baby girl and their 1.5 year old daughter will be living in [place]. Ricky reports will be returning to work in two weeks. Pt. reports if they have an appointment that day, she will drop Ricky off at work, and use the car that day. Pt. reports her mother Thi is supportive. Pt. reports having baby supplies, and already established with [facility] and [employer]. Pt. denies any prior involvement with DCFS, or drug use during . and transportation resources provided to pt. Pt. denies further needs. [facility] aware of visit, and denies any safety concerns.
[2025-04-12 00:30] VITALS: BP 107/63; PULSE 89; RESP 16; TEMP 36.9; O2SAT 99
[2025-04-12 07:50] VITALS: BP 100/57; PULSE 78; RESP 16; TEMP 36.9; O2SAT 100
[2025-04-12] MEDS: MULTIVIT/MIN/PREN/FOL AC/IRON TABLET 1 TAB PO (08:18)
--- NOTE | 2025-04-12 08:30 | PC.NURSE ---
Consulted with mother concerning needs and she shared her ability to independently latch infant optimally without pain. Mother is feeding appropriately for growth of infant and understands stimulating to eat if needed. Infant has had appropriate feedings in the last 24 hours meets the outcomes for weight, output, blood sugar and jaundice at this time. Reinforced understanding of milk production, transition of milk, signs of adequate intake, transition of stool, prevention/relief of engorgement, plugged ducts, mastitis, responsive watching for feeding cues, the different methods of stimulating infant to breastfeed 1-3 hours after the start of the last feeding, community resources, and when to call a provider using the resource of the feeding sheet along with the mom and baby guide. Mother voiced understanding of the information shared, is confident to continue effectively her at home, when to call for assistance, denies any additional assistance or education at this time. [facility] Referral faxed to the [place] office. Reported to the Primary RN.
[2025-04-12] MEDS: IBUPROFEN 600 MG TABLET PO (08:35)
--- NOTE | 2025-04-12 09:47 | P.PNOB_ITS ---
OB - PN: Subj Subjective Date/time seen: 04/12/25 09:47 Interval history: pp day 1 doing well no complaints Patient comments: no complaints, pain well controlled and tolerating diet OB - PN: Obj Data Labs 04/11/25 05:17 OB - PN A/P Plan day: 2 Plan: routine care and discharge home Time Spent With Patient Time: Total time spent is greater than 50% in coordination of care (as documented) at patient's floor/unit and/or counseling patient: Exam 2 Const: General: comfortable and no acute distress Resp: Effort & Inspection: normal respiratory effort Auscultation: no rales, no rhonchi and no wheezes Cardio: Rate: regular rate Heart sounds: no click, no murmurs and no rubs GI: GI Palp: Yes Soft to palpation and No Tenderness to palpation present (GI) Auscultation: normal bowel sounds Extrem: General: normal to inspection, no pedal edema and no calf tenderness
--- NOTE | 2025-04-12 09:47 | PM.OBDSVD ---
DS: Admitting Diagnosis Discharge Date 04/12/2025 Admitting Diagnosis Term OB - DS: Summary OB Procedures : None OB Procedures Intrapartum: Spontaneous Vag Delivery OB Procedures: : None Peripartum Data Laceration Description: Perineal - 2nd Degree Episiotomy description: None Time Spent with Patient Time attestation: Total time spent providing and/or coordinating discharge services: Discharge Plan Discharge Discharging Clinician: Anoop Johnson Patient Disposition: Home Activity: pelvic rest Diet: regular Patient Instructions: Antibiotic Form Patient Language: Filipino Stand Alone Forms: General Discharge Information Follow-up/Referrals: Anoop Johnson MD [Physician, [employer] IN[employer]IGATOR] Discharge Medications: No Action No Home Medications Date of admission: 04/10/25 16:56 Primary Care Provider: UNKNOWN,DOCTOR Admitting Provider: Anoop Johnson Attending physician on admission: Anoop Johnson Condition: Stable
[2025-04-13 13:00] VITALS: BP 135/73; PULSE 87; RESP 18; TEMP 36.9; O2SAT 100
== END 2025-04-12 12:25 | disposition home or self-care (01) | DRG 560 ==
LOC: ANHLDR 16:59 → ANHOB2 04-11 03:18
PROVIDERS: Admitting Provider Obstetrics & Gynecology; Visit Provider Obstetrics & Gynecology
DX: O62.3 Precipitate labor (principal); Z37.0 Single live birth; Z3A.40 40 weeks gestation of pregnancy; O70.1 Second degree perineal laceration during delivery
CPT/HCPCS: 36415; 85014; 85018; 85025; 86593; 86850; 86900; 86901; A9270; J2590; J2795; J3010; J7120

== ENCOUNTER 2025-05-13 10:24 | Emergency (ER) | payer OTHER, SELFPAY ==
--- OUTSIDE RECORDS SUMMARY | 2025-05-13 10:26 | XMS_ITS | Continuity of Care Document ---
Author Organization [facility], [place] Address [address] [place] [address] Assessment Encounter Date Assessment Date Assessment LastModified by Organization Details LastModified Time 04/08/2025 04/08/2025 Patient is ___weeks . Discussed plan. [email or web address] Not available 04/08/2025 14:47:52 Plan of Treatment Reminders Order Date Submit Date Provider Last Modified By Organization Details Last Modified Time Details Appointments POST 2024 11:00A Segundo JOHNSON MD Not available Not available Not available Lab None recorded . Referral None recorded . Procedures None recorded . Surgeries None recorded . Imaging None recorded . Medication Orders None recorded . Patient TargetsNo targets recorded. Patient InstructionsNo instructions recorded. Reason for Referral None Reported. Results Created Date Observation Date Name Description Value Unit Range Abnormal Flag Note LastModifiedBy Organization Detail LastModifiedTime 11/02/1911/01/2024 [UNIT Y] ANEUP LOIDY NIPT fraction 22.1% normal Not Available [facility] [address], [place], [address], 11/01/2024 03:35:20 11/02/19 25 11/01/2024 [UNIT Y] ANEUP LOIDY NIPT 22Q11.2 microdeletio n LOW RISK <1 in 10,000 normal Not Available [facility] [address], [place], [address], 11/01/2024 03:35:20 11/02/19 25 11/01/2024 [UNIT Y] ANEUP LOIDY NIPT sex chromosome aneuploidy NOT DETECT ED normal Not Available [facility] [address], [place], [address], 11/01/2024 03:35:20 11/02/19 25 11/01/2024 [UNIT Y] ANEUP LOIDY NIPT monosomy X LOW RISK <1 in 10,000 normal Not Available [facility] [address], [place], [address], 11/01/2024 03:35:20 11/02/19 25 11/01/2024 [UNIT Y] ANEUP LOIDY NIPT trisomy 13 LOW RISK <1 in 10,000 normal Not Available [facility] [address], [place], [address], 11/01/2024 03:35:20 11/02/19 25 11/01/2024 [UNIT Y] ANEUP LOIDY NIPT trisomy 18 LOW RISK <1 in 10,000 normal Not Available [facility] [address], [place], [address], 11/01/2024 03:35:20 11/02/19 25 11/01/2024 [UNIT Y] ANEUP LOIDY NIPT trisomy 21 LOW RISK <1 in 10,000 normal Not Available [facility] [address], [place], [address], 11/01/2024 03:35:20 11/02/19 25 11/01/2024 [UNIT Y] ANEUP LOIDY NIPT sex FEMALE normal Not Available [facility] [address], [place], [address], 11/01/2024 03:35:20 11/02/19 25 11/01/2024 [UNIT Y] ANEUP LOIDY NIPT gestation SINGLE TON normal Not Available [facility] [address], [place], [address], 11/01/2024 03:35:20 11/02/19 25 11/01/2024 [UNIT Y] ANEUP ALEXIAIDY NIPT for detailed report, see pdf See PDF normal Not Available [facility] [address], [place], [address], 11/01/2024 03:35:20 11/05/19 25 11/04/2024 [UNIT Y] LAQUITA Hurtado sickle cell disease/beta -thalassemia /hemoglobino pathies carrier screen NEGATI VE normal Not Available [facility] [address], [place], [address], 11/04/2024 00:48:44 11/05/19 25 11/04/2024 [UNIT Y] LAQUITA Hurtado alpha-thalas semia carrier screen NEGATI VE normal Not Available [facility] [address], [place], [address], 11/04/2024 00:48:44 11/05/19 25 11/04/2024 [UNIT Y] LAQUITA Hurtado cystic fibrosis carrier screen NEGATI VE normal Not Available [facility] [address], [place], [address], 11/04/2024 00:48:44 11/05/19 25 11/04/2024 [UNIT Y] LAQUITA Hurtado spinal muscular atrophy carrier screen NEGATI VE 2 SMN1 copies , SNP not presen t normal Not Available [facility] [address], [place], [address], 11/04/2024 00:48:44 11/05/19 25 11/04/2024 [UNIT Y] LAQUITA Hurtado for detailed report, see pdf See PDF normal Not Available [facility] [address], [place], [address], 11/04/2024 00:48:44 10/26/19 25 10/25/2024 CBC W/DIF F WBC 8.7 10'3/ uL 3.5-10 .5 Not Available [facility] (Lab) [address], [place], [address], 10/26/2024 13:46:11 10/26/19 25 10/25/2024 CBC W/DIF F RBC 3.45 10'6/ uL (based on docume nted legal sex) 3.80-5 .20 low Not Available [facility] (Lab) [address], [place], [address], 10/26/2024 13:46:11 10/26/19 25 10/25/2024 CBC W/DIF F HGB 10.1 g/dL (based on docume nted legal sex) 11.6-1 5.4 low Not Available [facility] (Lab) [address], [place], [address], 10/26/2024 13:46:11 10/26/19 25 10/25/2024 CBC W/DIF F HCT 31.0 % (based on docume nted legal sex) 34.0-4 5.0 low Not Available [facility] (Lab) [address], [place], [address], 10/26/2024 13:46:11 10/26/19 25 10/25/2024 CBC W/DIF F MCV 89.9 fL 80.0-9 9.0 Not Available [facility] (Lab) [address], [place], [address], 10/26/2024 13:46:11 10/26/19 25 10/25/2024 CBC W/DIF F MCH 29.3 pg 27.0-3 4.0 Not Available [facility] (Lab) [address] [place], [address], 10/26/2024 13:46:11 10/26/19 25 10/25/2024 CBC W/DIF F MCHC 32.6 g/dL 32.0-3 5.5 Not Available [facility] (Lab) [address] [place], [address], 10/26/2024 13:46:11 10/26/19 25 10/25/2024 CBC W/DIF F RDW 14.4 % 11.0-1 5.0 Not Available [facility] (Lab) [address], [place], [address], 10/26/2024 13:46:11 10/26/19 25 10/25/2024 CBC W/DIF F plt 284 10'3/ uL 150-40 0 Not Available [facility] (Lab) [address], [place], [address], 10/26/2024 13:46:11 10/26/19 25 10/25/2024 CBC W/DIF F MPV 11.1 fL 8.8-12 .1 Not Available [facility] (Lab) [address], [place], [address], 10/26/2024 13:46:11 10/26/19 25 10/25/2024 CBC W/DIF F NRBC's 0.0 % 0.0 Not Available [facility] (Lab) [address], [place], [address], 10/26/2024 13:46:11 10/26/19 25 10/25/2024 CBC W/DIF F absolute NRBCs 0.0 10'3/ uL no refere nce range establ ished Not Available [facility] (Lab) [address], [place], [address], 10/26/2024 13:46:11 10/26/19 25 10/25/2024 CBC W/DIF F neutrophils 62.7 % 34.0-7 3.0 Not Available [facility] (Lab) [address], [place], [address], 10/26/2024 13:46:11 10/26/19 25 10/25/2024 CBC W/DIF F lymphocytes 31.2 % 15.0-5 0.0 Not Available [facility] (Lab) [address], [place], [address], 10/26/2024 13:46:11 10/26/19 25 10/25/2024 CBC W/DIF F monocytes 5.2 % 1.0-15 .0 Not Available [facility] (Lab) [address], [place], [address], 10/26/2024 13:46:11 10/26/19 25 10/25/2024 CBC W/DIF F eosinophils 0.2 % 0.0-8. 0 Not Available [facility] (Lab) [address], [place], [address], 10/26/2024 13:46:11 10/26/19 25 10/25/2024 CBC W/DIF F basophils 0.5 % 0.0-2. 0 Not Available [facility] (Lab) [address], [place], [address], 10/26/2024 13:46:11 10/26/19 25 10/25/2024 CBC W/DIF [...] [facility] ([facility]) [address], [place], [address], 10/26/2024 13:46:11 10/26/19 25 10/25/2024 CBC W/DIF F absolute neutrophils 5.5 10'3/ uL 1.5-8. 0 Not Available [facility] (Lab) [address], [place], [address], 10/26/2024 13:46:11 10/26/19 25 10/25/2024 CBC W/DIF F absolute lymphocytes 2.7 10'3/ uL 1.0-4. 0 Not Available [facility] (Lab) [address], [place], [address], 10/26/2024 13:46:11 10/26/19 25 10/25/2024 CBC W/DIF F absolute monocytes 0.5 10'3/ uL 0.2-1. 0 Not Available [facility] (Lab) [address], [place], [address], 10/26/2024 13:46:11 10/26/19 25 10/25/2024 CBC W/DIF F absolute eosinophils 0.0 10'3/ uL 0.0-0. 6 Not Available [facility] (Lab) [address], [place], [address], 10/26/2024 13:46:11 10/26/19 25 10/25/2024 CBC W/DIF F absolute basophils 0.0 10'3/ uL 0.0-0. 3 Not Available [facility] (Lab) [address], [place], [address], 10/26/2024 13:46:11 10/26/19 25 10/25/2024 CBC W/DIF [...] [facility] [address], [place], [address], 10/26/2024 13:46:11 10/26/19 25 10/25/2024 HIV 1/2 ANTIG EN/AN TIBOD Y, REFLE X CONFI RMATI ON HIV antigen/anti body Nonrea ctive nonrea ctive HIV-1 antig en and HIV-1 /HIV- 2 antib odies were not detec bryan. No labor atory evide nce of HIV infec tion. Not Available [facility] (Lab) [address], [place], [address], 10/26/2024 13:46:11 10/26/19 25 10/25/2024 HEPAT ITIS C ANTIB MIGUELINA SCREE N, REFLE X TO CONFI RMATI ON hepatitis C antibody Non-re active non-re active Antib odies to HCV Not Detec bryan, does not exclu de the possi bilit y of expos ure to HCV. Not Available [facility] (Lab) [address], [place], [address], 10/26/2024 13:46:12 10/26/19 25 10/25/2024 HEPAT ITIS [...] [facility] (Lab) [address], [place], [address], 10/26/2024 13:46:12 10/26/19 25 10/25/2024 TSH, REFLE X FREE T4 TSH 1.26 uIU/m L 0.30-5 .33 Not Available [facility] (Lab) [address] [place], [address], 10/26/2024 13:46:13 10/26/19 25 10/25/2024 TYPE/ RH/SC REEN ABO/Rh type O POS Not Available [facility] (Lab) [address] [place], [address], 10/26/2024 13:46:13 10/26/1910/25/2024 TYPE/ RH/SC REEN antibody screen NEG Not Available [facility] (Lab) [address], [place], [address], 10/26/2024 13:46:13 10/26/19 25 10/25/2024 TYPE/ RH/SC REEN exp date 2024 23:59 Not Available [facility] (Lab) [address], [place], [address], 10/26/2024 13:46:13 10/26/19 25 10/25/2024 RUBEL LA IGG ANTIB MIGUELINA, QUANT rubella antibodies, IgG Reacti ve reacti ve Not Available [facility] (Lab) [address], [place], [address], 10/26/2024 13:46:13 10/26/19 25 10/25/2024 RUBEL LA IGG ANTIB MIGUELINA, QUANT rubella antibodies, IgG quant 18.0 IU/mL >=10 Non-r eacti ve (Non- Immun e) <10 IU/mL React haim (Immu ne) > or = 10 IU/mL Not Available [facility] (Lab) [address], [place], [address], 10/26/2024 13:46:13 10/26/19 25 10/25/2024 RPR SCREE N, REFLE X TITER /CONF IRMAT ION RPR qualitative Nonrea ctive nonrea ctive Not Available [facility] (Lab) [address], [place], [address], 10/26/2024 13:46:14 10/26/19 25 10/25/2024 HEMOG LOBIN [...] palmer <7.0% Goal of thera py >8.0% Alejo zambrano Not Available [facility] (Lab) [address], [place], [address], 10/26/2024 13:46:14 10/26/19 25 10/25/2024 CT/GC AND TRICH OMONA S VAGIN ARIANA (RRNA ), URINE chlamydia trachomatis, PCR Negati ve negati ve Not Available [facility] (Lab) [address], [place], [address], 10/26/2024 21:37:02 10/26/19 25 10/25/2024 CT/GC AND TRICH OMONA S VAGIN ARIANA (RRNA ), URINE neisseria gonorrhoeae, PCR Negati ve negati ve Not Available [facility] (Lab) [address], [place], [address], 10/26/2024 21:37:02 10/26/19 25 10/25/2024 CT/GC AND TRICH OMONA S VAGIN ARIANA (RRNA ), URINE trichomonas vaginalis ribosomal RNA (rrna) Negati ve negati ve Not Available [facility] (Lab) [address], [place], [address], 10/26/2024 21:37:02 10/26/19 25 10/25/2024 CULTU RE: URINE result report SEE RESULT S BELOW Test: Cultu re: Urine Speci men Sourc e: Urine Voide d Speci men Type: Urine Speci men Date: 025 1714 Resul t Date: 2024 Resul t Statu s: Final resul t Abnor mal: No Resul ting Lab: [facility] [address] [address] Tel: CULTU RE ----- ----- ----- --- No growt h in 1 day (dete ction level of 10,00 0 colon ies / ml.) Not Available [facility] (Lab) [address], [place], [address], 10/26/2024 21:37:02 10/26/19 25 10/25/2024 drug scree n, urine Amphetamines : negati ve Not Available [facility] [address], [place], [address], 10/25/2024 17:35:03 10/26/19 25 10/25/2024 drug scree n, urine Cannabinoids : negati ve Not Available [facility] [address], [place], [address], 10/25/2024 17:35:03 10/26/19 25 10/25/2024 drug scree n, urine Cocaine: negati ve Not Available [facility] [address], [place], [address], 10/25/2024 17:35:03 10/26/19 25 10/25/2024 drug scree n, urine Opiates: negati ve Not Available [facility] [address], [place], [address], 10/25/2024 17:35:03 10/26/19 25 10/25/2024 drug scree n, urine Phenocyclidi ne: negati ve Not Available [facility] [address], [place], [address], 10/25/2024 17:35:03 10/26/19 25 10/25/2024 drug scree n, urine Barbiturates : negati ve Not Available [facility] [address], [place], [address], 10/25/2024 17:35:03 10/26/19 25 10/25/2024 drug scree n, urine Benzodiazepi bridget: negati ve Not Available [facility] [address], [place], [address], 10/25/2024 17:35:03 10/26/19 25 10/25/2024 drug scree n, urine Ethanol: negati ve Not Available [facility] [address], [place], [address], 10/25/2024 17:35:03 10/26/19 25 10/25/2024 drug scree n, urine Hallucinogen s: negati ve Not Available [facility] [address], [place], [address], 10/25/2024 17:35:03 10/26/19 25 10/25/2024 drug scree n, urine Inhalants: negati ve Not Available [facility] [address], [place], [address], 10/25/2024 17:35:03 10/26/19 25 10/25/2024 drug scree n, urine Anabolic Steroids: negati ve Not Available [facility] [address], [place], [address], 10/25/2024 17:35:03 10/26/19 25 10/25/2024 drug scree n, urine Other: negati ve Not Available [facility] [address], [place], [address], 10/25/2024 17:35:03 01/15/20 25 01/14/2025 HEMOG LOBIN (HGB) HGB 9.3 g/dL (based on docume nted legal sex) 11.6-1 5.4 low Not Available [facility] (Lab) [address], [place], [address], 01/15/2025 13:08:39 01/15/20 25 01/14/2025 HEMAT OCRIT (HCT) HCT 28.1 % (based on docume nted legal sex) 34.0-4 5.0 low Not Available [facility] (Lab) [address], [place], [address], 01/15/2025 13:08:39 01/15/20 25 01/14/2025 GTT - GESTA RADHA Quyen TAMIKOBill Hurtado, ACOG OB glucose, 1 hour screen 99 mg/dL 70-135 Not Available [facility] (Lab) [address], [place], [address], 01/15/2025 13:08:40 01/15/20 25 01/14/2025 HIV 1/2 ANTIG EN/AN TIBOD Y, REFLE X CONFI RMATI ON HIV antigen/anti body Nonrea ctive nonrea ctive HIV-1 antig en and HIV-1 /HIV- 2 antib odies were not detec bryan. No labor atory evide nce of HIV infec tion. Not Available [facility] (Lab) [address], [place], [address], 01/15/2025 13:08:40 01/15/20 25 01/14/2025 RPR SCREE N, REFLE X TITER /CONF IRMAT ION RPR qualitative Nonrea ctive nonrea ctive Not Available [facility] (Lab) [address], [place], [address], 01/15/2025 13:08:40 03/10/20 25 03/10/2025 CULTU RE: [...] t Abnor mal: No Resul ting Lab: [facility] [address] [facility] [address] Tel: [phone] CULTU RE ----- ----- ----- --- No Group B strep isola bryan at 2 days (prudence ctive broth enhan brennaen t) Not Available [facility] (Lab) [address], [place], [address], 03/13/2025 15:12:11 10/26/19 25 10/25/2024 US, obste tric, limit ed No observ ation record ed. [facility] [address], [place], [address], 10/25/2024 18:50:32 10/28/19 25 10/25/2024 US, obste tric, limit ed No observ ation record ed. [email or web address] [address] [address], [place], [address], 10/30/2024 23:24:32 11/27/19 25 11/26/2024 US, obste tric, 2nd or 3rd trime ster No observ ation record ed. [facility] [address], [place], [address], 11/26/2024 17:49:36 11/27/19 25 11/26/2024 US, obste tric, 2nd or 3rd trime ster No observ ation record ed. [email or web address] [facility] [address], [place], [address], 11/26/2024 17:24:36 02/12/20 25 02/11/2025 US, obste tric, follo w-up No observ ation record ed. [email or web address] [facility] [address], [place], [address], 02/11/2025 17:21:09 02/12/20 25 02/11/2025 US, obste tric, follo w-up No observ ation record ed. [email or web address] [facility] [address], [place], [address], 02/25/2025 10:51:35 03/10/2003/10/2025 US, obste tric, follo w-up No observ ation record ed. [facility] [address], [place], [address], 03/10/2025 15:18:58 03/10/20 25 03/10/2025 US, obste tric, follo w-up No observ ation record ed. [email or web address] [facility] [address], [place], [address], 03/18/2025 11:35:09 Result Notes None recorded. Problems Name Problem SNOMED Code Status Onset Date Resolution Date Notes Provider Name and Address Organization Details Recorded Time 30473422 Completed 025 [facility]05[facility] Problem Notes None recorded. Medical Equipment None Reported. Medications Name Sig Start Date Stop Date Status Note LastModified by Organization Details LastModified Time 28 mg iron-800 mcg tablet Take 1 tablet every day by oral route. active Not Available Not Available Not Avai lable Haydee 0.25 mg-0.035 mg tablet TAKE 1 TABLET BY MOUTH 1 TIME EACH DAY. 2024 completed Not Available Not Available Not Available Vitals Date Recorded Body height Body mass index (BMI) Body weight Systolic And Diastolic Provider Name and Address Organization Details Last Updated DateTime 04/08/2025 157.48 cm 35.1 kg/m2 44958.74 g 110/74 mm[Hg] Christine Preciado [facility] 04/08/2025 14:53:58 Social History Question Answer Notes LastModified by Organizat ion Details LastModified Time Tobacco Smoking Status Never Smoker JUANITO livingston [facility] 10/25/2024 16:11:22 Do You Have An Advance Directive? No Information n ot available 10/25/2024 If You Are , What Was Your Level Of Alcohol Consumption Prior To ? None [email or web address] Information not available 10/25/2024 Are You Blind Or Do You Have Difficulty Seeing? No [email or web address] Information n ot available 10/25/2024 What Is Your Level Of Caffeine Consumption? None Information not available 10/25/2024 In The 14 Days Before Symptom Onset, Have You Had Close Contact With A Laboratory-confirm ed COVID-19 While That Case Was Ill? No [email or web address] Information n ot available 10/25/2024 In The 14 Days Before Symptom Onset, Have You Had Close Contact With A Person Who Is Under Investigation For COVID-19 While That Person Was Ill? No [email or web address] Information not available 10/25/2024 Have You Been To An Area Known To Be High Risk For COVID-19? No [email or web address] Information not available 10/25/2024 Are You Deaf Or Do You Have Serious Difficulty Hearing? No Information not available 10/25/2024 What Type Of Diet Are You Following? REGULAR Information n ot available 10/25/2024 What Is The Highest Grade Or Level Of School You Have Completed Or The Highest Degree You Have Received? [id number] [email or web address] Information not available 10/25/2024 Are There Any Guns Present In Your Home? No Information not available 10/25/2024 Do You Use Protection During Sex? No [email or web address] Information not available 01/28/2025 Do You Use Your Seat Belt Or Car Seat Routinely? Yes [email or web address] Information not available 10/25/2024 Are You Sexually Active? Yes [email or web address] Information not available 10/25/2024 Do You Have Smoke And Carbon Monoxide Detectors In Your Home? Yes [email or web address] Information not available 10/25/2024 Do You Use Sunscreen Routinely? Yes [email or web address] Information not available 10/25/2024 Has Tobacco Cessation Counseling Been Provided? No [email or web address] Information not available 10/25/2024 Do You Have Difficulty Walking Or Climbing Stairs? No Information not available 10/25/2024 Sex: Unknown Functional Status Question Answer Note LastModified by Organizat ion Details LastModified Time Do you use any illicit or recreational drugs? No [email or web address] Information not available 10/25/2024 Do you or have you ever used any other forms of tobacco or nicotine? No Information not available 10/25/2024 What is your level of alcohol consumption? None [email or web address] Information not available 10/25/2024 Are you currently employed? Yes [email or web address] Information not available 01/28/2025 Are you able to walk independently without assistance or assistive devices? YESASSIST [email or web address] Information not available 10/25/2024 Are you able to care for yourself independently? Yes Information not available 10/25/2024 Do you have difficulty dressing, bathing, grooming, or toileting? No [email or web address] Information not available 10/25/2024 What is your exercise level? Occasional [email or web address] Information not available 10/25/2024 Mental Status Question Answer Note LastModified by Organization D etails LastModified Time Do you feel stressed (tense, restless, nervous, or anxious, or unable to sleep at night)? [id number] [email or web address] Information not available 01/28/2025 Family History Nothing [...] LMP Definite Obstetrics History GPAL:G 3 P 2 0 1 2 Type Value Full Term 2 Induced 1 Living 2 Total 3 Past Encounters Encounter ID Performer Location Encounter Start Date Encounter Closed Date Diagnosis/Indication Diagnosis SNOMED-CT Code Diagnosis ICD10 Code Diagnosis IMO Codes Diagnosis Note [id number] MD Brit Joy [address],[place] [address] 03/10/2025 14:40:38 03/10/2025 15:25:33 Uterine size for dates discrepancy 973292104 O26.843 O09.30 Z3A.36 [id number] MD Brit Joy [address],[place] [address] 03/10/2025 14:43:23 03/10/2025 16:33:12 care status 385386314 Z34.83 [id number] MD Brit Joy [address],[place] [address] 03/23/2025 17:49:32 03/24/2025 09:10:25 care status 503653820 Z34.83 [id number] MD Brit Joy [address],[place] [address] 03/30/2025 17:07:58 03/31/2025 08:48:38 care status 981401208 Z34.83 [id number] MD Brit Joy [address],[place] [address] 04/08/2025 14:46:38 04/08/2025 15:31:34 care status 821035257 Z34.83 [id number] Health Concerns Section Related Observation LastModified by Organization Detai ls LastModified Time None Recorded Concern Status LastModified by Organization Details LastModified Time None Recorded Payers Encounter Date Sequence Insurance Name Policy Number Policy Hoang Covered Member ID Hoang Member ID Guarantor Name 04/08/2025 1 [facility] (MEDICAID HMO) [id number] Con Barraza [id number] Con Barraza Notes Date Note Type Note Provider Name and Address Organization Details Recorded Time 04/08/2025 text/html Generic HPI TemplateReported by Patient Anoop Johnson MD [address], [place], [address], [facility] 04/08/2025 15:25:47 OBGyn Episode Ob Episode Information Episode Created Date Number of Fetuses Patient Bloodtype Patient rh Status Prepregnancy Weight lbs Domestic Partner Domestic Partner Phone Father Name Criminal Justice Program Director Status 10/26/19 25 1 O Positive Ricky CLOSED Fetus Data First Name Last Name Admitted to NICU Weight (g) Sex Living Outcome Pediatric Complications Fetus ID Race Codes Race Delivery Type [id number] F true Full Term [id number] Vaginal Delivery Cristobal Calculation Initial Cristobal Date [...] Weight in lbs Pre/Post Dialysis Refused Weight 164.360917700710 BP Diastolic BP Location Tested BP Systolic BP Type 62 L arm 90 sitting Fetus Heart Rate Present A Present Fetus Movement A Yes Comments Patient presents to [facility]. Hx of uncomplicated , EIL. otherwise [...] Weight in lbs Pre/Post Dialysis Refused Weight 167.821380203193 BP Diastolic BP Location Tested BP Systolic [...] Weight in lbs Pre/Post Dialysis Refused Weight 175.536373474439 BP Diastolic BP Location Tested BP Systolic [...] Weight in lbs Pre/Post Dialysis Refused Weight 178.677662179273 BP Diastolic BP Location Tested BP Systolic [...] Weight in lbs Pre/Post Dialysis Refused Weight 180.325111178437 BP Diastolic BP Location Tested BP Systolic [...] Weight in lbs Pre/Post Dialysis Refused Weight 178.668232048979 BP Diastolic BP Location Tested BP Systolic [...] Weight in lbs Pre/Post Dialysis Refused Weight 183.826629652277 BP Diastolic BP Location Tested BP Systolic BP Type 63 L arm 93 sitting Fetus Heart Rate Present Fetus Movement A Yes Comments plan f/u growth at next visi t, us by cnm [id number], precautions and education, not planning on vaccines f/u 2 weeks with gbs Flowsheet Date 03/10/2025 Ahssan Score Blood Edema Fundus Height Fundus Units [...] Weight in lbs Pre/Post Dialysis Refused Weight 186.662987040997 BP Diastolic BP Location Tested BP Systolic [...] Weight in lbs Pre/Post Dialysis Refused Weight 190.001955397482 BP Diastolic BP Location Tested BP Systolic [...] Type Weight in lbs Pre/Post Dialysis Refused 189.670764035932 BP Diastolic BP Location Tested BP Systolic [...] Weight in lbs Pre/Post Dialysis Refused Weight 192.645140052640 BP Diastolic BP Location Tested BP Systolic [...] Post Complications Tubal Sterilization Discharge Date Comments 5 40.5 Discharge Information Feeding Method Contraceptive Method Maternal HG B and HCT Levels
--- OUTSIDE RECORDS SUMMARY | 2025-05-13 10:26 | XMS_ITS | Continuity of Care Document ---
Author Organization [facility] [place], [facility], [place] Address [address] [place] [address] Assessment Encounter Date Assessment Date Assessment LastModified by Organization Details LastModified Time 02/11/2025 02/11/2025 Patient is _32__weeks . Discussed plan. Not available 02/11/2025 19:59:05 Plan of Treatment Reminders Order Date Submit Date Provider Last Modified By Organization Details Last Modified Time Details Appointments POST 2024 11:00A Segundo MOREAU MD Not available Not available Not available [...] Not Available [facility] [address], [place], [address], 11/01/2024 03:35:20 11/02/19 25 11/01/2024 [UNIT Y] ANEUP LOIDY NIPT 22Q11.2 microdeletio n LOW RISK <1 in 10,000 normal Not Available [facility] [address], [place], [address], 11/01/2024 03:35:20 11/02/19 25 11/01/2024 [UNIT Y] ANEUP LOIDY NIPT sex chromosome aneuploidy NOT DETECT ED normal Not Available [facility] [address], [place], [address], 11/01/2024 03:35:20 11/02/19 25 11/01/2024 [UNIT Y] ANEUP LOIDY NIPT monosomy X LOW RISK <1 in 10,000 normal Not Available [facility] [address], [place], [address], 11/01/2024 03:35:20 11/02/19 25 11/01/2024 [UNIT Y] ANEUP LOIDY NIPT trisomy 13 LOW RISK <1 in 10,000 normal Not Available [facility] [address], [place], [address], 11/01/2024 03:35:20 11/02/19 25 11/01/2024 [UNIT Y] ANEUP LOIDY NIPT trisomy 18 LOW RISK <1 in 10,000 normal Not Available [facility] [address], [place], [address], 11/01/2024 03:35:20 11/02/19 25 11/01/2024 [UNIT Y] ANEUP LOIDY NIPT trisomy 21 LOW RISK <1 in 10,000 normal Not Available [facility] [address], [place], [address], 11/01/2024 03:35:20 11/02/19 25 11/01/2024 [UNIT Y] ANEUP LOIDY NIPT sex FEMALE normal Not Available [facility] [address], [place], [address], 11/01/2024 03:35:20 11/02/19 25 11/01/2024 [UNIT Y] ANEUP LOIDY NIPT gestation SINGLE TON normal Not Available [facility] [address], [place], [address], 11/01/2024 03:35:20 11/02/19 25 11/01/2024 [UNIT Y] ANEUP ALEXIAIDY NIPT for detailed report, see pdf See PDF normal Not Available [facility] [address], [place], [address], 11/01/2024 03:35:20 11/05/19 25 11/04/2024 [UNIT Y] LAQUITA Hurtado sickle cell disease/beta -thalassemia /hemoglobino pathies carrier screen NEGATI VE normal Not Available [facility] [address], [place], [address], 11/04/2024 00:48:44 11/05/19 25 11/04/2024 [UNIT Y] LAQUITA Hurtado alpha-thalas semia carrier screen NEGATI VE normal Not Available [facility] [address], [place], [address], 11/04/2024 00:48:44 11/05/19 25 11/04/2024 [UNIT Y] LAQUITA Hurtado cystic fibrosis carrier screen NEGATI VE normal Not Available [facility] [address], [place], [address], 11/04/2024 00:48:44 11/05/19 25 11/04/2024 [UNIT Y] LAQUITA Hurtado spinal muscular atrophy carrier screen NEGATI VE 2 SMN1 copies , SNP not presen t normal Not Available [facility] [address], [place], [address], 11/04/2024 00:48:44 11/05/19 25 11/04/2024 [UNIT Y] LAQUITA Hurtado for detailed report, see pdf See PDF normal Not Available [facility] [address], [place], [address], 11/04/2024 00:48:44 10/26/19 25 10/25/2024 CBC W/DIF F WBC 8.7 10'3/ uL 3.5-10 .5 Not Available [facility] (Lab) [address], [place], [address], 10/26/2024 13:46:11 10/26/19 25 10/25/2024 CBC W/DIF F RBC 3.45 10'6/ uL (based on docume nted legal sex) 3.80-5 .20 low Not Available [facility] (Lab) [address], [place], [address], 10/26/2024 13:46:11 10/26/19 25 10/25/2024 CBC W/DIF F HGB 10.1 g/dL (based on docume nted legal sex) 11.6-1 5.4 low Not Available [facility] (Lab) [address], [place], [address], 10/26/2024 13:46:11 10/26/19 25 10/25/2024 CBC W/DIF F HCT 31.0 % (based on docume nted legal sex) 34.0-4 5.0 low Not Available [facility] (Lab) [address], [place], [address], 10/26/2024 13:46:11 10/26/19 25 10/25/2024 CBC W/DIF F MCV 89.9 fL 80.0-9 9.0 Not Available [facility] (Lab) [address], [place], [address], 10/26/2024 13:46:11 10/26/19 25 10/25/2024 CBC W/DIF F MCH 29.3 pg 27.0-3 4.0 Not Available [facility] (Lab) [address] [place], [address], 10/26/2024 13:46:11 10/26/19 25 10/25/2024 CBC W/DIF F MCHC 32.6 g/dL 32.0-3 5.5 Not Available [facility] (Lab) [address] [place], [address], 10/26/2024 13:46:11 10/26/19 25 10/25/2024 CBC W/DIF F RDW 14.4 % 11.0-1 5.0 Not Available [facility] (Lab) [address], [place], [address], 10/26/2024 13:46:11 10/26/19 25 10/25/2024 CBC W/DIF F plt 284 10'3/ uL 150-40 0 Not Available [facility] (Lab) [address], [place], [address], 10/26/2024 13:46:11 10/26/19 25 10/25/2024 CBC W/DIF F MPV 11.1 fL 8.8-12 .1 Not Available [facility] (Lab) [address], [place], [address], 10/26/2024 13:46:11 10/26/19 25 10/25/2024 CBC W/DIF F NRBC's 0.0 % 0.0 Not Available [facility] (Lab) [address], [place], [address], 10/26/2024 13:46:11 10/26/19 25 10/25/2024 CBC W/DIF F absolute NRBCs 0.0 10'3/ uL no refere nce range establ ished Not Available [facility] (Lab) [address], [place], [address], 10/26/2024 13:46:11 10/26/19 25 10/25/2024 CBC W/DIF F neutrophils 62.7 % 34.0-7 3.0 Not Available [facility] (Lab) [address], [place], [address], 10/26/2024 13:46:11 10/26/19 25 10/25/2024 CBC W/DIF F lymphocytes 31.2 % 15.0-5 0.0 Not Available [facility] (Lab) [address], [place], [address], 10/26/2024 13:46:11 10/26/19 25 10/25/2024 CBC W/DIF F monocytes 5.2 % 1.0-15 .0 Not Available [facility] (Lab) [address], [place], [address], 10/26/2024 13:46:11 10/26/19 25 10/25/2024 CBC W/DIF F eosinophils 0.2 % 0.0-8. 0 Not Available [facility] (Lab) [address], [place], [address], 10/26/2024 13:46:11 10/26/19 25 10/25/2024 CBC W/DIF F basophils 0.5 % 0.0-2. 0 Not Available [facility] (Lab) [address], [place], [address], 10/26/2024 13:46:11 10/26/19 25 10/25/2024 CBC W/DIF [...] separ ately if prese nt. Not Available [facility] (Lab) [address], [place], [address], 10/26/2024 13:46:11 10/26/19 25 10/25/2024 CBC W/DIF F absolute neutrophils 5.5 10'3/ uL 1.5-8. 0 Not Available [facility] (Lab) [address], [place], [address], 10/26/2024 13:46:11 10/26/19 25 10/25/2024 CBC W/DIF F absolute lymphocytes 2.7 10'3/ uL 1.0-4. 0 Not Available [facility] (Lab) [address], [place], [address], 10/26/2024 13:46:11 10/26/19 25 10/25/2024 CBC W/DIF F absolute monocytes 0.5 10'3/ uL 0.2-1. 0 Not Available [facility] (Lab) [address], [place], [address], 10/26/2024 13:46:11 10/26/19 25 10/25/2024 CBC W/DIF F absolute eosinophils 0.0 10'3/ uL 0.0-0. 6 Not Available [facility] (Lab) [address], [place], [address], 10/26/2024 13:46:11 10/26/19 25 10/25/2024 CBC W/DIF F absolute basophils 0.0 10'3/ uL 0.0-0. 3 Not Available [facility] (Lab) [address], [place], [address], 10/26/2024 13:46:11 10/26/19 25 10/25/2024 CBC W/DIF [...] dyer book. nm.or g/gen derx Not Available [facility] (Lab) [address], [place], [address], 10/26/2024 13:46:11 10/26/19 25 10/25/2024 HIV 1/2 ANTIG EN/AN TIBOD Y, REFLE X CONFI RMATI ON HIV antigen/anti body Nonrea ctive nonrea ctive HIV-1 antig en and HIV-1 /HIV- 2 antib odies were not detec bryan. No labor atory evide nce of HIV infec tion. Not Available [facility] (Lab) [address], [place], [address], 10/26/2024 13:46:11 10/26/19 25 10/25/2024 HEPAT ITIS C ANTIB MIGUELINA SCREE N, REFLE X TO CONFI RMATI ON hepatitis C antibody Non-re active non-re active Antib odies to HCV Not Detec bryan, does not exclu de the possi bilit y of expos ure to HCV. Not Available [facility] (Lab) [address], [place], [address], 10/26/2024 13:46:12 10/26/19 25 10/25/2024 HEPAT ITIS B SURFA CE ANTIG EN hepatitis B surface antigen Non-re active non-re active This assay was perfo rmed using [employer] ratio n reage nts and test kits. Value s obtai rickey with other assay metho ds or kits canno t be used inter zuleta eably . Not Available [facility] (Lab) [address], [place], [address], 10/26/2024 13:46:12 10/26/19 25 10/25/2024 TSH, REFLE X FREE T4 TSH 1.26 uIU/m L 0.30-5 .33 Not Available [facility] (Lab) [address] [place], [address], 10/26/2024 13:46:13 10/26/19 25 10/25/2024 TYPE/ RH/SC REEN ABO/Rh type O POS Not Available [facility] (Lab) [address] [place], [address], 10/26/2024 13:46:13 10/26/1910/25/2024 TYPE/ RH/SC REEN antibody screen NEG Not Available [facility] (Lab) [address], [place], [address], 10/26/2024 13:46:13 10/26/19 25 10/25/2024 TYPE/ RH/SC REEN exp date 2024 23:59 Not Available [facility] (Lab) [address], [place], [address], 10/26/2024 13:46:13 10/26/19 25 10/25/2024 RUBEL LA IGG ANTIB MIGUELINA, QUANT rubella antibodies, IgG Reacti ve reacti ve Not Available [facility] (Lab) [address], [place], [address], 10/26/2024 13:46:13 10/26/19 25 10/25/2024 RUBEL LA IGG ANTIB MGIUELINA, QUANT rubella antibodies, IgG quant 18.0 IU/mL >=10 Non-r eacti ve (Non- Immun e) <10 IU/mL React haim (Immu ne) > or = 10 IU/mL Not Available [facility] (Lab) [address], [place], [address], 10/26/2024 13:46:13 10/26/19 25 10/25/2024 RPR SCREE N, REFLE X TITER /CONF IRMAT ION RPR qualitative Nonrea ctive nonrea ctive Not Available [facility] (Lab) [address], [place], [address], 10/26/2024 13:46:14 10/26/19 25 10/25/2024 HEMOG LOBIN [...] thera py >8.0% Alejo zambrano Not Available [facility] (Lab) [address], [place], [address], 10/26/2024 13:46:14 10/26/19 25 10/25/2024 CT/GC AND TRICH OMONA S VAGIN ARIANA (RRNA ), URINE chlamydia trachomatis, PCR Negati ve negati ve Not Available [facility] (Lab) [address], [place], [address], 10/26/2024 21:37:02 10/26/19 25 10/25/2024 CT/GC AND TRICH OMONA S VAGIN ARIANA (RRNA ), URINE neisseria gonorrhoeae, PCR Negati ve negati ve Not Available [facility] (Lab) [address], [place], [address], 10/26/2024 21:37:02 10/26/19 25 10/25/2024 CT/GC AND TRICH OMONA S VAGIN ARIANA (RRNA ), URINE trichomonas vaginalis ribosomal RNA (rrna) Negati ve negati ve Not Available [facility] (Lab) [address], [place], [address], 10/26/2024 21:37:02 10/26/19 25 10/25/2024 CULTU RE: URINE result report SEE RESULT S BELOW Test: Cultu re: Urine Speci men Sourc e: Urine Voide d Speci men Type: Urine Speci men Date: 025 1714 Resul t Date: 2024 Resul t Statu s: Final resul t Abnor mal: No Resul ting Lab: [facility] [address] [facility] [address] Tel: CULTU RE ----- ----- ----- --- No growt h in 1 day (dete ction level of 10,00 0 colon ies / ml.) Not Available [facility] (Lab) [address], [place], [address], 10/26/2024 21:37:02 10/26/19 25 10/25/2024 drug scree n, urine Amphetamines : negati ve Not Available [place] [address], [place], [address], 10/25/2024 17:35:03 10/26/19 25 10/25/2024 drug scree n, urine Cannabinoids : negati ve Not Available [place] [address], [place], [address], 10/25/2024 17:35:03 10/26/19 25 10/25/2024 drug scree n, urine Cocaine: negati ve Not Available [place] [address], [place], [address], 10/25/2024 17:35:03 10/26/19 25 10/25/2024 drug scree n, urine Opiates: negati ve Not Available [place] [address], [place], [address], 10/25/2024 17:35:03 10/26/19 25 10/25/2024 drug scree n, urine Phenocyclidi ne: negati ve Not Available [place] [address], [place], [address], 10/25/2024 17:35:03 10/26/19 25 10/25/2024 drug scree n, urine Barbiturates : negati ve Not Available [place] [address], [place], [address], 10/25/2024 17:35:03 10/26/19 25 10/25/2024 drug scree n, urine Benzodiazepi bridget: negati ve Not Available [place] [address], [place], [address], 10/25/2024 17:35:03 10/26/19 25 10/25/2024 drug scree n, urine Ethanol: negati ve Not Available [place] [address], [place], [address], 10/25/2024 17:35:03 10/26/19 25 10/25/2024 drug scree n, urine Hallucinogen s: negati ve Not Available [place] [address], [place], [address], 10/25/2024 17:35:03 10/26/19 25 10/25/2024 drug scree n, urine Inhalants: negati ve Not Available [place] [address], [place], [address], 10/25/2024 17:35:03 10/26/19 25 10/25/2024 drug scree n, urine Anabolic Steroids: negati ve Not Available [place] [address], [place], [address], 10/25/2024 17:35:03 10/26/19 25 10/25/2024 drug scree n, urine Other: negati ve Not Available [place] [address], [place], [address], 10/25/2024 17:35:03 01/15/20 25 01/14/2025 HEMOG LOBIN (HGB) HGB 9.3 g/dL (based on docume nted legal sex) 11.6-1 5.4 low Not Available [facility] (Lab) [address], [place], [address], 01/15/2025 13:08:39 01/15/20 25 01/14/2025 HEMAT OCRIT (HCT) HCT 28.1 % (based on docume nted legal sex) 34.0-4 5.0 low Not Available [facility] (Lab) [address], [place], [address], 01/15/2025 13:08:39 01/15/20 25 01/14/2025 GTT - GESTA RADHA L AMBAR Hurtado, ACOG OB glucose, 1 hour screen 99 mg/dL 70-135 Not Available [facility] (Lab) [address], [place], [address], 01/15/2025 13:08:40 01/15/20 25 01/14/2025 HIV 1/2 ANTIG EN/AN TIBOD Y, REFLE X CONFI RMATI ON HIV antigen/anti body Nonrea ctive nonrea ctive HIV-1 antig en and HIV-1 /HIV- 2 antib odies were not detec bryan. No labor atory evide nce of HIV infec tion. Not Available [facility] (Lab) [address], [place], [address], 01/15/2025 13:08:40 01/15/20 25 01/14/2025 RPR SCREE N, REFLE X TITER /CONF IRMAT ION RPR qualitative Nonrea ctive nonrea ctive Not Available [facility] (Lab) [address], [place], [address], 01/15/2025 13:08:40 10/26/19 25 10/25/2024 US, usha tric, limit ed No observ ation record ed. [facility] [address], [place], [address], 10/25/2024 18:50:32 10/28/19 25 10/25/2024 US, obste tric, limit ed No observ ation record ed. [email or web address] [facility], [place], [address], 10/30/2024 23:24:32 11/27/19 25 11/26/2024 US, usha rossi, 2nd or 3rd trime ster No observ ation record ed. [facility] [address], [place], [address], 11/26/2024 17:49:36 11/27/19 25 11/26/2024 US, obste tric, 2nd or 3rd trime ster No observ ation record ed. [email or web address] [facility] [address], [place], [address], 11/26/2024 17:24:36 02/12/20 25 02/11/2025 US, obste tric, follo w-up No observ ation record ed. [email or web address] [place] [address], [place], [address], 02/11/2025 17:21:09 02/12/20 25 02/11/2025 US, obste tric, follo w-up No observ ation record ed. [facility] [address], [place], [address], 02/25/2025 10:51:35 03/10/20 25 03/10/2025 US, obste tric, follo w-up No observ ation record ed. [facility] [address], [place], [address], 03/10/2025 15:18:58 03/10/20 25 03/10/2025 US, obste tric, follo w-up No observ ation record ed. [email or web address] [facility] [address], [place], [address], 03/18/2025 11:35:09 Result Notes None recorded. Problems Name Problem SNOMED Code Status Onset Date Resolution Date Notes Provider Name and Address Organization Details Recorded Time 46253380 Completed 025 05/05/2025 Christine Preciado [place], [place] - [facility] [place] 12:46:49 Problem Notes None recorded. Medical [...] Updated DateTime 02/11/2025 157.48 cm 32.6 kg/m2 03742.44 g 108/70 mm[Hg] Oly Shabazz [facility] 02/11/2025 16:42:02 Social History Question Answer Notes LastModified by Organizat ion Details LastModified Time Tobacco Smoking Status Never Smoker JUANITO Liset [place], [facility] 10/25/2024 16:11:22 Do You Have An Advance Directive? No [email or web address] Information n ot available 10/25/2024 If You Are , What Was Your Level Of Alcohol Consumption Prior To ? None [email or web address] Information not available 10/25/2024 Are You Blind Or Do You Have Difficulty Seeing? No [email or web address] Information n ot available 10/25/2024 What Is Your Level Of Caffeine Consumption? None [email or web address] Information not available 10/25/2024 In The 14 Days Before Symptom Onset, Have You Had Close Contact With A Laboratory-confirm ed COVID-19 While That Case Was Ill? No [email or web address] Information n ot available 10/25/2024 In The 14 Days Before Symptom Onset, Have You Had Close Contact With A Person Who Is Under Investigation For COVID-19 While That Person Was Ill? No [email or web address] Information not available 10/25/2024 Have You Been To An Area Known To Be High Risk For COVID-19? No Information not available 10/25/2024 Are You Deaf Or Do You Have Serious Difficulty Hearing? No [email or web address] Information not available 10/25/2024 What Type Of Diet Are You Following? REGULAR [email or web address] Information n ot available 10/25/2024 What Is The Highest Grade Or Level Of School You Have Completed Or The Highest Degree You Have Received? [id number] [email or web address] Information not available 10/25/2024 Are There Any Guns Present In Your Home? No [email or web address] Information not available 10/25/2024 Do You Use Protection During Sex? No [email or web address] Information not available 01/28/2025 Do You Use Your Seat Belt Or Car Seat Routinely? Yes [email or web address] Information not available 10/25/2024 Are You Sexually Active? Yes [email or web address] Information not available 10/25/2024 Do You Have Smoke And Carbon Monoxide Detectors In Your Home? Yes [email or web address] Information not available 10/25/2024 Do You Use Sunscreen Routinely? Yes Information not available 10/25/2024 Has Tobacco Cessation Counseling Been Provided? No [email or web address] Information not available 10/25/2024 Do You Have Difficulty Walking Or Climbing Stairs? No [email or web address] Information not available 10/25/2024 Sex: Unknown Functional Status Question Answer Note LastModified by Organizat ion Details LastModified Time Do you use any illicit or recreational drugs? No Information not available 10/25/2024 Do you or have you ever used any other forms of tobacco or nicotine? No [email or web address] Information not available 10/25/2024 What is your level of alcohol consumption? None [email or web address] Information not available 10/25/2024 Are you currently employed? Yes [email or web address] Information not available 01/28/2025 Are you able to walk independently without assistance or assistive devices? [email or web address] Information not available 10/25/2024 Are you able to care for yourself independently? Yes [email or web address] Information not available 10/25/2024 Do you have difficulty dressing, bathing, grooming, or toileting? No Information not available 10/25/2024 What is your exercise level? Occasional [email or web address] Information not available 10/25/2024 Mental Status Question Answer Note LastModified by Organization D etails LastModified Time Do you feel stressed (tense, restless, nervous, or anxious, or unable to sleep at night)? [id number] [email or web address] Information not available 01/28/2025 Family History Nothing [...] ICD10 Code Diagnosis IMO Codes Diagnosis Note [id number] CRISTINA PETERSEN MD [place] [address] [address] 01/14/2025 15:27:34 01/14/2025 16:12:36 screening [id number] Z36.89 [id number] Grace Murcia CNM [place] [address] [address] 01/28/2025 10:05:52 01/28/2025 10:29:15 Gestation period, 30 weeks [id number] Z3A.30 [id number] cont pnvstart slow fe daily [id number] CRISTINA PETERSEN MD [place] [address] [address] 02/11/2025 15:41:07 02/11/2025 16:57:52 Uterine size for dates discrepancy [id number] O26.843 Z3A.32 [id number] Grace Murcia CNM [place] [address] [address] 02/11/2025 15:41:30 02/14/2025 10:40:09 Gestation period, 32 weeks 2672278 Z3A.32 [id number] cont pnv Health Concerns Section Related Observation LastModified by Organization Detai ls LastModified Time None Recorded Concern Status LastModified by Organization Details LastModified Time None Recorded Payers Encounter Date Sequence Insurance Name Policy Number Policy Hoang Covered Member ID Hoang Member ID Guarantor Name 02/11/2025 1 [facility] (MEDICAID HMO) [id number] Con Barraza [id number] Con Barraza Notes Date Note Type Note Provider Name and Address Organization Details Recorded Time 02/11/2025 text/html Generic HPI TemplateReported by Patient Grace Murcia CNM [address], [place], [address], [facility] 02/11/2025 20:00:50 OBGyn Episode Ob Episode Information Episode Created Date Number of Fetuses Patient Bloodtype Patient rh Status Prepregnancy Weight lbs Domestic Partner Domestic Partner Phone Father Name Layer Out Status 10/26/19 25 1 O Positive Ricky CLOSED Fetus Data First Name Last Name Admitted to NICU Weight (g) Sex Living Outcome Pediatric Complications Fetus ID Race Codes Race Delivery Type 3373.59 05 F true Full Term [id number] Vaginal Delivery Cristobal Calculation Initial Cristobal Date [...] Weight in lbs Pre/Post Dialysis Refused Weight 164.299676624085 BP Diastolic BP Location Tested BP Systolic BP Type 62 L arm 90 sitting Fetus Heart Rate Present A Present Fetus Movement A Yes Comments Patient presents to [facility] care. Hx of uncomplicated , EIL. [...] Weight in lbs Pre/Post Dialysis Refused Weight 167.661928909506 BP Diastolic BP Location Tested BP Systolic [...] Weight in lbs Pre/Post Dialysis Refused Weight 175.559929557935 BP Diastolic BP Location Tested BP Systolic [...] Weight in lbs Pre/Post Dialysis Refused Weight 178.339992390621 BP Diastolic BP Location Tested BP Systolic [...] Weight in lbs Pre/Post Dialysis Refused Weight 180.832850336112 BP Diastolic BP Location Tested BP Systolic [...] Weight in lbs Pre/Post Dialysis Refused Weight 178.511026298741 BP Diastolic BP Location Tested BP Systolic [...] Weight in lbs Pre/Post Dialysis Refused Weight 183.392744887726 BP Diastolic BP Location Tested BP Systolic BP Type 63 L arm 93 sitting Fetus Heart Rate Present Fetus Movement A Yes Comments plan f/u growth at next [facility] [place] by binhm [id number], precautions and education, not planning on vaccines [...] Weight in lbs Pre/Post Dialysis Refused Weight 186.432764219925 BP Diastolic BP Location Tested BP Systolic [...] Weight in lbs Pre/Post Dialysis Refused Weight 190.480004367878 BP Diastolic BP Location Tested BP Systolic [...] Type Weight in lbs Pre/Post Dialysis Refused 189.649424845002 BP Diastolic BP Location Tested BP Systolic [...] Weight in lbs Pre/Post Dialysis Refused Weight 192.313834191128 BP Diastolic BP Location Tested BP Systolic [...]
--- OUTSIDE RECORDS SUMMARY | 2025-05-13 10:26 | XMS_ITS | Continuity of Care Document ---
Author Organization [facility], [place] Address [address] [place] [address] Assessment Encounter Date Assessment Date Assessment LastModified by Organization Details LastModified Time 03/30/2025 03/30/2025 Patient is ___weeks . Discussed plan. [email or web address] Not available 03/30/2025 17:09:48 Plan of Treatment [...] Not Available [facility] [address], [place], [address], 11/01/2024 03:35:20 11/02/19 25 11/01/2024 [UNIT Y] ANEUP LOIDY NIPT 22Q11.2 microdeletio n LOW RISK <1 in 10,000 normal Not Available [facility] [address], [place], [address], 11/01/2024 03:35:20 11/02/19 25 11/01/2024 [UNIT Y] ANEUP LOIDY NIPT sex chromosome aneuploidy NOT DETECT ED normal Not Available [facility] [address], [place], [address], 11/01/2024 03:35:20 11/02/19 25 11/01/2024 [UNIT Y] ANEUP LOIDY NIPT monosomy X LOW RISK <1 in 10,000 normal Not Available [facility] [address], [place], [address], 11/01/2024 03:35:20 11/02/19 25 11/01/2024 [UNIT Y] ANEUP LOIDY NIPT trisomy 13 LOW RISK <1 in 10,000 normal Not Available [facility] [address], [place], [address], 11/01/2024 03:35:20 11/02/19 25 11/01/2024 [UNIT Y] ANEUP LOIDY NIPT trisomy 18 LOW RISK <1 in 10,000 normal Not Available [facility] [address], [place], [address], 11/01/2024 03:35:20 11/02/19 25 11/01/2024 [UNIT Y] ANEUP LOIDY NIPT trisomy 21 LOW RISK <1 in 10,000 normal Not Available [facility] [address], [place], [address], 11/01/2024 03:35:20 11/02/19 25 11/01/2024 [UNIT Y] ANEUP LOIDY NIPT sex FEMALE normal Not Available [facility] [address], [place], [address], 11/01/2024 03:35:20 11/02/19 25 11/01/2024 [UNIT Y] ANEUP LOIDY NIPT gestation SINGLE TON normal Not Available [facility] [address], [place], [address], 11/01/2024 03:35:20 11/02/19 25 11/01/2024 [UNIT Y] ANEUP ALEXIAIDY NIPT for detailed report, see pdf See PDF normal Not Available [facility] [address], [place], [address], 11/01/2024 03:35:20 11/05/19 25 11/04/2024 [UNIT Y] LAQUITA Hurtado sickle cell disease/beta -thalassemia /hemoglobino pathies carrier screen NEGATI VE normal Not Available [facility] [address], [place], [address], 11/04/2024 00:48:44 11/05/19 25 11/04/2024 [UNIT Y] LAQUITA Hurtado alpha-thalas semia carrier screen NEGATI VE normal Not Available [facility] [address], [place], [address], 11/04/2024 00:48:44 11/05/19 25 11/04/2024 [UNIT Y] LAQUITA Hurtado cystic fibrosis carrier screen NEGATI VE normal Not Available [facility] [address], [place], [address], 11/04/2024 00:48:44 11/05/19 25 11/04/2024 [UNIT Y] LAQUITA Hurtado spinal muscular atrophy carrier screen NEGATI VE 2 SMN1 copies , SNP not presen t normal Not Available [facility] [address], [place], [address], 11/04/2024 00:48:44 11/05/19 25 11/04/2024 [UNIT Y] LAQUITA Hurtado for detailed report, see pdf See PDF normal Not Available [facility] [address], [place], [address], 11/04/2024 00:48:44 10/26/19 25 10/25/2024 CBC W/DIF F WBC 8.7 10'3/ uL 3.5-10 .5 Not Available [facility] (Lab) [address], [place], [address], 10/26/2024 13:46:11 10/26/19 25 10/25/2024 CBC W/DIF F RBC 3.45 10'6/ uL (based on docume nted legal sex) 3.80-5 .20 low Not Available [facility] (Lab) [address], [place], [address], 10/26/2024 13:46:11 10/26/19 25 10/25/2024 CBC W/DIF F HGB 10.1 g/dL (based on docume nted legal sex) 11.6-1 5.4 low Not Available [facility] (Lab) [address], [place], [address], 10/26/2024 13:46:11 10/26/19 25 10/25/2024 CBC W/DIF F HCT 31.0 % (based on docume nted legal sex) 34.0-4 5.0 low Not Available [facility] (Lab) [address], [place], [address], 10/26/2024 13:46:11 10/26/19 25 10/25/2024 CBC W/DIF F MCV 89.9 fL 80.0-9 9.0 Not Available [facility] (Lab) [address], [place], [address], 10/26/2024 13:46:11 10/26/19 25 10/25/2024 CBC W/DIF F MCH 29.3 pg 27.0-3 4.0 Not Available [facility] (Lab) [address] [place], [address], 10/26/2024 13:46:11 10/26/19 25 10/25/2024 CBC W/DIF F MCHC 32.6 g/dL 32.0-3 5.5 Not Available [facility] (Lab) [address] [place], [address], 10/26/2024 13:46:11 10/26/19 25 10/25/2024 CBC W/DIF F RDW 14.4 % 11.0-1 5.0 Not Available [facility] (Lab) [address], [place], [address], 10/26/2024 13:46:11 10/26/19 25 10/25/2024 CBC W/DIF F plt 284 10'3/ uL 150-40 0 Not Available [facility] (Lab) [address], [place], [address], 10/26/2024 13:46:11 10/26/19 25 10/25/2024 CBC W/DIF F MPV 11.1 fL 8.8-12 .1 Not Available [facility] (Lab) [address], [place], [address], 10/26/2024 13:46:11 10/26/19 25 10/25/2024 CBC W/DIF F NRBC's 0.0 % 0.0 Not Available [facility] (Lab) [address], [place], [address], 10/26/2024 13:46:11 10/26/19 25 10/25/2024 CBC W/DIF F absolute NRBCs 0.0 10'3/ uL no refere nce range establ ished Not Available [facility] (Lab) [address], [place], [address], 10/26/2024 13:46:11 10/26/19 25 10/25/2024 CBC W/DIF F neutrophils 62.7 % 34.0-7 3.0 Not Available [facility] (Lab) [address], [place], [address], 10/26/2024 13:46:11 10/26/19 25 10/25/2024 CBC W/DIF F lymphocytes 31.2 % 15.0-5 0.0 Not Available [facility] (Lab) [address], [place], [address], 10/26/2024 13:46:11 10/26/19 25 10/25/2024 CBC W/DIF F monocytes 5.2 % 1.0-15 .0 Not Available [facility] (Lab) [address], [place], [address], 10/26/2024 13:46:11 10/26/19 25 10/25/2024 CBC W/DIF F eosinophils 0.2 % 0.0-8. 0 Not Available [facility] (Lab) [address], [place], [address], 10/26/2024 13:46:11 10/26/19 25 10/25/2024 CBC W/DIF F basophils 0.5 % 0.0-2. 0 Not Available [facility] (Lab) [address], [place], [address], 10/26/2024 13:46:11 10/26/19 25 10/25/2024 CBC W/DIF [...] separ ately if prese nt. Not Available [facility] (Lab) [address], [place], [address], 10/26/2024 13:46:11 10/26/19 25 10/25/2024 CBC W/DIF F absolute neutrophils 5.5 10'3/ uL 1.5-8. 0 Not Available [facility] (Lab) [address], [place], [address], 10/26/2024 13:46:11 10/26/19 25 10/25/2024 CBC W/DIF F absolute lymphocytes 2.7 10'3/ uL 1.0-4. 0 Not Available [facility] (Lab) [address], [place], [address], 10/26/2024 13:46:11 10/26/19 25 10/25/2024 CBC W/DIF F absolute monocytes 0.5 10'3/ uL 0.2-1. 0 Not Available [facility] (Lab) [address], [place], [address], 10/26/2024 13:46:11 10/26/19 25 10/25/2024 CBC W/DIF F absolute eosinophils 0.0 10'3/ uL 0.0-0. 6 Not Available [facility] (Lab) [address], [place], [address], 10/26/2024 13:46:11 10/26/19 25 10/25/2024 CBC W/DIF F absolute basophils 0.0 10'3/ uL 0.0-0. 3 Not Available [facility] (Lab) [address], [place], [address], 10/26/2024 13:46:11 10/26/19 25 10/25/2024 CBC W/DIF [...] dyer book. nm.or g/gen derx Not Available [facility] (Lab) [address], [place], [address], 10/26/2024 13:46:11 10/26/19 25 10/25/2024 HIV 1/2 ANTIG EN/AN TIBOD Y, REFLE X CONFI RMATI ON HIV antigen/anti body Nonrea ctive nonrea ctive HIV-1 antig en and HIV-1 /HIV- 2 antib odies were not detec bryan. No labor atory evide nce of HIV infec tion. Not Available [facility] (Lab) [address], [place], [address], 10/26/2024 13:46:11 10/26/19 25 10/25/2024 HEPAT ITIS C ANTIB MIGUELINA SCREE N, REFLE X TO CONFI RMATI ON hepatitis C antibody Non-re active non-re active Antib odies to HCV Not Detec bryan, does not exclu de the possi bilit y of expos ure to HCV. Not Available [facility] (Lab) [address], [place], [address], 10/26/2024 13:46:12 10/26/19 25 10/25/2024 HEPAT ITIS B SURFA CE ANTIG EN hepatitis B surface antigen Non-re active non-re active This assay was perfo rmed using [employer] ratio n reage nts and test kits. Value s obtai rickey with other assay metho ds or kits canno t be used inter zuleta eably . Not Available [facility] (Lab) [address], [place], [address], 10/26/2024 13:46:12 10/26/19 25 10/25/2024 TSH, REFLE X FREE T4 TSH 1.26 uIU/m L 0.30-5 .33 Not Available [facility] (Lab) [address] [place], [address], 10/26/2024 13:46:13 10/26/19 25 10/25/2024 TYPE/ RH/SC REEN ABO/Rh type O POS Not Available [facility] (Lab) [address] [place], [address], 10/26/2024 13:46:13 10/26/1910/25/2024 TYPE/ RH/SC REEN antibody screen NEG Not Available [facility] (Lab) [address], [place], [address], 10/26/2024 13:46:13 10/26/19 25 10/25/2024 TYPE/ RH/SC REEN exp date 2024 23:59 Not Available [facility] (Lab) [address], [place], [address], 10/26/2024 13:46:13 10/26/19 25 10/25/2024 RUBEL LA IGG ANTIB MIGUELINA, QUANT rubella antibodies, IgG Reacti ve reacti ve Not Available [facility] (Lab) [address], [place], [address], 10/26/2024 13:46:13 10/26/19 25 10/25/2024 RUBEL LA IGG ANTIB MIGUELINA, QUANT rubella antibodies, IgG quant 18.0 IU/mL >=10 Non-r eacti ve (Non- Immun e) <10 IU/mL React haim (Immu ne) > or = 10 IU/mL Not Available [facility] (Lab) [address], [place], [address], 10/26/2024 13:46:13 10/26/19 25 10/25/2024 RPR SCREE N, REFLE X TITER /CONF IRMAT ION RPR qualitative Nonrea ctive nonrea ctive Not Available [facility] (Lab) [address], [place], [address], 10/26/2024 13:46:14 10/26/19 25 10/25/2024 HEMOG LOBIN [...] thera py >8.0% Alejo zambrano Not Available [facility] (Lab) [address], [place], [address], 10/26/2024 13:46:14 10/26/19 25 10/25/2024 CT/GC AND TRICH OMONA S VAGIN ARIANA (RRNA ), URINE chlamydia trachomatis, PCR Negati ve negati ve Not Available [facility] (Lab) [address], [place], [address], 10/26/2024 21:37:02 10/26/19 25 10/25/2024 CT/GC AND TRICH OMONA S VAGIN ARIANA (RRNA ), URINE neisseria gonorrhoeae, PCR Negati ve negati ve Not Available [facility] (Lab) [address], [place], [address], 10/26/2024 21:37:02 10/26/19 25 10/25/2024 CT/GC AND TRICH OMONA S VAGIN ARIANA (RRNA ), URINE trichomonas vaginalis ribosomal RNA (rrna) Negati ve negati ve Not Available [facility] (Lab) [address], [place], [address], 10/26/2024 21:37:02 10/26/19 25 10/25/2024 CULTU RE: URINE result report SEE RESULT S BELOW Test: Cultu re: Urine Speci men Sourc e: Urine Voide d Speci men Type: Urine Speci men Date: 025 1714 Resul t Date: 2024 Resul t Statu s: Final resul t Abnor mal: No Resul ting Lab: [facility] [address] [facility] [address] Tel: CULTU RE ----- ----- ----- --- No growt h in 1 day (dete ction level of 10,00 0 colon ies / ml.) Not Available [facility] (Lab) [address], [place], [address], 10/26/2024 21:37:02 10/26/19 25 10/25/2024 drug scree n, urine Amphetamines : negati ve Not Available [facility] [address], [place], [address], 10/25/2024 17:35:03 10/26/19 25 10/25/2024 drug scree n, urine Cannabinoids : negati ve Not Available [facility] [address], [place], [address], 10/25/2024 17:35:03 10/26/19 25 10/25/2024 drug scree n, urine Cocaine: negati ve Not Available [place] [address], [place], [address], 10/25/2024 17:35:03 10/26/19 25 10/25/2024 drug scree n, urine Opiates: negati ve Not Available [place] [address], [place], [address], 10/25/2024 17:35:03 10/26/19 25 10/25/2024 drug scree n, urine Phenocyclidi ne: negati ve Not Available [place] [address], [place], [address], 10/25/2024 17:35:03 10/26/19 25 10/25/2024 drug scree n, urine Barbiturates : negati ve Not Available [place] [address], [place], [address], 10/25/2024 17:35:03 10/26/19 25 10/25/2024 drug scree n, urine Benzodiazepi bridget: negati ve Not Available [place] [address], [place], [address], 10/25/2024 17:35:03 10/26/19 25 10/25/2024 drug scree n, urine Ethanol: negati ve Not Available [place] [address], [place], [address], 10/25/2024 17:35:03 10/26/19 25 10/25/2024 drug scree n, urine Hallucinogen s: negati ve Not Available [place] [address], [place], [address], 10/25/2024 17:35:03 10/26/19 25 10/25/2024 drug scree n, urine Inhalants: negati ve Not Available [place] [address], [place], [address], 10/25/2024 17:35:03 10/26/19 25 10/25/2024 drug scree n, urine Anabolic Steroids: negati ve Not Available [place] [address], [place], [address], 10/25/2024 17:35:03 10/26/19 25 10/25/2024 drug scree n, urine Other: negati ve Not Available [place] [address], [place], [address], 10/25/2024 17:35:03 01/15/20 25 01/14/2025 HEMOG LOBIN (HGB) HGB 9.3 g/dL (based on docume nted legal sex) 11.6-1 5.4 low Not Available [facility] (Lab) [address], [place], [address], 01/15/2025 13:08:39 01/15/20 25 01/14/2025 HEMAT OCRIT (HCT) HCT 28.1 % (based on docume nted legal sex) 34.0-4 5.0 low Not Available [facility] (Lab) [address], [place], [address], 01/15/2025 13:08:39 01/15/20 25 01/14/2025 GTT - GESTA RADHA Quyen TAMIKOBill Hurtado, ACOG OB glucose, 1 hour screen 99 mg/dL 70-135 Not Available [facility] (Lab) [address], [place], [address], 01/15/2025 13:08:40 01/15/20 25 01/14/2025 HIV 1/2 ANTIG EN/AN TIBOD Y, REFLE X CONFI RMATI ON HIV antigen/anti body Nonrea ctive nonrea ctive HIV-1 antig en and HIV-1 /HIV- 2 antib odies were not detec bryan. No labor atory evide nce of HIV infec tion. Not Available [facility] (Lab) [address], [place], [address], 01/15/2025 13:08:40 01/15/20 25 01/14/2025 RPR SCREE N, REFLE X TITER /CONF IRMAT ION RPR qualitative Nonrea ctive nonrea ctive Not Available [facility] (Lab) [address], [place], [address], 01/15/2025 13:08:40 03/10/20 25 03/10/2025 CULTU RE: [...] t Abnor mal: No Resul ting Lab: [facility] [address] [facility] [address] Tel: [phone] CULTU RE ----- ----- ----- --- No Group B strep isola bryan at 2 days (prudence ctive broth enhan brennaen t) Not Available [facility] (Lab) [address], [place], [address], 03/13/2025 15:12:11 10/26/19 25 10/25/2024 US, obste tric, limit ed No observ ation record ed. [facility] [address], [place], [address], 10/25/2024 18:50:32 10/28/19 25 10/25/2024 US, obste tric, limit ed No observ ation record ed. [email or web address] [facility] [address], [place], [address], 10/30/2024 23:24:32 11/27/19 25 11/26/2024 US, obste tric, 2nd or 3rd trime ster No observ ation record ed. [facility] [address], [place], [address], 11/26/2024 17:49:36 11/27/19 25 11/26/2024 US, obste tric, 2nd or 3rd trime ster No observ ation record ed. [email or web address] [facility] [address], [place], [address], 11/26/2024 17:24:36 02/12/20 25 02/11/2025 US, obste tric, follo w-up No observ ation record ed. [email or web address] [place] [address], [place], [address], 02/11/2025 17:21:09 02/12/20 25 02/11/2025 US, obste tric, follo w-up No observ ation record ed. [email or web address] [facility] [address], [place], [address], 02/25/2025 10:51:35 03/10/20 25 03/10/2025 US, obste tric, follo w-up No observ ation record ed. [facility] [address], [place], [address], 03/10/2025 15:18:58 03/10/20 25 03/10/2025 US, obste tric, follo w-up No observ ation record ed. [email or web address] [facility] [address], [place], [address], 03/18/2025 11:35:09 Result Notes None recorded. Problems Name Problem SNOMED Code Status Onset Date Resolution Date Notes Provider Name and Address Organization Details Recorded Time [id number] Completed 025 05/05/2025 [facility] 12:46:49 Problem Notes None recorded. Medical [...] Address Organization Details Last Updated DateTime 03/30/2025 09682.34496 g 100/68 mm[Hg] Joy Houston [facility] 03/30/2025 17:30:38 Social History Question Answer Notes LastModified by Organizat ion Details LastModified Time Tobacco Smoking Status Never Smoker JUANITO livingston [facility] 10/25/2024 16:11:22 Do You Have An Advance Directive? No [email or web address] Information n ot available 10/25/2024 If You Are , What Was Your Level Of Alcohol Consumption Prior To ? None [email or web address] Information not available 10/25/2024 Are You Blind Or Do You Have Difficulty Seeing? No Information n ot available 10/25/2024 What Is Your Level Of Caffeine Consumption? None [email or web address] Information not available 10/25/2024 In The 14 Days Before Symptom Onset, Have You Had Close Contact With A Laboratory-confirm ed COVID-19 While That Case Was Ill? No [email or web address] Information n ot available 10/25/2024 In The 14 Days Before Symptom Onset, Have You Had Close Contact With A Person Who Is Under Investigation For COVID-19 While That Person Was Ill? No Information not available 10/25/2024 Have You Been To An Area Known To Be High Risk For COVID-19? No [email or web address] Information not available 10/25/2024 Are You Deaf Or Do You Have Serious Difficulty Hearing? No [email or web address] Information not available 10/25/2024 What Type Of Diet Are You Following? REGULAR [email or web address] Information n ot available 10/25/2024 What Is The Highest Grade Or Level Of School You Have Completed Or The Highest Degree You Have Received? RT04071-5 [email or web address] Information not available 10/25/2024 Are There Any Guns Present In Your Home? No Information not available 10/25/2024 Do You Use Protection During Sex? No [email or web address] Information not available 01/28/2025 Do You Use Your Seat Belt Or Car Seat Routinely? Yes [email or web address] Information not available 10/25/2024 Are You Sexually Active? Yes [email or web address] Information not available 10/25/2024 Do You Have Smoke And Carbon Monoxide Detectors In Your Home? Yes [email or web address] Information not available 10/25/2024 Do You Use Sunscreen Routinely? Yes [email or web address] Information not available 10/25/2024 Has Tobacco Cessation Counseling Been Provided? No [email or web address] Information not available 10/25/2024 Do You Have Difficulty Walking Or Climbing Stairs? No [email or web address] Information not available 10/25/2024 Sex: Unknown Functional Status Question Answer Note LastModified by Organizat ion Details LastModified Time Do you use any illicit or recreational drugs? No [email or web address] Information not available 10/25/2024 Do you or have you ever used any other forms of tobacco or nicotine? No [email or web address] Information not available 10/25/2024 What is your level of alcohol consumption? None [email or web address] Information not available 10/25/2024 Are you currently employed? Yes [email or web address] Information not available 01/28/2025 Are you able to walk independently without assistance or assistive devices? YESASSIST [email or web address] Information not available 10/25/2024 Are you able to care for yourself independently? Yes [email or web address] Information not available 10/25/2024 Do you have difficulty dressing, bathing, grooming, or toileting? No [email or web address] Information not available 10/25/2024 What is your exercise level? Occasional [email or web address] Information not available 10/25/2024 Mental Status Question Answer Note LastModified by Organization D etails LastModified Time Do you feel stressed (tense, restless, nervous, or anxious, or unable to sleep at night)? [id number] [email or web address] Information not available 01/28/2025 Family History Nothing Reported. Medical History Condition Response Allergies (Food, seasonal, environmental ) N Other N Drug/Latex Allergies/Reactions N Breast Cancer N Blood Transfusion N Lung Disease N Dermatologic Disorders N Defects or Inherited Disease N Breast Problem N Gestational Diabetes N Hematologic disorders N Anesthesia Complications N History of STI N Deep Vein Thrombosis N Polycystic ovary syndrome N Anxiety Disorder N Autoimmune disease N Arthritis N Polyps N Infertility N History of abnormal pap N Acid Reflux (GERD) N Cancer N Varicosities N Stroke N [...] ICD10 Code Diagnosis IMO Codes Diagnosis Note [id number] Anoop Johnson MD [facility] [address],[place] [address] 03/10/2025 14:40:38 03/10/2025 15:25:33 Uterine size for dates discrepancy [id number] O26.843 O09.30 Z3A.36 [id number] MD Brit Joy [address],[place] [address] 03/10/2025 14:43:23 03/10/2025 16:33:12 care status [id number] Z34.83 [id number] Anoop Johnson MD [place] [address],[place] [address] 03/23/2025 17:49:32 03/24/2025 09:10:25 care status [id number] Z34.83 [id number] Anoop Johnson MD [facility] [address],[place] [address] 03/30/2025 17:07:58 03/31/2025 08:48:38 care status 738759709 Z34.83 [id number] Health Concerns Section Related Observation LastModified by Organization Detai ls LastModified Time None Recorded Concern Status LastModified by Organization Details LastModified Time None Recorded Payers Encounter Date Sequence Insurance Name Policy Number Policy Hoang Covered Member ID Hoang Member ID Guarantor Name 03/30/2025 1 [facility] (MEDICAID HMO) [id number] Con Barraza [id number] Con Barraza Notes Date Note Type Note Provider Name and Address Organization Details Recorded Time 03/30/2025 text/html Generic HPI TemplateReported by Patient Anoop Johnson MD [address], [place], [address], [place] [facility] 03/30/2025 17:45:55 OBGyn Episode Ob Episode Information Episode Created Date Number of Fetuses Patient Bloodtype Patient rh Status Prepregnancy Weight lbs Domestic Partner Domestic Partner Phone Father Name Cryptographic Clerk Status 10/26/19 25 1 O Positive Ricky CLOSED Fetus Data First Name Last Name Admitted to NICU Weight (g) Sex Living Outcome Pediatric Complications Fetus ID Race Codes Race Delivery Type 3373.59 05 F true Full Term [id number] Vaginal Delivery Cristobal Calculation Initial Cristobal Date [...] Weight in lbs Pre/Post Dialysis Refused Weight 164.635367573335 BP Diastolic BP Location Tested BP Systolic BP Type 62 L arm 90 sitting Fetus Heart Rate Present A Present Fetus Movement A Yes Comments Patient presents to [facility] care. Hx of uncomplicated , EIL. [...] Weight in lbs Pre/Post Dialysis Refused Weight 167.638800543471 BP Diastolic BP Location Tested BP Systolic [...] Weight in lbs Pre/Post Dialysis Refused Weight 175.546487095876 BP Diastolic BP Location Tested BP Systolic [...] Weight in lbs Pre/Post Dialysis Refused Weight 178.755140668930 BP Diastolic BP Location Tested BP Systolic [...] Weight in lbs Pre/Post Dialysis Refused Weight 180.377015040041 BP Diastolic BP Location Tested BP Systolic [...] Weight in lbs Pre/Post Dialysis Refused Weight 178.920390130417 BP Diastolic BP Location Tested BP Systolic [...] Weight in lbs Pre/Post Dialysis Refused Weight 183.291574268034 BP Diastolic BP Location Tested BP Systolic BP Type 63 L arm 93 sitting Fetus Heart Rate Present Fetus Movement A Yes Comments plan f/u growth at next visi , us by cnm +[id number], precautions and education, not planning on vaccines [...] Weight in lbs Pre/Post Dialysis Refused Weight 186.016233026728 BP Diastolic BP Location Tested BP Systolic [...] Weight in lbs Pre/Post Dialysis Refused Weight 190.117383274164 BP Diastolic BP Location Tested BP Systolic [...] Type Weight in lbs Pre/Post Dialysis Refused 189.757613309448 BP Diastolic BP Location Tested BP Systolic [...] Weight in lbs Pre/Post Dialysis Refused Weight [id number] BP Diastolic BP Location Tested BP Systolic [...]
--- OUTSIDE RECORDS SUMMARY | 2025-05-13 10:26 | XMS_ITS | Continuity of Care Document ---
Author Organization [facility], [place] Address [address] [place] [address] Assessment Encounter Date Assessment Date Assessment LastModified by Organization Details LastModified Time 03/23/2025 03/23/2025 Patient is ___weeks . Discussed plan. [email or web address] Not available 03/23/2025 17:59:21 Plan of Treatment [...] Not Available [facility] [address], [place], [address], 11/01/2024 03:35:20 11/02/19 25 11/01/2024 [UNIT Y] ANEUP LOIDY NIPT 22Q11.2 microdeletio n LOW RISK <1 in 10,000 normal Not Available [facility] [address], [place], [address], 11/01/2024 03:35:20 11/02/19 25 11/01/2024 [UNIT Y] ANEUP LOIDY NIPT sex chromosome aneuploidy NOT DETECT ED normal Not Available [facility] [address], [place], [address], 11/01/2024 03:35:20 11/02/19 25 11/01/2024 [UNIT Y] ANEUP LOIDY NIPT monosomy X LOW RISK <1 in 10,000 normal Not Available [facility] [address], [place], [address], 11/01/2024 03:35:20 11/02/19 25 11/01/2024 [UNIT Y] ANEUP LOIDY NIPT trisomy 13 LOW RISK <1 in 10,000 normal Not Available [facility] [address], [place], [address], 11/01/2024 03:35:20 11/02/19 25 11/01/2024 [UNIT Y] ANEUP LOIDY NIPT trisomy 18 LOW RISK <1 in 10,000 normal Not Available [facility] [address], [place], [address], 11/01/2024 03:35:20 11/02/19 25 11/01/2024 [UNIT Y] ANEUP LOIDY NIPT trisomy 21 LOW RISK <1 in 10,000 normal Not Available [facility] [address], [place], [address], 11/01/2024 03:35:20 11/02/19 25 11/01/2024 [UNIT Y] ANEUP LOIDY NIPT sex FEMALE normal Not Available [facility] [address], [place], [address], 11/01/2024 03:35:20 11/02/19 25 11/01/2024 [UNIT Y] ANEUP LOIDY NIPT gestation SINGLE TON normal Not Available [facility] [address], [place], [address], 11/01/2024 03:35:20 11/02/19 25 11/01/2024 [UNIT Y] ANEUP ALEXIAIDY NIPT for detailed report, see pdf See PDF normal Not Available [facility] [address], [place], [address], 11/01/2024 03:35:20 11/05/19 25 11/04/2024 [UNIT Y] LAQUITA Hurtado sickle cell disease/beta -thalassemia /hemoglobino pathies carrier screen NEGATI VE normal Not Available [facility] [address], [place], [address], 11/04/2024 00:48:44 11/05/19 25 11/04/2024 [UNIT Y] LAQUITA Hurtado alpha-thalas semia carrier screen NEGATI VE normal Not Available [facility] [address], [place], [address], 11/04/2024 00:48:44 11/05/19 25 11/04/2024 [UNIT Y] LAQUITA Hurtado cystic fibrosis carrier screen NEGATI VE normal Not Available [facility] [address], [place], [address], 11/04/2024 00:48:44 11/05/19 25 11/04/2024 [UNIT Y] LAQUITA Hurtado spinal muscular atrophy carrier screen NEGATI VE 2 SMN1 copies , SNP not presen t normal Not Available [facility] [address], [place], [address], 11/04/2024 00:48:44 11/05/19 25 11/04/2024 [UNIT Y] LAQUITA Hurtado for detailed report, see pdf See PDF normal Not Available [facility] [address], [place], [address], 11/04/2024 00:48:44 10/26/19 25 10/25/2024 CBC W/DIF F WBC 8.7 10'3/ uL 3.5-10 .5 Not Available [facility] (Lab) [address], [place], [address], 10/26/2024 13:46:11 10/26/19 25 10/25/2024 CBC W/DIF F RBC 3.45 10'6/ uL (based on docume nted legal sex) 3.80-5 .20 low Not Available [facility] (Lab) [address], [place], [address], 10/26/2024 13:46:11 10/26/19 25 10/25/2024 CBC W/DIF F HGB 10.1 g/dL (based on docume nted legal sex) 11.6-1 5.4 low Not Available [facility] (Lab) [address], [place], [address], 10/26/2024 13:46:11 10/26/19 25 10/25/2024 CBC W/DIF F HCT 31.0 % (based on docume nted legal sex) 34.0-4 5.0 low Not Available [facility] (Lab) [address], [place], [address], 10/26/2024 13:46:11 10/26/19 25 10/25/2024 CBC W/DIF F MCV 89.9 fL 80.0-9 9.0 Not Available [facility] (Lab) [address], [place], [address], 10/26/2024 13:46:11 10/26/19 25 10/25/2024 CBC W/DIF F MCH 29.3 pg 27.0-3 4.0 Not Available [facility] (Lab) [address] [place], [address], 10/26/2024 13:46:11 10/26/19 25 10/25/2024 CBC W/DIF F MCHC 32.6 g/dL 32.0-3 5.5 Not Available [facility] (Lab) [address] [place], [address], 10/26/2024 13:46:11 10/26/19 25 10/25/2024 CBC W/DIF F RDW 14.4 % 11.0-1 5.0 Not Available [facility] (Lab) [address], [place], [address], 10/26/2024 13:46:11 10/26/19 25 10/25/2024 CBC W/DIF F plt 284 10'3/ uL 150-40 0 Not Available [facility] (Lab) [address], [place], [address], 10/26/2024 13:46:11 10/26/19 25 10/25/2024 CBC W/DIF F MPV 11.1 fL 8.8-12 .1 Not Available [facility] (Lab) [address], [place], [address], 10/26/2024 13:46:11 10/26/19 25 10/25/2024 CBC W/DIF F NRBC's 0.0 % 0.0 Not Available [facility] (Lab) [address], [place], [address], 10/26/2024 13:46:11 10/26/19 25 10/25/2024 CBC W/DIF F absolute NRBCs 0.0 10'3/ uL no refere nce range establ ished Not Available [facility] (Lab) [address], [place], [address], 10/26/2024 13:46:11 10/26/19 25 10/25/2024 CBC W/DIF F neutrophils 62.7 % 34.0-7 3.0 Not Available [facility] (Lab) [address], [place], [address], 10/26/2024 13:46:11 10/26/19 25 10/25/2024 CBC W/DIF F lymphocytes 31.2 % 15.0-5 0.0 Not Available [facility] (Lab) [address], [place], [address], 10/26/2024 13:46:11 10/26/19 25 10/25/2024 CBC W/DIF F monocytes 5.2 % 1.0-15 .0 Not Available [facility] (Lab) [address], [place], [address], 10/26/2024 13:46:11 10/26/19 25 10/25/2024 CBC W/DIF F eosinophils 0.2 % 0.0-8. 0 Not Available [facility] (Lab) [address], [place], [address], 10/26/2024 13:46:11 10/26/19 25 10/25/2024 CBC W/DIF F basophils 0.5 % 0.0-2. 0 Not Available [facility] (Lab) [address], [place], [address], 10/26/2024 13:46:11 10/26/19 25 10/25/2024 CBC W/DIF [...] separ ately if prese nt. Not Available [facility] (Lab) [address], [place], [address], 10/26/2024 13:46:11 10/26/19 25 10/25/2024 CBC W/DIF F absolute neutrophils 5.5 10'3/ uL 1.5-8. 0 Not Available [facility] (Lab) [address], [place], [address], 10/26/2024 13:46:11 10/26/19 25 10/25/2024 CBC W/DIF F absolute lymphocytes 2.7 10'3/ uL 1.0-4. 0 Not Available [facility] (Lab) [address], [place], [address], 10/26/2024 13:46:11 10/26/19 25 10/25/2024 CBC W/DIF F absolute monocytes 0.5 10'3/ uL 0.2-1. 0 Not Available [facility] (Lab) [address], [place], [address], 10/26/2024 13:46:11 10/26/19 25 10/25/2024 CBC W/DIF F absolute eosinophils 0.0 10'3/ uL 0.0-0. 6 Not Available [facility] (Lab) [address], [place], [address], 10/26/2024 13:46:11 10/26/19 25 10/25/2024 CBC W/DIF F absolute basophils 0.0 10'3/ uL 0.0-0. 3 Not Available [facility] (Lab) [address], [place], [address], 10/26/2024 13:46:11 10/26/19 25 10/25/2024 CBC W/DIF [...] dyer book. nm.or g/gen derx Not Available [facility] (Lab) [address], [place], [address], 10/26/2024 13:46:11 10/26/19 25 10/25/2024 HIV 1/2 ANTIG EN/AN TIBOD Y, REFLE X CONFI RMATI ON HIV antigen/anti body Nonrea ctive nonrea ctive HIV-1 antig en and HIV-1 /HIV- 2 antib odies were not detec bryan. No labor atory evide nce of HIV infec tion. Not Available [facility] (Lab) [address], [place], [address], 10/26/2024 13:46:11 10/26/19 25 10/25/2024 HEPAT ITIS C ANTIB MIGUELINA SCREE N, REFLE X TO CONFI RMATI ON hepatitis C antibody Non-re active non-re active Antib odies to HCV Not Detec bryan, does not exclu de the possi bilit y of expos ure to HCV. Not Available [facility] (Lab) [address], [place], [address], 10/26/2024 13:46:12 10/26/19 25 10/25/2024 HEPAT ITIS B SURFA CE ANTIG EN hepatitis B surface antigen Non-re active non-re active This assay was perfo rmed using [employer] ratio n reage nts and test kits. Value s obtai rickey with other assay metho ds or kits canno t be used inter zuleta eably . Not Available [facility] (Lab) [address], [place], [address], 10/26/2024 13:46:12 10/26/19 25 10/25/2024 TSH, REFLE X FREE T4 TSH 1.26 uIU/m L 0.30-5 .33 Not Available [facility] (Lab) [address] [place], [address], 10/26/2024 13:46:13 10/26/19 25 10/25/2024 TYPE/ RH/SC REEN ABO/Rh type O POS Not Available [facility] (Lab) [address] [place], [address], 10/26/2024 13:46:13 10/26/1910/25/2024 TYPE/ RH/SC REEN antibody screen NEG Not Available [facility] (Lab) [address], [place], [address], 10/26/2024 13:46:13 10/26/19 25 10/25/2024 TYPE/ RH/SC REEN exp date 2024 23:59 Not Available [facility] (Lab) [address], [place], [address], 10/26/2024 13:46:13 10/26/19 25 10/25/2024 RUBEL LA IGG ANTIB MIGUELINA, QUANT rubella antibodies, IgG Reacti ve reacti ve Not Available [facility] (Lab) [address], [place], [address], 10/26/2024 13:46:13 10/26/19 25 10/25/2024 RUBEL LA IGG ANTIB MIGUELINA, QUANT rubella antibodies, IgG quant 18.0 IU/mL >=10 Non-r eacti ve (Non- Immun e) <10 IU/mL React haim (Immu ne) > or = 10 IU/mL Not Available [facility] (Lab) [address], [place], [address], 10/26/2024 13:46:13 10/26/19 25 10/25/2024 RPR SCREE N, REFLE X TITER /CONF IRMAT ION RPR qualitative Nonrea ctive nonrea ctive Not Available [facility] (Lab) [address], [place], [address], 10/26/2024 13:46:14 10/26/19 25 10/25/2024 HEMOG LOBIN [...] thera py >8.0% Alejo zambrano Not Available [facility] (Lab) [address], [place], [address], 10/26/2024 13:46:14 10/26/19 25 10/25/2024 CT/GC AND TRICH OMONA S VAGIN ARIANA (RRNA ), URINE chlamydia trachomatis, PCR Negati ve negati ve Not Available [facility] (Lab) [address], [place], [address], 10/26/2024 21:37:02 10/26/19 25 10/25/2024 CT/GC AND TRICH OMONA S VAGIN ARIANA (RRNA ), URINE neisseria gonorrhoeae, PCR Negati ve negati ve Not Available [facility] (Lab) [address], [place], [address], 10/26/2024 21:37:02 10/26/19 25 10/25/2024 CT/GC AND TRICH OMONA S VAGIN ARIANA (RRNA ), URINE trichomonas vaginalis ribosomal RNA (rrna) Negati ve negati ve Not Available [facility] (Lab) [address], [place], [address], 10/26/2024 21:37:02 10/26/19 25 10/25/2024 CULTU RE: URINE result report SEE RESULT S BELOW Test: Cultu re: Urine Speci men Sourc e: Urine Voide d Speci men Type: Urine Speci men Date: 025 1714 Resul t Date: 2024 Resul t Statu s: Final resul t Abnor mal: No Resul ting Lab: [facility] [address] [facility] [address] Tel: CULTU RE ----- ----- ----- --- No growt h in 1 day (dete ction level of 10,00 0 colon ies / ml.) Not Available [facility] (Lab) [address], [place], [address], 10/26/2024 21:37:02 10/26/19 25 10/25/2024 drug scree n, urine Amphetamines : negati ve Not Available [place] [address], [place], [address], 10/25/2024 17:35:03 10/26/19 25 10/25/2024 drug scree n, urine Cannabinoids : negati ve Not Available [place] [address], [place], [address], 10/25/2024 17:35:03 10/26/19 25 10/25/2024 drug scree n, urine Cocaine: negati ve Not Available [place] [address], [place], [address], 10/25/2024 17:35:03 10/26/19 25 10/25/2024 drug scree n, urine Opiates: negati ve Not Available [place] [address], [place], [address], 10/25/2024 17:35:03 10/26/19 25 10/25/2024 drug scree n, urine Phenocyclidi ne: negati ve Not Available [place] [address], [place], [address], 10/25/2024 17:35:03 10/26/19 25 10/25/2024 drug scree n, urine Barbiturates : negati ve Not Available [place] [address], [place], [address], 10/25/2024 17:35:03 10/26/19 25 10/25/2024 drug scree n, urine Benzodiazepi bridget: negati ve Not Available [place] [address], [place], [address], 10/25/2024 17:35:03 10/26/19 25 10/25/2024 drug scree n, urine Ethanol: negati ve Not Available [place] [address], [place], [address], 10/25/2024 17:35:03 10/26/19 25 10/25/2024 drug scree n, urine Hallucinogen s: negati ve Not Available [place] [address], [place], [address], 10/25/2024 17:35:03 10/26/19 25 10/25/2024 drug scree n, urine Inhalants: negati ve Not Available [place] [address], [place], [address], 10/25/2024 17:35:03 10/26/19 25 10/25/2024 drug scree n, urine Anabolic Steroids: negati ve Not Available [place] [address], [place], [address], 10/25/2024 17:35:03 10/26/19 25 10/25/2024 drug scree n, urine Other: negati ve Not Available [place] [address], [place], [address], 10/25/2024 17:35:03 01/15/20 25 01/14/2025 HEMOG LOBIN (HGB) HGB 9.3 g/dL (based on docume nted legal sex) 11.6-1 5.4 low Not Available [facility] (Lab) [address], [place], [address], 01/15/2025 13:08:39 01/15/20 25 01/14/2025 HEMAT OCRIT (HCT) HCT 28.1 % (based on docume nted legal sex) 34.0-4 5.0 low Not Available [facility] (Lab) [address], [place], [address], 01/15/2025 13:08:39 01/15/20 25 01/14/2025 GTT - GESTA RADHA Quyen TAMIKOBill Hurtado, ACOG OB glucose, 1 hour screen 99 mg/dL 70-135 Not Available [facility] (Lab) [address], [place], [address], 01/15/2025 13:08:40 01/15/20 25 01/14/2025 HIV 1/2 ANTIG EN/AN TIBOD Y, REFLE X CONFI RMATI ON HIV antigen/anti body Nonrea ctive nonrea ctive HIV-1 antig en and HIV-1 /HIV- 2 antib odies were not detec bryan. No labor atory evide nce of HIV infec tion. Not Available [facility] (Lab) [address], [place], [address], 01/15/2025 13:08:40 01/15/20 25 01/14/2025 RPR SCREE N, REFLE X TITER /CONF IRMAT ION RPR qualitative Nonrea ctive nonrea ctive Not Available [facility] (Lab) [address], [place], [address], 01/15/2025 13:08:40 03/10/20 25 03/10/2025 CULTU RE: [...] t Abnor mal: No Resul ting Lab: [facility] [address] [facility] [address] Tel: [phone] CULTU RE ----- ----- ----- --- No Group B strep isola bryan at 2 days (prudence ctive broth enhan brennaen t) Not Available [facility] (Lab) [address], [place], [address], 03/13/2025 15:12:11 10/26/19 25 10/25/2024 US, obste tric, limit ed No observ ation record ed. [facility] [address], [place], [address], 10/25/2024 18:50:32 10/28/19 25 10/25/2024 US, obste tric, limit ed No observ ation record ed. [email or web address] [facility] [address], [place], [address], 10/30/2024 23:24:32 11/27/19 25 11/26/2024 US, obste tric, 2nd or 3rd trime ster No observ ation record ed. [facility] [address], [place], [address], 11/26/2024 17:49:36 11/27/19 25 11/26/2024 US, obste tric, 2nd or 3rd trime ster No observ ation record ed. [email or web address] [facility] [address], [place], [address], 11/26/2024 17:24:36 02/12/20 25 02/11/2025 US, obste tric, follo w-up No observ ation record ed. [email or web address] [place] [address], [place], [address], 02/11/2025 17:21:09 02/12/20 25 02/11/2025 US, obste tric, follo w-up No observ ation record ed. [email or web address] [facility] [address], [place], [address], 02/25/2025 10:51:35 03/10/2003/10/2025 US, obste tric, follo w-up No observ ation record ed. [facility] [address], [place], [address], 03/10/2025 15:18:58 03/10/20 25 03/10/2025 US, obste tric, follo w-up No observ ation record ed. [email or web address] [facility] [address], [place], [address], 03/18/2025 11:35:09 Result Notes None recorded. Problems Name Problem SNOMED Code Status Onset Date Resolution Date Notes Provider Name and Address Organization Details Recorded Time [id number] Completed 025 05/05/2025 [facility] 12:46:49 Problem Notes None recorded. [...] Updated DateTime 03/23/2025 157.48 cm 34.8 kg/m2 59815.99 g 109/65 mm[Hg] Christine Preciado [facility] 03/23/2025 17:59:01 Social History Question Answer Notes LastModified by Organizat ion Details LastModified Time Tobacco Smoking Status Never Smoker JUANITO livingston [facility] 10/25/2024 16:11:22 Do You Have An Advance Directive? No Information n ot available 10/25/2024 If You Are , What Was Your Level Of Alcohol Consumption Prior To ? None [email or web address] Information not available 10/25/2024 Are You Blind Or Do You Have Difficulty Seeing? No [email or web address] Information n ot available 10/25/2024 What Is Your Level Of Caffeine Consumption? None [email or web address] Information not available 10/25/2024 In The 14 Days Before Symptom Onset, Have You Had Close Contact With A Laboratory-confirm ed COVID-19 While That Case Was Ill? No [email or web address] Information n ot available 10/25/2024 In The 14 Days Before Symptom Onset, Have You Had Close Contact With A Person Who Is Under Investigation For COVID-19 While That Person Was Ill? No [email or web address] Information not available 10/25/2024 Have You Been To An Area Known To Be High Risk For COVID-19? No [email or web address] Information not available 10/25/2024 Are You Deaf Or Do You Have Serious Difficulty Hearing? No [email or web address] Information not available 10/25/2024 What Type Of Diet Are You Following? REGULAR Information n ot available 10/25/2024 What Is The Highest Grade Or Level Of School You Have Completed Or The Highest Degree You Have Received? [id number] Information not available 10/25/2024 Are There Any Guns Present In Your Home? No [email or web address] Information not available 10/25/2024 Do You Use Protection During Sex? No [email or web address] Information not available 01/28/2025 Do You Use Your Seat Belt Or Car Seat Routinely? Yes [email or web address] Information not available 10/25/2024 Are You Sexually Active? Yes Information not available 10/25/2024 Do You Have Smoke And Carbon Monoxide Detectors In Your Home? Yes [email or web address] Information not available 10/25/2024 Do You Use Sunscreen Routinely? Yes Information not available 10/25/2024 Has Tobacco Cessation Counseling Been Provided? No [email or web address] Information not available 10/25/2024 Do You Have Difficulty Walking Or Climbing Stairs? No [email or web address] Information not available 10/25/2024 Sex: Unknown Functional Status Question Answer Note LastModified by Organizat ion Details LastModified Time Do you use any illicit or recreational drugs? No [email or web address] Information not available 10/25/2024 Do you or have you ever used any other forms of tobacco or nicotine? No [email or web address] Information not available 10/25/2024 What is your level of alcohol consumption? None [email or web address] Information not available 10/25/2024 Are you currently employed? Yes [email or web address] Information not available 01/28/2025 Are you able to walk independently without assistance or assistive devices? YESASSIST [email or web address] Information not available 10/25/2024 Are you able to care for yourself independently? Yes [email or web address] Information not available 10/25/2024 Do you have difficulty dressing, bathing, grooming, or toileting? No [email or web address] Information not available 10/25/2024 What is your exercise level? Occasional [email or web address] Information not available 10/25/2024 Mental Status Question Answer Note LastModified by Organization D etails LastModified Time Do you feel stressed (tense, restless, nervous, or anxious, or unable to sleep at night)? [id number] [email or web address] Information not available 01/28/2025 Family History Nothing [...] ICD10 Code Diagnosis IMO Codes Diagnosis Note [id number] Grace Murcia CNM [place] [address],[place] [address] 02/25/2025 14:45:15 02/25/2025 15:00:21 Gestation period, 34 weeks 79297268 Z3A.34 [id number] cont pnv [id number] Anoop Johnson MD [place] [address],[place] [address] 03/10/2025 14:40:38 03/10/2025 15:25:33 Uterine size for dates discrepancy 968252582 O26.843 O09.30 Z3A.36 [id number] Anoop Johnson MD [place] [address],[place] [address] 03/10/2025 14:43:23 03/10/2025 16:33:12 care status 221633364 Z34.83 [id number] Anoop Johnson MD [place] [address],[place] [address] 03/23/2025 17:49:32 03/24/2025 09:10:25 care status 592502475 Z34.83 [id number] Health Concerns Section Related Observation LastModified by Organization Detai ls LastModified Time None Recorded Concern Status LastModified by Organization Details LastModified Time None Recorded Payers Encounter Date Sequence Insurance Name Policy Number Policy Hoang Covered Member ID Hoang Member ID Guarantor Name 03/23/2025 1 [facility] (MEDICAID HMO) [id number] Con Barraza [id number] Annayeni Madi Notes Date Note Type Note Provider Name and Address Organization Details Recorded Time 03/23/2025 text/html Generic HPI TemplateReported by Patient Anoop Johnson MD [address], [place], [address], [place] [facility] 03/23/2025 18:20:21 OBGyn Episode Ob Episode Information Episode Created Date Number of Fetuses Patient Bloodtype Patient rh Status Prepregnancy Weight lbs Domestic Partner Domestic Partner Phone Father Name Automotive Heavy Mechanic Status 10/26/19 25 1 O Positive Ricky CLOSED Fetus Data First Name Last Name Admitted to NICU Weight (g) Sex Living Outcome Pediatric Complications Fetus ID Race Codes Race Delivery Type 3373.59 05 F true Full Term [id number] Vaginal Delivery Cristobal Calculation Initial Cristobal Date [...] Weight in lbs Pre/Post Dialysis Refused Weight 164.121522458028 BP Diastolic BP Location Tested BP Systolic BP Type 62 L arm 90 sitting Fetus Heart Rate Present A Present Fetus Movement A Yes Comments Patient presents [facility]. Hx of uncomplicated , EIL. otherwise [...] Weight in lbs Pre/Post Dialysis Refused Weight 167.606833507538 BP Diastolic BP Location Tested BP Systolic [...] Weight in lbs Pre/Post Dialysis Refused Weight 175.442221992997 BP Diastolic BP Location Tested BP Systolic [...] Weight in lbs Pre/Post Dialysis Refused Weight 178.181484036793 BP Diastolic BP Location Tested BP Systolic [...] Weight in lbs Pre/Post Dialysis Refused Weight 180.914151475536 BP Diastolic BP Location Tested BP Systolic [...] Weight in lbs Pre/Post Dialysis Refused Weight 178.880159412758 BP Diastolic BP Location Tested BP Systolic [...] Weight in lbs Pre/Post Dialysis Refused Weight 183.327221089134 BP Diastolic BP Location Tested BP Systolic BP Type 63 L arm 93 sitting Fetus Heart Rate Present Fetus Movement A Yes Comments [facility] [place] [facility] +[id number], precautions and education, not planning on vaccines [...] Weight in lbs Pre/Post Dialysis Refused Weight 186.288051039206 BP Diastolic BP Location Tested BP Systolic [...] Weight in lbs Pre/Post Dialysis Refused Weight 190.065644487376 BP Diastolic BP Location Tested BP Systolic [...] Type Weight in lbs Pre/Post Dialysis Refused 189.098959998150 BP Diastolic BP Location Tested BP Systolic [...] Weight in lbs Pre/Post Dialysis Refused Weight 192.587663603454 BP Diastolic BP Location Tested BP Systolic [...]
--- OUTSIDE RECORDS SUMMARY | 2025-05-13 10:27 | XMS_ITS | Data Portability ---
Author Organization [facility], [place] Address [address] [place] [address] Assessment Encounter Date Assessment Date Assessment LastModified by Organization Details LastModified Time 03/10/2025 03/10/2025 Patient is ___weeks . Discussed plan. [email or web address] Not available 03/10/2025 15:41:13 03/23/2025 03/23/2025 Patient is ___weeks . Discussed plan. [email or web address] Not available 03/23/2025 17:59:21 03/30/2025 03/30/2025 Patient is ___weeks . Discussed plan. [email or web address] Not available 03/30/2025 17:09:48 04/08/2025 04/08/2025 Patient is ___weeks . Discussed plan. [email or web address] Not available 04/08/2025 14:47:52 Plan of Treatment Reminders Order Date Submit Date Provider Last Modified By Organization Details Last Modified Time Details Appointments POST 2024 11:00A Segundo JOHNSON MD Not available Not available Not available Lab None recorded . Referral None recorded . Procedures None recorded . Surgeries None recorded . Imaging US, obstetri c, follow-u p 2024 025 [email or web address] [facility], [address], [address], [place], [address], 03/11/2025 14:13:06 Medication Orders None recorded . Patient TargetsNo [...] ting Lab: [facility] [address] [facility] [address] Tel: [phone] CULTU RE ----- ----- ----- --- No Group B strep isola bryan at 2 days (prudence ctive broth enhan cemen t) Not Available [facility] (Lab) [address], [place], [address], 03/13/2025 15:12:11 02/12/20 25 02/11/2025 , usha tric follo w-up No observ ation record ed. [email or web address] [facility] [address], [place], [address], 02/11/2025 17:21:09 02/12/20 25 02/11/2025 US, obstjen tric follo w-up No observ ation record ed. [email or web address] [facility] [address], [place], [address], 02/25/2025 10:51:35 03/10/2003/10/2025 US, obste tric follo w-up No observ ation record ed. [facility] [address], [place], [address], 03/10/2025 15:18:58 10/03/10/2025 US, obste tric, follo w-up No observ ation record ed. [email or web address] Joseph [address], [place], [address], 03/18/2025 11:35:09 Result Notes None recorded. Problems Name Problem SNOMED Code Status Onset Date Resolution Date Notes Provider Name and Address Organization Details Recorded Time [id number] Completed 025 05/05/2025 [facility] 12:46:49 Problem Notes None recorded. Medical [...] Updated DateTime 03/10/2025 157.48 cm 34 kg/m2 12934.18 g 117/71 mm[Hg] Ricarda Quevedo [facility] 03/10/2025 15:41:53 Date Recorded Body height Body mass index (BMI) Body weight Systolic And Diastolic Provider Name and Address Organization Details Last Updated DateTime 03/23/2025 157.48 cm 34.8 kg/m2 31490.99 g 109/65 mm[Hg] [facility] 03/23/2025 17:59:01 Date Recorded Body weight Systolic And Diastolic Provider Name and Address Organization Details Last Updated DateTime 03/30/2025 85658.07714 g 100/68 mm[Hg] Joy Conrad [facility] 03/30/2025 17:30:38 Date Recorded Body height Body mass index (BMI) Body weight Systolic And Diastolic Provider Name and Address Organization Details Last Updated DateTime 04/08/2025 157.48 cm 35.1 kg/m2 69399.74 g 110/74 mm[Hg] Christine Preciado [facility] 04/08/2025 14:53:58 Social History Question Answer Notes LastModified by Organizat ion Details LastModified Time Tobacco Smoking Status Never Smoker JUANITO Hutchins miki, [facility] 10/25/2024 16:11:22 Do You Have An Advance Directive? No [email or web address] Information n ot available 10/25/2024 If You Are , What Was Your Level Of Alcohol Consumption Prior To ? None [email or web address] Information not available 10/25/2024 Are You Blind Or Do You Have Difficulty Seeing? No [email or web address] Information n ot available 10/25/2024 What Is Your Level Of Caffeine Consumption? None [email or web address] Information not available 10/25/2024 In The 14 Days Before Symptom Onset, Have You Had Close Contact With A Laboratory-confirm ed COVID-19 While That Case Was Ill? No [email or web address] Information n ot available 10/25/2024 In The 14 Days Before Symptom Onset, Have You Had Close Contact With A Person Who Is Under Investigation For COVID-19 While That Person Was Ill? No [email or web address] Information not available 10/25/2024 Have You Been To An Area Known To Be High Risk For COVID-19? No [email or web address] Information not available 10/25/2024 Are You Deaf Or Do You Have Serious Difficulty Hearing? No [email or web address] Information not available 10/25/2024 What Type Of Diet Are You Following? REGULAR [email or web address] Information n ot available 10/25/2024 What Is The Highest Grade Or Level Of School You Have Completed Or The Highest Degree You Have Received? IO05249-1 [email or web address] Information not available 10/25/2024 Are There Any Guns Present In Your Home? No [email or web address] Information not available 10/25/2024 Do You Use Protection During Sex? No [email or web address] Information not available 01/28/2025 Do You Use Your Seat Belt Or Car Seat Routinely? Yes [email or web address] Information not available 10/25/2024 Are You Sexually Active? Yes [email or web address] Information not available 10/25/2024 Do You Have Smoke And Carbon Monoxide Detectors In Your Home? Yes Information not available 10/25/2024 Do You Use Sunscreen Routinely? Yes Information not available 10/25/2024 Has Tobacco Cessation Counseling Been Provided? No [email or web address] Information not available 10/25/2024 Do You Have Difficulty Walking Or Climbing Stairs? No [email or web address] Information not available 10/25/2024 Sex: Unknown Functional Status Question Answer Note LastModified by Organizat ion Details LastModified Time Do you use any illicit or recreational drugs? No [email or web address] Information not available 10/25/2024 Do you or have you ever used any other forms of tobacco or nicotine? No [email or web address] Information not available 10/25/2024 What is your level of alcohol consumption? None [email or web address] Information not available 10/25/2024 Are you currently employed? Yes Information not available 01/28/2025 Are you able to walk independently without assistance or assistive devices? YESASSIST [email or web address] Information not available 10/25/2024 Are you able to care for yourself independently? Yes [email or web address] Information not available 10/25/2024 Do you have difficulty dressing, bathing, grooming, or toileting? No [email or web address] Information not available 10/25/2024 What is your exercise level? Occasional [email or web address] Information not available 10/25/2024 Mental Status Question Answer Note LastModified by Organization D etails LastModified Time Do you feel stressed (tense, restless, nervous, or anxious, or unable to sleep at night)? [id number] [email or web address] Information not available 01/28/2025 Family History Nothing Reported. 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 746027276 Z32.01 743091 [id number] CRISTINA PETERSEN MD [facility] [address] [address] 10/25/2024 15:59:33 10/26/2024 09:34:02 Finding of menstrual bleeding 295449811 Z36.87 Z3A.16 899861 [id number] CRISTINA PETERSEN MD [facility] [address] [address] 11/26/2024 14:25:07 11/26/2024 16:14:34 Ultrasound scan - obstetric 404598356 Z36.3 O09.30 Z3A.21 64704 [id number] CRISTINA PETERSEN MD [facility] [address],[place] [address] 11/26/2024 14:25:32 11/27/2024 08:50:13 care status 396627799 Z34.82 [id number] MD Brit ELIZALDE [address],[place] [address] 12/31/2024 16:24:15 01/03/2025 07:16:14 care status 658266822 Z34.83 35278088 [id number] MD Brit ELIZALDE [address],[place] [address] 01/14/2025 15:27:34 01/14/2025 16:12:36 screening 378766734 Z36.89 [id number] [facility] [address],[place] [address] 01/28/2025 10:05:52 01/28/2025 10:29:15 Gestation period, 30 weeks 99872806 Z3A.30 5035177 cont pnvstart slow fe daily [id number] CRISTINA PETERSEN MD [facility] [address],[place] [address] 02/11/2025 15:41:07 02/11/2025 16:57:52 Uterine size for dates discrepancy 694830486 O26.843 Z3A.32 3788223 [id number] [facility] [address],[place] [address] 02/11/2025 15:41:30 02/14/2025 10:40:09 Gestation period, 32 weeks 9032710 Z3A.32 4504079 cont pnv [id number] Grace Murcia CNM [facility] [address],[place] [address] 02/25/2025 14:45:15 02/25/2025 15:00:21 Gestation period, 34 weeks 61550918 Z3A.34 1454356 cont pnv [id number] Anoop Johnson MD [facility] [address],[place] [address] 03/10/2025 14:40:38 03/10/2025 15:25:33 Uterine size for dates discrepancy 757102993 O26.843 O09.30 Z3A.36 0093484 [id number] Anoop Johnson MD [facility] [address],[place] [address] 03/10/2025 14:43:23 03/10/2025 16:33:12 care status 046763454 Z34.83 51810431 [id number] Anoop Johnson MD [facility] [address],[place] [address] 03/23/2025 17:49:32 03/24/2025 09:10:25 care status 397609977 Z34.83 23140637 [id number] nAoop Johnson MD [facility] [address],[place] [address] 03/30/2025 17:07:58 03/31/2025 08:48:38 care status 758452466 Z34.83 01939031 [id number] Anoop Johnson MD [facility] [address],[place] [address] 04/08/2025 14:46:38 04/08/2025 15:31:34 care status 098686734 Z34.83 [id number] Health Concerns Section Related Observation LastModified by Organization Detai ls LastModified Time None Recorded Concern Status LastModified by Organization Details LastModified Time None Recorded Advance Directives Directive N: Payers Insurance Date Sequence Insurance Name Policy Number Policy Hoang Covered Member ID Hoang Member ID Guarantor Name 05/11/2025 1 [facility] (MEDICAID HMO) [id number] Con Barraza [id number] Con Barraza Notes Date Note Type Note Provider Name and Address Organization Details Recorded Time 03/10/2025 text/html Generic HPI TemplateReported by Patient Anoop Johnson MD [address], [place], [address], [facility] 03/10/2025 16:29:53 03/23/2025 text/html Generic HPI TemplateReported by Patient Anoop Johnson MD [address], [place], [address], [facility] 03/23/2025 18:20:21 03/30/2025 text/html Generic HPI TemplateReported by Patient Anoop Johnson MD [address], [place], [address], [facility] 03/30/2025 17:45:55 04/08/2025 text/html Generic HPI TemplateReported by Patient Anoop Johnson MD [address], [place], [address], [facility] 04/08/2025 15:25:47 OBGyn Episode Ob Episode Information Episode Created Date Number of Fetuses Patient Bloodtype Patient rh Status Prepregnancy Weight lbs Domestic Partner Domestic Partner Phone Father Name Records Management Manager Status 10/26/19 25 1 CLOSED Fetus Data First Name Last Name Admitted to NICU Weight (g) Sex Living Outcome Pediatric Complications Fetus ID Race Codes Race Delivery Type , Spontane ous [id number] Cristobal Calculation Initial Cristobal Date Initial Exam [...] Domestic Partner Domestic Partner Phone Father Name Records Management Manager Status 10/26/19 25 1 CLOSED Fetus Data First Name Last Name Admitted to NICU Weight (g) Sex Living Outcome Pediatric Complications Fetus ID Race Codes Race Delivery Type 2721.55 2 F Full Term [id number] Vaginal Delivery Cristobal Calculation Initial Cristobal Date [...] Domestic Partner Domestic Partner Phone Father Name Records Management Manager Status 10/26/19 25 1 O Positive Ricky CLOSED Fetus Data First Name Last Name Admitted to NICU Weight (g) Sex Living Outcome Pediatric Complications Fetus ID Race Codes Race Delivery Type 3373.59 05 F true Full Term [id number] Vaginal Delivery Cristobal Calculation Initial Cristobal Date [...] Weight in lbs Pre/Post Dialysis Refused Weight 164.135452047250 BP Diastolic BP Location Tested BP Systolic BP Type 62 L arm 90 sitting Fetus Heart Rate Present A Present Fetus Movement A Yes Comments Patient presents to [facility] care. Hx of uncomplicated , EIL. otherwise [...] Weight in lbs Pre/Post Dialysis Refused Weight 167.526016775619 BP Diastolic BP Location Tested BP Systolic [...] Weight in lbs Pre/Post Dialysis Refused Weight 175.251464927586 BP Diastolic BP Location Tested BP Systolic [...] Weight in lbs Pre/Post Dialysis Refused Weight 178.018825159654 BP Diastolic BP Location Tested BP Systolic [...] Weight in lbs Pre/Post Dialysis Refused Weight 180.133852291013 BP Diastolic BP Location Tested BP Systolic [...] Weight in lbs Pre/Post Dialysis Refused Weight 178.557925913858 BP Diastolic BP Location Tested BP Systolic [...] Weight in lbs Pre/Post Dialysis Refused Weight 183.407265420976 BP Diastolic BP Location Tested BP Systolic BP Type 63 L arm 93 sitting Fetus Heart Rate Present Fetus Movement A Yes Comments plan f/u growth at [facility] [place] by cnm +[id number], precautions and education, not planning on vaccines [...] Weight in lbs Pre/Post Dialysis Refused Weight 186.104135906986 BP Diastolic BP Location Tested BP Systolic [...] Weight in lbs Pre/Post Dialysis Refused Weight 190.374126764080 BP Diastolic BP Location Tested BP Systolic [...] Type Weight in lbs Pre/Post Dialysis Refused 189.187768702606 BP Diastolic BP Location Tested BP Systolic [...] Weight in lbs Pre/Post Dialysis Refused Weight 192.253718942369 BP Diastolic BP Location Tested BP Systolic [...]
--- OUTSIDE RECORDS SUMMARY | 2025-05-13 10:27 | XMS_ITS | Continuity of Care Document ---
Author Organization [facility], [place] Address [address] [place] [address] Assessment Encounter Date Assessment Date Assessment LastModified [...] Not Available [facility] [address], [place], [address], 11/01/2024 03:35:20 11/02/19 25 11/01/2024 [UNIT Y] ANEUP LOIDY NIPT 22Q11.2 microdeletio n LOW RISK <1 in 10,000 normal Not Available [facility] [address], [place], [address], 11/01/2024 03:35:20 11/02/19 25 11/01/2024 [UNIT Y] ANEUP LOIDY NIPT sex chromosome aneuploidy NOT DETECT ED normal Not Available [facility] [address], [place], [address], 11/01/2024 03:35:20 11/02/19 25 11/01/2024 [UNIT Y] ANEUP LOIDY NIPT monosomy X LOW RISK <1 in 10,000 normal Not Available [facility] [address], [place], [address], 11/01/2024 03:35:20 11/02/19 25 11/01/2024 [UNIT Y] ANEUP LOIDY NIPT trisomy 13 LOW RISK <1 in 10,000 normal Not Available [facility] [address], [place], [address], 11/01/2024 03:35:20 11/02/19 25 11/01/2024 [UNIT Y] ANEUP LOIDY NIPT trisomy 18 LOW RISK <1 in 10,000 normal Not Available [facility] [address], [place], [address], 11/01/2024 03:35:20 11/02/19 25 11/01/2024 [UNIT Y] ANEUP LOIDY NIPT trisomy 21 LOW RISK <1 in 10,000 normal Not Available [facility] [address], [place], [address], 11/01/2024 03:35:20 11/02/19 25 11/01/2024 [UNIT Y] ANEUP LOIDY NIPT sex FEMALE normal Not Available [facility] [address], [place], [address], 11/01/2024 03:35:20 11/02/19 25 11/01/2024 [UNIT Y] ANEUP LOIDY NIPT gestation SINGLE TON normal Not Available [facility] [address], [place], [address], 11/01/2024 03:35:20 11/02/19 25 11/01/2024 [UNIT Y] ANEUP ALEXIAIDY NIPT for detailed report, see pdf See PDF normal Not Available [facility] [address], [place], [address], 11/01/2024 03:35:20 11/05/19 25 11/04/2024 [UNIT Y] LAQUITA Hurtado sickle cell disease/beta -thalassemia /hemoglobino pathies carrier screen NEGATI VE normal Not Available [facility] [address], [place], [address], 11/04/2024 00:48:44 11/05/19 25 11/04/2024 [UNIT Y] LAQUITA Hurtado alpha-thalas semia carrier screen NEGATI VE normal Not Available [facility] [address], [place], [address], 11/04/2024 00:48:44 11/05/19 25 11/04/2024 [UNIT Y] LAQUITA Hurtado cystic fibrosis carrier screen NEGATI VE normal Not Available [facility] [address], [place], [address], 11/04/2024 00:48:44 11/05/19 25 11/04/2024 [UNIT Y] LAQUITA Hurtado spinal muscular atrophy carrier screen NEGATI VE 2 SMN1 copies , SNP not presen t normal Not Available [facility] [address], [place], [address], 11/04/2024 00:48:44 11/05/19 25 11/04/2024 [UNIT Y] LAQUITA Hurtado for detailed report, see pdf See PDF normal Not Available [facility] [address], [place], [address], 11/04/2024 00:48:44 10/26/19 25 10/25/2024 CBC W/DIF F WBC 8.7 10'3/ uL 3.5-10 .5 Not Available [facility] (Lab) [address] [facility], [place], [address], 10/26/2024 13:46:11 10/26/19 25 10/25/2024 CBC W/DIF F RBC 3.45 10'6/ uL (based on docume nted legal sex) 3.80-5 .20 low Not Available [facility] (Lab) [address] [facility], [place], [address], 10/26/2024 13:46:11 10/26/19 25 10/25/2024 CBC W/DIF F HGB 10.1 g/dL (based on docume nted legal sex) 11.6-1 5.4 low Not Available [facility] (Lab) [address] [facility], [place], [address], 10/26/2024 13:46:11 10/26/19 25 10/25/2024 CBC W/DIF F HCT 31.0 % (based on docume nted legal sex) 34.0-4 5.0 low Not Available [facility] (Lab) [address], [place], [address], 10/26/2024 13:46:11 10/26/19 25 10/25/2024 CBC W/DIF F MCV 89.9 fL 80.0-9 9.0 Not Available [facility] (Lab) [address] [facility], [place], [address], 10/26/2024 13:46:11 10/26/19 25 10/25/2024 CBC W/DIF F MCH 29.3 pg 27.0-3 4.0 Not Available [facility] (Lab) [address] [place], [address], 10/26/2024 13:46:11 10/26/19 25 10/25/2024 CBC W/DIF F MCHC 32.6 g/dL 32.0-3 5.5 Not Available [facility] (Lab) [address] [place], [address], 10/26/2024 13:46:11 10/26/19 25 10/25/2024 CBC W/DIF F RDW 14.4 % 11.0-1 5.0 Not Available [facility] (Lab) [address] [facility], [place], [address], 10/26/2024 13:46:11 10/26/19 25 10/25/2024 CBC W/DIF F plt 284 10'3/ uL 150-40 0 Not Available [facility] (Lab) [address] [facility], [place], [address], 10/26/2024 13:46:11 10/26/19 25 10/25/2024 CBC W/DIF F MPV 11.1 fL 8.8-12 .1 Not Available [facility] (Lab) [address] [facility], [place], [address], 10/26/2024 13:46:11 10/26/19 25 10/25/2024 CBC W/DIF F NRBC's 0.0 % 0.0 Not Available [facility] (Lab) [address] [facility], [place], [address], 10/26/2024 13:46:11 10/26/19 25 10/25/2024 CBC W/DIF F absolute NRBCs 0.0 10'3/ uL no refere nce range establ ished Not Available [facility] (Lab) [address] [facility], [place], [address], 10/26/2024 13:46:11 10/26/19 25 10/25/2024 CBC W/DIF F neutrophils 62.7 % 34.0-7 3.0 Not Available [facility] (Lab) [address] [facility], [place], [address], 10/26/2024 13:46:11 10/26/19 25 10/25/2024 CBC W/DIF F lymphocytes 31.2 % 15.0-5 0.0 Not Available [facility] (Lab) [address], [place], [address], 10/26/2024 13:46:11 10/26/19 25 10/25/2024 CBC W/DIF F monocytes 5.2 % 1.0-15 .0 Not Available [facility] (Lab) [address] [facility], [place], [address], 10/26/2024 13:46:11 10/26/19 25 10/25/2024 CBC W/DIF F eosinophils 0.2 % 0.0-8. 0 Not Available [facility] (Lab) [address] [facility], [place], [address], 10/26/2024 13:46:11 10/26/19 25 10/25/2024 CBC W/DIF F basophils 0.5 % 0.0-2. 0 Not Available [facility] (Lab) [address] [facility], [place], [address], 10/26/2024 13:46:11 10/26/19 25 10/25/2024 CBC W/DIF [...] separ ately if prese nt. Not Available [facility] (Lab) [address], [place], [address], 10/26/2024 13:46:11 10/26/19 25 10/25/2024 CBC W/DIF F absolute neutrophils 5.5 10'3/ uL 1.5-8. 0 Not Available [facility] (Lab) [address] [facility], [place], [address], 10/26/2024 13:46:11 10/26/19 25 10/25/2024 CBC W/DIF F absolute lymphocytes 2.7 10'3/ uL 1.0-4. 0 Not Available [facility] (Lab) [address] [facility], [place], [address], 10/26/2024 13:46:11 10/26/19 25 10/25/2024 CBC W/DIF F absolute monocytes 0.5 10'3/ uL 0.2-1. 0 Not Available [facility] (Lab) [address] [facility], [place], [address], 10/26/2024 13:46:11 10/26/19 25 10/25/2024 CBC W/DIF F absolute eosinophils 0.0 10'3/ uL 0.0-0. 6 Not Available [facility] (Lab) [address], [place], [address], 10/26/2024 13:46:11 10/26/19 25 10/25/2024 CBC W/DIF F absolute basophils 0.0 10'3/ uL 0.0-0. 3 Not Available [facility] (Lab) [address] [facility], [place], [address], 10/26/2024 13:46:11 10/26/19 25 10/25/2024 CBC W/DIF [...] dyer book. nm.or g/gen derx Not Available [facility] (Lab) [address], [place], [address], 10/26/2024 13:46:11 10/26/19 25 10/25/2024 HIV 1/2 ANTIG EN/AN TIBOD Y, REFLE X CONFI RMATI ON HIV antigen/anti body Nonrea ctive nonrea ctive HIV-1 antig en and HIV-1 /HIV- 2 antib odies were not detec bryan. No labor atory evide nce of HIV infec tion. Not Available [facility] (Lab) [address] [facility], [place], [address], 10/26/2024 13:46:11 10/26/19 25 10/25/2024 HEPAT ITIS C ANTIB MIGUELINA SCREE N, REFLE X TO CONFI RMATI ON hepatitis C antibody Non-re active non-re active Antib odies to HCV Not Detec bryan, does not exclu de the possi bilit y of expos ure to HCV. Not Available [facility] (Lab) [address] [facility], [place], [address], 10/26/2024 13:46:12 10/26/19 25 10/25/2024 HEPAT ITIS B SURFA CE ANTIG EN hepatitis B surface antigen Non-re active non-re active This assay was perfo rmed using [employer] ratio n reage nts and test kits. Value s obtai rickey with other assay metho ds or kits canno t be used inter zuleta eably . Not Available [facility] (Lab) [address] [facility], [place], [address], 10/26/2024 13:46:12 10/26/19 25 10/25/2024 TSH, REFLE X FREE T4 TSH 1.26 uIU/m L 0.30-5 .33 Not Available [facility] (Lab) [address] [place], [address], 10/26/2024 13:46:13 10/26/19 25 10/25/2024 TYPE/ RH/SC REEN ABO/Rh type O POS Not Available [facility] (Lab) [address] [place], [address], 10/26/2024 13:46:13 10/26/1910/25/2024 TYPE/ RH/SC REEN antibody screen NEG Not Available [facility] (Lab) [address] [facility], [place], [address], 10/26/2024 13:46:13 10/26/19 25 10/25/2024 TYPE/ RH/SC REEN exp date 2024 23:59 Not Available [facility] (Lab) [address] [facility], [place], [address], 10/26/2024 13:46:13 10/26/19 25 10/25/2024 RUBEL LA IGG ANTIB MIGUELINA, QUANT rubella antibodies, IgG Reacti ve reacti ve Not Available [facility] (Lab) [address] [facility], [place], [address], 10/26/2024 13:46:13 10/26/19 25 10/25/2024 RUBEL LA IGG ANTIB MIGUELINA, QUANT rubella antibodies, IgG quant 18.0 IU/mL >=10 Non-r eacti ve (Non- Immun e) <10 IU/mL React haim (Immu ne) > or = 10 IU/mL Not Available [facility] (Lab) [address] [facility], [place], [address], 10/26/2024 13:46:13 10/26/19 25 10/25/2024 RPR SCREE N, REFLE X TITER /CONF IRMAT ION RPR qualitative Nonrea ctive nonrea ctive Not Available [facility] (Lab) [address] [facility], [place], [address], 10/26/2024 13:46:14 10/26/19 25 10/25/2024 HEMOG LOBIN [...] thera py >8.0% Alejo zambrano Not Available [facility] (Lab) [address] [facility], [place], [address], 10/26/2024 13:46:14 10/26/19 25 10/25/2024 CT/GC AND TRICH OMONA S VAGIN ARIANA (RRNA ), URINE chlamydia trachomatis, PCR Negati ve negati ve Not Available [facility] (Lab) [address] [facility], [place], [address], 10/26/2024 21:37:02 10/26/19 25 10/25/2024 CT/GC AND TRICH OMONA S VAGIN ARIANA (RRNA ), URINE neisseria gonorrhoeae, PCR Negati ve negati ve Not Available [facility] (Lab) [address] [facility], [place], [address], 10/26/2024 21:37:02 10/26/19 25 10/25/2024 CT/GC AND TRICH OMONA S VAGIN ARIANA (RRNA ), URINE trichomonas vaginalis ribosomal RNA (rrna) Negati ve negati ve Not Available [facility] (Lab) [address] [facility], [place], [address], 10/26/2024 21:37:02 10/26/19 25 10/25/2024 CULTU RE: URINE result report SEE RESULT S BELOW Test: Cultu re: Urine Speci men Sourc e: Urine Voide d Speci men Type: Urine Speci men Date: 025 1714 Resul t Date: 2024 Resul t Statu s: Final resul t Abnor mal: No Resul ting Lab: [facility] [address] [facility] [address] Tel: CULTU RE ----- ----- ----- --- No growt h in 1 day (dete ction level of 10,00 0 colon ies / ml.) Not Available [facility] (Lab) [address], [place], [address], 10/26/2024 21:37:02 10/26/19 25 10/25/2024 drug scree n, urine Amphetamines : negati ve Not Available [place] [address], [place], [address], 10/25/2024 17:35:03 10/26/19 25 10/25/2024 drug scree n, urine Cannabinoids : negati ve Not Available [place] [address], [place], [address], 10/25/2024 17:35:03 10/26/19 25 10/25/2024 drug scree n, urine Cocaine: negati ve Not Available [place] [address], [place], [address], 10/25/2024 17:35:03 10/26/19 25 10/25/2024 drug scree n, urine Opiates: negati ve Not Available [place] [address], [place], [address], 10/25/2024 17:35:03 10/26/19 25 10/25/2024 drug scree n, urine Phenocyclidi ne: negati ve Not Available [place] [address], [place], [address], 10/25/2024 17:35:03 10/26/19 25 10/25/2024 drug scree n, urine Barbiturates : negati ve Not Available [place] [address], [place], [address], 10/25/2024 17:35:03 10/26/19 25 10/25/2024 drug scree n, urine Benzodiazepi bridget: negati ve Not Available [place] [address], [place], [address], 10/25/2024 17:35:03 10/26/19 25 10/25/2024 drug scree n, urine Ethanol: negati ve Not Available [place] [address], [place], [address], 10/25/2024 17:35:03 10/26/19 25 10/25/2024 drug scree n, urine Hallucinogen s: negati ve Not Available [place] [address], [place], [address], 10/25/2024 17:35:03 10/26/19 25 10/25/2024 drug scree n, urine Inhalants: negati ve Not Available [place] [address], [place], [address], 10/25/2024 17:35:03 10/26/19 25 10/25/2024 drug scree n, urine Anabolic Steroids: negati ve Not Available [place] [address], [place], [address], 10/25/2024 17:35:03 10/26/19 25 10/25/2024 drug scree n, urine Other: negati ve Not Available [place] [address], [place], [address], 10/25/2024 17:35:03 01/15/20 25 01/14/2025 HEMOG LOBIN (HGB) HGB 9.3 g/dL (based on docume nted legal sex) 11.6-1 5.4 low Not Available [facility] (Lab) [address], [place], [address], 01/15/2025 13:08:39 01/15/20 25 01/14/2025 HEMAT OCRIT (HCT) HCT 28.1 % (based on docume nted legal sex) 34.0-4 5.0 low Not Available [facility] (Lab) [address] [facility], [place], [address], 01/15/2025 13:08:39 01/15/20 25 01/14/2025 GTT - GESTA RADHA L AMBAR Hurtado, ACOG OB glucose, 1 hour screen 99 mg/dL 70-135 Not Available [facility] (Lab) [address] [facility], [place], [address], 01/15/2025 13:08:40 01/15/20 25 01/14/2025 HIV 1/2 ANTIG EN/AN TIBOD Y, REFLE X CONFI RMATI ON HIV antigen/anti body Nonrea ctive nonrea ctive HIV-1 antig en and HIV-1 /HIV- 2 antib odies were not detec bryan. No labor atory evide nce of HIV infec tion. Not Available [facility] (Lab) [address] [facility], [place], [address], 01/15/2025 13:08:40 01/15/20 25 01/14/2025 RPR SCREE N, REFLE X TITER /CONF IRMAT ION RPR qualitative Nonrea ctive nonrea ctive Not Available [facility] (Lab) [address] [facility], [place], [address], 01/15/2025 13:08:40 10/26/19 25 10/25/2024 US, usha tric, limit ed No observ ation record ed. [facility] [address], [place], [address], 10/25/2024 18:50:32 10/28/19 25 10/25/2024 US, obste tric, limit ed No observ ation record ed. [email or web address] [facility] [address], [place], [address], 10/30/2024 23:24:32 11/27/19 25 11/26/2024 US, usha rossi, 2nd or 3rd trime ster No observ ation record ed. [facility] [address], [place], [address], 11/26/2024 17:49:36 11/27/19 25 11/26/2024 US, obste tric, 2nd or 3rd trime ster No observ ation record ed. [email or web address] [facility] [address], [place], [address], 11/26/2024 17:24:36 02/12/20 25 02/11/2025 US, obste tric, follo w-up No observ ation record ed. [email or web address] [place] [address], [place], [address], 02/11/2025 17:21:09 02/12/20 25 02/11/2025 US, obste tric, follo w-up No observ ation record ed. [email or web address] [facility] [address], [place], [address], 02/25/2025 10:51:35 03/10/20 25 03/10/2025 US, obste tric, follo w-up No observ ation record ed. [facility] [address], [place], [address], 03/10/2025 15:18:58 03/10/20 25 03/10/2025 US, obste tric, follo w-up No observ ation record ed. [email or web address] [facility] [address], [place], [address], 03/18/2025 11:35:09 Result Notes None recorded. Problems Name Problem SNOMED Code Status Onset Date Resolution Date Notes Provider Name and Address Organization Details Recorded Time 89567995 Completed 025 05/05/2025 Christine Preciado [place], [place] - [facility] 12:46:49 Problem Notes None recorded. Medical [...] Updated DateTime 02/25/2025 157.48 cm 33.5 kg/m2 67522.4 g 93/63 mm[Hg] Oly Shabazz [facility] 02/25/2025 14:59:27 Social History Question Answer Notes LastModified by Organizat ion Details LastModified Time Tobacco Smoking Status Never Smoker JUANITO Liset [place], [facility] 10/25/2024 16:11:22 Do You Have An Advance Directive? No [email or web address] Information n ot available 10/25/2024 If You Are , What Was Your Level Of Alcohol Consumption Prior To ? None [email or web address] Information not available 10/25/2024 Are You Blind Or Do You Have Difficulty Seeing? No Information n ot available 10/25/2024 What Is Your Level Of Caffeine Consumption? None [email or web address] Information not available 10/25/2024 In The 14 Days Before Symptom Onset, Have You Had Close Contact With A Laboratory-confirm ed COVID-19 While That Case Was Ill? No [email or web address] Information n ot available 10/25/2024 In The 14 Days Before Symptom Onset, Have You Had Close Contact With A Person Who Is Under Investigation For COVID-19 While That Person Was Ill? No Information not available 10/25/2024 Have You Been To An Area Known To Be High Risk For COVID-19? No [email or web address] Information not available 10/25/2024 Are You Deaf Or Do You Have Serious Difficulty Hearing? No [email or web address] Information not available 10/25/2024 What Type Of Diet Are You Following? REGULAR Information n ot available 10/25/2024 What Is The Highest Grade Or Level Of School You Have Completed Or The Highest Degree You Have Received? AA12738-0 [email or web address] Information not available 10/25/2024 Are There Any Guns Present In Your Home? No [email or web address] Information not available 10/25/2024 Do You Use Protection During Sex? No [email or web address] Information not available 01/28/2025 Do You Use Your Seat Belt Or Car Seat Routinely? Yes [email or web address] Information not available 10/25/2024 Are You Sexually Active? Yes Information not available 10/25/2024 Do You Have Smoke And Carbon Monoxide Detectors In Your Home? Yes [email or web address] Information not available 10/25/2024 Do You Use Sunscreen Routinely? Yes [email or web address] Information not available 10/25/2024 Has Tobacco Cessation Counseling Been Provided? No [email or web address] Information not available 10/25/2024 Do You Have Difficulty Walking Or Climbing Stairs? No [email or web address] Information not available 10/25/2024 Sex: Unknown Functional Status Question Answer Note LastModified by Organizat ion Details LastModified Time Do you use any illicit or recreational drugs? No Information not available 10/25/2024 Do you or have you ever used any other forms of tobacco or nicotine? No [email or web address] Information not available 10/25/2024 What is your level of alcohol consumption? None Information not available 10/25/2024 Are you currently employed? Yes [email or web address] Information not available 01/28/2025 Are you able to walk independently without assistance or assistive devices? YESASSIST [email or web address] Information not available 10/25/2024 Are you able to care for yourself independently? Yes [email or web address] Information not available 10/25/2024 Do you have difficulty dressing, bathing, grooming, or toileting? No [email or web address] Information not available 10/25/2024 What is your exercise level? Occasional [email or web address] Information not available 10/25/2024 Mental Status Question Answer Note LastModified by Organization D etails LastModified Time Do you feel stressed (tense, restless, nervous, or anxious, or unable to sleep at night)? [id number] Information not available 01/28/2025 Family History Nothing [...] ICD10 Code Diagnosis IMO Codes Diagnosis Note [id number] Grace Murcia CNM [place] [address] [address] 01/28/2025 10:05:52 01/28/2025 10:29:15 Gestation period, 30 weeks 82811169 Z3A.30 [id number] cont pnvstart slow fe daily [id number] CRISTINA PETERSEN MD [place] [address] [address] 02/11/2025 15:41:07 02/11/2025 16:57:52 Uterine size for dates discrepancy 469994129 O26.843 Z3A.32 [id number] Grace Murcia CNM [place] [address] [address] 02/11/2025 15:41:30 02/14/2025 10:40:09 Gestation period, 32 weeks 6628817 Z3A.32 [id number] cont pnv [id number] Grace Murcia CNM [place] [address] [address] 02/25/2025 14:45:15 02/25/2025 15:00:21 Gestation period, 34 weeks 68814532 Z3A.34 [id number] cont pnv Health Concerns Section Related Observation LastModified by Organization Detai ls LastModified Time None Recorded Concern Status LastModified by Organization Details LastModified Time None Recorded Payers Encounter Date Sequence Insurance Name Policy Number Policy Hoang Covered Member ID Hoang Member ID Guarantor Name 02/25/2025 1 [facility] (MEDICAID HMO) [id number] Con Barraza [id number] Con Barraza Notes Date Note Type Note Provider Name and Address Organization Details Recorded Time 02/25/2025 text/html Generic HPI TemplateReported by Patient Grace Murcia CNM [address], [place], [address], [facility] 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 Hx of uncomplicated , EIL. [...] Weight in lbs Pre/Post Dialysis Refused Weight 167.475814061931 BP Diastolic BP Location Tested BP Systolic [...] Weight in lbs Pre/Post Dialysis Refused Weight 175.188260553041 BP Diastolic BP Location Tested BP Systolic [...] Weight in lbs Pre/Post Dialysis Refused Weight 178.891481519626 BP Diastolic BP Location Tested BP Systolic [...] Weight in lbs Pre/Post Dialysis Refused Weight 180.066725400481 BP Diastolic BP Location Tested BP Systolic [...] Weight in lbs Pre/Post Dialysis Refused Weight 178.064386082200 BP Diastolic BP Location Tested BP Systolic [...] Weight in lbs Pre/Post Dialysis Refused Weight 183.355546614273 BP Diastolic BP Location Tested BP Systolic BP Type 63 L arm 93 sitting Fetus Heart Rate Present Fetus Movement A Yes Comments plan f/u growth at next [facility] by cnm +[id number], precautions and education, not planning on vaccines [...] Weight in lbs Pre/Post Dialysis Refused Weight 186.519522491267 BP Diastolic BP Location Tested BP Systolic [...] Weight in lbs Pre/Post Dialysis Refused Weight 190.283931116004 BP Diastolic BP Location Tested BP Systolic [...] Type Weight in lbs Pre/Post Dialysis Refused 189.686720903293 BP Diastolic BP Location Tested BP Systolic [...] Weight in lbs Pre/Post Dialysis Refused Weight 192.208449483026 BP Diastolic BP Location Tested BP Systolic [...]
--- OUTSIDE RECORDS SUMMARY | 2025-05-13 10:27 | XMS_ITS | Continuity of Care Document ---
Author Organization [facility] Address [address] [place] [address] Assessment No assessment recorded. Plan of Treatment Reminders Order Date Submit Date Provider Last Modified By Organization Details Last Modified Time Details Appointments POST 2024 11:00A Segundo MOREAU MD Not available Not available Not available Lab None recorded . Referral None recorded . Procedures None recorded . Surgeries None recorded . Imaging US, obstetri c, follow-u p 2024 025 [facility], [address], [address], [place], [address], 02/11/2025 17:10:39 Medication Orders None recorded . Patient TargetsNo targets recorded. Patient InstructionsNo instructions recorded. Reason for Referral None Reported. Results Created Date Observation Date Name Description Value Unit Range Abnormal Flag Note LastModifiedBy Organization Detail LastModifiedTime 11/02/1911/01/2024 [UNIT Y] ANEUP LOIDY NIPT fraction 22.1% normal Not Available [facility] [address], [place], [address], 11/01/2024 03:35:20 11/02/1911/01/2024 [UNIT Y] ANEUP LOIDY NIPT 22Q11.2 microdeletio n LOW RISK <1 in 10,000 normal Not Available [facility] [address], [place], [address], 11/01/2024 03:35:20 11/02/19 25 11/01/2024 [UNIT Y] ANEUP LOIDY NIPT sex chromosome aneuploidy NOT DETECT ED normal Not Available [facility] [address], [place], [address], 11/01/2024 03:35:20 11/02/19 25 11/01/2024 [UNIT Y] ANEUP LOIDY NIPT monosomy X LOW RISK <1 in 10,000 normal Not Available [facility] [address], [place], [address], 11/01/2024 03:35:20 11/02/19 25 11/01/2024 [UNIT Y] ANEUP LOIDY NIPT trisomy 13 LOW RISK <1 in 10,000 normal Not Available [facility] [address], [place], [address], 11/01/2024 03:35:20 11/02/19 25 11/01/2024 [UNIT Y] ANEUP LOIDY NIPT trisomy 18 LOW RISK <1 in 10,000 normal Not Available [facility] [address], [place], [address], 11/01/2024 03:35:20 11/02/19 25 11/01/2024 [UNIT Y] ANEUP LOIDY NIPT trisomy 21 LOW RISK <1 in 10,000 normal Not Available [facility] [address], [place], [address], 11/01/2024 03:35:20 11/02/19 25 11/01/2024 [UNIT Y] ANEUP LOIDY NIPT sex FEMALE normal Not Available [facility] [address], [place], [address], 11/01/2024 03:35:20 11/02/19 25 11/01/2024 [UNIT Y] ANEUP LOIDY NIPT gestation SINGLE TON normal Not Available [facility] [address], [place], [address], 11/01/2024 03:35:20 11/02/19 25 11/01/2024 [UNIT Y] ANEUP SACHA NIPT for detailed report, see pdf See PDF normal Not Available [facility] [address], [place], [address], 11/01/2024 03:35:20 11/05/19 25 11/04/2024 [UNIT Y] LAQUITA Hurtado sickle cell disease/beta -thalassemia /hemoglobino pathies carrier screen NEGATI VE normal Not Available [facility] [address], [place], [address], 11/04/2024 00:48:44 11/05/19 25 11/04/2024 [UNIT Y] LAQUITA Hurtado alpha-thalas semia carrier screen NEGATI VE normal Not Available [facility] [address], [place], [address], 11/04/2024 00:48:44 11/05/19 25 11/04/2024 [UNIT Y] LAQUITA Hurtado cystic fibrosis carrier screen NEGATI VE normal Not Available [facility] [address], [place], [address], 11/04/2024 00:48:44 11/05/19 25 11/04/2024 [UNIT Y] LAQUITA Hurtado spinal muscular atrophy carrier screen NEGATI VE 2 SMN1 copies , SNP not presen t normal Not Available [facility] [address], [place], [address], 11/04/2024 00:48:44 11/05/19 25 11/04/2024 [UNIT Y] LAQUITA Hurtado for detailed report, see pdf See PDF normal Not Available [facility] [address], [place], [address], 11/04/2024 00:48:44 10/26/19 25 10/25/2024 CBC W/DIF F WBC 8.7 10'3/ uL 3.5-10 .5 Not Available [facility] (Lab) [address], [place], [address], 10/26/2024 13:46:11 10/26/19 25 10/25/2024 CBC W/DIF F RBC 3.45 10'6/ uL (based on docume nted legal sex) 3.80-5 .20 low Not Available [facility] (Lab) [address], [place], [address], 10/26/2024 13:46:11 10/26/19 25 10/25/2024 CBC W/DIF F HGB 10.1 g/dL (based on docume nted legal sex) 11.6-1 5.4 low Not Available [facility] (Lab) [address], [place], [address], 10/26/2024 13:46:11 10/26/19 25 10/25/2024 CBC W/DIF F HCT 31.0 % (based on docume nted legal sex) 34.0-4 5.0 low Not Available [facility] (Lab) [address], [place], [address], 10/26/2024 13:46:11 10/26/19 25 10/25/2024 CBC W/DIF F MCV 89.9 fL 80.0-9 9.0 Not Available [facility] (Lab) [address], [place], [address], 10/26/2024 13:46:11 10/26/19 25 10/25/2024 CBC W/DIF F MCH 29.3 pg 27.0-3 4.0 Not Available [facility] (Lab) [address], [place], [address], 10/26/2024 13:46:11 10/26/19 25 10/25/2024 CBC W/DIF F MCHC 32.6 g/dL 32.0-3 5.5 Not Available [facility] (Lab) [address], [place], [address], 10/26/2024 13:46:11 10/26/19 25 10/25/2024 CBC W/DIF F RDW 14.4 % 11.0-1 5.0 Not Available [facility] (Lab) [address] [facility], [place], [address], 10/26/2024 13:46:11 10/26/19 25 10/25/2024 CBC W/DIF F plt 284 10'3/ uL 150-40 0 Not Available [facility] (Lab) [address] [facility], [place], [address], 10/26/2024 13:46:11 10/26/19 25 10/25/2024 CBC W/DIF F MPV 11.1 fL 8.8-12 .1 Not Available [facility] (Lab) [address] [facility], [place], [address], 10/26/2024 13:46:11 10/26/19 25 10/25/2024 CBC W/DIF F NRBC's 0.0 % 0.0 Not Available [facility] (Lab) [address] [facility], [place], [address], 10/26/2024 13:46:11 10/26/19 25 10/25/2024 CBC W/DIF F absolute NRBCs 0.0 10'3/ uL no refere nce range establ ished Not Available [facility] (Lab) [address] [facility], [place], [address], 10/26/2024 13:46:11 10/26/19 25 10/25/2024 CBC W/DIF F neutrophils 62.7 % 34.0-7 3.0 Not Available [facility] (Lab) [address] [facility], [place], [address], 10/26/2024 13:46:11 10/26/19 25 10/25/2024 CBC W/DIF F lymphocytes 31.2 % 15.0-5 0.0 Not Available [facility] (Lab) [address] [facility], [place], [address], 10/26/2024 13:46:11 10/26/19 25 10/25/2024 CBC W/DIF F monocytes 5.2 % 1.0-15 .0 Not Available [facility] (Lab) [address] [facility], [place], [address], 10/26/2024 13:46:11 10/26/19 25 10/25/2024 CBC W/DIF F eosinophils 0.2 % 0.0-8. 0 Not Available [facility] (Lab) [address] [facility], [place], [address], 10/26/2024 13:46:11 10/26/19 25 10/25/2024 CBC W/DIF F basophils 0.5 % 0.0-2. 0 Not Available [facility] (Lab) [address] [facility], [place], [address], 10/26/2024 13:46:11 10/26/19 25 10/25/2024 CBC W/DIF [...] separ ately if prese nt. Not Available [facility] (Lab) [address] [facility], [place], [address], 10/26/2024 13:46:11 10/26/19 25 10/25/2024 CBC W/DIF F absolute neutrophils 5.5 10'3/ uL 1.5-8. 0 Not Available [facility] (Lab) [address] [facility], [place], [address], 10/26/2024 13:46:11 10/26/19 25 10/25/2024 CBC W/DIF F absolute lymphocytes 2.7 10'3/ uL 1.0-4. 0 Not Available [facility] (Lab) [address] [facility], [place], [address], 10/26/2024 13:46:11 10/26/19 25 10/25/2024 CBC W/DIF F absolute monocytes 0.5 10'3/ uL 0.2-1. 0 Not Available [facility] (Lab) [address] [facility], [place], [address], 10/26/2024 13:46:11 10/26/19 25 10/25/2024 CBC W/DIF F absolute eosinophils 0.0 10'3/ uL 0.0-0. 6 Not Available [facility] (Lab) [address] [facility], [place], [address], 10/26/2024 13:46:11 10/26/19 25 10/25/2024 CBC W/DIF F absolute basophils 0.0 10'3/ uL 0.0-0. 3 Not Available [facility] (Lab) [address] [facility], [place], [address], 10/26/2024 13:46:11 10/26/19 25 10/25/2024 CBC W/DIF F absolute immature granulocytes 0.0 10'3/ uL 0.00-0 .10 Refer ence range s for nonbi nary/ inter sex or unspe cifie d gende r patie nts have not been estab lishe d. [facility]as e [facility] for range s estab lishe d for cisge nder patie nts and evalu ate in the clini akira gabino xt of the indiv idual patie nt: https ://la manisha book. nm.or g/gen derx Not Available [facility] (Lab) [address] [facility], [place], [address], 10/26/2024 13:46:11 10/26/19 25 10/25/2024 HIV 1/2 ANTIG EN/AN TIBOD Y, REFLE X CONFI RMATI ON HIV antigen/anti body Nonrea ctive nonrea ctive HIV-1 antig en and HIV-1 /HIV- 2 antib odies were not detec bryan. No labor atory evide nce of HIV infec tion. Not Available [facility] (Lab) [address] [facility], [place], [address], 10/26/2024 13:46:11 10/26/1910/25/2024 HEPAT ITIS C ANTIB MIGUELINA SCREE N, REFLE X TO CONFI RMATI ON hepatitis C antibody Non-re active non-re active Antib odies to HCV Not Detec bryan, does not exclu de the possi bilit y of expos ure to HCV. Not Available [facility] (Lab) [address] [facility], [place], [address], 10/26/2024 13:46:12 10/26/1910/25/2024 HEPAT ITIS B SURFA CE ANTIG EN hepatitis B surface antigen Non-re active non-re active This assay was perfo rmed using [employer] ratio n reage nts and test kits. Value s obtai rickey with other assay metho ds or kits canno t be used inter zuleta eably . Not Available [facility] (Lab) [address] [facility], [place], [address], 10/26/2024 13:46:12 10/26/1910/25/2024 TSH, REFLE X FREE T4 TSH 1.26 uIU/m L 0.30-5 .33 Not Available [facility] (Lab) [address] [facility], [place], [address], 10/26/2024 13:46:13 10/26/1910/25/2024 TYPE/ RH/SC REEN ABO/Rh type O POS Not Available [facility] (Lab) [address] [place], [address], 10/26/2024 13:46:13 10/26/1910/25/2024 TYPE/ RH/SC REEN antibody screen NEG Not Available [facility] (Lab) [address] [facility], [place], [address], 10/26/2024 13:46:13 10/26/19 25 10/25/2024 TYPE/ RH/SC REEN exp date 2024 23:59 Not Available [facility] (Lab) [address] [facility], [place], [address], 10/26/2024 13:46:13 10/26/19 25 10/25/2024 RUBEL LA IGG ANTIB MIGUELINA, QUANT rubella antibodies, IgG Reacti ve reacti ve Not Available [facility] (Lab) [address] [facility], [place], [address], 10/26/2024 13:46:13 10/26/19 25 10/25/2024 RUBEL LA IGG ANTIB MIGUELINA, QUANT rubella antibodies, IgG quant 18.0 IU/mL >=10 Non-r eacti ve (Non- Immun e) <10 IU/mL React haim (Immu ne) > or = 10 IU/mL Not Available [facility] (Lab) [address] [facility], [place], [address], 10/26/2024 13:46:13 10/26/19 25 10/25/2024 RPR SCREE N, REFLE X TITER /CONF IRMAT ION RPR qualitative Nonrea ctive nonrea ctive Not Available [facility] (Lab) [address] [place], [address], 10/26/2024 13:46:14 10/26/19 25 10/25/2024 HEMOG LOBIN [...] Goal of thera py >8.0% Actio angus ennis steelda Not Available [facility] (Lab) [address] [facility], [place], [address], 10/26/2024 13:46:14 10/26/19 25 10/25/2024 CT/GC AND TRICH OMONA S VAGIN ARIANA (RRNA ), URINE chlamydia trachomatis, PCR Negati ve negati ve Not Available [facility] (Lab) [address] [facility], [place], [address], 10/26/2024 21:37:02 10/26/19 25 10/25/2024 CT/GC AND TRICH OMONA S VAGIN ARIANA (RRNA ), URINE neisseria gonorrhoeae, PCR Negati ve negati ve Not Available [facility] (Lab) [address] [facility], [place], [address], 10/26/2024 21:37:02 10/26/19 25 10/25/2024 CT/GC AND TRICH OMONA S VAGIN ARIANA (RRNA ), URINE trichomonas vaginalis ribosomal RNA (rrna) Negati ve negati ve Not Available [facility] (Lab) [address] [facility], [place], [address], 10/26/2024 21:37:02 10/26/1910/25/2024 CULTU RE: URINE result report SEE RESULT S BELOW Test: Cultu re: Urine Speci men Sourc e: Urine Voide d Speci men Type: Urine Speci men Date: 025 1714 Resul t Date: 2024 Resul t Statu s: Final resul t Abnor mal: No Resul ting Lab: [facility] [address] [facility] [address] Tel: CULTU RE ----- ----- ----- --- No growt h in 1 day (dete ction level of 10,00 0 colon ies / ml.) Not Available [facility] (Lab) [address], [place], [address], 10/26/2024 21:37:02 10/26/19 25 10/25/2024 drug scree n, urine Amphetamines : negati ve Not Available [facility] [address], [place], [address], 10/25/2024 17:35:03 10/26/19 25 10/25/2024 drug scree n, urine Cannabinoids : negati ve Not Available [facility] [address], [place], [address], 10/25/2024 17:35:03 10/26/19 25 10/25/2024 drug scree n, urine Cocaine: negati ve Not Available [facility] [address], [place], [address], 10/25/2024 17:35:03 10/26/19 25 10/25/2024 drug scree n, urine Opiates: negati ve Not Available [facility] [address], [place], [address], 10/25/2024 17:35:03 10/26/19 25 10/25/2024 drug scree n, urine Phenocyclidi ne: negati ve Not Available [facility] [address], [place], [address], 10/25/2024 17:35:03 10/26/19 25 10/25/2024 drug scree n, urine Barbiturates : negati ve Not Available [facility] [address], [place], [address], 10/25/2024 17:35:03 10/26/19 25 10/25/2024 drug scree n, urine Benzodiazepi bridget: negati ve Not Available [facility] [address], [place], [address], 10/25/2024 17:35:03 10/26/19 25 10/25/2024 drug scree n, urine Ethanol: negati ve Not Available [facility] [address], [place], [address], 10/25/2024 17:35:03 10/26/19 25 10/25/2024 drug scree n, urine Hallucinogen s: negati ve Not Available [facility] [address], [place], [address], 10/25/2024 17:35:03 10/26/19 25 10/25/2024 drug scree n, urine Inhalants: negati ve Not Available [facility] [address], [place], [address], 10/25/2024 17:35:03 10/26/19 25 10/25/2024 drug scree n, urine Anabolic Steroids: negati ve Not Available [facility] [address], [place], [address], 10/25/2024 17:35:03 10/26/19 25 10/25/2024 drug scree n, urine Other: negati ve Not Available [facility] [address], [place], [address], 10/25/2024 17:35:03 01/15/20 25 01/14/2025 HEMOG LOBIN (HGB) HGB 9.3 g/dL (based on docume nted legal sex) 11.6-1 5.4 low Not Available [facility] (Lab) [address], [place], [address], 01/15/2025 13:08:39 01/15/20 25 01/14/2025 HEMAT OCRIT (HCT) HCT 28.1 % (based on docume nted legal sex) 34.0-4 5.0 low Not Available [facility] (Lab) [address] [facility], [place], [address], 01/15/2025 13:08:39 01/15/20 25 01/14/2025 GTT - GESTA RADHA L SCREE N, ACOG OB glucose, 1 hour screen 99 mg/dL 70-135 Not Available [facility] (Lab) [address] [facility], [place], [address], 01/15/2025 13:08:40 01/15/20 25 01/14/2025 HIV 1/2 ANTIG EN/AN TIBOD Y, REFLE X CONFI RMATI ON HIV antigen/anti body Nonrea ctive nonrea ctive HIV-1 antig en and HIV-1 /HIV- 2 antib odies were not detec bryan. No labor atory evide nce of HIV infec tion. Not Available [facility] (Lab) [address] [facility], [place], [address], 01/15/2025 13:08:40 01/15/20 25 01/14/2025 RPR SCREE N, REFLE X TITER /CONF IRMAT ION RPR qualitative Nonrea ctive nonrea ctive Not Available [facility] (Lab) [address] [facility], [place], [address], 01/15/2025 13:08:40 10/26/19 25 10/25/2024 , usha tric, limit ed No observ ation record ed. [facility] [address], [place], [address], 10/25/2024 18:50:32 10/28/19 25 10/25/2024 , obste tric, limit ed No observ ation record ed. [email or web address] [facility] [address] [place] [address], [place], [address], 10/30/2024 23:24:32 11/27/19 25 11/26/2024 US, obste tric, 2nd or 3rd trime ster No observ ation record ed. [facility] [address], [place], [address], 11/26/2024 17:49:36 11/27/19 25 11/26/2024 US, obste tric, 2nd or 3rd trime ster No observ ation record ed. [email or web address] [facility] [address], [place], [address], 11/26/2024 17:24:36 02/12/20 25 02/11/2025 US, obste tric, follo w-up No observ ation record ed. [email or web address] [facility] [address], [place], [address], 02/11/2025 17:21:09 02/12/20 25 02/11/2025 US, obste tric, follo w-up No observ ation record ed. [email or web address] [facility] [address], [place], [address], 02/25/2025 10:51:35 03/10/20 25 03/10/2025 US, obste tric, follo w-up No observ ation record ed. [facility] [address], [place], [address], 03/10/2025 15:18:58 03/10/20 25 03/10/2025 US, obste tric, follo w-up No observ ation record ed. [email or web address] [facility] [address], [place], [address], 03/18/2025 11:35:09 Result Notes None recorded. Problems Name Problem SNOMED Code Status Onset Date Resolution Date Notes Provider Name and Address Organization Details Recorded Time 76861527 Completed 025 05/05/2025 Christine livingston [place] - [facility] 12:46:49 Problem Notes None recorded. Medical [...] Updated DateTime 02/11/2025 157.48 cm 32.6 kg/m2 92971.44 g 108/70 mm[Hg] Oly Shabazz [facility] 02/11/2025 16:42:02 Social History Question Answer Notes LastModified by Organizat ion Details LastModified Time Tobacco Smoking Status Never Smoker JUANITO livingston, [facility] 10/25/2024 16:11:22 Do You Have An Advance Directive? No [email or web address] Information n ot available 10/25/2024 If You Are , What Was Your Level Of Alcohol Consumption Prior To ? None Information not available 10/25/2024 Are You Blind Or Do You Have Difficulty Seeing? No [email or web address] Information n ot available 10/25/2024 What Is Your Level Of Caffeine Consumption? None [email or web address] Information not available 10/25/2024 In The 14 [...] To Be High Risk For COVID-19? No [email or web address] Information not available 10/25/2024 Are You Deaf Or Do You Have Serious Difficulty Hearing? No [email or web address] Information not available 10/25/2024 What Type Of Diet Are You Following? REGULAR [email or web address] Information n ot available 10/25/2024 What Is The Highest Grade Or Level Of School You Have Completed Or The Highest Degree You Have Received? AF50466-8 [email or web address] Information not available 10/25/2024 Are There Any Guns Present In Your Home? No [email or web address] Information not available 10/25/2024 Do You Use Protection During Sex? No Information not available 01/28/2025 Do You Use Your Seat Belt Or Car Seat Routinely? Yes [email or web address] Information not available 10/25/2024 Are You Sexually Active? Yes [email or web address] Information not available 10/25/2024 Do You Have Smoke And Carbon Monoxide Detectors In Your Home? Yes [email or web address] Information not available 10/25/2024 Do You Use Sunscreen Routinely? Yes [email or web address] Information not available 10/25/2024 Has Tobacco Cessation Counseling Been Provided? No [email or web address] Information not available 10/25/2024 Do You Have Difficulty Walking Or Climbing Stairs? No [email or web address] Information not available 10/25/2024 Sex: Unknown Functional Status Question Answer Note LastModified by Organizat ion Details LastModified Time Do you use any illicit or recreational drugs? No Information not available 10/25/2024 Do you or have you ever used any other forms of tobacco or nicotine? No Information not available 10/25/2024 What is your level of alcohol consumption? None [email or web address] Information not available 10/25/2024 Are you currently employed? Yes Information not available 01/28/2025 Are you able to walk independently without assistance or assistive devices? YESASSIST [email or web address] Information not available 10/25/2024 Are you able to care for yourself independently? Yes [email or web address] Information not available 10/25/2024 Do you have difficulty dressing, bathing, grooming, or toileting? No [email or web address] Information not available 10/25/2024 What is your exercise level? Occasional [email or web address] Information not available 10/25/2024 Mental Status Question Answer Note LastModified by Organization D etails LastModified Time Do you feel stressed (tense, restless, nervous, or anxious, or unable to sleep at night)? [id number] [email or web address] Information not available 01/28/2025 Family History Nothing [...] ICD10 Code Diagnosis IMO Codes Diagnosis Note [id number] CRISTINA PETERSEN MD [facility] [address] [address] 01/14/2025 15:27:34 01/14/2025 16:12:36 screening 688775302 Z36.89 [id number] Grace Murcia CNM [facility] [address] [address] 01/28/2025 10:05:52 01/28/2025 10:29:15 Gestation period, 30 weeks 88241273 Z3A.30 [id number] cont pnvstart slow fe daily [id number] CRISTINA PETERSEN MD [facility] [address] [address] 02/11/2025 15:41:07 02/11/2025 16:57:52 Uterine size for dates discrepancy 219999232 O26.843 Z3A.32 [id number] Grace Murcia CNM [facility] [address] [address] 02/11/2025 15:41:30 02/14/2025 10:40:09 Gestation period, 32 weeks 6422601 Z3A.32 [id number] cont pnv Health Concerns Section Related Observation LastModified by Organization Detai ls LastModified Time None Recorded Concern Status LastModified by Organization Details LastModified Time None Recorded Payers Encounter Date Sequence Insurance Name Policy Number Policy Hoang Covered Member ID Hoang Member ID Guarantor Name 02/11/2025 1 [facility] (MEDICAID HMO) [id number] Con Barraza [id number] Con Barraza Notes Date Note Type Note Provider Name and Address Organization Details Recorded Time 02/11/2025 text/html Generic HPI TemplateReported by Patient Grace Murcia CNM [address], [place], [address], [facility] 02/11/2025 20:00:50 OBGyn Episode Ob Episode Information Episode Created Date Number of Fetuses Patient Bloodtype Patient rh Status Prepregnancy Weight lbs Domestic Partner Domestic Partner Phone Father Name [employer] Driver Status 10/26/19 25 1 O Positive Ricky CLOSED Fetus Data First Name Last Name Admitted to NICU Weight (g) Sex Living Outcome Pediatric Complications Fetus ID Race Codes Race Delivery Type 3373.59 05 F true Full Term [id number] Vaginal Delivery Cristobal Calculation Initial Cristobal Date [...] Weight in lbs Pre/Post Dialysis Refused Weight 164.031626037962 BP Diastolic BP Location Tested BP Systolic BP Type 62 L arm 90 sitting Fetus Heart Rate Present A Present Fetus Movement A Yes Comments Patient presents to [facility] care. Hx of uncomplicated , EIL. [...] Weight in lbs Pre/Post Dialysis Refused Weight 167.199344928294 BP Diastolic BP Location Tested BP Systolic [...] Weight in lbs Pre/Post Dialysis Refused Weight 175.710279661033 BP Diastolic BP Location Tested BP Systolic [...] Weight in lbs Pre/Post Dialysis Refused Weight 178.688197135052 BP Diastolic BP Location Tested BP Systolic [...] Weight in lbs Pre/Post Dialysis Refused Weight 180.431041375567 BP Diastolic BP Location Tested BP Systolic [...] Weight in lbs Pre/Post Dialysis Refused Weight 178.350265497456 BP Diastolic BP Location Tested BP Systolic [...] Weight in lbs Pre/Post Dialysis Refused Weight 183.647045768113 BP Diastolic BP Location Tested BP Systolic BP Type 63 L arm 93 sitting Fetus Heart Rate Present Fetus Movement A Yes Comments plan f/u growth at next [facility] by cnm +[id number], precautions and education, not planning on vaccines [...] Weight in lbs Pre/Post Dialysis Refused Weight 186.913979802258 BP Diastolic BP Location Tested BP Systolic [...] Weight in lbs Pre/Post Dialysis Refused Weight 190.685400756171 BP Diastolic BP Location Tested BP Systolic [...] Type Weight in lbs Pre/Post Dialysis Refused 189.950506264965 BP Diastolic BP Location Tested BP Systolic [...] Weight in lbs Pre/Post Dialysis Refused Weight 192.806774718654 BP Diastolic BP Location Tested BP Systolic [...]
--- OUTSIDE RECORDS SUMMARY | 2025-05-13 10:27 | XMS_ITS | Continuity of Care Document ---
Author Organization [facility], [place] Address [address] [place] [address] Assessment Encounter Date Assessment Date Assessment LastModified [...] Not Available [facility] [address], [place], [address], 11/01/2024 03:35:20 11/02/19 25 11/01/2024 [UNIT Y] ANEUP LOIDY NIPT 22Q11.2 microdeletio n LOW RISK <1 in 10,000 normal Not Available [facility] [address], [place], [address], 11/01/2024 03:35:20 11/02/19 25 11/01/2024 [UNIT Y] ANEUP LOIDY NIPT sex chromosome aneuploidy NOT DETECT ED normal Not Available [facility] [address], [place], [address], 11/01/2024 03:35:20 11/02/19 25 11/01/2024 [UNIT Y] ANEUP LOIDY NIPT monosomy X LOW RISK <1 in 10,000 normal Not Available [facility] [address], [place], [address], 11/01/2024 03:35:20 11/02/19 25 11/01/2024 [UNIT Y] ANEUP LOIDY NIPT trisomy 13 LOW RISK <1 in 10,000 normal Not Available [facility] [address], [place], [address], 11/01/2024 03:35:20 11/02/19 25 11/01/2024 [UNIT Y] ANEUP LOIDY NIPT trisomy 18 LOW RISK <1 in 10,000 normal Not Available [facility] [address], [place], [address], 11/01/2024 03:35:20 11/02/19 25 11/01/2024 [UNIT Y] ANEUP LOIDY NIPT trisomy 21 LOW RISK <1 in 10,000 normal Not Available [facility] [address], [place], [address], 11/01/2024 03:35:20 11/02/19 25 11/01/2024 [UNIT Y] ANEUP LOIDY NIPT sex FEMALE normal Not Available [facility] [address], [place], [address], 11/01/2024 03:35:20 11/02/19 25 11/01/2024 [UNIT Y] ANEUP LOIDY NIPT gestation SINGLE TON normal Not Available [facility] [address], [place], [address], 11/01/2024 03:35:20 11/02/19 25 11/01/2024 [UNIT Y] ANEUP LUISIDY NIPT for detailed report, see pdf See PDF normal Not Available [facility] [address], [place], [address], 11/01/2024 03:35:20 11/05/19 25 11/04/2024 [UNIT Y] LAQUITA Hurtado sickle cell disease/beta -thalassemia /hemoglobino pathies carrier screen NEGATI VE normal Not Available [facility] [address], [place], [address], 11/04/2024 00:48:44 11/05/19 25 11/04/2024 [UNIT Y] LAQUTIA Hurtado alpha-thalas semia carrier screen NEGATI VE normal Not Available [facility] [address], [place], [address], 11/04/2024 00:48:44 11/05/19 25 11/04/2024 [UNIT Y] LAQUITA Hurtado cystic fibrosis carrier screen NEGATI VE normal Not Available [facility] [address], [place], [address], 11/04/2024 00:48:44 11/05/19 25 11/04/2024 [UNIT Y] LAQUITA Hurtado spinal muscular atrophy carrier screen NEGATI VE 2 SMN1 copies , SNP not presen t normal Not Available [facility] [address], [place], [address], 11/04/2024 00:48:44 11/05/19 25 11/04/2024 [UNIT Y] LAQUITA Hurtado for detailed report, see pdf See PDF normal Not Available [facility] [address], [place], [address], 11/04/2024 00:48:44 10/26/19 25 10/25/2024 CBC W/DIF F WBC 8.7 10'3/ uL 3.5-10 .5 Not Available [facility] (Lab) [address], [place], [address], 10/26/2024 13:46:11 10/26/19 25 10/25/2024 CBC W/DIF F RBC 3.45 10'6/ uL (based on docume nted legal sex) 3.80-5 .20 low Not Available [facility] (Lab) [address], [place], [address], 10/26/2024 13:46:11 10/26/19 25 10/25/2024 CBC W/DIF F HGB 10.1 g/dL (based on docume nted legal sex) 11.6-1 5.4 low Not Available [facility] (Lab) [address], [place], [address], 10/26/2024 13:46:11 10/26/19 25 10/25/2024 CBC W/DIF F HCT 31.0 % (based on docume nted legal sex) 34.0-4 5.0 low Not Available [facility] (Lab) [address], [place], [address], 10/26/2024 13:46:11 10/26/19 25 10/25/2024 CBC W/DIF F MCV 89.9 fL 80.0-9 9.0 Not Available [facility] (Lab) [address], [place], [address], 10/26/2024 13:46:11 10/26/19 25 10/25/2024 CBC W/DIF F MCH 29.3 pg 27.0-3 4.0 Not Available [facility] (Lab) [address] [place], [address], 10/26/2024 13:46:11 10/26/19 25 10/25/2024 CBC W/DIF F MCHC 32.6 g/dL 32.0-3 5.5 Not Available [facility] (Lab) [address] [place], [address], 10/26/2024 13:46:11 10/26/19 25 10/25/2024 CBC W/DIF F RDW 14.4 % 11.0-1 5.0 Not Available [facility] (Lab) [address] [facility], [place], [address], 10/26/2024 13:46:11 10/26/19 25 10/25/2024 CBC W/DIF F plt 284 10'3/ uL 150-40 0 Not Available [facility] (Lab) [address] [facility], [place], [address], 10/26/2024 13:46:11 10/26/19 25 10/25/2024 CBC W/DIF F MPV 11.1 fL 8.8-12 .1 Not Available [facility] (Lab) [address] [facility], [place], [address], 10/26/2024 13:46:11 10/26/19 25 10/25/2024 CBC W/DIF F NRBC's 0.0 % 0.0 Not Available [facility] (Lab) [address] [facility], [place], [address], 10/26/2024 13:46:11 10/26/19 25 10/25/2024 CBC W/DIF F absolute NRBCs 0.0 10'3/ uL no refere nce range establ ished Not Available [facility] (Lab) [address] [facility], [place], [address], 10/26/2024 13:46:11 10/26/19 25 10/25/2024 CBC W/DIF F neutrophils 62.7 % 34.0-7 3.0 Not Available [facility] (Lab) [address] [facility], [place], [address], 10/26/2024 13:46:11 10/26/19 25 10/25/2024 CBC W/DIF F lymphocytes 31.2 % 15.0-5 0.0 Not Available [facility] (Lab) [address] [facility], [place], [address], 10/26/2024 13:46:11 10/26/19 25 10/25/2024 CBC W/DIF F monocytes 5.2 % 1.0-15 .0 Not Available [facility] (Lab) [address] [facility], [place], [address], 10/26/2024 13:46:11 10/26/19 25 10/25/2024 CBC W/DIF F eosinophils 0.2 % 0.0-8. 0 Not Available [facility] (Lab) [address] [facility], [place], [address], 10/26/2024 13:46:11 10/26/19 25 10/25/2024 CBC W/DIF F basophils 0.5 % 0.0-2. 0 Not Available [facility] (Lab) [address] [facility], [place], [address], 10/26/2024 13:46:11 10/26/19 25 10/25/2024 CBC W/DIF [...] separ ately if prese nt. Not Available [facility] (Lab) [address] [facility], [place], [address], 10/26/2024 13:46:11 10/26/19 25 10/25/2024 CBC W/DIF F absolute neutrophils 5.5 10'3/ uL 1.5-8. 0 Not Available [facility] (Lab) [address] [facility], [place], [address], 10/26/2024 13:46:11 10/26/19 25 10/25/2024 CBC W/DIF F absolute lymphocytes 2.7 10'3/ uL 1.0-4. 0 Not Available [facility] (Lab) [address] [facility], [place], [address], 10/26/2024 13:46:11 10/26/19 25 10/25/2024 CBC W/DIF F absolute monocytes 0.5 10'3/ uL 0.2-1. 0 Not Available [facility] (Lab) [address] [facility], [place], [address], 10/26/2024 13:46:11 10/26/19 25 10/25/2024 CBC W/DIF F absolute eosinophils 0.0 10'3/ uL 0.0-0. 6 Not Available [facility] (Lab) [address], [place], [address], 10/26/2024 13:46:11 10/26/19 25 10/25/2024 CBC W/DIF F absolute basophils 0.0 10'3/ uL 0.0-0. 3 Not Available [facility] (Lab) [address], [place], [address], 10/26/2024 13:46:11 10/26/1910/25/2024 CBC W/DIF F absolute [...] dyer book. nm.or g/gen derx Not Available [facility] (Lab) [address], [place], [address], 10/26/2024 13:46:11 10/26/19 25 10/25/2024 HIV 1/2 ANTIG EN/AN TIBOD Y, REFLE X CONFI RMATI ON HIV antigen/anti body Nonrea ctive nonrea ctive HIV-1 antig en and HIV-1 /HIV- 2 antib odies were not detec bryan. No labor atory evide nce of HIV infec tion. Not Available [facility] (Lab) [address] [facility], [place], [address], 10/26/2024 13:46:11 10/26/19 25 10/25/2024 HEPAT ITIS C ANTIB MIGUELINA SCREE N, REFLE X TO CONFI RMATI ON hepatitis C antibody Non-re active non-re active Antib odies to HCV Not Detec bryan, does not exclu de the possi bilit y of expos ure to HCV. Not Available [facility] (Lab) [address] [facility], [place], [address], 10/26/2024 13:46:12 10/26/19 25 10/25/2024 HEPAT ITIS B SURFA CE ANTIG EN hepatitis B surface antigen Non-re active non-re active This assay was perfo rmed using [employer] ratio n reage nts and test kits. Value s obtai rickey with other assay metho ds or kits canno t be used inter zuleta eably . Not Available [facility] (Lab) [address] [facility], [place], [address], 10/26/2024 13:46:12 10/26/19 25 10/25/2024 TSH, REFLE X FREE T4 TSH 1.26 uIU/m L 0.30-5 .33 Not Available [facility] (Lab) [address] [place], [address], 10/26/2024 13:46:13 10/26/19 25 10/25/2024 TYPE/ RH/SC REEN ABO/Rh type O POS Not Available [facility] (Lab) [address] [place], [address], 10/26/2024 13:46:13 10/26/19 25 10/25/2024 TYPE/ RH/SC REEN antibody screen NEG Not Available [facility] (Lab) [address] [facility], [place], [address], 10/26/2024 13:46:13 10/26/19 25 10/25/2024 TYPE/ RH/SC REEN exp date 2024 23:59 Not Available [facility] (Lab) [address] [facility], [place], [address], 10/26/2024 13:46:13 10/26/19 25 10/25/2024 RUBEL LA IGG ANTIB MIGUELINA, QUANT rubella antibodies, IgG Reacti ve reacti ve Not Available [facility] (Lab) [address] [facility], [place], [address], 10/26/2024 13:46:13 10/26/19 25 10/25/2024 RUBEL LA IGG ANTIB MIGUELINA, QUANT rubella antibodies, IgG quant 18.0 IU/mL >=10 Non-r eacti ve (Non- Immun e) <10 IU/mL React haim (Immu ne) > or = 10 IU/mL Not Available [facility] (Lab) [address] [facility], [place], [address], 10/26/2024 13:46:13 10/26/19 25 10/25/2024 RPR SCREE N, REFLE X TITER /CONF IRMAT ION RPR qualitative Nonrea ctive nonrea ctive Not Available [facility] (Lab) [address] [facility], [place], [address], 10/26/2024 13:46:14 10/26/19 25 10/25/2024 HEMOG LOBIN [...] thera py >8.0% Alejo zambrano Not Available [facility] (Lab) [address] [facility], [place], [address], 10/26/2024 13:46:14 10/26/19 25 10/25/2024 CT/GC AND TRICH OMONA S VAGIN ARIANA (RRNA ), URINE chlamydia trachomatis, PCR Negati ve negati ve Not Available [facility] (Lab) [address] [facility], [place], [address], 10/26/2024 21:37:02 10/26/19 25 10/25/2024 CT/GC AND TRICH OMONA S VAGIN ARIANA (RRNA ), URINE neisseria gonorrhoeae, PCR Negati ve negati ve Not Available [facility] (Lab) [address] [facility], [place], [address], 10/26/2024 21:37:02 10/26/19 25 10/25/2024 CT/GC AND TRICH OMONA S VAGIN ARIANA (RRNA ), URINE trichomonas vaginalis ribosomal RNA (rrna) Negati ve negati ve Not Available [facility] (Lab) [address] [place], [address], 10/26/2024 21:37:02 10/26/19 25 10/25/2024 CULTU RE: URINE result report SEE RESULT S BELOW Test: Cultu re: Urine Speci men Sourc e: Urine Voide d Speci men Type: Urine Speci men Date: 025 1714 Resul t Date: 2024 Resul t Statu s: Final resul t Abnor mal: No Resul ting Lab: [facility] [address] [facility] [address] Tel: CULTU RE ----- ----- ----- --- No growt h in 1 day (dete ction level of 10,00 0 colon ies / ml.) Not Available [facility] (Lab) [address], [place], [address], 10/26/2024 21:37:02 10/26/19 25 10/25/2024 drug scree n, urine Amphetamines : negati ve Not Available [facility] [address], [place], [address], 10/25/2024 17:35:03 10/26/19 25 10/25/2024 drug scree n, urine Cannabinoids : negati ve Not Available [facility] [address], [place], [address], 10/25/2024 17:35:03 10/26/19 25 10/25/2024 drug scree n, urine Cocaine: negati ve Not Available [facility] [address], [place], [address], 10/25/2024 17:35:03 10/26/19 25 10/25/2024 drug scree n, urine Opiates: negati ve Not Available [facility] [address], [place], [address], 10/25/2024 17:35:03 10/26/19 25 10/25/2024 drug scree n, urine Phenocyclidi ne: negati ve Not Available [facility] [address], [place], [address], 10/25/2024 17:35:03 10/26/19 25 10/25/2024 drug scree n, urine Barbiturates : negati ve Not Available [facility] [address], [place], [address], 10/25/2024 17:35:03 10/26/19 25 10/25/2024 drug scree n, urine Benzodiazepi bridget: negati ve Not Available [facility] [address], [place], [address], 10/25/2024 17:35:03 10/26/19 25 10/25/2024 drug scree n, urine Ethanol: negati ve Not Available [facility] [address], [place], [address], 10/25/2024 17:35:03 10/26/19 25 10/25/2024 drug scree n, urine Hallucinogen s: negati ve Not Available [facility] [address], [place], [address], 10/25/2024 17:35:03 10/26/19 25 10/25/2024 drug scree n, urine Inhalants: negati ve Not Available [facility] [address], [place], [address], 10/25/2024 17:35:03 10/26/19 25 10/25/2024 drug scree n, urine Anabolic Steroids: negati ve Not Available [facility] [address], [place], [address], 10/25/2024 17:35:03 10/26/19 25 10/25/2024 drug scree n, urine Other: negati ve Not Available [facility] [address], [place], [address], 10/25/2024 17:35:03 01/15/20 25 01/14/2025 HEMOG LOBIN (HGB) HGB 9.3 g/dL (based on docume nted legal sex) 11.6-1 5.4 low Not Available [facility] (Lab) [address], [place], [address], 01/15/2025 13:08:39 01/15/20 25 01/14/2025 HEMAT OCRIT (HCT) HCT 28.1 % (based on docume nted legal sex) 34.0-4 5.0 low Not Available [facility] (Lab) [address] [facility], [place], [address], 01/15/2025 13:08:39 01/15/20 25 01/14/2025 GTT - GESTA RADHA L AMBAR Hurtado, ACOG OB glucose, 1 hour screen 99 mg/dL 70-135 Not Available [facility] (Lab) [address] [facility], [place], [address], 01/15/2025 13:08:40 01/15/20 25 01/14/2025 HIV 1/2 ANTIG EN/AN TIBOD Y, REFLE X CONFI RMATI ON HIV antigen/anti body Nonrea ctive nonrea ctive HIV-1 antig en and HIV-1 /HIV- 2 antib odies were not detec bryan. No labor atory evide nce of HIV infec tion. Not Available [facility] (Lab) [address] [facility], [place], [address], 01/15/2025 13:08:40 01/15/20 25 01/14/2025 RPR SCREE N, REFLE X TITER /CONF IRMAT ION RPR qualitative Nonrea ctive nonrea ctive Not Available [facility] (Lab) [address] [facility], [place], [address], 01/15/2025 13:08:40 03/10/20 25 03/10/2025 CULTU RE: [...] t Abnor mal: No Resul ting Lab: [facility] [address] [facility] [address] [facility] [address] Tel: [phone] CULTU RE ----- ----- ----- --- No Group B strep isola bryan at 2 days (prudence ctive broth hattie yost t) Not Available [facility] (Lab) [address], [place], [address], 03/13/2025 15:12:11 10/26/19 25 10/25/2024 US, obste tric, limit ed No observ ation record ed. [facility] [address], [place], [address], 10/25/2024 18:50:32 10/28/19 25 10/25/2024 US, obste tric, limit ed No observ ation record ed. [facility] [address], [place], [address], 10/30/2024 23:24:32 11/27/19 25 11/26/2024 US, obste tric, 2nd or 3rd trime ster No observ ation record ed. [facility] [address], [place], [address], 11/26/2024 17:49:36 11/27/19 25 11/26/2024 US, obste tric, 2nd or 3rd trime ster No observ ation record ed. [facility] [address], [place], [address], 11/26/2024 17:24:36 02/12/20 25 02/11/2025 US, obste tric, follo w-up No observ ation record ed. [email or web address] [facility] [address], [place], [address], 02/11/2025 17:21:09 02/12/20 25 02/11/2025 US, obste tric, follo w-up No observ ation record ed. [email or web address] [facility] [address], [place], [address], 02/25/2025 10:51:35 03/10/2003/10/2025 US, obste tric, follo w-up No observ ation record ed. [facility] [address], [place], [address], 03/10/2025 15:18:58 03/10/20 25 03/10/2025 US, obste tric, follo w-up No observ ation record ed. [email or web address] [facility] [address], [place], [address], 03/18/2025 11:35:09 Result Notes None recorded. Problems Name Problem SNOMED Code Status Onset Date Resolution Date Notes Provider Name and Address Organization Details Recorded Time 99445999 Completed 025 05/05/2025 [facility] 12:46:49 Problem Notes [...] Updated DateTime 03/10/2025 157.48 cm 34 kg/m2 74514.18 g 117/71 mm[Hg] Ricarda Quevedo [facility] 03/10/2025 15:41:53 Social History Question Answer Notes LastModified by Organizat ion Details LastModified Time Tobacco Smoking Status Never Smoker JUANITO livingston [facility] 10/25/2024 16:11:22 Do You Have An Advance Directive? No [email or web address] Information n ot available 10/25/2024 If You Are , What Was Your Level Of Alcohol Consumption Prior To ? None Information not available 10/25/2024 Are You Blind Or Do You Have Difficulty Seeing? No [email or web address] Information n ot available 10/25/2024 What Is Your Level Of Caffeine Consumption? None Information not available 10/25/2024 In The 14 Days Before Symptom Onset, Have You Had Close Contact With A Laboratory-confirm ed COVID-19 While That Case Was Ill? No [email or web address] Information n ot available 10/25/2024 In The 14 Days Before Symptom Onset, Have You Had Close Contact With A Person Who Is Under Investigation For COVID-19 While That Person Was Ill? No [email or web address] Information not available 10/25/2024 Have You Been To An Area Known To Be High Risk For COVID-19? No [email or web address] Information not available 10/25/2024 Are You Deaf Or Do You Have Serious Difficulty Hearing? No Information not available 10/25/2024 What Type Of Diet Are You Following? REGULAR [email or web address] Information n ot available 10/25/2024 What Is The Highest Grade Or Level Of School You Have Completed Or The Highest Degree You Have Received? [id number] Information not available 10/25/2024 Are There Any Guns Present In Your Home? No Information not available 10/25/2024 Do You Use Protection During Sex? No [email or web address] Information not available 01/28/2025 Do You Use Your Seat Belt Or Car Seat Routinely? Yes [email or web address] Information not available 10/25/2024 Are You Sexually Active? Yes [email or web address] Information not available 10/25/2024 Do You Have Smoke And Carbon Monoxide Detectors In Your Home? Yes [email or web address] Information not available 10/25/2024 Do You Use Sunscreen Routinely? Yes Information not available 10/25/2024 Has Tobacco Cessation Counseling Been Provided? No [email or web address] Information not available 10/25/2024 Do You Have Difficulty Walking Or Climbing Stairs? No [email or web address] Information not available 10/25/2024 Sex: Unknown Functional Status Question Answer Note LastModified by Organizat ion Details LastModified Time Do you use any illicit or recreational drugs? No [email or web address] Information not available 10/25/2024 Do you or have you ever used any other forms of tobacco or nicotine? No [email or web address] Information not available 10/25/2024 What is your level of alcohol consumption? None [email or web address] Information not available 10/25/2024 Are you currently employed? Yes [email or web address] Information not available 01/28/2025 Are you able to walk independently without assistance or assistive devices? YESASSIST [email or web address] Information not available 10/25/2024 Are you able to care for yourself independently? Yes [email or web address] Information not available 10/25/2024 Do you have difficulty dressing, bathing, grooming, or toileting? No [email or web address] Information not available 10/25/2024 What is your exercise level? Occasional [email or web address] Information not available 10/25/2024 Mental Status Question Answer Note LastModified by Organization D etails LastModified Time Do you feel stressed (tense, restless, nervous, or anxious, or unable to sleep at night)? [id number] [email or web address] Information not available 01/28/2025 Family History Nothing [...] ICD10 Code Diagnosis IMO Codes Diagnosis Note [id number] CRISTINA PETERSEN MD [facility] [address] [address] 02/11/2025 15:41:07 02/11/2025 16:57:52 Uterine size for dates discrepancy 792421431 O26.843 Z3A.32 4421577 [id number] Grace Murcia [facility] [address],[place] [address] 02/11/2025 15:41:30 02/14/2025 10:40:09 Gestation period, 32 weeks 0899401 Z3A.32 8460916 cont pnv [id number] Grace Murcia [facility] [address],[place] [address] 02/25/2025 14:45:15 02/25/2025 15:00:21 Gestation period, 34 weeks 89588562 Z3A.34 8277829 cont pnv [id number] Anoop Johnson MD [facility] [address],[place] [address] 03/10/2025 14:40:38 03/10/2025 15:25:33 Uterine size for dates discrepancy 490905327 O26.843 O09.30 Z3A.36 2143573 [id number] Anoop Johnson MD [facility] [address] [address] 03/10/2025 14:43:23 03/10/2025 16:33:12 care status 257275331 Z34.83 [id number] Health Concerns Section Related Observation LastModified by Organization Detai ls LastModified Time None Recorded Concern Status LastModified by Organization Details LastModified Time None Recorded Payers Encounter Date Sequence Insurance Name Policy Number Policy Hoang Covered Member ID Hoang Member ID Guarantor Name 03/10/2025 1 [facility] (MEDICAID HMO) [id number] Con Barraza [id number] Con Barraza Notes Date Note Type Note Provider Name and Address Organization Details Recorded Time 03/10/2025 text/html Generic HPI TemplateReported by Patient Anoop Johnson MD [address], [place], [address], [facility] 03/10/2025 16:29:53 OBGyn Episode Ob Episode Information Episode Created Date Number of Fetuses Patient Bloodtype Patient rh Status Prepregnancy Weight lbs Domestic Partner Domestic Partner Phone Father Name Nightclub Manager Status 10/26/19 25 1 O Positive Ricky CLOSED Fetus Data First Name Last Name Admitted to NICU Weight (g) Sex Living Outcome Pediatric Complications Fetus ID Race Codes Race Delivery Type 3373.59 05 F true Full Term [id number] Vaginal Delivery Cristobal Calculation Initial Cristobal Date [...] Weight in lbs Pre/Post Dialysis Refused Weight 164.816080020083 BP Diastolic BP Location Tested BP Systolic BP Type 62 L arm 90 sitting Fetus Heart Rate Present A Present Fetus Movement A Yes Comments Patient presents to establis h care. Hx of uncomplicated , EIL. otherwise [...] Weight in lbs Pre/Post Dialysis Refused Weight 167.159540922111 BP Diastolic BP Location Tested BP Systolic [...] Weight in lbs Pre/Post Dialysis Refused Weight 175.297046356962 BP Diastolic BP Location Tested BP Systolic [...] Weight in lbs Pre/Post Dialysis Refused Weight 178.489963839568 BP Diastolic BP Location Tested BP Systolic [...] Weight in lbs Pre/Post Dialysis Refused Weight 180.338004766595 BP Diastolic BP Location Tested BP Systolic [...] Weight in lbs Pre/Post Dialysis Refused Weight 178.440405907051 BP Diastolic BP Location Tested BP Systolic [...] Weight in lbs Pre/Post Dialysis Refused Weight 183.532242732499 BP Diastolic BP Location Tested BP Systolic BP Type 63 L arm 93 sitting Fetus Heart Rate Present Fetus Movement A Yes Comments plan f/u growth at next [facility] +[id number], precautions and education, not planning on vaccines [...] Weight in lbs Pre/Post Dialysis Refused Weight 186.537173920486 BP Diastolic BP Location Tested BP Systolic [...] Weight in lbs Pre/Post Dialysis Refused Weight 190.712713596341 BP Diastolic BP Location Tested BP Systolic [...] Type Weight in lbs Pre/Post Dialysis Refused 189.500902273547 BP Diastolic BP Location Tested BP Systolic [...] Weight in lbs Pre/Post Dialysis Refused Weight [id number] BP Diastolic BP Location Tested BP Systolic [...]
[2025-05-13 12:22] VITALS: BP 121/64; PULSE 107; RESP 20; TEMP 37.3; O2SAT 98
[2025-05-13 12:23] VITALS: O2SAT 98
--- OUTSIDE RECORDS SUMMARY | 2025-05-13 12:29 | XMS_ITS | Continuity of Care Document ---
Author Organization [facility] Address [address] [place] [address] Assessment No assessment recorded. Plan of Treatment Reminders Order Date Submit Date Provider Last Modified By Organization Details Last Modified Time Details Appointments POST 2024 11:00A Segundo JOHNSON MD Not available Not available Not available Lab None recorded . Referral None recorded . Procedures None recorded . Surgeries None recorded . Imaging US, obstetri c, follow-u p 2024 025 [email or web address] [place] [facility], [address], [place], [address], 03/11/2025 14:13:06 Medication Orders None recorded . Patient TargetsNo targets recorded. Patient InstructionsNo instructions recorded. Reason for Referral None Reported. Results Created Date Observation Date Name Description Value Unit Range Abnormal Flag Note LastModifiedBy Organization Detail LastModifiedTime 11/02/1911/01/2024 [UNIT Y] ANEUP LOIDY NIPT fraction 22.1% normal Not Available [facility] [address], [place], [address], 11/01/2024 03:35:20 11/02/1911/01/2024 [UNIT Y] ANEUP LOIDY NIPT 22Q11.2 microdeletio n LOW RISK <1 in 10,000 normal Not Available [facility] [address], [place], [address], 11/01/2024 03:35:20 11/02/19 25 11/01/2024 [UNIT Y] ANEUP LOIDY NIPT sex chromosome aneuploidy NOT DETECT ED normal Not Available [facility] [address], [place], [address], 11/01/2024 03:35:20 11/02/19 25 11/01/2024 [UNIT Y] ANEUP LOIDY NIPT monosomy X LOW RISK <1 in 10,000 normal Not Available [facility] [address], [place], [address], 11/01/2024 03:35:20 11/02/19 25 11/01/2024 [UNIT Y] ANEUP LOIDY NIPT trisomy 13 LOW RISK <1 in 10,000 normal Not Available [facility] [address], [place], [address], 11/01/2024 03:35:20 11/02/19 25 11/01/2024 [UNIT Y] ANEUP LOIDY NIPT trisomy 18 LOW RISK <1 in 10,000 normal Not Available [facility] [address], [place], [address], 11/01/2024 03:35:20 11/02/19 25 11/01/2024 [UNIT Y] ANEUP LOIDY NIPT trisomy 21 LOW RISK <1 in 10,000 normal Not Available [facility] [address], [place], [address], 11/01/2024 03:35:20 11/02/19 25 11/01/2024 [UNIT Y] ANEUP LOIDY NIPT sex FEMALE normal Not Available [facility] [address], [place], [address], 11/01/2024 03:35:20 11/02/19 25 11/01/2024 [UNIT Y] ANEUP LOIDY NIPT gestation SINGLE TON normal Not Available [facility] [address], [place], [address], 11/01/2024 03:35:20 11/02/19 25 11/01/2024 [UNIT Y] ANEUP SACHA NIPT for detailed report, see pdf See PDF normal Not Available [facility] [address], [place], [address], 11/01/2024 03:35:20 11/05/19 25 11/04/2024 [UNIT Y] LAQUITA Hurtado sickle cell disease/beta -thalassemia /hemoglobino pathies carrier screen NEGATI VE normal Not Available [facility] [address], [place], [address], 11/04/2024 00:48:44 11/05/19 25 11/04/2024 [UNIT Y] LAQUITA Hurtado alpha-thalas semia carrier screen NEGATI VE normal Not Available [facility] [address], [place], [address], 11/04/2024 00:48:44 11/05/19 25 11/04/2024 [UNIT Y] LAQUITA Hurtado cystic fibrosis carrier screen NEGATI VE normal Not Available [facility] [address], [place], [address], 11/04/2024 00:48:44 11/05/19 25 11/04/2024 [UNIT Y] LAQUITA Hurtado spinal muscular atrophy carrier screen NEGATI VE 2 SMN1 copies , SNP not presen t normal Not Available [facility] [address], [place], [address], 11/04/2024 00:48:44 11/05/19 25 11/04/2024 [UNIT Y] LAQUITA Hurtado for detailed report, see pdf See PDF normal Not Available [facility] [address], [place], [address], 11/04/2024 00:48:44 10/26/19 25 10/25/2024 CBC W/DIF F WBC 8.7 10'3/ uL 3.5-10 .5 Not Available [facility] (Lab) [address], [place], [address], 10/26/2024 13:46:11 10/26/19 25 10/25/2024 CBC W/DIF F RBC 3.45 10'6/ uL (based on docume nted legal sex) 3.80-5 .20 low Not Available [facility] (Lab) [address], [place], [address], 10/26/2024 13:46:11 10/26/19 25 10/25/2024 CBC W/DIF F HGB 10.1 g/dL (based on docume nted legal sex) 11.6-1 5.4 low Not Available [facility] (Lab) [address] [facility], [place], [address], 10/26/2024 13:46:11 10/26/19 25 10/25/2024 CBC W/DIF F HCT 31.0 % (based on docume nted legal sex) 34.0-4 5.0 low Not Available [facility] (Lab) [address], [place], [address], 10/26/2024 13:46:11 10/26/19 25 10/25/2024 CBC W/DIF F MCV 89.9 fL 80.0-9 9.0 Not Available [facility] (Lab) [address] [facility], [place], [address], 10/26/2024 13:46:11 10/26/19 25 10/25/2024 CBC W/DIF F MCH 29.3 pg 27.0-3 4.0 Not Available [facility] (Lab) [address] [facility], [place], [address], 10/26/2024 13:46:11 10/26/19 25 10/25/2024 CBC W/DIF F MCHC 32.6 g/dL 32.0-3 5.5 Not Available [facility] (Lab) [address] [facility], [place], [address], 10/26/2024 13:46:11 10/26/19 25 10/25/2024 CBC W/DIF F RDW 14.4 % 11.0-1 5.0 Not Available [facility] (Lab) [address] [facility], [place], [address], 10/26/2024 13:46:11 10/26/19 25 10/25/2024 CBC W/DIF F plt 284 10'3/ uL 150-40 0 Not Available [facility] (Lab) [address] [facility], [place], [address], 10/26/2024 13:46:11 10/26/19 25 10/25/2024 CBC W/DIF F MPV 11.1 fL 8.8-12 .1 Not Available [facility] (Lab) [address] [facility], [place], [address], 10/26/2024 13:46:11 10/26/19 25 10/25/2024 CBC W/DIF F NRBC's 0.0 % 0.0 Not Available [facility] (Lab) [address] [facility], [place], [address], 10/26/2024 13:46:11 10/26/19 25 10/25/2024 CBC W/DIF F absolute NRBCs 0.0 10'3/ uL no refere nce range establ ished Not Available [facility] (Lab) [address] [facility], [place], [address], 10/26/2024 13:46:11 10/26/19 25 10/25/2024 CBC W/DIF F neutrophils 62.7 % 34.0-7 3.0 Not Available [facility] (Lab) [address] [facility], [place], [address], 10/26/2024 13:46:11 10/26/19 25 10/25/2024 CBC W/DIF F lymphocytes 31.2 % 15.0-5 0.0 Not Available [facility] (Lab) [address] [facility], [place], [address], 10/26/2024 13:46:11 10/26/19 25 10/25/2024 CBC W/DIF F monocytes 5.2 % 1.0-15 .0 Not Available [facility] (Lab) [address] [facility], [place], [address], 10/26/2024 13:46:11 10/26/19 25 10/25/2024 CBC W/DIF F eosinophils 0.2 % 0.0-8. 0 Not Available [facility] (Lab) [address] [facility], [place], [address], 10/26/2024 13:46:11 10/26/19 25 10/25/2024 CBC W/DIF F basophils 0.5 % 0.0-2. 0 Not Available [facility] (Lab) [address] [facility], [place], [address], 10/26/2024 13:46:11 10/26/19 25 10/25/2024 CBC W/DIF [...] separ ately if prese nt. Not Available [facility] (Lab) [address] [facility], [place], [address], 10/26/2024 13:46:11 10/26/19 25 10/25/2024 CBC W/DIF F absolute neutrophils 5.5 10'3/ uL 1.5-8. 0 Not Available [facility] (Lab) [address] [facility], [place], [address], 10/26/2024 13:46:11 10/26/19 25 10/25/2024 CBC W/DIF F absolute lymphocytes 2.7 10'3/ uL 1.0-4. 0 Not Available [facility] (Lab) [address] [facility], [place], [address], 10/26/2024 13:46:11 10/26/19 25 10/25/2024 CBC W/DIF F absolute monocytes 0.5 10'3/ uL 0.2-1. 0 Not Available [facility] (Lab) [address] [facility], [place], [address], 10/26/2024 13:46:11 10/26/19 25 10/25/2024 CBC W/DIF F absolute eosinophils 0.0 10'3/ uL 0.0-0. 6 Not Available [facility] (Lab) [address] [facility], [place], [address], 10/26/2024 13:46:11 10/26/19 25 10/25/2024 CBC W/DIF F absolute basophils 0.0 10'3/ uL 0.0-0. 3 Not Available [facility] (Lab) [address] [facility], [place], [address], 10/26/2024 13:46:11 10/26/19 25 10/25/2024 CBC W/DIF F absolute immature granulocytes 0.0 10'3/ uL 0.00-0 .10 Refer ence range s for nonbi nary/ inter sex or unspe cifie d gende r patie nts have not been estab lishe d. Pleas e refer [facility] for range s estab lishe d for cisge nder patie nts and evalu ate in the clini akira gabino xt of the indiv idual patie nt: https ://teri dyer book. nm.or g/gen derx Not Available [facility] (Lab) [address] [facility], [place], [address], 10/26/2024 13:46:11 10/26/19 25 10/25/2024 HIV 1/2 ANTIG EN/AN TIBOD Y, REFLE X CONFI RMATI ON HIV antigen/anti body Nonrea ctive nonrea ctive HIV-1 antig en and HIV-1 /HIV- 2 antib odies were not detec bryan. No labor atory evide nce of HIV infec tion. Not Available [facility] (Lab) [address] [facility], [place], [address], 10/26/2024 13:46:11 10/26/1910/25/2024 HEPAT ITIS C ANTIB MIGUELINA SCREE N, REFLE X TO CONFI RMATI ON hepatitis C antibody Non-re active non-re active Antib odies to HCV Not Detec bryan, does not exclu de the possi bilit y of expos ure to HCV. Not Available [facility] (Lab) [address] [facility], [place], [address], 10/26/2024 13:46:12 10/26/1910/25/2024 HEPAT ITIS B SURFA CE ANTIG EN hepatitis B surface antigen Non-re active non-re active This assay was perfo rmed using [employer] ratio n reage nts and test kits. Value s obtai rickey with other assay metho ds or kits canno t be used inter zuleta eably . Not Available [facility] (Lab) [address] [facility], [place], [address], 10/26/2024 13:46:12 10/26/1910/25/2024 TSH, REFLE X FREE T4 TSH 1.26 uIU/m L 0.30-5 .33 Not Available [facility] (Lab) [address] [facility], [place], [address], 10/26/2024 13:46:13 10/26/1910/25/2024 TYPE/ RH/SC REEN ABO/Rh type O POS Not Available [facility] (Lab) [address] [place], [address], 10/26/2024 13:46:13 10/26/1910/25/2024 TYPE/ RH/SC REEN antibody screen NEG Not Available [facility] (Lab) [address] [facility], [place], [address], 10/26/2024 13:46:13 10/26/19 25 10/25/2024 TYPE/ RH/SC REEN exp date 2024 23:59 Not Available [facility] (Lab) [address] [facility], [place], [address], 10/26/2024 13:46:13 10/26/19 25 10/25/2024 RUBEL LA IGG ANTIB MIGUELINA, QUANT rubella antibodies, IgG Reacti ve reacti ve Not Available [facility] (Lab) [address] [facility], [place], [address], 10/26/2024 13:46:13 10/26/19 25 10/25/2024 RUBEL LA IGG ANTIB MIGUELINA, QUANT rubella antibodies, IgG quant 18.0 IU/mL >=10 Non-r eacti ve (Non- Immun e) <10 IU/mL React haim (Immu ne) > or = 10 IU/mL Not Available [facility] (Lab) [address] [facility], [place], [address], 10/26/2024 13:46:13 10/26/19 25 10/25/2024 RPR SCREE N, REFLE X TITER /CONF IRMAT ION RPR qualitative Nonrea ctive nonrea ctive Not Available [facility] (Lab) [address] [facility], [place], [address], 10/26/2024 13:46:14 10/26/19 25 10/25/2024 HEMOG LOBIN [...] py >8.0% Actio angus zambrano Not Available [facility] (Lab) [address] [facility], [place], [address], 10/26/2024 13:46:14 10/26/19 25 10/25/2024 CT/GC AND TRICH OMONA S VAGIN ARIANA (RRNA ), URINE chlamydia trachomatis, PCR Negati ve negati ve Not Available [facility] (Lab) [address] [facility], [place], [address], 10/26/2024 21:37:02 10/26/19 25 10/25/2024 CT/GC AND TRICH OMONA S VAGIN ARIANA (RRNA ), URINE neisseria gonorrhoeae, PCR Negati ve negati ve Not Available [facility] (Lab) [address] [facility], [place], [address], 10/26/2024 21:37:02 10/26/19 25 10/25/2024 CT/GC AND TRICH OMONA S VAGIN ARIANA (RRNA ), URINE trichomonas vaginalis ribosomal RNA (rrna) Negati ve negati ve Not Available [facility] (Lab) [address] [place], [address], 10/26/2024 21:37:02 10/26/1910/25/2024 CULTU RE: URINE result report SEE RESULT S BELOW Test: Cultu re: Urine Speci men Sourc e: Urine Voide d Speci men Type: Urine Speci men Date: 025 1714 Resul t Date: 2024 Resul t Statu s: Final resul t Abnor mal: No Resul ting Lab: [facility] [address] [facility] [address] Tel: CULTU RE ----- ----- ----- --- No growt h in 1 day (dete ction level of 10,00 0 colon ies / ml.) Not Available [facility] (Lab) [address], [place], [address], 10/26/2024 21:37:02 10/26/19 25 10/25/2024 drug scree n, urine Amphetamines : negati ve Not Available [facility] [address], [place], [address], 10/25/2024 17:35:03 10/26/19 25 10/25/2024 drug scree n, urine Cannabinoids : negati ve Not Available [facility] [address], [place], [address], 10/25/2024 17:35:03 10/26/19 25 10/25/2024 drug scree n, urine Cocaine: negati ve Not Available [facility] [address], [place], [address], 10/25/2024 17:35:03 10/26/19 25 10/25/2024 drug scree n, urine Opiates: negati ve Not Available [facility] [address], [place], [address], 10/25/2024 17:35:03 10/26/19 25 10/25/2024 drug scree n, urine Phenocyclidi ne: negati ve Not Available [facility] [address], [place], [address], 10/25/2024 17:35:03 10/26/19 25 10/25/2024 drug scree n, urine Barbiturates : negati ve Not Available [facility] [address], [place], [address], 10/25/2024 17:35:03 10/26/19 25 10/25/2024 drug scree n, urine Benzodiazepi bridget: negati ve Not Available [facility] [address], [place], [address], 10/25/2024 17:35:03 10/26/19 25 10/25/2024 drug scree n, urine Ethanol: negati ve Not Available [facility] [address], [place], [address], 10/25/2024 17:35:03 10/26/19 25 10/25/2024 drug scree n, urine Hallucinogen s: negati ve Not Available [facility] [address], [place], [address], 10/25/2024 17:35:03 10/26/19 25 10/25/2024 drug scree n, urine Inhalants: negati ve Not Available [facility] [address], [place], [address], 10/25/2024 17:35:03 10/26/19 25 10/25/2024 drug scree n, urine Anabolic Steroids: negati ve Not Available [facility] [address], [place], [address], 10/25/2024 17:35:03 10/26/19 25 10/25/2024 drug scree n, urine Other: negati ve Not Available [facility] [address], [place], [address], 10/25/2024 17:35:03 01/15/20 25 01/14/2025 HEMOG LOBIN (HGB) HGB 9.3 g/dL (based on docume nted legal sex) 11.6-1 5.4 low Not Available [facility] (Lab) [address], [place], [address], 01/15/2025 13:08:39 01/15/20 25 01/14/2025 HEMAT OCRIT (HCT) HCT 28.1 % (based on docume nted legal sex) 34.0-4 5.0 low Not Available [facility] (Lab) [address] [facility], [place], [address], 01/15/2025 13:08:39 01/15/20 25 01/14/2025 GTT - GESTA RADHA L AMBAR N, ACOG OB glucose, 1 hour screen 99 mg/dL 70-135 Not Available [facility] (Lab) [address] [place], [address], 01/15/2025 13:08:40 01/15/20 25 01/14/2025 HIV 1/2 ANTIG EN/AN TIBOD Y, REFLE X CONFI RMATI ON HIV antigen/anti body Nonrea ctive nonrea ctive HIV-1 antig en and HIV-1 /HIV- 2 antib odies were not detec bryan. No labor atory evide nce of HIV infec tion. Not Available [facility] (Lab) [address] [facility], [place], [address], 01/15/2025 13:08:40 01/15/20 25 01/14/2025 RPR SCREE N, REFLE X TITER /CONF IRMAT ION RPR qualitative Nonrea ctive nonrea ctive Not Available [facility] (Lab) [address] [place], [address], 01/15/2025 13:08:40 03/10/20 25 03/10/2025 CULTU RE: [...] [facility] [address] [facility] [address] Tel: CULTU RE ----- ----- ----- --- No Group B strep isola bryan at 2 days (prudence ctive broth vladan ritika t) Not Available [facility] (Lab) [address], [place], [address], 03/13/2025 15:12:11 10/26/19 25 10/25/2024 US, obste tric, limit ed No observ ation record ed. [facility] [address], [place], [address], 10/25/2024 18:50:32 10/28/19 25 10/25/2024 US, obste tric, limit ed No observ ation record ed. [email or web address], [place], [address], 10/30/2024 23:24:32 11/27/19 25 11/26/2024 US, obste tric, 2nd or 3rd trime ster No observ ation record ed. [facility] [address], [place], [address], 11/26/2024 17:49:36 11/27/19 25 11/26/2024 US, obste tric, 2nd or 3rd trime ster No observ ation record ed. [address], [place], [address], 11/26/2024 17:24:36 02/12/20 25 02/11/2025 US, obste tric, follo w-up No observ ation record ed. [email or web address] [facility] [address], [place], [address], 02/11/2025 17:21:09 02/12/20 25 02/11/2025 US, obste tric, follo w-up No observ ation record ed. [email or web address] [address], [place], [address], 02/25/2025 10:51:35 03/10/2003/10/2025 US, obste tric, follo w-up No observ ation record ed. [facility] [address], [place], [address], 03/10/2025 15:18:58 03/10/2003/10/2025 US, obste tric, follo w-up No observ ation record ed. [email or web address] [address], [place], [address], 03/18/2025 11:35:09 Result Notes None recorded. Problems Name Problem SNOMED Code Status Onset Date Resolution Date Notes Provider Name and Address Organization Details Recorded Time [id number] Completed 025 05/05/2025 Christine Preciado [facility] 12:46:49 Problem Notes None recorded. Medical [...] Updated DateTime 03/10/2025 157.48 cm 34 kg/m2 62862.18 g 117/71 mm[Hg] Ricarda Quevedo [facility] 03/10/2025 15:41:53 Social History Question Answer Notes LastModified by Organizat ion Details LastModified Time Tobacco Smoking Status Never Smoker JUANITO livingston [facility] 10/25/2024 16:11:22 Do You Have An Advance Directive? No [email or web address] Information n ot available 10/25/2024 If You Are , What Was Your Level Of Alcohol Consumption Prior To ? None [email or web address] Information not available 10/25/2024 Are You Blind Or Do You Have Difficulty Seeing? No Information n ot available 10/25/2024 What Is Your Level Of Caffeine Consumption? None [email or web address] Information not available 10/25/2024 In The 14 Days Before Symptom Onset, Have You Had Close Contact With A Laboratory-confirm ed COVID-19 While That Case Was Ill? No [email or web address] Information n ot available 10/25/2024 In The 14 Days Before Symptom Onset, Have You Had Close Contact With A Person Who Is Under Investigation For COVID-19 While That Person Was Ill? No [email or web address] Information not available 10/25/2024 Have You Been To An Area Known To Be High Risk For COVID-19? No [email or web address] Information not available 10/25/2024 Are You Deaf Or Do You Have Serious Difficulty Hearing? No [email or web address] Information not available 10/25/2024 What Type Of Diet Are You Following? REGULAR [email or web address] Information n ot available 10/25/2024 What Is The Highest Grade Or Level Of School You Have Completed Or The Highest Degree You Have Received? [id number] Information not available 10/25/2024 Are There Any Guns Present In Your Home? No [email or web address] Information not available 10/25/2024 Do You Use Protection During Sex? No [email or web address] Information not available 01/28/2025 Do You Use Your Seat Belt Or Car Seat Routinely? Yes [email or web address] Information not available 10/25/2024 Are You Sexually Active? Yes [email or web address] Information not available 10/25/2024 Do You Have Smoke And Carbon Monoxide Detectors In Your Home? Yes [email or web address] Information not available 10/25/2024 Do You Use Sunscreen Routinely? Yes [email or web address] Information not available 10/25/2024 Has Tobacco Cessation Counseling Been Provided? No [email or web address] Information not available 10/25/2024 Do You Have Difficulty Walking Or Climbing Stairs? No [email or web address] Information not available 10/25/2024 Sex: Unknown Functional Status Question Answer Note LastModified by Organizat ion Details LastModified Time Do you use any illicit or recreational drugs? No [email or web address] Information not available 10/25/2024 Do you or have you ever used any other forms of tobacco or nicotine? No [email or web address] Information not available 10/25/2024 What is your level of alcohol consumption? None [email or web address] Information not available 10/25/2024 Are you currently employed? Yes [email or web address] Information not available 01/28/2025 Are you able to walk independently without assistance or assistive devices? YESASSIST [email or web address] Information not available 10/25/2024 Are you able to care for yourself independently? Yes [email or web address] Information not available 10/25/2024 Do you have difficulty dressing, bathing, grooming, or toileting? No Information not available 10/25/2024 What is your exercise level? Occasional [email or web address] Information not available 10/25/2024 Mental Status Question Answer Note LastModified by Organization D etails LastModified Time Do you feel stressed (tense, restless, nervous, or anxious, or unable to sleep at night)? [id number] [email or web address] Information not available 01/28/2025 Family History Nothing [...] ICD10 Code Diagnosis IMO Codes Diagnosis Note [id number] CRISTINA PETERSEN MD [facility] [address],[place] [address] 02/11/2025 15:41:07 02/11/2025 16:57:52 Uterine size for dates discrepancy 785403235 O26.843 Z3A.32 [id number] Grace Murcia [facility] [address],[place] [address] 02/11/2025 15:41:30 02/14/2025 10:40:09 Gestation period, 32 weeks 2139603 Z3A.32 [id number] cont pnv [id number] Grace Murcia [facility] [address],[place] [address] 02/25/2025 14:45:15 02/25/2025 15:00:21 Gestation period, 34 weeks 05450549 Z3A.34 [id number] cont pnv [id number] Anoop Johnson MD [facility] [address],[place] [address] 03/10/2025 14:40:38 03/10/2025 15:25:33 Uterine size for dates discrepancy 130118008 O26.843 O09.30 Z3A.36 [id number] Anoop Johnson MD [facility] [address],[place] [address] 03/10/2025 14:43:23 03/10/2025 16:33:12 care status 100813862 Z34.83 [id number] Health Concerns Section Related Observation LastModified by Organization Detai ls LastModified Time None Recorded Concern Status LastModified by Organization Details LastModified Time None Recorded Payers Encounter Date Sequence Insurance Name Policy Number Policy Hoang Covered Member ID Hoang Member ID Guarantor Name 03/10/2025 1 NUNEZ [facility] (MEDICAID HMO) [id number] Con Barraza [id number] Con Barraza Notes Date Note Type Note Provider Name and Address Organization Details Recorded Time 03/10/2025 text/html Generic HPI TemplateReported by Patient Anoop Johnson MD [address], [place], [address], [place] [facility] 03/10/2025 16:29:53 OBGyn Episode Ob Episode Information Episode Created Date Number of Fetuses Patient Bloodtype Patient rh Status Prepregnancy Weight lbs Domestic Partner Domestic Partner Phone Father Name Stamp Clerk Status 10/26/19 25 1 O Positive Ricky CLOSED Fetus Data First Name Last Name Admitted to NICU Weight (g) Sex Living Outcome Pediatric Complications Fetus ID Race Codes Race Delivery Type 3373.59 05 F true Full Term [id number] Vaginal Delivery Cristobal Calculation Initial Cristobal Date [...] Weight in lbs Pre/Post Dialysis Refused Weight 164.128106447380 BP Diastolic BP Location Tested BP Systolic BP Type 62 L arm 90 sitting Fetus Heart Rate Present A Present Fetus Movement A Yes Comments Patient presents to [facility] care. Hx of uncomplicated , EIL. [...] Weight in lbs Pre/Post Dialysis Refused Weight 167.188993728179 BP Diastolic BP Location Tested BP Systolic [...] Weight in lbs Pre/Post Dialysis Refused Weight 175.473024915589 BP Diastolic BP Location Tested BP Systolic [...] Weight in lbs Pre/Post Dialysis Refused Weight 178.437240022500 BP Diastolic BP Location Tested BP Systolic [...] Weight in lbs Pre/Post Dialysis Refused Weight 180.473222155516 BP Diastolic BP Location Tested BP Systolic [...] Weight in lbs Pre/Post Dialysis Refused Weight 178.519159175892 BP Diastolic BP Location Tested BP Systolic [...] Weight in lbs Pre/Post Dialysis Refused Weight 183.644448319199 BP Diastolic BP Location Tested BP Systolic BP Type 63 L arm 93 sitting Fetus Heart Rate Present Fetus Movement A Yes Comments plan f/u growth at next [facility] by cnm [id number], precautions and education, not planning on vaccines [...] Weight in lbs Pre/Post Dialysis Refused Weight [id number] BP Diastolic BP Location Tested BP Systolic [...] Weight in lbs Pre/Post Dialysis Refused Weight [id number] BP Diastolic BP Location Tested BP Systolic [...] Type Weight in lbs Pre/Post Dialysis Refused [id number] BP Diastolic BP Location Tested BP Systolic [...] Weight in lbs Pre/Post Dialysis Refused Weight 192.020532072302 BP Diastolic BP Location Tested BP Systolic [...]
--- NOTE | 2025-05-13 12:39 | ED_ITS ---
HPI - URI/Sore Throat General Chief Complaint: Upper Respiratory Infection Stated Complaint: uri Time Seen by Provider: 05/13/25 12:23 Source: patient Mode of arrival: ambulatory Limitations: no limitations History of Present Illness HPI Narrative: This is a 24-year-old female with no significant past medical history presents to the ED for flu-like symptoms. Patient states that for the past 2 days, she has had a subjective fever home with a sore throat. She states that the fever broke today but continues to have sore throat. She tried teas and therapy you with minimal relief. No known sick contacts prior to this but states that her daughter now has similar symptoms. Related Data Home Medications ?Medication ?Instructions ?Recorded ?Confirmed ?Last Taken ?Type No Home Medications 04/10/25 04/10/25 U nknown History Allergies Allergy/AdvReac Type Severity Reaction Status Date / Time No Known Allergies Allergy Verified 05/13/25 10:25 Review of Systems Review of Systems: All systems reviewed & are unremarkable except as noted in HPI and below PMFSH Social History Social History Smoking status: Never smoker Lack of Transportation: No Lack of Food: Never True Current Housing: I Do Not Have Housing Concerned About Future Housing: No Difficulty Paying Gas/Electric Bills: No Difficulty Paying for Meds: No Currently Unemployed: No Education: High School Diploma/GED Difficulty w/ Childcare or Family Care: No Spiritual care concerns: No Exam Narrative: APPEARANCE: No acute distress, nontoxic, resting in bed HEENT: Normocephalic, atraumatic, mild oropharyngeal erythema without exudates RESPIRATORY: No respiratory distress CARDIOVASCULAR: Appears well perfused ABDOMINAL: Nondistended MUSCULOSKELETAl: Moves all extremities. No obvious deformities NEURO: Awake and alert. SKIN:: Warm, dry. No rashes lesions or abrasions PSYCHIATRIC: Normal affect/mood, Course Vital Signs Vital signs: Vital Signs Temperature 99.1 F 05/13/25 12:22 Pulse Rate 107 H 05/13/25 12:22 Respiratory Rate 20 05/13/25 12:22 Blood Pressure 121/64 05/13/25 12:22 Pulse Oximetry 98 05/13/25 12:22 Temperature 99.1 F 05/13/25 12:22 Pulse Rate 107 H 05/13/25 12:22 Respiratory Rate 20 05/13/25 12:22 Blood Pressure 121/64 05/13/25 12:22 Pulse Oximetry 98 05/13/25 12:23 Oxygen Delivery Room Air 05/13/25 12:23 MDM MDM Narrative Medical decision making narrative: 24-year-old female Presenting for flu-like symptoms. On initial evaluation patient was in no acute distress afebrile, hemodynamic stable. Differentials include but are not limited to: Viral syndrome, strep pharyngitis, viral pharyngitis, sinusitis, laryngitis, [employer]EL[employer], RPA Notable exam findings: Mild posterior oropharyngeal erythema without exudates my heart and lungs clear I personally reviewed the patient's lab result. Notable lab findings: Influenza a positive Discussed treatment options with patient including Tamiflu and she does wish to take the Tamiflu. She was educated on Tylenol and ibuprofen use. She was advised follow-up with her PCP next week for re-evaluation. Patient was agreeable to this plan. Given strict return precautions. Differential Diagnosis Differential Diagnosis: Viral syndrome, strep pharyngitis, viral pharyngitis, sinusitis, laryngitis, [employer] DEVELOPER, RPA Lab Data Labs: Lab Results 05/13/25 Range/Units 12:22 Influenza A (RT-PCR) Positive A (Negative) Influenza B (RT-PCR) Negative (Negative) RSV (RT-PCR) Negative (Negative) SARS-CoV-2 RNA (RT-PCR) Negative (Negative) Group A Strep (PCR) Not detected (Negative) Discharge Plan Discharge Clinical Impression: Influenza Patient Disposition: Home Condition: Stable Instructions: Antibiotic Form, Influenza (ED) Additional Instructions: You tested positive for the flu. You were given a prescription for Tamiflu, take this as prescribed. Follow up with your pcp in the next week for reevaluation if needed. Return to the ED for new or worsening symptoms. For pain, discomfort or temperature greater than or equal to 100.8 ?F please alternate the following 2 medications as needed. First medication- acetaminophen/Tylenol- 1000mg every 6-8 hours as needed for above indications. Second medication- ibuprofen/Motrin-600mg every 6-8 hours as needed for above indication. Patient Language: Nepalese Prescriptions: No Action No Home Medications Follow-up/Referrals: UNKNOWN,DOCTOR [Primary Care Provider]
[2025-05-13 12:53] LABS: Strep Group A RT-PCR NOT DETECTED (Negative)
[2025-05-13 13:05] LABS: Influenza A QL RT-PCR Positive (Negative); Influenza B QL RT-PCR Negative (Negative); RSV RNA, RT-PCR Negative (Negative); SARS-CoV-2 RNA PCR Negative (Negative)
== END 2025-05-13 13:29 | disposition home or self-care (01) ==
PROVIDERS: Emergency Medicine; Emergency Provider Student in an Organized Health Care Education/Training Program
DX: J11.1 Influenza due to unidentified influenza virus with other respiratory manifestations (principal); Z20.822 Contact with and (suspected) exposure to COVID-19
CPT/HCPCS: 87637; 87651; 99283